=== PATIENT | female | born 1940 | race Caucasian/White ===

== ENCOUNTER 2019-05-10 15:53 | Observation (INO) | payer MEDICARE, OTHER ==
--- NOTE | 2019-05-10 16:48 | XR ---
EXAMINATION TYPE: XR chest 2V DATE OF EXAM: 05/10/2019 COMPARISON: NONE HISTORY: Short of breath TECHNIQUE: 2 views FINDINGS: There is some linear density in the right midlung. The other lung diggs are fairly clear. Heart size is normal. There is no heart failure. There is no pleural effusion. Bony thorax is intact. IMPRESSION: Minimal scarring or subsegmental atelectasis right midlung. Normal heart.
[2019-05-10 17:11] LABS: Basophils # (A) 0.1 k/uL (0-0.2); Basophils % (A) 1 %; Eosinophils # (A) 0.1 k/uL (0-0.7); Eosinophils % (A) 1 %; HCT 50.5 % (34.0-46.0); Lymphocytes # (A) 2.2 k/uL (1.0-4.8); Lymphocytes % (A) 20 %; MCH 32.8 pg (25.0-35.0); MCHC 33.7 g/dL (31.0-37.0); MCV 97.2 fL (80.0-100.0); Mean Platelet Volume 7.7; Monocytes # (A) 0.6 k/uL (0-1.0); Monocytes % (A) 6 %; Neutrophils # (A) 7.6 k/uL (1.3-7.7); Neutrophils % (A) 71 %; Platelet Count 398 k/uL (150-450); RDW 12.5 % (11.5-15.5); WBC 10.8 k/uL (3.8-10.6)
[2019-05-10] MEDS ORDERED: IPRATROPIUM-ALBUTEROL 3 ML NEB INHALATION STA ×2 (17:13→19:07)
[2019-05-10] MEDS ORDERED: methylPREDNISolone SOD SUCCI 125 MG/2 ML VIAL IV STA (17:13)
[2019-05-10 17:21] LABS: INR 0.9 (<1.2); Partial Thromboplastin Time 22.8 sec (22.0-30.0); Prothrombin Time 9.7 sec (9.0-12.0)
[2019-05-10 17:22] LABS: ALT 18 U/L (4-34); AST 25 U/L (14-36); African American GFR (CKD) >90 (>60 ml/min/1.73 sqM); Albumin 4.3 g/dL (3.5-5.0); Alkaline Phosphatase 122 U/L (38-126); Anion Gap 10 mmol/L; Blood Urea Nitrogen 20 mg/dL (7-17); Calcium 10.6 mg/dL (8.4-10.2); Carbon Dioxide 21 mmol/L (22-30); Chloride 108 mmol/L (98-107); Creatine Kinase 40 U/L (30-135); Glucose 182 mg/dL (74-99); Magnesium 1.8 mg/dL (1.6-2.3); Non-African American GFR(CKD) >90 (>60 ml/min/1.73 sqM); Potassium 4.4 mmol/L (3.5-5.1); Sodium 139 mmol/L (137-145); Total Bilirubin 0.7 mg/dL (0.2-1.3); Total Protein 7.1 g/dL (6.3-8.2)
--- NOTE | 2019-05-10 19:15 | ED ---
Pediatric SOB HPI - General Chief Complaint: Shortness of Breath Stated Complaint: SAMANTA Time Seen by Provider: 05/10/19 16:25 Source: patient, family, RN notes reviewed Mode of arrival: ambulatory Limitations: no limitations - History of Present Illness Initial Comments: This is a 70-year-old female who presents with complaints of shortness of breath For some time she states that over last day or so she says is gotten worse she has exertional dyspnea no fevers chills nausea vomiting sweats no chest pain no palpitations reported. She has had some night sweats and when she does cough he is awake alert phlegm no other modifying factors at this time other than she did state that she believes she has some, mass or lump in her right breast. MD Complaint: difficulty breathing - Related Data Home Medications Medication Instructions Recorded Confirmed Budesonide-Formot 160-4.5 Mcg 2 puff INHALATION BID 05/02/14 05/04/14 [Symbicort 160-4.5 Mcg Inhaler] Lisinopril [Prinivil] 20 mg PO DAILY 05/02/14 05/04/14 Metoclopramide [Reglan] 10 mg PO QID 05/02/14 05/04/14 Omeprazole [PriLOSEC] 20 mg PO DAILY 05/02/14 05/04/14 Simvastatin [Zocor] 20 mg PO HS 05/02/14 05/04/14 Allergies Allergy/AdvReac Type Severity Reaction Status Date / Time No Known Allergies Allergy Verified 05/02/14 11:49 Review of Systems ROS Statement: Those systems with pertinent positive or pertinent negative responses have been documented in the HPI. ROS Other: All systems not noted in ROS Statement are negative. Past Medical History Past Medical History: COPD, Eye Disorder, GERD/Reflux, Hyperlipidemia, Hypertension Additional Past Medical History / Comment(s): hx of lt eye macular hole. EMPHYSEMA History of Any Multi-Drug Resistant Organisms: None Reported Past Surgical History: Appendectomy, Back Surgery, Cholecystectomy, Tonsillectomy Additional Past Surgical History / Comment(s): COLONOSCOPY Past Anesthesia/Blood Transfusion Reactions: No Reported Reaction Past Psychological History: No Psychological Hx Reported Smoking Status: Former smoker Past Alcohol Use History: None Reported Past Drug Use History: None Reported - Past Family History Father Family Medical History: Cancer Mother Family Medical History: Cancer Sister(s) Family Medical History: Cancer General Exam - General Exam Comments Initial Comments: Pezzer well-developed awake alert oriented 3 female Limitations: no limitations General appearance: alert, anxious Head exam: Present: atraumatic, normocephalic, normal inspection Eye exam: Present: normal appearance, PERRL, EOMI. Absent: scleral icterus, conjunctival injection, periorbital swelling ENT exam: Present: mucous membranes dry Neck exam: Present: normal inspection, full ROM, other (no stridor JVD or bruits). Absent: tenderness, meningismus, lymphadenopathy Respiratory exam: Present: normal lung sounds bilaterally, other (examination of the right breast reveals an approximately 2.5 x 2.5 cm mass in the right mid and upper outer quadrant it does seem discharges below the area left and tender). Absent: respiratory distress, wheezes, rales, rhonchi, stridor Cardiovascular Exam: Present: normal rhythm, tachycardia, normal heart sounds. Absent: systolic murmur, diastolic murmur, rubs, gallop, clicks GI/Abdominal exam: Present: soft, normal bowel sounds. Absent: distended, tenderness, guarding, rebound, rigid Extremities exam: Present: full ROM, normal capillary refill, other (some stasis changes noted is edema). Absent: tenderness, pedal edema, joint swelling, calf tenderness Back exam: Present: normal inspection Neurological exam: Present: alert, oriented X3, CN II-XII intact Psychiatric exam: Present: normal affect, normal mood Skin exam: Present: warm, dry, intact, normal color. Absent: rash Course Vital Signs 05/10/19 05/10/19 05/10/19 16:04 16:59 17:57 Temperature 97.8 F Pulse Rate 114 H 101 H Respiratory 22 24 Rate Blood Pressure 176/102 O2 Sat by Pulse 97 Oximetry 05/10/19 05/10/19 05/10/19 18:05 18:06 19:36 Temperature Pulse Rate 101 H 105 H 103 H Respiratory 22 Rate Blood Pressure O2 Sat by Pulse 93 L Oximetry 05/10/19 05/10/19 19:45 19:46 Temperature Pulse Rate 104 H 98 Respiratory 22 Rate Blood Pressure 146/90 O2 Sat by Pulse 98 Oximetry - Reevaluation(s) Reevaluation #1: 05/10/19 20:48 I did reevaluate patient several occasions she is getting minimal improvement with her breathing she still remains tachycardic I did discuss case the family members who have requested Dr. Lehman as the admitting physician I did discuss this with Dr. Lehman he has agreed. patient will be started on antibiotics continue with [facility] steroids consultation by Dr. Ramirez. Dr. Lehman will evaluate the concern of the breast mass. Medical Decision Making - Lab Data Result diagrams: 05/10/19 16:50 05/10/19 16:50 Lab Results 05/10/19 05/10/19 05/10/19 Range/Units 16:50 16:50 16:50 WBC 10.8 H (3.8-10.6) k/uL RBC 5.20 (3.80-5.40) m/uL Hgb 17.0 H (11.4-16.0) gm/dL Hct 50.5 H (34.0-46.0) % MCV 97.2 (80.0-100.0) fL MCH 32.8 (25.0-35.0) pg MCHC 33.7 (31.0-37.0) g/dL RDW 12.5 (11.5-15.5) % Plt Count 398 (150-450) k/uL Neutrophils % 71 % Lymphocytes % 20 % Monocytes % 6 % Eosinophils % 1 % Basophils % 1 % Neutrophils # 7.6 (1.3-7.7) k/uL Lymphocytes # 2.2 (1.0-4.8) k/uL Monocytes # 0.6 (0-1.0) k/uL Eosinophils # 0.1 (0-0.7) k/uL Basophils # 0.1 (0-0.2) k/uL PT (9.0-12.0) sec INR (<1.2) APTT (22.0-30.0) sec Sodium 139 (137-145) mmol/L Potassium 4.4 (3.5-5.1) mmol/L Chloride 108 H (98-107) mmol/L Carbon Dioxide 21 L (22-30) mmol/L Anion Gap 10 mmol/L BUN 20 H (7-17) mg/dL Creatinine 0.54 (0.52-1.04) mg/dL Est GFR (CKD-EPI)AfAm >90 (>60 ml/min/1.73 sqM) Est GFR (CKD-EPI)NonAf >90 (>60 ml/min/1.73 sqM) Glucose 182 H (74-99) mg/dL Calcium 10.6 H (8.4-10.2) mg/dL Magnesium 1.8 (1.6-2.3) mg/dL Total Bilirubin 0.7 (0.2-1.3) mg/dL AST 25 (14-36) U/L ALT 18 (4-34) U/L Alkaline Phosphatase 122 (38-126) U/L Creatine Kinase 40 (30-135) U/L Troponin I (0.000-0.034) ng/mL NT-Pro-B Natriuret Pep 120 pg/mL Total Protein 7.1 (6.3-8.2) g/dL Albumin 4.3 (3.5-5.0) g/dL 05/10/19 05/10/19 Range/Units 16:50 16:50 WBC (3.8-10.6) k/uL RBC (3.80-5.40) m/uL Hgb (11.4-16.0) gm/dL Hct (34.0-46.0) % MCV (80.0-100.0) fL MCH (25.0-35.0) pg MCHC (31.0-37.0) g/dL RDW (11.5-15.5) % Plt Count (150-450) k/uL Neutrophils % % Lymphocytes % % Monocytes % % Eosinophils % % Basophils % % Neutrophils # (1.3-7.7) k/uL Lymphocytes # (1.0-4.8) k/uL Monocytes # (0-1.0) k/uL Eosinophils # (0-0.7) k/uL Basophils # (0-0.2) k/uL PT 9.7 (9.0-12.0) sec INR 0.9 (<1.2) APTT 22.8 (22.0-30.0) sec Sodium (137-145) mmol/L Potassium (3.5-5.1) mmol/L Chloride (98-107) mmol/L Carbon Dioxide (22-30) mmol/L Anion Gap mmol/L BUN (7-17) mg/dL Creatinine (0.52-1.04) mg/dL Est GFR (CKD-EPI)AfAm (>60 ml/min/1.73 sqM) Est GFR (CKD-EPI)NonAf (>60 ml/min/1.73 sqM) Glucose (74-99) mg/dL Calcium (8.4-10.2) mg/dL Magnesium (1.6-2.3) mg/dL Total Bilirubin (0.2-1.3) mg/dL AST (14-36) U/L ALT (4-34) U/L Alkaline Phosphatase (38-126) U/L Creatine Kinase (30-135) U/L Troponin I <0.012 (0.000-0.034) ng/mL NT-Pro-B Natriuret Pep pg/mL Total Protein (6.3-8.2) g/dL Albumin (3.5-5.0) g/dL - EKG Data -: EKG Interpreted by Tx EKG shows normal: sinus rhythm (Sinus tachycardia of 104. Interval 168 QRS duration 106 QT since QTC 366/481 puff a left atrial enlargement left anterior fascicular block LVH noted) Disposition Clinical Impression: Acute exacerbation of chronic obstructive pulmonary disease, Acute respiratory distress syndrome in adult, Dehydration, Breast mass, right Disposition: ADMITTED IP TO THIS HOSP Condition: Fair Referrals: Rober Howard MD [Primary Care Provider] - 1-2 days
[2019-05-10] MEDS ORDERED: SODIUM CHLORIDE 0.9% 500 ML 500 ML IV STA (20:24)
[2019-05-10] MEDS ORDERED: SODIUM CHLORIDE 0.9% 1,000 ML IV STA (20:24)
[2019-05-10] MEDS ORDERED: cefTRIAXone IN SWFI 1,000 MG/10 ML SYRINGE IVP STA (20:51)
[2019-05-10] MEDS: SYMBICORT 160-4.5 MCG INHALER INHALATION SCH (22:09)
[2019-05-10] MEDS: methylPREDNISolone SOD SUCCI 125 MG/2 ML VIAL IV SCH (23:31)
[2019-05-10] MEDS: ZOLPIDEM 5 MG TAB PO SCH (23:32)
[2019-05-10] MEDS: ATORVASTATIN 10 MG TAB PO SCH (23:32)
[2019-05-10] MEDS: METOCLOPRAMIDE 10 MG TAB PO SCH (23:45)
[2019-05-11] MEDS: IPRATROPIUM-ALBUTEROL 3 ML NEB INHALATION SCH ×7 (01:21→23:59)
[2019-05-11] MEDS: methylPREDNISolone SOD SUCCI 125 MG/2 ML VIAL IV SCH ×2 (06:04→12:21)
[2019-05-11 06:46] LABS: Glucose,Whole Blood 206 mg/dL (75-99)
[2019-05-11] MEDS: SYMBICORT 160-4.5 MCG INHALER INHALATION SCH ×2 (07:04→21:00)
[2019-05-11] MEDS: METOCLOPRAMIDE 10 MG TAB PO SCH ×4 (09:04→22:00)
[2019-05-11] MEDS: AZITHROMYCIN 500 MG TAB PO SCH (09:04)
[2019-05-11] MEDS: PANTOPRAZOLE 40 MG TABLET PO SCH (09:04)
[2019-05-11] MEDS: LISINOPRIL 20 MG TAB PO SCH (09:04)
[2019-05-11 11:44] LABS: Glucose,Whole Blood 236 mg/dL (75-99)
[2019-05-11] MEDS: INSULIN ASPART (NovoLOG) 100 UNIT/ML VIAL SQ SCH ×3 (12:22→22:01)
--- NOTE | 2019-05-11 13:23 | P.CNPUL ---
History of Present Illness Consult date: 05/11/19 Reason for consult: COPD History of present illness: 88-year-old female patient, [id number] smoking history, having chronic exertional dyspnea, presented with worsening cough chest congestion and worsening shortness of breath. She came into the hospital and a chest x-ray showed no acute abnormalities and was consistent with chronic bronchitis/COPD. She was diagnosed having an acute COPD exacerbation and she was admitted to the observation unit. She is feeling better. No angina. No palpitation. No hemoptysis. No pleurisy. No swelling in the lower extremities.. She was started on Advair on outpatient basis and she has been utilizing Ventolin rescue inhaler on an as-needed basis. No recurrent bronchitis. No recurrent pneumo nias. No fecal exacerbation of her COPD. She was smoking cigarettes up to around a month ago when she quit. She is already feeling better as the patient was given a combination of bronchodilators and steroids. Currently on room air, she is able to maintain a pulse ox above 90%he had BNP is not elevated. Troponin is negative. On examination she has a problem and the large right breast mass that needs to be further investigated due to high suspicion of breast cancer based on examination. She has not had any recent mammograms. Review of Systems Constitutional: Reports weakness Eyes: bilateral blurred vision, bilateral decreased vision, denies bulging eye Ears: deny: decreased hearing, ear discharge, earache, tinnitus Ears, nose, mouth and throat: Denies headache, Denies sore throat Breasts: right: change in shape, masses Cardiovascular: Reports decreased exercise tolerance, Reports dyspnea on exertion, Reports shortness of breath Respiratory: Reports cough, Reports dyspnea, Reports wheezing Gastrointestinal: Reports as per HPI Genitourinary: Reports as per HPI Menstruation: Reports as per HPI Musculoskeletal: absent: ankle pain, ankle stiffness, ankle swelling Psychiatric: Reports as per HPI Endocrine: Reports as per HPI Hematologic/Lymphatic: Reports as per HPI Allergic/Immunologic: Reports as per HPI Past Medical History Past Medical History: COPD, Eye Disorder, GERD/Reflux, Hyperlipidemia, Hypertension Additional Past Medical History / Comment(s): COPD, hx of lt eye macular hole. History of Any Multi-Drug Resistant Organisms: None Reported Past Surgical History: Appendectomy, Back Surgery, Cholecystectomy, Tonsillectomy Additional Past Surgical History / Comment(s): COLONOSCOPY Past Anesthesia/Blood Transfusion Reactions: No Reported Reaction Smoking Status: Former smoker (1 PPD for 60 years and she quit 1 month) - Past Family History Father Family Medical History: Cancer (father had colon cancer and mother and sister had lung cancer) Mother Family Medical History: Cancer Sister(s) Family Medical History: Cancer Medications and Allergies Home Medications Medication Instructions Recorded Confirmed Type Lisinopril [Prinivil] 20 mg PO DAILY 05/02/14 05/10/19 History Metoclopramide [Reglan] 10 mg PO QID 05/02/14 05/10/19 History Albuterol Inhaler [Ventolin Hfa 1 - 2 puff INHALATION RT-Q6H PRN 05/10/19 05/10/19 History Inhaler] Atorvastatin [Lipitor] 20 mg PO HS 05/10/19 05/10/19 History Fluticasone/Salmeterol [Advair 1 puff INHALATION RT-BID 05/10/19 05/10/19 History 250-50 Diskus] metFORMIN HCL [Glucophage] 500 mg PO BID 05/10/19 05/10/19 History Allergies Allergy/AdvReac Type Severity Reaction Status Date / Time No Known Allergies Allergy Verified 05/10/19 22:44 Physical Exam Vitals: Vital Signs Temp Pulse Pulse Resp BP BP Pulse Ox 05/11/19 11:55 104 H 05/11/19 11:44 100 05/11/19 07:17 100 05/11/19 07:05 97.6 F 101 H 18 180/92 93 L 05/11/19 07:04 94 05/11/19 01:30 102 H 05/11/19 01:22 102 H 05/10/19 22:56 98.3 F 102 H 18 131/76 95 05/10/19 21:50 97.9 F 110 H 22 125/82 95 05/10/19 21:00 114 H 22 94 L 05/10/19 19:46 98 05/10/19 19:45 104 H 22 146/90 98 05/10/19 19:36 103 H 05/10/19 18:06 105 H 22 93 L 05/10/19 18:05 101 H 05/10/19 17:57 101 H 05/10/19 16:59 24 05/10/19 16:04 97.8 F 114 H 22 176/102 97 Intake and Output 05/10/19 05/11/19 05/11/19 22:59 06:59 14:59 Intake Total 500 360 Balance 500 360 Intake: Amount of Fluid Infused ( 500 ml) Oral 360 Other: Voiding Method Toilet Toilet # Voids 1 1 Weight 74.162 kg The patient appeared well nourished and normally developed. Vital signs as documented. Head exam is unremarkable. No scleral icterus or corneal arcus noted. Neck is without jugular venous distension, thyromegaly, or carotid bruits. Carotid upstrokes are brisk bilaterally. Lungs are diminished and there is improvement in the air entry bilaterally with few scattered expiratory wheezes upon forceful expiratory maneuvers. The patient also has a large firm mass in the right breast in the center around the nipple area which is quite firm and this seem to be further investigated.Cardiac exam reveals the PMI to be normally sized and situated. Rhythm is regular. First and second heart sounds normal. No murmurs, rubs or gallops. Abdominal exam reveals normal bowel sounds, no masses, no organomegaly and no aortic enlargement. Extremities are nonedematous and both femoral and pedal pulses are normal. Results - Laboratory Findings CBC and BMP: 05/10/19 16:50 05/10/19 16:50 PT/INR, D-dimer PT 9.7 sec (9.0-12.0) 05/10/19 16:50 INR 0.9 (<1.2) 05/10/19 16:50 Abnormal lab findings: Abnormal Labs 05/10/19 05/10/19 05/11/19 16:50 16:50 06:44 WBC 10.8 H Hgb 17.0 H Hct 50.5 H Chloride 108 H Carbon Dioxide 21 L BUN 20 H Glucose 182 H POC Glucose (mg/dL) 206 H Calcium 10.6 H 05/11/19 11:41 WBC Hgb Hct Chloride Carbon Dioxide BUN Glucose POC Glucose (mg/dL) 236 H Calcium - Diagnostic Findings Chest x-ray: image reviewed Assessment and Plan Plan: 1 2 COPD exacerbation/acute bronchitis, improving. 2 shortness of breath, secondary to above, improving 3 Chronic smoker quit approximately a month ago and the patient has 60+-pack-year smoking history 4 breast mass currently under investigation, consider breast cancer 5 diabetes mellitus 6 hypertension Plan Switch this patient a prednisone burst taper. Continue Advair and outpatient basis with the possibility of switching this patient to a long-acting anticholinergic agent. Continue Ventolin rescue inhaler. Assess for home O2 needs. Smoking cessation counseling was done. Dr. Joycelyn Cain regarding the Breast Mass. We'll Continue to Follow and She Will Need an Outpatient Follow- Up regarding her COPD including a full pulmonary function test. Chest x-ray was reviewed. We'll continue to follow.
[2019-05-11] MEDS: predniSONE 20 MG TAB PO SCH (15:49)
[2019-05-11 16:42] LABS: Glucose,Whole Blood 198 mg/dL (75-99)
--- NOTE | 2019-05-11 17:03 | P.GSHP ---
History of Present Illness H&P Date: 05/11/19 Chief Complaint: mass right breast patient is a 78-year-old white female seen in consultation for Dr. Lehman regarding a right breast mass. The patient states that she has had the mass for several months and noticed that her nipple was becoming affected. The patient presented to the emergency room secondary to shortness of breath on related to the breast mass but wished the area to be evaluated when she was here. She has not had a mammogram for at least 5 years. Family history: Maternal grandmother: Questionable breast cancer Niece: Breast cancer Father: Colon cancer Mother: Lung cancer Sister: Lymphoma which spread to her lungs Hormonal history: Menarche: 13 , breast-fed negative First live at 22 Minute the process: Surgical at 34 Preoperative control pills: 2 years Hormones: His estrogen shots for about 2 years Past surgical history: cholecystectomy Tonsillectomy Appendectomy Back surgery Past medical history: Diabetes Hypertension COPD Breast Mass. Skin changes lower legs/scales follows with dermatology Social history: Smoke: Stopped 1 month ago used to smoke 1 pack per day for 40 years Alcohol: Negative Drugs: Negative Review of systems: Constitutional: Night sweats HEENT: Macular hole Lungs: COPD Heart: Hypertension GI: Negative : Bladder leakage Musculoskeletal: Arthritis Neurologic: Decreased strength in lower extremities Integument: Skin scales Psychiatric: Depression Hematologic: Negative ALLERGIES: Sinus infections - Constitutional Constitutional: Denies chills, Denies fever - EENT Comment: macular hole - Breasts Comment: right breast mass Breasts: bilateral: as per HPI - Cardiovascular Cardiovascular: Reports high blood pressure, Denies chest pain, Denies shortness of breath - Respiratory Comment: COPD - Gastrointestinal Gastrointestinal: Denies abdominal pain, Denies diarrhea, Denies nausea, Denies vomiting - Genitourinary (Female) Comment: BLADDER LEAKAGE - Menstruation Menstruation: Reports postmenopausal - Musculoskeletal Comment: arthritis - Integumentary Comment: scaling skin changes lower extremities - Neurological Neurological: Reports weakness - Psychiatric Psychiatric: Reports depression - Endocrine Endocrine: Reports as per HPI - Hematologic/Lymphatic Hematologic/Lymphatic: Reports as per HPI - Allergic/Immunologic Allergic/Immunologic: Reports as per HPI Past Medical History Past Medical History: COPD, Eye Disorder, GERD/Reflux, Hyperlipidemia, Hypertension Additional Past Medical History / Comment(s): COPD, hx of lt eye macular hole. History of Any Multi-Drug Resistant Organisms: None Reported Past Surgical History: Appendectomy, Back Surgery, Cholecystectomy, Tonsillectomy Additional Past Surgical History / Comment(s): COLONOSCOPY Past Anesthesia/Blood Transfusion Reactions: No Reported Reaction Smoking Status: Former smoker (1 PPD for 60 years and she quit 1 month) - Past Family History Father Family Medical History: Cancer (father had colon cancer and mother and sister had lung cancer) Mother Family Medical History: Cancer Sister(s) Family Medical History: Cancer Medications and Allergies Home Medications Medication Instructions Recorded Confirmed Type Lisinopril [Prinivil] 20 mg PO DAILY 05/02/14 05/10/19 History Metoclopramide [Reglan] 10 mg PO QID 05/02/14 05/10/19 History Albuterol Inhaler [Ventolin Hfa 1 - 2 puff INHALATION RT-Q6H PRN 05/10/19 05/10/19 History Inhaler] Atorvastatin [Lipitor] 20 mg PO HS 05/10/19 05/10/19 History Fluticasone/Salmeterol [Advair 1 puff INHALATION RT-BID 05/10/19 05/10/19 History 250-50 Diskus] metFORMIN HCL [Glucophage] 500 mg PO BID 05/10/19 05/10/19 History Allergies Allergy/AdvReac Type Severity Reaction Status Date / Time No Known Allergies Allergy Verified 05/10/19 22:44 Surgical - Exam Vital Signs Temp Pulse Resp BP Pulse Ox 97.8 F 114 H 22 176/102 97 05/10/19 16:04 05/10/19 16:04 05/10/19 16:04 05/10/19 16:04 05/10/19 16:04 BMI 26.4 - General no distress - Eyes normal ocular movement - ENT normal pinna, normal nares - Neck trachea midline, no lymphadectomy, no venous distension - Respiratory normal expansion, normal respiratory effort, clear to auscultation - Cardiovascular Rhythm: regular Heart Sounds: normal: S1, S2 - Abdomen Abdomen: soft, non tender, bowel sounds, no guarding, no rigid, no rebound - Integumentary skin scales lower extremities - Neurologic no disoriented, no combative - Musculoskeletal normal gait - Psychiatric oriented to time, oriented to person, oriented to place, speech is normal, memory intact breast examination Right breast: Multi-positional exam large mass behind the nipple areolar complex approximately 10 x 12 cm in size with protuberance at the nipple areolar site The right axilla: No adenopathy of concern left breast: Multi-positional exam fibrocystic changes dense tissue no discrete dominant mass Left axilla: No adenopathy of concern Results - Labs 05/10/19 16:50 05/10/19 16:50 Abnormal Lab Results - Last 24 Hours (Table) 05/10/19 05/10/19 05/11/19 Range/Units 16:50 16:50 06:44 WBC 10.8 H (3.8-10.6) k/uL Hgb 17.0 H (11.4-16.0) gm/dL Hct 50.5 H (34.0-46.0) % Chloride 108 H (98-107) mmol/L Carbon Dioxide 21 L (22-30) mmol/L BUN 20 H (7-17) mg/dL Glucose 182 H (74-99) mg/dL POC Glucose (mg/dL) 206 H (75-99) mg/dL Calcium 10.6 H (8.4-10.2) mg/dL 05/11/19 05/11/19 Range/Units 11:41 16:37 WBC (3.8-10.6) k/uL Hgb (11.4-16.0) gm/dL Hct (34.0-46.0) % Chloride (98-107) mmol/L Carbon Dioxide (22-30) mmol/L BUN (7-17) mg/dL Glucose (74-99) mg/dL POC Glucose (mg/dL) 236 H 198 H (75-99) mg/dL Calcium (8.4-10.2) mg/dL Diabetes panel 05/10/19 Range/Units 16:50 Sodium 139 (137-145) mmol/L Potassium 4.4 (3.5-5.1) mmol/L Chloride 108 H (98-107) mmol/L Carbon Dioxide 21 L (22-30) mmol/L BUN 20 H (7-17) mg/dL Creatinine 0.54 (0.52-1.04) mg/dL Glucose 182 H (74-99) mg/dL Calcium 10.6 H (8.4-10.2) mg/dL AST 25 (14-36) U/L ALT 18 (4-34) U/L Alkaline Phosphatase 122 (38-126) U/L Total Protein 7.1 (6.3-8.2) g/dL Albumin 4.3 (3.5-5.0) g/dL Calcium panel 05/10/19 Range/Units 16:50 Calcium 10.6 H (8.4-10.2) mg/dL Albumin 4.3 (3.5-5.0) g/dL Pituitary panel 05/10/19 Range/Units 16:50 Sodium 139 (137-145) mmol/L Potassium 4.4 (3.5-5.1) mmol/L Chloride 108 H (98-107) mmol/L Carbon Dioxide 21 L (22-30) mmol/L BUN 20 H (7-17) mg/dL Creatinine 0.54 (0.52-1.04) mg/dL Glucose 182 H (74-99) mg/dL Calcium 10.6 H (8.4-10.2) mg/dL Adrenal panel 05/10/19 Range/Units 16:50 Sodium 139 (137-145) mmol/L Potassium 4.4 (3.5-5.1) mmol/L Chloride 108 H (98-107) mmol/L Carbon Dioxide 21 L (22-30) mmol/L BUN 20 H (7-17) mg/dL Creatinine 0.54 (0.52-1.04) mg/dL Glucose 182 H (74-99) mg/dL Calcium 10.6 H (8.4-10.2) mg/dL Total Bilirubin 0.7 (0.2-1.3) mg/dL AST 25 (14-36) U/L ALT 18 (4-34) U/L Alkaline Phosphatase 122 (38-126) U/L Total Protein 7.1 (6.3-8.2) g/dL Albumin 4.3 (3.5-5.0) g/dL Assessment and Plan Assessment: impression: 1. Large mass right breast highly suspicious for malignancy 2. Fibrocystic breast changes 3. Family history of cancer 4. Exacerbation of COPD 5. Diabetes 6. Hypertension 7. Skin changes with scaling in her lower legs felt with dermatology Plan: 1. Bilateral mammogram; prescription given to the patient 2. Ultrasound core biopsy lesion in the right breast; prescription given to the patient 3. Follow-up here after biopsy results Cc: Dr. Malik Lehman Encounter: Approximately 25 minutes, greater than 50% of time spent in counseling and planning
[2019-05-11 21:06] LABS: Glucose,Whole Blood 210 mg/dL (75-99)
[2019-05-11] MEDS: ATORVASTATIN 10 MG TAB PO SCH (22:00)
[2019-05-11] MEDS: ZOLPIDEM 5 MG TAB PO SCH (22:01)
[2019-05-12] MEDS: IPRATROPIUM-ALBUTEROL 3 ML NEB INHALATION SCH ×3 (03:46→11:32)
[2019-05-12 06:35] LABS: Glucose,Whole Blood 163 mg/dL (75-99)
[2019-05-12] MEDS: SYMBICORT 160-4.5 MCG INHALER INHALATION SCH (07:24)
[2019-05-12 07:41] VITALS: BP 167/82; PULSE 88; RESP 18; TEMP 97.5
[2019-05-12] MEDS: LISINOPRIL 20 MG TAB PO SCH (08:24)
[2019-05-12] MEDS: predniSONE 20 MG TAB PO SCH (08:24)
[2019-05-12] MEDS: AZITHROMYCIN 500 MG TAB PO SCH (08:24)
[2019-05-12] MEDS: PANTOPRAZOLE 40 MG TABLET PO SCH (08:24)
[2019-05-12] MEDS: METOCLOPRAMIDE 10 MG TAB PO SCH ×2 (08:25→13:35)
[2019-05-12] MEDS: INSULIN ASPART (NovoLOG) 100 UNIT/ML VIAL SQ SCH ×2 (08:26→13:35)
[2019-05-12 11:41] LABS: Glucose,Whole Blood 157 mg/dL (75-99)
--- NOTE | 2019-05-12 13:52 | P.HPIM ---
History of Present Illness H&P Date: 05/11/19 This is a 78-year-old female with history of COPD, gastroesophageal reflux disease, hyperlipidemia, hypertension with left eye macular disorder, former nicotine dependence presented to the ER with complaints of worsening shortness of breath, aggravated by exertion for greater than 24 hours, accompanied by diaphoresis, productive cough-clear sputum. [id number] smoking history .Recently quit smoking 1 month ago Denies hemoptysis. Denies fever, chills, nausea, vomiting, diarrhea. Denies abdominal pain. Denies chest pain, palpitations. Denies lightheadedness, dizziness or focal deficits. Patient also presents with a large right breast mass behind the nipple, extending to the right outer mid quadrant, which has not been worked up outpatient. Reports normal mammogram in over 5 years. Tachycardic, received nebulized breathing treatments, IV antibiotics, IV steroids. EKG reporting sinus tachycardia, possible left atrial enlargement, left anterior fascicular block, left ventricular hypertrophy. Troponin negative 1. Maintaining O2 sats in the high 90s on room air, tachypneic. Placed on 2 L nasal cannula. Review of Systems ROS Statement: Those systems with pertinent positive or pertinent negative responses have been documented in the HPI. ROS Other: All systems not noted in ROS Statement are negative. Past Medical History Past Medical History: COPD, Eye Disorder, GERD/Reflux, Hyperlipidemia, Hypertension Additional Past Medical History / Comment(s): hx of lt eye macular hole. EMPHYSEMA History of Any Multi-Drug Resistant Organisms: None Reported Past Surgical History: Appendectomy, Back Surgery, Cholecystectomy, Tonsillectomy Additional Past Surgical History / Comment(s): COLONOSCOPY Past Anesthesia/Blood Transfusion Reactions: No Reported Reaction Smoking Status: Former smoker - Past Family History Father Family Medical History: Cancer Mother Family Medical History: Cancer Sister(s) Family Medical History: Cancer Medications and Allergies Home Medications Medication Instructions Recorded Confirmed Type Lisinopril [Prinivil] 20 mg PO DAILY 05/02/14 05/10/19 History Metoclopramide [Reglan] 10 mg PO QID 05/02/14 05/10/19 History Albuterol Inhaler [Ventolin Hfa 1 - 2 puff INHALATION RT-Q6H PRN 05/10/19 05/10/19 History Inhaler] Atorvastatin [Lipitor] 20 mg PO HS 05/10/19 05/10/19 History Fluticasone/Salmeterol [Advair 1 puff INHALATION RT-BID 05/10/19 05/10/19 History 250-50 Diskus] metFORMIN HCL [Glucophage] 500 mg PO BID 05/10/19 05/10/19 History Cefuroxime Axetil [Ceftin] 500 mg PO BID #10 tab 05/12/19 Rx predniSONE 10 mg PO DIRECTED #30 tab 05/12/19 Rx Allergies Allergy/AdvReac Type Severity Reaction Status Date / Time No Known Allergies Allergy Verified 05/10/19 22:44 Physical Exam Vitals: Vital Signs Temp Pulse Pulse Resp BP BP Pulse Ox 05/11/19 07:17 100 05/11/19 07:05 97.6 F 101 H 18 180/92 93 L 05/11/19 07:04 94 05/11/19 01:30 102 H 05/11/19 01:22 102 H 05/10/19 22:56 98.3 F 102 H 18 131/76 95 05/10/19 21:50 97.9 F 110 H 22 125/82 95 05/10/19 21:00 114 H 22 94 L 05/10/19 19:46 98 05/10/19 19:45 104 H 22 146/90 98 05/10/19 19:36 103 H 05/10/19 18:06 105 H 22 93 L 05/10/19 18:05 101 H 05/10/19 17:57 101 H 05/10/19 16:59 24 05/10/19 16:04 97.8 F 114 H 22 176/102 97 Intake and Output 05/10/19 05/11/19 05/11/19 22:59 06:59 14:59 Intake Total 500 Balance 500 Intake: Amount of Fluid Infused ( 500 ml) Other: Voiding Method Toilet # Voids 1 1 Weight 74.162 kg PHYSICAL EXAM: VITAL SIGNS: [as above] GENERAL: sitting up in bed, no acute distress HEENT: Conjunctivae normal. eyes normal. NECK: No JVD. No thyroid enlargement. No LNs CARDIOVASCULAR: S1, S2 regular.. No murmur RESPIRATION: Breath sounds diminished in the bases. No rhonchi or crackles. No bronchial breathing. Occasional expiratory wheeze. ABDOMEN: Soft, nontender . No guarding. no masses palpable. No ascites, No hepatosplenomegaly.Bowel sounds heard. LEGS: No edema. no swelling PSYCHIATRY: Alert and oriented X3, mood and affect normal. NERVOUS SYSTEM: Cranial N 2-12 grossly normal. Moves all 4 limbs. No focal deficits. Strength and sensation grossly intact.. Skin: no rash Results CBC & Chem 7: 05/10/19 16:50 05/10/19 16:50 Labs: Abnormal Lab Results - Last 24 Hours (Table) 05/10/19 05/10/19 05/11/19 Range/Units 16:50 16:50 06:44 WBC 10.8 H (3.8-10.6) k/uL Hgb 17.0 H (11.4-16.0) gm/dL Hct 50.5 H (34.0-46.0) % Chloride 108 H (98-107) mmol/L Carbon Dioxide 21 L (22-30) mmol/L BUN 20 H (7-17) mg/dL Glucose 182 H (74-99) mg/dL POC Glucose (mg/dL) 206 H (75-99) mg/dL Calcium 10.6 H (8.4-10.2) mg/dL Thrombosis Risk Factor Assmnt - Choose All That Apply Each Risk Factor Represents 3 Points: Age 75 years or older Thrombosis Risk Factor Assessment Total Risk Factor Score: 3 Thrombosis Risk Factor Assessment Level: Moderate Risk Assessment and Plan Assessment: Acute COPD exacerbation, acute bronchitis Acute hypoxic respiratory failure secondary to the above Extensive smoking history, [id number], recently quit Right breast mass, suspect malignancy, surgery consulted Hypertension Diabetes mellitus Plan: Continue on current medication regime ,monitoring and symptomatic treatment. Maintain anyways bronchodilators, steroids. Surgery consulted for evaluation of right breast mass, to facilitate outpatient workup. Discharge planning in progress for a.m. pending continued improvement. The impression and plan of care has been dictated as directed. : I performed a history and examination of this patient, discussed the same with the dictator. I agree with the dictator's note ,documented as a scribe. Any additional findings or plans will be noted.
--- NOTE | 2019-05-12 14:30 | P.DS ---
Providers Date of admission: 05/10/19 20:52 Expected date of discharge: 05/12/19 Attending physician: Malik Lehman Consults: 05/10/19 20:49 Consult Physician Routine Consulting Provider: Erik Ramirez Consult Reason/Comments: COPD exacerbation Do you want consulting provider notified?: Yes 05/11/19 13:04 Consult Physician Stat Consulting Provider: Mary Mejia Consult Reason/Comments: enlarged right breast Do you want consulting provider notified?: Yes Primary care physician: Rober Howard Hospital Course: Final diagnoses:Acute COPD exacerbation, acute bronchitis Acute hypoxic respiratory failure secondary to the above Extensive smoking history, [id number], recently quit Right breast mass, suspect malignancy, further outpatient workup with surgery recommended, Rxs given. Hypertension Diabetes mellitus Hospital course:This is a 78-year-old female with history of COPD, gastroesophageal reflux disease, hyperlipidemia, hypertension with left eye macular disorder, former nicotine dependence presented to the ER with complaints of worsening shortness of breath, aggravated by exertion for greater than 24 hours, accompanied by diaphoresis, productive cough-clear sputum. [id number] smoking history .Recently quit smoking 1 month ago Denies hemoptysis. Denies fever, chills, nausea, vomiting, diarrhea. Denies abdominal pain. Denies chest pain, palpitations. Denies lightheadedness, dizziness or focal deficits. Patient also presents with a large right breast mass behind the nipple, extending to the right outer mid quadrant, which has not been worked up outpatient. Reports normal mammogram in over 5 years. Tachycardic, received nebulized breathing treatments, IV antibiotics, IV steroids. EKG reporting sinus tachycardia, possible left atrial enlargement, left anterior fascicular block, left ventricular hypertrophy. Troponin negative 1. Maintaining O2 sats in the high 90s on room air, tachypneic. Placed on 2 L nasal cannula. Significant clinical improvement. Evaluated by surgery with prescriptions given for diagnostic ultrasound guided breast biopsy, mammogram. Cleared by all consults for discharge. Patient is being discharged home in a stable condition with guarded prognosis. EXAM: VITAL SIGNS: Alert and oriented 3, no acute distress CARDIOVASCULAR: S1, S2 regular. No murmur RESPIRATION: Breath sounds diminished in the bases. No rhonchi or crackles. No wheezing ABDOMEN: Soft, nontender . No guarding. no masses palpable.Bowel sounds heard. NERVOUS SYSTEM: No focal deficits. The impression and plan of care has been dictated as directed. : I performed a history and examination of this patient, discussed the same with the dictator. I agree with the dictator's note ,documented as a scribe. Any additional findings or plans will be noted. Patient Condition at Discharge: Stable Plan - Discharge Summary New Discharge Prescriptions: New predniSONE 10 mg PO DIRECTED #30 tab Cefuroxime Axetil [Ceftin] 500 mg PO BID #10 tab Continue Metoclopramide [Reglan] 10 mg PO QID Lisinopril [Prinivil] 20 mg PO DAILY metFORMIN HCL [Glucophage] 500 mg PO BID Atorvastatin [Lipitor] 20 mg PO HS Albuterol Inhaler [Ventolin Hfa Inhaler] 1 - 2 puff INHALATION RT-Q6H PRN PRN Reason: Shortness Of Breath Fluticasone/Salmeterol [Advair 250-50 Diskus] 1 puff INHALATION RT-BID Discharge Medication List Lisinopril [Prinivil] 20 mg PO DAILY 05/02/14 [History] Metoclopramide [Reglan] 10 mg PO QID 05/02/14 [History] Albuterol Inhaler [Ventolin Hfa Inhaler] 1 - 2 puff INHALATION RT-Q6H PRN 05/10/19 [History] Atorvastatin [Lipitor] 20 mg PO HS 05/10/19 [History] Fluticasone/Salmeterol [Advair 250-50 Diskus] 1 puff INHALATION RT-BID 05/10/19 [History] metFORMIN HCL [Glucophage] 500 mg PO BID 05/10/19 [History] Cefuroxime Axetil [Ceftin] 500 mg PO BID #10 tab 05/12/19 [Rx] predniSONE 10 mg PO DIRECTED #30 tab 05/12/19 [Rx] Follow up Appointment(s)/Referral(s): Malik Lehman Jr, DO [Doctor of Osteopathic Medicine] - 1 Week Mary Mejia MD [STAFF PHYSICIAN] - 05/23/19 10:40 am (Follow up with Dr. Mejia as scheduled for you. Go to [facility] for appointment) Erik Ramirez MD [STAFF PHYSICIAN] - 2 Weeks Activity/Diet/Wound Care/Special Instructions: O2 sat On RA after ambulation: pending pulmonary clearance. Follow up on May 15, 2019 at 1:00pm for mammogram and right breast ultrasound at [facility] Bring your prescriptions for your tests with you to your appointment (already given to patient) Follow up with Dr. Mejia for a follow up as scheduled on 05/23 at 10:40am at [facility] to review test results Go to [facility] at discharge to confirm appointments and answer questions needed for tests to be performed No smoking
--- NOTE | 2019-05-12 14:59 | P.PN ---
Subjective Progress Note Date: 05/12/19 78-year-old female patient, [id number] smoking history, having chronic exert ional dyspnea, presented with worsening cough chest congestion and worsening shortness of breath. She came into the hospital and a chest x-ray showed no acute abnormalities and was consistent with chronic bronchitis/COPD. She was diagnosed having an acute COPD exacerbation and she was admitted to the observation unit. She is feeling better. No angina. No palpitation. No hemoptysis. No pleurisy. No swelling in the lower extremities.. She was started on Advair on outpatient basis and she has been utilizing Ventolin rescue inhaler on an as-needed basis. No recurrent bronchitis. No recurrent pneumonias. No fecal exacerbation of her COPD. She was smoking cigarettes up to around a month ago when she quit. She is already feeling better as the patient was given a combination of bronchodilators and steroids. Currently on room air, she is able to maintain a pulse ox above 90%he had BNP is not elevated. Troponin is negative. On examination she has a problem and the large right breast mass that needs to be further investigated due to high suspicion of breast cancer based on examination. She has not had any recent mammograms. on today's evaluation of 05/12/2019 the patient is feeling better. She is less short of breath. No significant bronchospasm wheezing and a cough and congestion is improved considerably. She is being discharged home on a prednisone burst taper and she has Advair as maintenance and she'll be seeing me in the office on outpatient basis. She has not smoked for almost a month and she is committed for smoking cessation. She has also been seen by Dr. Joycelyn Cain and the patient is going to have a biopsy of the breast mass early next week. Objective - Vital Signs Vital signs: Vital Signs Temp 97.5 F L 05/12/19 07:05 Pulse 96 05/12/19 07:35 Resp 18 05/12/19 07:05 BP 167/82 05/12/19 07:05 Pulse Ox 98 05/12/19 07:26 Intake & Output 05/11/19 05/12/19 05/12/19 18:59 06:59 18:59 Intake Total 560 224 Balance 560 224 Intake: Oral 360 224 Other 200 Other: Voiding Method Toilet Toilet Toilet # Voids 2 - Exam The patient appeared well nourished and normally developed. Vital signs as documented. Head exam is unremarkable. No scleral icterus or corneal arcus noted. Neck is without jugular venous distension, thyromegaly, or carotid bruits. Carotid upstrokes are brisk bilaterally. Lungs are diminished and there is improvement in the air entry bilaterally with few scattered expiratory wheezes upon forceful expiratory maneuvers. The patient also has a large firm mass in the right breast in the center around the nipple area which is quite firm and this seem to be further investigated.Cardiac exam reveals the PMI to be normally sized and situated. Rhythm is regular. First and second heart sounds normal. No murmurs, rubs or gallops. Abdominal exam reveals normal bowel sounds, no masses, no organomegaly and no aortic enlargement. Extremities are nonedematous and both femoral and pedal pulses are normal. - Labs CBC & Chem 7: 05/10/19 16:50 05/10/19 16:50 Labs: Abnormal Lab Results - Last 24 Hours (Table) 05/11/19 05/11/19 05/12/19 Range/Units 16:37 21:05 06:33 POC Glucose (mg/dL) 198 H 210 H 163 H (75-99) mg/dL 05/12/19 Range/Units 11:39 POC Glucose (mg/dL) 157 H (75-99) mg/dL Assessment and Plan Plan: 1 2 COPD exacerbation/acute bronchitis, improving. 2 shortness of breath, secondary to above, improving 3 Chronic smoker quit approximately a month ago and the patient has 60+-pack-year smoking history 4 breast mass currently under investigation, consider breast cancer 5 diabetes mellitus 6 hypertension Plan discharge this patient home on Advair and a prednisone burst taper in addition to bronchodilators. Smoking cessation counseling. Outpatient PFT. Outpatient workup regarding the breast mass. Clear for discharge from the pulmonary standpoint.
== END 2019-05-12 15:38 | disposition home or self-care (01) ==
LOC: EC 15:53 → 1SOBS 20:52
PROVIDERS: ADMIT Family Medicine; ATTEND Family Medicine
DX: J43.9 Emphysema, unspecified (principal); J96.01 Acute respiratory failure with hypoxia; E11.9 Type 2 diabetes mellitus without complications; J20.9 Acute bronchitis, unspecified; E78.5 Hyperlipidemia, unspecified; E86.0 Dehydration; I10 Essential (primary) hypertension; N60.19 Diffuse cystic mastopathy of unspecified breast; N63.10 Unspecified lump in the right breast, unspecified quadrant; Z79.51 Long term (current) use of inhaled steroids; Z79.84 Long term (current) use of oral hypoglycemic drugs; Z79.899 Other long term (current) drug therapy; Z80.0 Family history of malignant neoplasm of digestive organs; Z80.1 Family history of malignant neoplasm of trachea, bronchus and lung; Z80.7 Family history of other malignant neoplasms of lymphoid, hematopoietic and related tissues; Z87.891 Personal history of nicotine dependence; Z90.49 Acquired absence of other specified parts of digestive tract; Z71.6 Tobacco abuse counseling; R00.0 Tachycardia, unspecified
CPT/HCPCS: 96365; 96376 ×3; 96375; 99285; 36415; 94640 ×6; 94760; 93005; 83880; 80053; 82550; 83735; 84484; 85025; 85610; 85730; 71046; G0378 ×2; J2930 ×2; J0696 ×2; J7512 ×2

== ENCOUNTER 2019-05-13 12:58 | Emergency (ER) | payer MEDICARE, OTHER ==
[2019-05-13 13:29] LABS: Glucose,Whole Blood 223 mg/dL (75-99)
[2019-05-13] MEDS ORDERED: IPRATROPIUM-ALBUTEROL 3 ML NEB INHALATION STA (13:35)
--- NOTE | 2019-05-13 13:38 | ED ---
General Adult HPI - General Chief complaint: Shortness of Breath Stated complaint: Diff Breathing Time Seen by Provider: 05/13/19 13:13 Source: patient, RN notes reviewed Mode of arrival: wheelchair Limitations: no limitations - History of Present Illness Initial comments: Patient is a pleasant 78-year-old female presenting to emergency Department with shortness of breath. Patient was in the hospital and discharged yesterday. Patient was told her lungs sound good at that time. Patient did fine through the night and didn't go to bed until 1 AM.Please use medication as discussed. Please follow-up with family doctor in the next 2 days of symptoms have not improved. Please return to emergency room if the symptoms increase or worsen or for any other concerns. Did have some shortness of breath when she woke this morning. When family returned they found patient on the couch appearing short of breath. Patient states she is breathing much better at this time, near normal. Patient questions if she may have had an anxiety attack. No leg pain or leg swelling. No chest pain. - Related Data Home Medications Medication Instructions Recorded Confirmed Lisinopril [Prinivil] 20 mg PO DAILY 05/02/14 05/10/19 Metoclopramide [Reglan] 10 mg PO QID 05/02/14 05/10/19 Albuterol Inhaler [Ventolin Hfa 1 - 2 puff INHALATION RT-Q6H PRN 05/10/19 05/10/19 Inhaler] Atorvastatin [Lipitor] 20 mg PO HS 05/10/19 05/10/19 Fluticasone/Salmeterol [Advair 1 puff INHALATION RT-BID 05/10/19 05/10/19 250-50 Diskus] metFORMIN HCL [Glucophage] 500 mg PO BID 05/10/19 05/10/19 Previous Rx's Medication Instructions Recorded Cefuroxime Axetil [Ceftin] 500 mg PO BID #10 tab 05/12/19 predniSONE 10 mg PO DIRECTED #30 tab 05/12/19 Allergies Allergy/AdvReac Type Severity Reaction Status Date / Time No Known Allergies Allergy Verified 05/13/19 13:13 Review of Systems ROS Statement: Those systems with pertinent positive or pertinent negative responses have been documented in the HPI. ROS Other: All systems not noted in ROS Statement are negative. Constitutional: Denies: fever Eyes: Denies: eye pain ENT: Denies: ear pain Respiratory: Reports: as per HPI, dyspnea. Denies: cough Cardiovascular: Denies: chest pain Endocrine: Denies: fatigue Gastrointestinal: Denies: abdominal pain Genitourinary: Denies: dysuria Musculoskeletal: Denies: back pain Skin: Denies: lesions Neurological: Denies: weakness Past Medical History Past Medical History: COPD Additional Past Medical History / Comment(s): COPD, hx of lt eye macular hole. History of Any Multi-Drug Resistant Organisms: None Reported Past Surgical History: Appendectomy, Back Surgery, Cholecystectomy, Tonsillectomy Additional Past Surgical History / Comment(s): COLONOSCOPY Past Anesthesia/Blood Transfusion Reactions: No Reported Reaction Past Psychological History: No Psychological Hx Reported Smoking Status: Former smoker Past Alcohol Use History: None Reported Past Drug Use History: None Reported - Past Family History Father Family Medical History: Cancer Mother Family Medical History: Cancer Sister(s) Family Medical History: Cancer General Exam Limitations: no limitations General appearance: alert, in no apparent distress Eye exam: Present: normal appearance, PERRL ENT exam: Present: normal oropharynx Neck exam: Present: normal inspection Respiratory exam: Present: normal lung sounds bilaterally Cardiovascular Exam: Present: regular rate, normal rhythm GI/Abdominal exam: Present: soft. Absent: tenderness Extremities exam: Present: normal inspection. Absent: pedal edema, calf tenderness Neurological exam: Present: alert Psychiatric exam: Present: normal affect, normal mood Skin exam: Present: normal color Course Vital Signs 05/13/19 05/13/19 05/13/19 13:08 13:29 13:49 Temperature 97.7 F Pulse Rate 91 92 Respiratory 20 20 Rate Blood Pressure 154/58 O2 Sat by Pulse 95 Oximetry 05/13/19 14:00 Temperature Pulse Rate 95 Respiratory Rate Blood Pressure O2 Sat by Pulse Oximetry - Reevaluation(s) Reevaluation #1: 05/13/19 14:56 Wells criteria less than 4. Age adjusted d-dimer less than 78. EKG Findings - EKG Comments: EKG Findings:: Sinus rhythm at 91. MT 16. QRS 110. QT 394. QTC 44. Left axis. Anterior fascicular block. No acute ST change. Medical Decision Making - Medical Decision Making Patient reevaluated and resting comfortably at bedside. Patient remained symptom-free. Daughter questions if patient could've had an anxiety attack and patient also agrees. Patient has been under increased stress regarding holidays, family visiting, and upcoming breast biopsy. Patient and daughter updated on results and need for follow-up. They do request medication for anxiety. - Lab Data Result diagrams: 05/13/19 13:46 05/13/19 13:46 Lab Results 05/13/19 05/13/19 05/13/19 Range/Units 13:26 13:46 13:46 WBC 11.2 H (3.8-10.6) k/uL RBC 4.92 (3.80-5.40) m/uL Hgb 16.0 (11.4-16.0) gm/dL Hct 48.3 H (34.0-46.0) % MCV 98.2 (80.0-100.0) fL MCH 32.6 (25.0-35.0) pg MCHC 33.2 (31.0-37.0) g/dL RDW 12.8 (11.5-15.5) % Plt Count 348 (150-450) k/uL Neutrophils % 81 % Lymphocytes % 12 % Monocytes % 5 % Eosinophils % 2 % Basophils % 0 % Neutrophils # 9.0 H (1.3-7.7) k/uL Lymphocytes # 1.3 (1.0-4.8) k/uL Monocytes # 0.6 (0-1.0) k/uL Eosinophils # 0.2 (0-0.7) k/uL Basophils # 0.0 (0-0.2) k/uL PT (9.0-12.0) sec INR (<1.2) APTT (22.0-30.0) sec D-Dimer (<0.60) mg/L FEU Sodium 140 (137-145) mmol/L Potassium 4.7 (3.5-5.1) mmol/L Chloride 107 (98-107) mmol/L Carbon Dioxide 24 (22-30) mmol/L Anion Gap 9 mmol/L BUN 32 H (7-17) mg/dL Creatinine 0.59 (0.52-1.04) mg/dL Est GFR (CKD-EPI)AfAm >90 (>60 ml/min/1.73 sqM) Est GFR (CKD-EPI)NonAf 88 (>60 ml/min/1.73 sqM) Glucose 209 H (74-99) mg/dL POC Glucose (mg/dL) 223 H (75-99) mg/dL POC Glu Typewriter Assembler ID Virginia Reid Calcium 9.9 (8.4-10.2) mg/dL Total Bilirubin 0.8 (0.2-1.3) mg/dL AST 35 (14-36) U/L ALT 23 (4-34) U/L Alkaline Phosphatase 119 (38-126) U/L Troponin I (0.000-0.034) ng/mL NT-Pro-B Natriuret Pep pg/mL Total Protein 6.3 (6.3-8.2) g/dL Albumin 3.9 (3.5-5.0) g/dL 05/13/19 05/13/19 05/13/19 Range/Units 13:46 13:46 13:46 WBC (3.8-10.6) k/uL RBC (3.80-5.40) m/uL Hgb (11.4-16.0) gm/dL Hct (34.0-46.0) % MCV (80.0-100.0) fL MCH (25.0-35.0) pg MCHC (31.0-37.0) g/dL RDW (11.5-15.5) % Plt Count (150-450) k/uL Neutrophils % % Lymphocytes % % Monocytes % % Eosinophils % % Basophils % % Neutrophils # (1.3-7.7) k/uL Lymphocytes # (1.0-4.8) k/uL Monocytes # (0-1.0) k/uL Eosinophils # (0-0.7) k/uL Basophils # (0-0.2) k/uL PT 9.7 (9.0-12.0) sec INR 0.9 (<1.2) APTT 21.6 L (22.0-30.0) sec D-Dimer 0.70 H (<0.60) mg/L FEU Sodium (137-145) mmol/L Potassium (3.5-5.1) mmol/L Chloride (98-107) mmol/L Carbon Dioxide (22-30) mmol/L Anion Gap mmol/L BUN (7-17) mg/dL Creatinine (0.52-1.04) mg/dL Est GFR (CKD-EPI)AfAm (>60 ml/min/1.73 sqM) Est GFR (CKD-EPI)NonAf (>60 ml/min/1.73 sqM) Glucose (74-99) mg/dL POC Glucose (mg/dL) (75-99) mg/dL POC Glu Typewriter Assembler ID Calcium (8.4-10.2) mg/dL Total Bilirubin (0.2-1.3) mg/dL AST (14-36) U/L ALT (4-34) U/L Alkaline Phosphatase (38-126) U/L Troponin I <0.012 (0.000-0.034) ng/mL NT-Pro-B Natriuret Pep 180 pg/mL Total Protein (6.3-8.2) g/dL Albumin (3.5-5.0) g/dL - Radiology Data Radiology results: image reviewed (Chest x-ray shows COPD changes. Scarring Versus atelectasis) Disposition Clinical Impression: Acute exacerbation of chronic obstructive pulmonary disease Disposition: HOME SELF-CARE Condition: Stable Instructions (If sedation given, give patient instructions): COPD (Chronic Obstructive Pulmonary Disease) (ED), Anxiety (ED) Additional Instructions: Please follow-up with primary care physician in the next day or 2 for recheck. Also follow-up with your lung doctor. Return for difficulty breathing, chest pain, worsening symptoms or other concerns. Is patient prescribed a controlled substance at d/c from ED?: No Referrals: Malik Lehman Jr, [Primary Care Provider] - 1-2 days Time of Disposition: 15:10
[2019-05-13 14:09] LABS: Basophils % (A) 0 %; Eosinophils # (A) 0.2 k/uL (0-0.7); Eosinophils % (A) 2 %; HCT 48.3 % (34.0-46.0); Lymphocytes # (A) 1.3 k/uL (1.0-4.8); Lymphocytes % (A) 12 %; MCH 32.6 pg (25.0-35.0); MCHC 33.2 g/dL (31.0-37.0); MCV 98.2 fL (80.0-100.0); Mean Platelet Volume 7.6; Monocytes # (A) 0.6 k/uL (0-1.0); Monocytes % (A) 5 %; Neutrophils % (A) 81 %; Platelet Count 348 k/uL (150-450); RBC 4.92 m/uL (3.80-5.40); RDW 12.8 % (11.5-15.5); WBC 11.2 k/uL (3.8-10.6)
--- NOTE | 2019-05-13 14:24 | XR ---
EXAMINATION TYPE: XR chest 2V DATE OF EXAM: 05/13/2019 HISTORY: difficulty breathing. REFERENCE: Previous study dated 05/10/2019. FINDINGS: Lung volumes are prominent. There is some scarring or atelectasis in the right midlung. Heart size upper limits of normal. Pleura l spaces are clear. IMPRESSION: 1. PLEASE CORRELATE FOR COPD. 2. SCARRING VERSUS ATELECTASIS, RIGHT MIDLUNG
[2019-05-13 14:31] LABS: ALT 23 U/L (4-34); AST 35 U/L (14-36); African American GFR (CKD) >90 (>60 ml/min/1.73 sqM); Albumin 3.9 g/dL (3.5-5.0); Alkaline Phosphatase 119 U/L (38-126); Anion Gap 9 mmol/L; Blood Urea Nitrogen 32 mg/dL (7-17); Calcium 9.9 mg/dL (8.4-10.2); Carbon Dioxide 24 mmol/L (22-30); Chloride 107 mmol/L (98-107); Glucose 209 mg/dL (74-99); Non-African American GFR(CKD) 88 (>60 ml/min/1.73 sqM); Potassium 4.7 mmol/L (3.5-5.1); Sodium 140 mmol/L (137-145); Total Bilirubin 0.8 mg/dL (0.2-1.3); Total Protein 6.3 g/dL (6.3-8.2)
[2019-05-13 14:38] LABS: INR 0.9 (<1.2); Partial Thromboplastin Time 21.6 sec (22.0-30.0); Prothrombin Time 9.7 sec (9.0-12.0)
[2019-05-13 14:43] LABS: D-Dimer 0.7 mg/L FEU (<0.60)
[2019-05-13] MEDS ORDERED: ALPRAZolam 1 MG TAB PO STA (15:07)
[2019-05-13 15:25] VITALS: BP 123/74; PULSE 90; RESP 18; TEMP 98
== END 2019-05-13 15:31 | disposition home or self-care (01) ==
LOC: EC 12:58
DX: J44.1 Chronic obstructive pulmonary disease with (acute) exacerbation (principal); F43.9 Reaction to severe stress, unspecified; Z87.891 Personal history of nicotine dependence; Z79.51 Long term (current) use of inhaled steroids; Z79.84 Long term (current) use of oral hypoglycemic drugs; Z79.899 Other long term (current) drug therapy
CPT/HCPCS: 36415; 71046; 80053; 83880; 84484; 85025; 85379; 85610; 85730; 93005; 94640; 99285

== ENCOUNTER → 2019-05-15 | Outpatient (CLI) | payer MEDICARE, OTHER ==
--- NOTE | 2019-05-15 15:04 | MM ---
Reason for exam: clinical finding. Last mammogram was performed 16 years and 2 months ago. History: Patient is postmenopausal. Family history of breast cancer in maternal grandmother. Indicated problem(s): lump or thickening in the right breast. Physical Findings: Nurse Summary: 10cm nodule in the right breast at 9-3 o'clock (nurse mj). MG 3D Diag Mammo W/Cad ELIEZER Bilateral CC and MLO view(s) were taken. No prior studies available for comparison. The breast tissue is heterogeneously dense. This may lower the sensitivity of mammography. Abnormal skin and trabecular thickening right beast with abnormal nipple enlargement. Some grouped heterogeneous calcifications at 9 o'clock are also present. 1cm axillary tail nodularity also suspicious. These results were verbally communicated with the patient and result sheet given to the patient on 05/15/19. ASSESSMENT: Incomplete: need additional imaging evaluation, BI-RAD 0 RECOMMENDATION: Ultrasound of the right breast.
--- NOTE | 2019-05-15 15:10 | USB ---
Reason for exam: additional evaluation requested from abnormal screening. History: Patient is postmenopausal. Family history of breast cancer in maternal grandmother. US Breast RT Right complete breast ultrasound includes all four quadrants, the retroareolar region and axilla. Finding demonstrates an irregular, taller than wide, hypoechoic, vascular lesion at the posterior nipple, very large mass unable to adequately measure, biopsy recommended, a 1.1 x 1.7 x 0.8cm oval, lobular, cystic, thick walled lesion at 10 o'clock, biopsy recommended and a 1.1 x 1.4 x 0.4cm oval lesion at axilla node, no abnormal cortical thickening. Abnormal soft tissue enlargement of the nipple approximately 2.9cm x 1.4cm, possible pagent's disease of the breast, surgical consultation recommended. These results were verbally communicated with the patient and result sheet given to the patient on 05/15/19. ASSESSMENT: Highly suggestive of malignancy, BI-RAD 5 RECOMMENDATION: Surgical consultation of the right breast. (for possible Pagets disease) Ultrasound core biopsy of the right breast. (2 sites) Called office with mammographic findings and has scheduled an appointment for the patient for 06/09/18 at 4:[address] Mejia. Biopsy scheduled for 06/06/18 at 1:00. PRELIMINARY REPORT CALLED AND FAXED TO DR. MEJIA ON 05/15/19.
== END | disposition home or self-care (01) ==
LOC: RADMAMWWP 12:55
PROVIDERS: ATTEND Surgery
DX: N63.10 Unspecified lump in the right breast, unspecified quadrant (principal)
CPT/HCPCS: 77066; 76641; G0279; 77062

== ENCOUNTER → 2019-06-09 | Day surgery (SDC) | payer MEDICARE, OTHER ==
[2019-06-09 10:56] VITALS: RESP 16; TEMP 97.4
[2019-06-09 12:58] VITALS: BP 126/84; PULSE 86
--- NOTE | 2019-06-09 13:58 | USB ---
EXAMINATION TYPE: US biopsy breast VAD RT, US biopsy breast add'l VAD RT, MG diagnostic mammo RT wo CAD DATE OF EXAM: 06/09/2019 CLINICAL HISTORY: R92.8 ABN MAMMO. TECHNIQUE: Ultrasound guided core biopsy of right breast at 2 sites. COMPARISON: Right breast ultrasound dated 05/15/2019 FINDINGS: The procedure of ultrasound guided core biopsy was explained to the patient. Benefits, alternatives, and risks were discussed. An informed consent was then obtained. Preprocedure timeout was performed. SITE A: The patient was placed in supine positioning for imaging and for the procedure. The overlying skin was prepped and draped in usual sterile fashion. 10 cc of 1% lidocaine was used as anesthetic into the skin and subcutaneous tissue up to area the retroareolar ill-defined large mass, again unable to be adequately measured posterior to the nipple. Under ultrasound guidance, a 12-gauge vacuum assisted biopsy gun device was used to obtain 6 core samples. Following this, a ribbon-shaped biopsy marker was left at the site of biopsy. SITE B: The patient was placed in supine positioning for imaging and for the procedure. The overlying skin was prepped and draped in usual sterile fashion. 10 cc of 1% lidocaine was used as anesthetic into the skin and subcutaneous tissue up to a 1.1 cm thick-walled cystic lesion at the 10:00, possibly corresponding to an abnormal lymph node in the right breast. Under ultrasound guidance, a 12-gauge vacuum assisted biopsy gun device was used to obtain 5 core samples. Following this, a coil-shaped biopsy marker was left at the site of biopsy. Postprocedure mammogram demonstrates appropriate biopsy marker placement of both biopsy markers.The patient tolerated the procedure well without any immediate complication. The patient was kept in the radiology department for short stay after the procedure and then discharged home in stable condition. IMPRESSION: 1. The nipple mass was not biopsied as it is superficial and involves the skin. Punch biopsy is recommended. 2. Successful, uncomplicated 2 site ultrasound guided core biopsy of highly suspicious masses in the retroareolar region at 10:00 (possibly an abnormal lymph node), full pathology results to follow. Pathology Results: Malignant A. RIGHT BREAST, POSTERIOR NIPPLE LESION, NEEDLE CORE BIOPSIES: Infiltrating Grade 2 adenocarcinoma. Appropriately controlled immunohistochemical studies for E-Cadherin document ductal differentiation; Calponin and p63 document an absent myoepithelial layer around foci of invasive carcinoma. CAM 5.2 confirms epithelioid differentiation. See note. B. RIGHT BREAST LESION AT 10:00, BIOPSIES: Grade 2 adenocarcinoma involving lymph node tissue consistent with metastatic disease to intramammary or proximal axillary lymph node. See note. Recommendation Surgical consult of the right breast in 6 months. MTDD
== END ==
LOC: RADUSWWP 10:26
PROVIDERS: ATTEND Surgery
DX: C50.011 Malignant neoplasm of nipple and areola, right female breast (principal); C50.911 Malignant neoplasm of unspecified site of right female breast; Z17.0 Estrogen receptor positive status [ER+]
CPT/HCPCS: 88305; 88342; 88341; 77065; 19083; 19084; A4648; J2001

== ENCOUNTER → 2019-06-14 | Outpatient (CLI) | payer MEDICARE, OTHER ==
[2019-06-14 13:32] VITALS: BP 149/93; PULSE 103; RESP 22; TEMP 98
--- NOTE | 2019-06-14 14:24 | P.PN ---
Subjective Progress Note Date: 06/14/19 Principal diagnosis: Right breast cancer infiltrating ductal Krystal is a 78-year-old white female status post right breast core biopsy via ultrasound on . She also had a core biopsy of a lymph node in the right axilla. Both were positive for infiltrating ductal carcinoma. Her last mammogram had been approximately 17 years ago. The patient's lesion appears to be at least 2.9 cm in size. This would be a T2 N1 M0 lesion tumor markers are not yet available. The patient does not have complaints specific to the breast biopsy. Family history: Maternal grandmother: Questionable breast cancer Knees: Breast cancer Father: Colon cancer Mother: Lung cancer Sister: Lymphoma with respiratory lungs Surgical history: Cholecystectomy Tonsillectomy Appendectomy Back surgery Medical history: Diabetes Hypertension COPD Skin changes lower legs follows with dermatology Social history: Smoke: Stopped approximately 6 weeks ago he used to smoke 1 pack per day for 40 years Alcohol: Negative Drugs: Negative Review of systems: Constitutional: Night sweats HEENT: Macular hole Lungs: COPD Heart: Hypertension GI: Negative : Bladder leakage Musculoskeletal: Arthritis Neurologic: Decreased strength lower extremities Integument: Skin scales Psychiatric: Depression Hematologic: Negative ALLERGIES: Sinus infections Objective - Vital Signs Vital signs: Vital Signs Temp 98 F 06/14/19 13:24 Pulse 103 H 06/14/19 13:24 Resp 22 06/14/19 13:24 BP 149/93 06/14/19 13:24 Pulse Ox 96 06/14/19 13:24 Intake & Output 06/13/19 06/14/19 06/14/19 18:59 06:59 18:59 Weight 78.471 kg - Exam BMI 27.9 - Constitutional General appearance: Present: average body habitus - EENT Eyes: Present: EOMI ENT: Present: hearing grossly normal - Respiratory Details: Decreased breath sounds at the bases - Cardiovascular Rhythm: regular Heart sounds: normal: S1, S2 - Integumentary Integumentary Comment(s): Biopsy site mild ecchymosis/no hematoma - Musculoskeletal Musculoskeletal: Present: gait normal - Psychiatric Psychiatric Comment(s): Patient anxious - Allied health notes Allied Health Notes Comment(s): Replaced: Mild ecchymosis at biopsy sites No evidence of any infection mass behind the nipple areolar complex Assessment and Plan Assessment: Impression: 1. Clinical T2 N1 M0 right breast cancer status post core biopsy 2. Diabetes 3. Hypertension 4. COPD 5. Skin changes lower legs follows with dermatology Plan: 1. Neoadjuvant chemo therapy appointment with medical oncology 2. Medical management of medical conditions 3. Follow-up here in 2 months time Cc: Dr. Malik Lehman I have had a long talk with the patient her daughter and son regarding the pathology findings. At this time the tumor receptor markers are not yet tyrone ilable. She does have a positive diagnosis of cancer at both biopsy sites. The patient will most likely undergo neoadjuvant chemotherapy related to the positive lymph node and large size of the tumor. 2 Ana María nurse navigator was called into the room and she is helping set up an appointment with medical oncology. Encounter: 30 minutes greater than 50% of time spent in counseling and planni ng Time with Patient: Greater than 30
== END ==
LOC: WWCWWP 12:53
PROVIDERS: ATTEND Surgery
DX: Z53.9 Procedure and treatment not carried out, unspecified reason (principal)

== ENCOUNTER → 2019-06-23 | Outpatient (CLI) | payer MEDICARE, OTHER ==
--- NOTE | 2019-06-26 09:07 | PE ---
EXAMINATION TYPE: PET CT fusion skull to thigh DATE OF EXAM: 06/23/2019 COMPARISON: NONE HISTORY: Right-sided breast cancer diagnosed on biopsy June 09, 2019 TECHNIQUE: Following the intravenous administration of 10.854 mCi of F-18 FDG, whole body images are performed from the skull base to the midthigh. Images are reviewed on the computer in the coronal, axial, and sagittal planes. Reconstructed rotating images are created on independent workstation and reviewed on the computer. A noncontrast CT is performed in conjunction with the PET scan. SCAN: Initial Scan FINDINGS: SKULL BASE AND NECK: No suspicious hypermetabolic uptake is present. Mild uptake level at level left acromioclavicular joint is presumed post inflammatory, correlate clinically. CHEST, MEDIASTINUM, AND HILAR REGION: Mild hypermetabolic uptake subareolar region right nipple corre sponding to increase soft tissue density along the dermal layer just below skin surface, the biopsy c lip posterior to this on axial image 88 corresponds to site of sampling roughly 1 to 2 cm deep to the nipple. (Max SUV less than 2.5). The area just below nipple appears more suspicious closer to the sk in surface with mild hypermetabolic uptake on PET appears more suspicious on ultrasound May 15, 2019 versus ultrasound during sampling June 09, 2019. Involvement of the nipple complex suspected. There is second biopsy clip suspected axial image 83 at Soft tissue density without abnormal hypermet abolic uptake likely corresponding to second area of biopsy-proven neoplasm 10:[address] No suspicious hypermetabolic uptake in the left breast axial image 82.. No suspicious axillary adenop athy. No suspicious hypermetabolic uptake in remainder of pneumothorax. ABDOMEN AND PELVIS: No suspicious hypermetabolic uptake in the abdomen and pelvis. Some diffuse bowel uptake most prominent near cecum is seen. Normal excretion is noted. OSSEOUS STRUCTURES: No suspicious hypermetabolic uptake. OTHER CT: Scleral calcification both globes is present. There is background fairly advanced emphysematous change in both upper lungs greater in the right upp er lobe. There are few right lung calcified pleural plaques. There are enlarged bilateral pulmonary a rteries raising concern for underlying pulmonary hypertension. Ascending aorta measures up to 3.7 cm diameter axial image 86. There is coronary artery calcification which is noted marker for coronary ar jackelin disease. There is lipomatous hypertrophy of the interarterial septum noted axial image 101. Occasional calcifications throughout the spleen. Finding present product of old granulomatous disease . Cholecystectomy clips. Slightly proteinaceous 3.3 cm thin-walled cyst posteriorly right kidney geovani ures 156. Diverticula throughout the colon most prominently involving sigmoid colon. Displaced clip a nterior to pelvis. Mild to moderate calcified plaque of the aorta extends into branch vessels. Prominent spurring and di sc space narrowing in the lower lumbar spine with posterior decompression noted axial image 171. Slig ht scoliotic curvature in the upper to mid thoracic spine. Moderate to severe narrowing of both hip j oints. IMPRESSION: No definitive abnormal areas of hypermetabolic uptake or suspicious masses to suggest l eft breast involvement, axillary adenopathy, or metastatic disease. Known multifocal involvement righ t breast with subareolar lesion suspected extending to involve the nipple complex.
== END | disposition home or self-care (01) ==
LOC: RADPETMAIN 17:38
PROVIDERS: ATTEND Internal Medicine Hematology & Oncology
DX: C50.111 Malignant neoplasm of central portion of right female breast (principal)
CPT/HCPCS: 78815; A9552

== ENCOUNTER → 2019-07-05 | Outpatient (CLI) | payer MEDICARE, OTHER ==
--- NOTE | 2019-07-06 11:35 | ECHOF ---
Referral Reason:C50.111 brreast ca Z01.818 pre chemo MEASUREMENTS -------- HEIGHT: 160.0 cm WEIGHT: 78.0 kg BP: RVIDd: 3.0 cm (< 3.3) IVSd: 1.6 cm (0.6 - 1.1) LVIDd: 3.4 cm (3.9 - 5.3) LVPWd: 1.8 cm (0.6 - 1.1) IVSs: 1.9 cm LVIDs: 2.2 cm LVPWs: 2.2 cm LAESV Index (A-L): 24.26 ml/m Ao Diam: 2.8 cm (2.0 - 3.7) AV Cusp: 1.9 cm (1.5 - 2.6) MV EXCURSION: 9.718 mm (> 18.000) MV EF SLOPE: 70 mm/s (70 - 150) EPSS: 0.8 cm MV E Wade: 0.57 m/s MV DecT: 199 ms MV A Wade: 1.21 m/s MV E/A Ratio: 0.47 RAP: 5.00 mmHg RVSP: 37.00 mmHg FINDINGS -------- Sinus rhythm. This was a technically adequate study. The left ventricular size is normal. There is moderate concentric left ventricular hypertrophy. O verall left ventricular systolic function is normal with, an EF between 55 - 60 %. The diastolic fi lling pattern is normal for the age of the patient 12.96. The right ventricle is mildly enlarged. Normal LA size by volume 22+/-6 ml/m2. The right atrium is mildly enlarged. Interatrial and interventricular septum intact. The aortic valve is trileaflet and appears structurally normal. There is mild aortic valve sclerosi s. There is no evidence of aortic regurgitation. There is no evidence of aortic stenosis. There is trace mitral regurgitation. Mild tricuspid regurgitation present. There is mild pulmonary hypertension. The right ventricular systolic pressure, as measured by Doppler, is 37.00mmHg. There is no pulmonic regurgitation present. The aortic root size is normal. Normal inferior vena cava with normal inspiratory collapse consistent with estimated right atrial pre ssure of 5 mmHg. There is no pericardial effusion. CONCLUSIONS -------- 1. Sinus rhythm. 2. This was a technically adequate study. 3. The left ventricular size is normal. 4. There is moderate concentric left ventricular hypertrophy. 5. Overall left ventricular systolic function is normal with, an EF between 55 - 60 %. 6. The diastolic filling pattern is normal for the age of the patient 12.96 7. The right ventricle is mildly enlarged. 8. Normal LA size by volume 22+/-6 ml/m2. 9. The right atrium is mildly enlarged. 10. Interatrial and interventricular septum intact. 11. The aortic valve is trileaflet and appears structurally normal. 12. There is mild aortic valve sclerosis. 13. There is no evidence of aortic regurgitation. 14. There is no evidence of aortic stenosis. 15. There is trace mitral regurgitation. 16. Mild tricuspid regurgitation present. 17. There is mild pulmonary hypertension. 18. The right ventricular systolic pressure, as measured by Doppler, is 37.00mmHg. 19. There is no pulmonic regurgitation present. 20. The aortic root size is normal. 21. Normal inferior vena cava with normal inspiratory collapse consistent with estimated right atrial pressure of 5 mmHg. 22. There is no pericardial effusion. DISHTANK OPERATOR: Miriam Villatoro RDCS
== END | disposition home or self-care (01) ==
LOC: RADECHMAIN 13:01
PROVIDERS: ATTEND Internal Medicine Hematology & Oncology
DX: I07.1 Rheumatic tricuspid insufficiency (principal); I27.20 Pulmonary hypertension, unspecified; C50.111 Malignant neoplasm of central portion of right female breast
CPT/HCPCS: 93306

== ENCOUNTER 2019-08-08 06:45 | Day surgery (SDC) | payer MEDICARE, OTHER ==
[2019-08-04 12:31] VITALS: BMI 27.9
[~2019-08-08 06:45] MED LIST: DEXAMETHASONE SOD PHOSPHATE 10 MG/ML 1 ML VIAL IV ONE; HEPARIN SODIUM,PORCINE 5,000 UNIT/ML 1 ML VIAL SQ ONE; MIDAZOLAM 2 MG/2 ML VIAL IV PRN; ONDANSETRON 4 MG/2 ML VIAL IVP ONE; Pre Op ABX Message 1 EACH MISC MISCELLANE ONE
[2019-08-08 07:27] LABS: Glucose,Whole Blood 151 mg/dL (75-99)
[2019-08-08] MEDS ORDERED: LIDOCAINE 1% (10MG/ML) FOR IV START INTRADERMA ONE (07:27)
[2019-08-08] MEDS: LACTATED RINGERS 1,000 ML IV SCH (07:27)
--- NOTE | 2019-08-08 08:34 | NM ---
EXAMINATION TYPE: NM sentinel node injection DATE OF EXAM: 08/08/2019 COMPARISON: Prior PET/CT June 23, 2019 and older studies. HISTORY: Right-sided breast cancer. TECHNIQUE AND FINDINGS: The procedure of sentinel lymph node injection was explained to the patient. The benefits, alternatives, and risks were discussed. An informed consent was then obtained. Overlying skin is cleaned with sterile alcohol. Following this, 554 uCi Tc99m Tilmanocept was inject ed in the upper outer aspect of the right nipple intradermally. The patient tolerated the procedure well without any immediate complication. The patient was kept in the radiology department for short stay after the procedure and then taken to surgery for surgical p rocedure what is presumed intraoperative gamma probe will be used for sentinel lymph node detection. IMPRESSION: Right breast radiotracer injection for sentinel node localization as above.
[2019-08-08] MEDS ORDERED: SUCCINYLCHOLINE CHLORIDE 100 MG/5 ML SYR IV ONE (08:44)
[2019-08-08] MEDS ORDERED: PHENYLEPHRINE-0.9% NACL SYG 1 MG/10 ML SYRINGE ONE (08:44)
[2019-08-08] MEDS ORDERED: fentaNYL (PF) 50 MCG/ML 2 ML AMP ONE (08:44)
[2019-08-08] MEDS ORDERED: HYDROmorphone (PF) 1 MG/ML ONE (08:44)
[2019-08-08] MEDS ORDERED: LIDOCAINE 1% INJ 10MG/ML (20 ML MDV) ONE (08:44)
[2019-08-08] MEDS ORDERED: PROPOFOL 10 MG/ML 20 ML VIAL IV ONE (08:44)
[2019-08-08] MEDS ORDERED: SODIUM CHLORIDE 0.9% 50 ML with ceFAZolin 2,000 MG IV ONE ×2 (09:12)
[2019-08-08] MEDS ORDERED: METHYLENE BLUE 50 MG/10 ML AMPUL MISCELLANE ONE (09:31)
[2019-08-08] MEDS ORDERED: LACTATED RINGERS 1,000 ML IV ONE ×2 (10:25)
--- NOTE | 2019-08-08 12:06 | P.NAPBC ---
NAPBC Queries - NAPBC Queries Was patient's case review presented at [facility] tumor board? If no, comment.: Yes Was patient's pathology reviewed at [facility]? If no, comment.: Yes Was breast conservation surgery offered? If no, comment.: No (not a candidate secondary to size and location) Was sentinel node biopsy offered? If no, comment.: Yes Was diagnosis confirmed by percutaneous core biopsy? If no, comment.: Yes Is patient mastectomy patient?: Yes Was a preop referral to reconstructive surgeon offered?: Yes (patient declined) Clinical Stage: [id number]/OR+ Her2-G2 Stage IIA
[2019-08-08] MEDS ORDERED: ONDANSETRON 4 MG/2 ML VIAL IVP PRN (12:15)
[2019-08-08] MEDS ORDERED: TEMAZEPAM 15 MG CAP PO PRN (12:15)
[2019-08-08] MEDS ORDERED: NALOXONE 0.4 MG/ML 1 ML VIAL IV PRN (12:15)
[2019-08-08] MEDS ORDERED: HYDROmorphone 1 MG/ML 1 ML SYRINGE IVP PRN (12:15)
--- NOTE | 2019-08-08 12:15 | P.OP ---
Date of Procedure: 08/08/19 Preoperative Diagnosis: Stage II right breast cancer Postoperative Diagnosis: Same Procedure(s) Performed: Right breast axillary mapping with methylene blue, mastectomy, sentinel node biopsy, axillary node dissection Anesthesia: KAREN Surgeon: Mayr Mejia Estimated Blood Loss (ml): 20 IV fluids (ml): 1,200 Pathology: other (Right breast, axillary contents) Condition: stable Disposition: floor Indications for Procedure: Biopsy-proven right breast cancer Operative Findings: Right breast cancer Description of Procedure: Procedure: 1. Axillary mapping with methylene blue 2. Mastectomy 3. Jay node biopsy 4. Axillary node dissection The patient is a 78-year-old white female who presented with a stage II right breast cancer. Biopsy was done via core biopsy diagnosis was confirmed. She had a 10:00 lesion which was some question whether this could be tissue and was clinically called in and one lesion. The patient was presented at tumor Board and the feeling was that this may be a second primary in the breast and a sentinel node biopsy should be performed. The patient was seen preoperatively in consultation by medical oncology who suggested that a mastectomy be performed prior to chemotherapy or failure. This was discussed with the patient and she wished to proceed. Additionally the opted to undergo sentinel node evaluation to be followed by possible axillary node dissection. The patient and her daughter understood and wished to proceed. The patient was taken to the operating room and following induction of general anesthesia interrogation of the axilla using the neoprobe was performed. No discrete area of increased radioactivity was identified and therefore axillary mass in the methylene blue was recommended. 8 mL of her strength methylene blue was injected in the periareolar area. The breast was massaged for 3 minutes. The breast and axilla were prepped and draped in a sterile fashion. Superior and inferior skin flap lines were drawn. The superior flap was developed using the electrocautery device as well as the Harmonic scalpel. The inferior flap was developed in the same fashion. The breast was brought from medial to lateral off the chest wall using the electrocautery device. In the area of bleeding was oversewn. At the level of the axilla an area of increased radioactivity was identified. This appeared to be highly suspicious for metastatic disease. The tissue was removed and sent as sentinel lymph node. The radioactive count was approximately 820 at 10 seconds. The patient did not have any visible methylene blue in the area. Secondary to the highly suspicious nature of the sentinel deposit and axillary dissection was performed. The pectoralis minor muscle was followed superiorly to the axillary vein. The tissues were swept inferiorly being careful to identify and preserve the thoracodorsal and long thoracic nerves. Several intercostal brachial nerves and vessels were taken to facilitate the dissection. These were ligated using 3-0 Vicryl suture. Following this the wound was examined for hemostasis. There was well irrigated. 2 JERI drains were placed one in the axilla and one under the skin flaps. After assured that hemostasis was attained the superior flap was trimmed prior to closure. Closure was then performed using a Vicryl suture followed by 4-0 Monocryl. The JERI drains to suction with no difficulty. Surgical glue was then placed on the incision. The patient tolerated the procedure in stable condition all instrument and sponge counts were correct at the end of the case.
[2019-08-08] MEDS: HYDROmorphone 0.5 MG/0.5 ML SYRINGE IVP PRN ×2 (12:41→13:13)
[2019-08-08] MEDS ORDERED: diphenhydrAMINE 50 MG/ML 1 ML VIAL IVP ONE (12:42)
[2019-08-08 13:09] LABS: Glucose,Whole Blood 240 mg/dL (75-99)
[2019-08-08] MEDS ORDERED: INSULIN ASPART (NovoLOG) 100 UNIT/ML VIAL SQ ONE (13:11)
[2019-08-08] MEDS: SODIUM CHLORIDE 0.45% 1,000 ML IV SCH ×2 (14:01→22:58)
[2019-08-08] MEDS: HYDROcodone/APAP 5-325MG 1 EACH TAB PO PRN (16:26)
[2019-08-08] MEDS: HEPARIN SODIUM,PORCINE 5,000 UNIT/ML 1 ML VIAL SQ SCH ×2 (16:29→22:58)
[2019-08-08 16:52] LABS: Glucose,Whole Blood 155 mg/dL (75-99)
[2019-08-08 20:39] LABS: Glucose,Whole Blood 149 mg/dL (75-99)
[2019-08-09] MEDS: HYDROcodone/APAP 5-325MG 1 EACH TAB PO PRN (04:58)
[2019-08-09 06:51] LABS: Glucose,Whole Blood 123 mg/dL (75-99)
[2019-08-09] MEDS: LACTATED RINGERS 1,000 ML IV SCH (07:00)
[2019-08-09 07:27] LABS: Basophils # (A) 0.1 k/uL (0-0.2); Basophils % (A) 0 %; Eosinophils # (A) 0.1 k/uL (0-0.7); Eosinophils % (A) 1 %; HCT 45.3 % (34.0-46.0); HGB 14.1 gm/dL (11.4-16.0); Lymphocytes # (A) 1.6 k/uL (1.0-4.8); Lymphocytes % (A) 13 %; MCH 31.2 pg (25.0-35.0); MCHC 31.1 g/dL (31.0-37.0); MCV 100.3 fL (80.0-100.0); Mean Platelet Volume 7.8; Monocytes % (A) 8 %; Neutrophils # (A) 9.5 k/uL (1.3-7.7); Neutrophils % (A) 76 %; Platelet Count 273 k/uL (150-450); RBC 4.52 m/uL (3.80-5.40); RDW 12.6 % (11.5-15.5); WBC 12.4 k/uL (3.8-10.6)
[2019-08-09] MEDS: HEPARIN SODIUM,PORCINE 5,000 UNIT/ML 1 ML VIAL SQ SCH (07:34)
[2019-08-09] MEDS: SODIUM CHLORIDE 0.45% 1,000 ML IV SCH (07:37)
[2019-08-09 08:31] VITALS: BP 115/72; PULSE 75; RESP 16; TEMP 98.2
--- NOTE | 2019-08-09 08:37 | P.PN ---
Subjective Progress Note Date: 08/09/19 Principal diagnosis: Postop day #1 right mastectomy, lymphatic mapping, sentinel node biopsy, axillary node dissection Krystal is a 78-year-old white female status post right mastectomy and axillary node dissection, she is postop day #1. She has no complaints at this time. Her dressing was changed her incision is clean and dry. JERI drains are holding suction without difficulty. The output is serous and dark in nature and approximately 10 mL from each drain. She is tolerating her diet without difficulty. Objective - Vital Signs Vital signs: Vital Signs Temp 98.2 F 08/09/19 07:00 Pulse 75 08/09/19 07:00 Resp 16 08/09/19 07:00 BP 115/72 08/09/19 07:00 Pulse Ox 93 L 08/09/19 07:00 Intake & Output 08/08/19 08/09/19 08/09/19 18:59 06:59 18:59 Intake Total 2250 296 Output Total 20 Balance 2230 296 Weight 80.4 kg Intake: IV 1850 Intake, IV Titration 400 Amount Sodium Chloride 0.45% 1, 400 000 ml @ 100 mls/hr IV . Q10H [facility] Rx#:[id number] Oral 296 Output: Estimated Blood Loss 20 Other: Voiding Method Toilet # Voids 1 1 - Constitutional General appearance: Present: average body habitus, no acute distress - EENT Eyes: Present: EOMI ENT: Present: hard of hearing - Neck Neck: Present: normal ROM - Respiratory Respiratory: bilateral: CTA - Cardiovascular Rhythm: regular Heart sounds: normal: S1, S2 - Integumentary Integumentary Comment(s): Incision right chest wall clean and dry Evidence of any infection JERI drains: holding Suction without difficulty minimal serous output - Psychiatric Psychiatric: Present: A&O x's 3, appropriate affect, intact judgment & insight - Labs CBC & Chem 7: 08/09/19 06:39 Labs: Abnormal Lab Results - Last 24 Hours (Table) 08/08/19 08/08/19 08/08/19 Range/Units 13:07 16:51 20:39 WBC (3.8-10.6) k/uL MCV (80.0-100.0) fL Neutrophils # (1.3-7.7) k/uL POC Glucose (mg/dL) 240 H 155 H 149 H (75-99) mg/dL 08/09/19 08/09/19 Range/Units 06:39 06:50 WBC 12.4 H (3.8-10.6) k/uL MCV 100.3 H (80.0-100.0) fL Neutrophils # 9.5 H (1.3-7.7) k/uL POC Glucose (mg/dL) 123 H (75-99) mg/dL Assessment and Plan Assessment: Impression: 1. Patient postop day #1 right mastectomy, lymphatic mapping, sentinel node biopsy, axillary node dissection 2. Tolerating diet without difficulty Plan: 1. Discharge home to be followed as outpatient 2. Follow-up with Dr. Lewis in 1 week CC: DR. Lehman Time with Patient: Less than 30
--- NOTE | 2019-08-09 08:42 | P.DS ---
Providers Attending physician: Mary Mejia Consults: 08/08/19 12:19 Consult Physician Routine Consulting Provider: Malik Lehman Jr Consult Reason/Comments: medical managment Do you want consulting provider notified?: Yes Primary care physician: [facility] Course: Krystal is a 78-year-old white female postop day #1 from right mastectomy and axillary node dissection. She has done well postoperatively. She is tolerating her diet without difficulty. She is going to be discharged home to be followed as an outpatient. Plan - Discharge Summary Discharge Rx Participant: No New Discharge Prescriptions: No Action Metoclopramide [Reglan] 10 mg PO QID PRN PRN Reason: Nausea Lisinopril [Prinivil] 20 mg PO QAM metFORMIN HCL [Glucophage] 500 mg PO BID Atorvastatin [Lipitor] 20 mg PO HS Albuterol Inhaler [Ventolin Hfa Inhaler] 1 - 2 puff INHALATION RT-Q6H PRN PRN Reason: Shortness Of Breath Fluticasone/Salmeterol [Advair 250-50 Diskus] 1 puff INHALATION RT-BID ALPRAZolam [Xanax] 0.25 mg PO BID PRN PRN Reason: Anxiety Tobramycin [Tobrex 0.3% Ophth Soln] 1 drop BOTH EYES QID Discharge Medication List Lisinopril [Prinivil] 20 mg PO QAM 05/02/14 [History] Metoclopramide [Reglan] 10 mg PO QID PRN 05/02/14 [History] Albuterol Inhaler [Ventolin Hfa Inhaler] 1 - 2 puff INHALATION RT-Q6H PRN 05/10/19 [History] Atorvastatin [Lipitor] 20 mg PO HS 05/10/19 [History] Fluticasone/Salmeterol [Advair 250-50 Diskus] 1 puff INHALATION RT-BID 05/10/19 [History] metFORMIN HCL [Glucophage] 500 mg PO BID 05/10/19 [History] ALPRAZolam [Xanax] 0.25 mg PO BID PRN 06/09/19 [History] Tobramycin [Tobrex 0.3% Ophth Soln] 1 drop BOTH EYES QID 08/04/19 [History] Follow up Appointment(s)/Referral(s): Mary Mejia MD [STAFF PHYSICIAN] - 1 Week Activity/Diet/Wound Care/Special Instructions: do not drive until seen by Dr. Lewis teach drain care, [place] and record BId and as needed may shower after 48 hours keep binder on at all times unless showering Discharge Disposition: HOME SELF-CARE Care Plan Goals (MU): Patient is being discharged home with her daughter, and we'll stay with her daughter at this time
--- NOTE | 2019-08-15 10:48 | CDI ---
The patient had an axillary dissection which includes superficial and deep lymph nodes. Outpatient Documentation Clarification Form Date: 08/15/19 CDS/Lopper Name: Dasha Rasheed Phone: If any questions, call Lucinda Leon Divorce Lawyer at [phone] Patient Name: Cook. Krystal Gee Admit Date: 08/08/19 Discharge Date: 08/08/19 ATTENTION: The [facility] Coding Staff appreciate your assistance in clarifying documentation. Please respond to the clarification below the line at the bottom and electronically sign. The [facility] Coding staff will review the response and follow-up if needed. Please note: Queries are made part of the Legal Health Record. If you have any questions, please contact the Divorce Lawyer. Dear Dr. Mejia, In order to code to the greatest specificity, please document the depth of the axillary node biopsied. Please specify Deep axillary, superficial axillary. Thank you for your kind consideration. MTDD
== END 2019-08-09 11:00 | disposition home health service (06) ==
LOC: OR 06:45 → 4SSUR 12:29 → OR 08-09 11:00
PROVIDERS: ATTEND Surgery
DX: C50.911 Malignant neoplasm of unspecified site of right female breast (principal); C77.3 Secondary and unspecified malignant neoplasm of axilla and upper limb lymph nodes; N60.11 Diffuse cystic mastopathy of right breast; E11.9 Type 2 diabetes mellitus without complications; I10 Essential (primary) hypertension; J44.9 Chronic obstructive pulmonary disease, unspecified; E78.5 Hyperlipidemia, unspecified; R23.4 Changes in skin texture; M19.90 Unspecified osteoarthritis, unspecified site; Z90.49 Acquired absence of other specified parts of digestive tract; Z98.890 Other specified postprocedural states; Z87.891 Personal history of nicotine dependence; R32 Unspecified urinary incontinence; F32.9 Major depressive disorder, single episode, unspecified; F41.9 Anxiety disorder, unspecified; H35.349 Macular cyst, hole, or pseudohole, unspecified eye; K21.9 Gastro-esophageal reflux disease without esophagitis; Z97.2 Presence of dental prosthetic device (complete) (partial); Z80.3 Family history of malignant neoplasm of breast; Z80.0 Family history of malignant neoplasm of digestive organs; Z80.1 Family history of malignant neoplasm of trachea, bronchus and lung; Z80.7 Family history of other malignant neoplasms of lymphoid, hematopoietic and related tissues; Z79.51 Long term (current) use of inhaled steroids; Z79.899 Other long term (current) drug therapy; Z79.84 Long term (current) use of oral hypoglycemic drugs
CPT/HCPCS: 85025; 88342; 88307; 88309; 88341; 38792; 19307; A9520; J2250; J1200; J1644 ×2; J1100; J2405 ×2; J0690; J2001; J3010; J1170 ×2; J2370; J0330; J2704; Q9968

== ENCOUNTER → 2019-08-15 | Outpatient (CLI) | payer MEDICARE, OTHER ==
--- NOTE | 2019-08-15 16:08 | P.PN ---
Progress Note - Text Progress Note Date: 08/15/19 Krystal is a 78-year-old white female status post right breast mastectomy [place] [id number]. Pathology revealed metastatic disease in 2 lymph nodes a total of 7 were removed. Additionally she had all margins negative. The tumor itself was approximately 9 cm in size. The tumor was 1.4 mm from the posterior margin. She is doing well at this time. She has [address] JERI drain #2 has less than 40 mL for several days in a row. JERI #1 continues to have higher output. The drainage is serous in nature. She has no complaints at this time. Physical examination: Lungs: Clear: Heart: Regular rate and rhythm Incision: Clean and dry Impression: 1. Patient status post mastectomy [id number] 2. JERI #2 Lock for removal Plan: 1. Remove JERI #2 2. Continue monitoring JERI #1 follow-up next week 3. Follow-up with medical oncology 4. Follow-up with radiation oncology 5. Follow-up with primary care doctor Dr. Lehman CC: DR. Lehman
[2019-08-15 17:13] VITALS: BP 150/91; PULSE 98; RESP 16; TEMP 97.9
== END | disposition home or self-care (01) ==
LOC: WWCWWP 15:44
PROVIDERS: ATTEND Surgery
DX: Z53.9 Procedure and treatment not carried out, unspecified reason (principal)

== ENCOUNTER → 2019-08-22 | Outpatient (CLI) | payer MEDICARE, OTHER ==
[2019-08-22 10:23] VITALS: BP 129/75; PULSE 89; RESP 24; TEMP 98.3
--- NOTE | 2019-08-22 10:28 | P.PN ---
Progress Note - Text Progress Note Date: 08/22/19 Karla is a 78-year-old white female status post right breast mastectomy and axillary node dissection on . Pathology revealed metastatic disease into lymph nodes and a total of 7 were removed. Additionally all margins were negative. The tumor itself was approximately 9 cm in size. One JERI drain was removed last week. She comes in for removal of the second JERI drain at this time. The drain is putting out approximately 50 mL for the last 2 days. We have talked about leaving the drain for another week versus taking it out now and realizing that she may have development of a seroma. She wishes to have the drain removed and she does not want to come back in to the hospital next week secondary to the skin of the coronal virus. The patient is doing well at this time. She does state she has some mild decreased sensation to the inner arm on the right. Physical examination: Lungs: Clear Heart: S1-S2 no murmurs Incision: Clean and dry/surgical glue remains in place. Plan: 1. Remove JERI drain #1 2. Follow up with medical oncology 3. Follow-up with radiation oncology 4. Follow-up with primary care doctor Dr. Lehman regarding prior pinkeye and patient's known COPD and any other medical problems The patient and her daughter understand that she may develop a seroma at the mastectomy site. There instructed that this will most likely resolve on its own however physical of concern she should call and we can drainage in the office. At this time though they would like to avoid coming back into the hospital with possible secondary to the coronal virus. JERI drain #1 removed. The glue at the mastectomy site was purulent and this was removed as well. The incision has some intermittent areas of discoloration which may slough and this is been explained to the patient and her daughter. Cc: Dr. Lehman
== END | disposition home or self-care (01) ==
LOC: WWCWWP 10:01
PROVIDERS: ATTEND Surgery
DX: Z53.9 Procedure and treatment not carried out, unspecified reason (principal)

== ENCOUNTER → 2019-09-12 | Outpatient (CLI) | payer MEDICARE, OTHER ==
[2019-09-12 09:43] VITALS: BP 149/77; PULSE 97; RESP 20; TEMP 98.6
--- NOTE | 2019-09-12 11:53 | P.PN ---
Subjective Progress Note Date: 09/12/19 Principal diagnosis: Krystal is a 78-year-old white female status post right breast mastectomy [place] [id number]. Pathology revealed metastatic disease to the lymph nodes with a total of 2 sentinel nodes with macroscopic disease in the second lymph node showing individual tumor cells. 5 additional nodes were examined which were negative for metastatic cancer. A total of 7 nodes were removed which had macroscopic disease and one of which had All margins were negative and the breast but the tumor itself was 9 cm in size. Her JERI drains have been removed and she has not been seen for approximately 2 weeks. The patient since that time is developed some swelling in the breast site consistent with seroma. She also complains of some swelling of her right arm. She did not come in prior secondary to concerns regarding the coronavirus. The patient had a home care nurse following with her. She is not complaining of any fever or chills. Physical exam: Lungs: Clear Heart: Regular rate and rhythm Incision: There is some necrosis of the mid aspect of the incision. There is no evidence of active infection but there does appear to be some necrotic tissue at this site. Additionally there is some scabbing which extends laterally on the incision. The patient has a seroma present as well at the right mastectomy site Impression/plan: 1. Necrosis medial aspect of the incision/recommend debridement 2. Seroma/recommend aspiration 3. Patient has appointment with medical oncology 4. Patient has appointment with radiation oncology 5. Follow-up here in 1 week Cc: Dr. Lehman Objective - Vital Signs Vital signs: Vital Signs Temp 98.6 F 09/12/19 09:41 Pulse 97 09/12/19 09:41 Resp 20 09/12/19 09:41 BP 149/77 09/12/19 09:41 Pulse Ox 96 09/12/19 09:41 Intake & Output 09/11/19 09/12/19 09/12/19 18:59 06:59 18:59 Weight 81.647 kg
--- NOTE | 2019-09-12 11:56 | P.PCN ---
Date of Procedure: 09/12/19 Preoperative Diagnosis: Right chest wall seroma at mastectomy site Postoperative Diagnosis: Same Procedure(s) Performed: Aspiration of seroma Surgeon: Mary Mejia Pathology: none sent Condition: stable Disposition: same day Description of Procedure: The patient is a 78-year-old white female status post right mastectomy approximately one month ago. She is noted to have a seroma on today's evaluation. Risk and benefits of aspiration are discussed with the patient she wishes to proceed. An 18-gauge needle on a 60 mL syringe was utilized to perform the aspiration. The skin was prepped using Betadine. The needle was inserted into the area of fluid and negative pressure was applied. The ureter and 10 mL of straw-colored fluid was removed. The patient tolerated procedure in stable condition. The patient will follow next week for reevaluation. Additionally was noted that there was some necrosis in the midportion of the incision and this is going to be debrided. CC: Dr. Lehman
--- NOTE | 2019-09-12 11:59 | P.PCN ---
Date of Procedure: 09/12/19 Preoperative Diagnosis: Necrosis mid aspect of mastectomy incision Postoperative Diagnosis: Same Procedure(s) Performed: Debridement mid aspect of mastectomy incision Anesthesia: local Surgeon: Mary Mejia Pathology: none sent Condition: stable Disposition: same day Indications for Procedure: Necrosis mid aspect of mastectomy incision Description of Procedure: The patient is a 78-year-old white female status post right mastectomy and axillary node dissection approximately one month ago. She is not been seen for proximally 2 weeks secondary to concerns regarding the coronavirus. On today's visit she was noted to have a seroma and some necrosis of the medial aspect of her mastectomy incision. The mastectomy incision necrosis is recommended to be debrided. She understands the risks and benefits and wishes to proceed. The area of concern is prepped using Betadine. 1% lidocaine was used to anesthetize the area of the skin. Debridement of approximately 7 cm area was performed. This was full-thickness in the area of the the pectoralis muscle could be id entified. Additional fluid was extruded when this occurred. There was no evidence of any active infection. 3-0 nylon sutures were placed on either side of the debridement to prevent the wound from opening further. The area of opening was approximately 1 cm in size. This wound was packed. The patient tolerated the procedure in stable condition. She will follow next week. She will also have home health care. Cc: Dr. Lehman
== END | disposition home or self-care (01) ==
LOC: WWCWWP 09:32
PROVIDERS: ATTEND Surgery
DX: Z53.9 Procedure and treatment not carried out, unspecified reason (principal)

== ENCOUNTER → 2019-09-19 | Outpatient (CLI) | payer MEDICARE, OTHER ==
--- NOTE | 2019-09-19 12:27 | P.PN ---
Progress Note - Text Krystal is a 78-year-old white female status post right breast [place] [id number]. 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 5 additional nodes were examined which were negative for metastatic cancer. A total of 7 nodes were removed which had macroscopic disease and one of which had All margins were negative and the breast but the tumor itself was 9 cm in size. The patient was seen last week and had a seroma drained from the mastectomy site. Approximately 310 mL of serous fluid was removed. The wound was also debrided. The patient is not complaining of any swelling at the site for today's exam. She did have some swelling of the right arm and is wearing an elastic stocking. The patient is not complaining of any fever or chills. Home healthcare nurses been changing packing at the chest wall incision and no evidence of any infection. The lateral aspect of the incision has some area which may benefit from debridement in the next week. The swelling in her arm has improved. Exam: left chest wall: Midportion of the incision has open area which is approximately 2 cm x 1 cm. Pectoralis muscle was exposed. This is being packed. There is no evidence of any infection. The lateral aspect of the incision has some tissue which made benefit from debridement in the future. At this time there is no evidence of any infection. She has decreased swelling of her right forearm; right wrist: 20.5 cc biceps: 34.5 left wrist: 18.5 biceps: 31 Impression: 1. Wound healing well right chest wall 2. Persistent lymphedema right upper extremity patient wearing elastic sleeve 3. Recommend referral to lymphedema specialist 4. follow up here in one week 5. continue present therapy encounter 15 minutes, greater than 50% of time in planning and counselling CC: Dr. Lehman
[2019-09-19 12:31] VITALS: BP 118/78; PULSE 89; RESP 20; TEMP 98.3
== END | disposition home or self-care (01) ==
LOC: WWCWWP 11:52
PROVIDERS: ATTEND Surgery
DX: Z53.9 Procedure and treatment not carried out, unspecified reason (principal)

== ENCOUNTER → 2019-09-26 | Outpatient (CLI) | payer MEDICARE, OTHER ==
[2019-09-26 11:15] VITALS: RESP 24
[2019-09-26 11:17] VITALS: BP 130/76; PULSE 87; TEMP 98.6
--- NOTE | 2019-09-26 13:46 | P.PN ---
Dagmar Rice is a 78-year-old white female status post right breast mastectomy [place] [id number]. 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 5 additional nodes were examined which were negative for metastatic cancer. A total of 7 nodes were removed which had macroscopic disease and one of which had microscopic disease. All margins were negative in the breast but the tumor itself was 9 cm in size. The patient was seen last two weeks ago week and had a seroma drained from the mastectomy site. Approximately 310 mL of serous fluid was removed. The wound was also debrided. The patient is not having minimal drainage from the incision site at this time. Her packing is being changed daily. The patient is not complaining of any fever or chills. Home healthcare nurses been changing packing at the chest wall incision and no evidence of any infection. The lateral aspect of the incision has some scabbing which will be debrided today. Physical exam: Lungs: Clear Heart: Regular rate and rhythm Incision: Area of the prior debridement is granulating, lateral aspect of the incision has some scabbing for debridement today no evidence of infection or seroma Impression: 1. Mastectomy site right chest wall healing with no evidence of infection Plan: 1. Packing changed and debridement of the incision at the lateral aspect Procedure: The area of the lateral chest wall incision was prepped using Betadine packing was removed the lateral aspect of the incision was to bradycardia using sharp dissection approximately 4 cm of scalp wound which removed. The wound was repacked using plain gauze packing. The base of the incision was noted to be pink with granulation tissue. The patient tolerated the procedure in stable condition. Consent was obtained. Objective - Vital Signs Vital signs: Vital Signs Temp 98.6 F 09/26/19 11:15 Pulse 87 09/26/19 11:15 Resp 24 09/26/19 11:15 BP 130/76 09/26/19 11:15 Pulse Ox 93 L 09/26/19 11:15 Intake & Output 09/25/19 09/26/19 09/26/19 18:59 06:59 18:59 Weight 80.739 kg
== END | disposition home or self-care (01) ==
LOC: WWCWWP 09:30
PROVIDERS: ATTEND Surgery
DX: Z53.9 Procedure and treatment not carried out, unspecified reason (principal)

== ENCOUNTER → 2019-10-12 | Outpatient (CLI) | payer MEDICARE, OTHER ==
[2019-10-12 11:18] VITALS: BP 119/66; PULSE 82; RESP 24; TEMP 98.2
--- NOTE | 2019-10-12 11:39 | P.PN ---
Progress Note - Text Progress Note Date: 10/12/19 Krystal presents today for evaluation of her right mastectomy incision. She is doing well. She is having the area packed with Aquacel silver. The open area was approximately 4 cm with about a 1 cm bridge between at in length and approximately 1 cm from superior to inferior. There is no evidence of any infection. The packing was changed. There is healthy granulation tissue at the base. The patient is doing well and will continue present wound care. I would hold off on radiation until this is completely healed. The patient will follow up in 1 month. She will call sooner if she has any questions or concerns. Several sutures which were in the site were removed and today's visit. He has an appointment with Dr. Lua on November 20. She will be seen by radiation oncology after her next visit here. CC: Dr. Lehman encounter 10 minutes
== END | disposition home or self-care (01) ==
LOC: WWCWWP 10:59
PROVIDERS: ATTEND Surgery
DX: Z53.9 Procedure and treatment not carried out, unspecified reason (principal)

== ENCOUNTER → 2019-11-10 | Outpatient (CLI) | payer MEDICARE, OTHER ==
[2019-11-10 10:15] VITALS: BP 118/72; PULSE 84; RESP 24; TEMP 98.6
--- NOTE | 2019-11-10 10:49 | P.PN ---
Dagmar Rice is a 78-year-old white female who was initially seen in consultation for Dr. Lehman regarding a right breast mass. 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 Was also noted to involve the lymph node. She had a PET scan performed on which was negative for metastatic disease. She was seen in consultation by medical oncology who suggested that she have surgery prior to chemotherapy. She underwent a right breast mastectomy and axillary d issection on . Pathology revealed a grade 2 9 cm x 6.5 cm lesion of the right breast she had 7 lymph nodes removed and one node was positive for cancer. Postprocedure she developed a seroma at the mastectomy site. She had this aspirated on several occasions and debrided. She states that the bleeding is healing well at this time. She was told she did not need chemotherapy. She is on an antiestrogen medication. She is waiting to receive radiation therapy. Family history: Maternal grandmother: Questionable breast cancer Niece: Breast cancer Father: Colon cancer Mother: Lung cancer Sister: Lymphoma which spread to her lungs Hormonal history: Menarche: 13 , breast-fed negative First live at 22 Minute the process: Surgical at 34 Preoperative control pills: 2 years Hormones: His estrogen shots for about 2 years Past surgical history: cholecystectomy Tonsillectomy Appendectomy Back surgery Past medical history: Diabetes Hypertension COPD Breast Mass. Skin changes lower legs/scales follows with dermatology Social history: Smoke: Stopped 3 month ago used to smoke 1 pack per day for 40 years Alcohol: Negative Drugs: Negative Review of systems: Constitutional: Night sweats HEENT: Macular hole Lungs: COPD Heart: Hypertension GI: Negative : Bladder leakage Musculoskeletal: Arthritis Neurologic: Decreased strength in lower extremities Integument: Skin scales Psychiatric: Depression Hematologic: Negative ALLERGIES: Sinus infections - Constitutional Constitutional: Denies chills, Denies fever - EENT Comment: macular hole - Breasts Comment: right breast mass Breasts: bilateral: as per HPI - Cardiovascular Cardiovascular: Reports high blood pressure, Denies chest pain, Denies shortness of breath - Respiratory Comment: COPD - Gastrointestinal Gastrointestinal: Denies abdominal pain, Denies diarrhea, Denies nausea, Denies vomiting - Genitourinary (Female) Comment: BLADDER LEAKAGE - Menstruation Menstruation: Reports postmenopausal - Musculoskeletal Comment: arthritis - Integumentary Comment: scaling skin changes lower extremities - Neurological Neurological: Reports weakness - Psychiatric Psychiatric: Reports depression - Endocrine Endocrine: Reports as per HPI - Hematologic/Lymphatic Hematologic/Lymphatic: Reports as per HPI - Allergic/Immunologic Allergic/Immunologic: Reports as per HPI Objective - Vital Signs Vital signs: Vital Signs Temp 98.6 F 11/10/19 10:13 Pulse 84 11/10/19 10:13 Resp 24 11/10/19 10:13 BP 118/72 11/10/19 10:13 Pulse Ox 92 L 11/10/19 10:13 Intake & Output 11/09/19 11/10/19 11/10/19 18:59 06:59 18:59 Weight 79.379 kg - Exam BMI 28.2 - Constitutional General appearance: Present: average body habitus - EENT Eyes: Present: EOMI ENT: Present: hearing grossly normal - Neck Neck: Present: normal ROM - Respiratory Details: decreased breath sounds at bases - Cardiovascular Rhythm: regular Heart sounds: normal: S1, S2 - Integumentary Integumentary Comment(s): Assessment right chest wall healing well the central portion still has an open area which is granulation tissue which is clean and the base. That is open is approximately 4 cm in length and 2 cm at its greatest width there is a small tissue bridge bisecting this area. There is no evidence of any infection. The tissues well and approximated onto the chest wall - Musculoskeletal Musculoskeletal: Present: gait normal - Psychiatric Psychiatric: Present: A&O x's 3, appropriate affect, intact judgment & insight Assessment and Plan Assessment: Impression: 1. Patient status post right breast mastectomy for a 9 cm invasive ductal carcinoma/patient postprocedure developed some necrosis of the central portion of the mastectomy wound and this is granulating at this time without difficulty 2. Patient is on antiestrogen medication 3. Patient will have radiation therapy to the chest wall after the mastectomy site heals Plan: 1. Continue present therapy 2. Follow up here in one month 2. Follow-up radiation oncology in one month as well 4. Continue to follow with medical oncology CC: Dr. Lehman encounter 25 minutes, > 50% of time in planning and counselling
== END | disposition home or self-care (01) ==
LOC: WWCWWP 09:58
PROVIDERS: ATTEND Surgery
DX: Z53.9 Procedure and treatment not carried out, unspecified reason (principal)

== ENCOUNTER → 2020-02-09 | Outpatient (CLI) | payer MEDICARE, OTHER ==
[2020-02-09 11:11] VITALS: BP 135/89; PULSE 113; RESP 22
--- NOTE | 2020-02-09 11:19 | P.PN ---
Subjective Progress Note Date: 02/09/20 Principal diagnosis: [id number]+Her2-G2; stage IIA [id number]+Pr+Her2-G2 Krystal is a 79-year-old white female who was initially seen in consultation for Dr. Lehman regarding a right breast mass. 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 Was also noted to involve the lymph node. She had a PET scan performed on which was negative for metastatic disease. She was seen in consultation by medical oncology who suggested that she have surgery prior to chemotherapy. She underwent a right breast mastectomy and axillary dissection on . Pathology revealed a grade 2, 9 cm x 6.5 cm lesion of the right breast she had 7 lymph nodes removed and one node was positive for cancer. Post procedure she developed a seroma at the mastectomy site. She had this aspirated on several occasions and debrided. She states that the chest wall is healing well at this time. She is on an antiestrogen medication. She is undergoing radiation therapy, she will have two more treatments. She has no complaints. Family history: Maternal grandmother: Questionable breast cancer Niece: Breast cancer Father: Colon cancer Mother: Lung cancer Sister: Lymphoma which spread to her lungs Hormonal history: Menarche: 13 , breast-fed negative First live at 22 Minute the process: Surgical at 34 Preoperative control pills: 2 years Hormones: His estrogen shots for about 2 years Past surgical history: cholecystectomy Tonsillectomy Appendectomy Back surgery right mastectomy and AND Past medical history: Diabetes Hypertension COPD Breast Mass. Skin changes lower legs/scales follows with dermatology Social history: Smoke: Stopped 3 month ago used to smoke 1 pack per day for 40 years Alcohol: Negative Drugs: Negative Review of systems: Constitutional: Night sweats HEENT: Macular hole Lungs: COPD Heart: Hypertension GI: Negative : Bladder leakage Musculoskeletal: Arthritis Neurologic: Decreased strength in lower extremities Integument: Skin scales; skin changes related to radiation Psychiatric: Depression Hematologic: Negative ALLERGIES: Sinus infections Objective - Vital Signs Vital signs: Intake & Output 02/08/20 02/09/20 02/09/20 18:59 06:59 18:59 Weight 74.389 kg - Exam BMI 27.3 - Constitutional General appearance: Present: average body habitus - EENT Eyes: Present: EOMI ENT: Present: hearing grossly normal - Neck Neck: Present: normal ROM - Respiratory Respiratory: bilateral: CTA - Cardiovascular Rhythm: regular Heart sounds: normal: S1, S2 - Gastrointestinal General gastrointestinal: Present: normal bowel sounds, soft - Integumentary Integumentary Comment(s): Skin changes in radiation field Incision midportion some granulation tissue to follow this in 1 month - Musculoskeletal Musculoskeletal Comment(s): gait normal - Psychiatric Psychiatric: Present: A&O x's 3, appropriate affect, intact judgment & insight - Additional findings Additional findings: Breast exam: Right chest wall, skin changes related to radiation, midportion of incision some granulation tissue will follow this in 1 month Left breast: Multi-positional exam fibrocystic changes, no dominant masses or nodules of concern Left axilla: No adenopathy of concern Assessment and Plan Assessment: Impression: Diabetes Hypertension COPD right mastectomy/ skin changes from radiation Skin changes lower legs/scales follows with dermatology Plan: 1. Examination here in one month 2. continue radiation 3. follow up with medical oncology Cc: DR. Lehman encounter 15 minutes, > 50% of time in planning and counselling
== END | disposition home or self-care (01) ==
LOC: WWCWWP 11:01
PROVIDERS: ATTEND Surgery
DX: Z43.9 Encounter for attention to unspecified artificial opening (principal)

== ENCOUNTER → 2020-04-26 | Outpatient (CLI) | payer MEDICARE, OTHER ==
[2020-04-26 08:59] VITALS: BP 107/60; PULSE 101; RESP 20; TEMP 98.9
--- NOTE | 2020-04-26 09:24 | P.PN ---
Subjective Progress Note Date: 04/26/20 Principal diagnosis: [id number]+Her2-G2 [id number]+Pr+Her2-G2 Krystal is a 79-year-old white female who was initially seen in consultation for Dr. Lehman regarding a right breast mass. 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 Was also noted to involve the lymph node. She had a PET scan performed on which was negative for metastatic disease. She was seen in consultation by medical oncology who suggested that she have surgery prior to chemotherapy. She underwent a right breast mastectomy and axillary dissection on . Pathology revealed a grade 2, 9 cm x 6.5 cm lesion of the right breast she had 7 lymph nodes removed and one node was positive for cancer. Post procedure she developed a seroma at the mastectomy site. She had this aspirated on several occasions and debrided. She states that the chest wall is healing well at this time. She is on an antiestrogen medication. She underwent radiation therapy. She is doing well. She has no complaints at this time. She has no complaints. Family history: Maternal grandmother: Questionable breast cancer Niece: Breast cancer Father: Colon cancer Mother: Lung cancer Sister: Lymphoma which spread to her lungs Hormonal history: Menarche: 13 , breast-fed negative First live at 22 Minute the process: Surgical at 34 Preoperative control pills: 2 years Hormones: His estrogen shots for about 2 years Past surgical history: cholecystectomy Tonsillectomy Appendectomy Back surgery right mastectomy and AND Past medical history: Diabetes Hypertension COPD Breast Mass. Skin changes lower legs/scales follows with dermatology Social history: Smoke: Stopped 3 month ago used to smoke 1 pack per day for 40 years Alcohol: Negative Drugs: Negative Review of systems: Constitutional: Night sweats HEENT: Macular hole Lungs: COPD Heart: Hypertension GI: Negative : Bladder leakage Musculoskeletal: Arthritis Neurologic: Decreased strength in lower extremities Integument: Skin scales; skin changes related to radiation Psychiatric: Depression Hematologic: Negative ALLERGIES: Sinus infections Objective - Vital Signs Vital signs: Vital Signs Temp 98.9 F 04/26/20 08:54 Pulse 101 H 04/26/20 08:54 Resp 20 04/26/20 08:54 BP 107/60 04/26/20 08:54 Pulse Ox 94 L 04/26/20 08:54 Intake & Output 04/25/20 04/26/20 04/26/20 18:59 06:59 18:59 Weight 72.575 kg - Exam BMI 26.6 - Constitutional General appearance: Present: average body habitus - EENT Eyes: Present: EOMI ENT: Present: hearing grossly normal - Neck Neck: Present: normal ROM - Respiratory Respiratory: bilateral: CTA - Cardiovascular Rhythm: regular Heart sounds: normal: S1, S2 - Gastrointestinal General gastrointestinal: Present: normal bowel sounds, soft - Integumentary Integumentary: Present: normal turgor - Musculoskeletal Musculoskeletal: Present: gait normal - Psychiatric Psychiatric: Present: A&O x's 3, appropriate affect, intact judgment & insight - Additional findings Additional findings: breast exam: BRA: 40 B inspection: Right chest wall incision is clean and dry in the midportion of the incision is approximately a 1 x 1.5 cm area of slight firmness which is most likely scar but may represent recurrent malignancy Left breast grade 2/3 ptosis Palpation: Right chest wall: Incision is clean and dry in the midportion is approximately 1 x 1.5 cm area of firmness plate in nature which may represent scar and radiation changes versus recurrent tumor core biopsy is obtained Right axilla: No adenopathy of concern Left breast: Multiple positional exam fibrocystic changes Left axilla: No adenopathy of concern Assessment and Plan Assessment: Impression: Diabetes Hypertension COPD Breast Mass. Skin changes lower legs/scales follows with dermatology Status post right breast mastectomy and radiation therapy skin changes performed by 1-1/2 cm area of firmness in the midportion of the incision Fibrocystic breast changes left breast Plan: 1. Core biopsy right breast 2. Continue anastrozole 3. Left breast mammogram 4. Follow-up in 1 week CC: Dr. Lehman encounter 25 minutes, > 50% of time in planning and counselling
--- NOTE | 2020-04-26 09:26 | P.PCN ---
Date of Procedure: 04/26/20 Preoperative Diagnosis: Area of firmness or right chest wall incision site Postoperative Diagnosis: Same Procedure(s) Performed: punch core Biopsy of right chest wall Anesthesia: local Surgeon: Mary Mejia Pathology: other (Tissue right chest wall) Condition: stable Disposition: same day Indications for Procedure: Patient status post mastectomy and radiation therapy right chest wall, presents with approximately 1 x 0.5 cm area of firmness and folate tissue in the incision. Rule out recurrent malignancy Operative Findings: dense white tissue Description of Procedure: The area of concern in the right chest wall was prepped using alcohol. One percent lidocaine was used to anesthetize the area. A 3 mm punch biopsy was performed. The specimen was placed in formalin and sent to pathology. The wound was cauterized using silver nitrate stick. There was no active bleeding. The patient tolerated the procedure in stable condition. The patient will follow up next week.
== END | disposition home or self-care (01) ==
LOC: WWCWWP 08:27
PROVIDERS: ATTEND Surgery
DX: L91.0 Hypertrophic scar (principal)
CPT/HCPCS: 88305

== ENCOUNTER → 2020-05-02 | Outpatient (CLI) | payer MEDICARE, OTHER ==
[2020-05-02 12:57] VITALS: BP 128/72; PULSE 104; RESP 24; TEMP 98.3
--- NOTE | 2020-05-02 13:23 | P.PN ---
Progress Note - Text Progress Note Date: 05/02/20 Krystal is a 79-year-old white female who was seen on . She underwent a right breast mastectomy and axillary dissection on , she also completed radiation therapy. She is on an antiestrogen medication at this time. She had an area of firmness noted in her right breast for which a core biopsy was performed on . This was benign scar/fibrosis and fat necrosis negative for malignancy. She was doing well with no complaints at this time Physical exam: Examination of the core biopsy site is clean and dry scab is in place Impression: Core biopsy right chest wall benign scar/fibrosis and fat necrosis negative for malignancy Plan: 1. Left breast mammogram in on May 22 follow-up after this for results Cc: Dr. Lehman encounter 10 minutes, > 50% of time in planning and counselling
== END | disposition home or self-care (01) ==
LOC: WWCWWP 12:44
PROVIDERS: ATTEND Surgery
DX: Z53.9 Procedure and treatment not carried out, unspecified reason (principal)

== ENCOUNTER → 2020-05-22 | Outpatient (CLI) | payer MEDICARE, OTHER ==
--- NOTE | 2020-05-22 11:03 | MM ---
Reason for exam: additional evaluation requested from prior study. Last mammogram was performed 11 months ago. History: Patient is postmenopausal and has history of breast cancer at age 78. Family history of breast cancer in maternal grandmother. Malignant US biopsy breast VAD RT of the right breast, June 09, 2019. Malignant US biopsy breast add'l VAD RT of the right breast, June 09, 2019. Taking antineoplastic beginning at age 78. MG 3D Diag Mammo W/Cad LT CC and MLO view(s) were taken of the left breast. Prior study comparison: June 09, 2019, right breast MG diagnostic mammo RT wo CAD. May 15, 2019, bilateral MG 3d diag mammo w/cad [facility]. There are scattered fibroglandular densities. There is chronic nodularity in the left breast medially. Some increase in dystrophic calcifications laterally. No significant new findings when compared with previous films. These results were verbally communicated with the patient and result sheet given to the patient on 05/22/20. ASSESSMENT: Benign, BI-RAD 2 RECOMMENDATION: Follow-up diagnostic mammogram of the left breast in 1 year.
== END | disposition home or self-care (01) ==
LOC: RADMAMWWP 10:12
PROVIDERS: ATTEND Surgery
DX: Z08 Encounter for follow-up examination after completed treatment for malignant neoplasm (principal); Z85.3 Personal history of malignant neoplasm of breast
CPT/HCPCS: 77065; G0279; 77061

== ENCOUNTER 2020-06-03 08:29 | Day surgery (SDC) | payer MEDICARE, OTHER ==
[2020-05-28 12:36] VITALS: BMI 25.7
--- NOTE | 2020-06-02 18:04 | HP ---
HISTORY AND PHYSICAL CHIEF COMPLAINT: Precancerous lesion of the left ear. HISTORY OF PRESENT ILLNESS: This patient is a very pleasant 79-year-old female who is well known to my office and was recently seen for referral because she had a precancerous lesion biopsied of the left ear. The patient stated that the lesion had been there for several months prior to her family physician biopsying the area. The biopsy report apparently came back as precancerous. At time the patient was seen in my office, clinical examination revealed that the patient had a suspicious 4-5 mm lesion located on the superior aspect of the helix of the left ear which was crusty, well-circumscribed, not bleeding and nontender. Because of the precancerous nature of this lesion, it was recommended that the patient undergo a wedge excision of this lesion under general anesthesia. Past medical history reveals that the patient has NO KNOWN ALLERGIES TO MEDICATIONS. CURRENT MEDICATIONS: Current medications include lisinopril, metformin, Prilosec and Zocor. REVIEW OF SYSTEMS: CARDIOVASCULAR SYSTEM: Positive for hypertension. RESPIRATORY: Negative. GASTROINTESTINAL: Positive for gastroesophageal reflux disorder. METABOLIC/ENDOCRINE SYSTEM: Positive for hypercholesterolemia and type 2 diabetes mellitus. The remainder of the review of systems is unremarkable. PHYSICAL EXAMINATION: This patient is a 79-year-old female who is alert, cooperative and well oriented to place. HEENT EXAMINATION: Patient is normocephalic. Tympanic membranes are normal. Middle ear space is free of any fluid or infection. Examination of the left auricle reveals a 4-7 mm well-circumscribed, nontender, ulcerated lesion on the superior helix of the left ear. No other suspicious lesions are noted on the right or left ear. Pupils are equal, round and reactive to light and accommodation. Extraocular movements are within normal limits. Intranasal examination reveals moderate to severe septal deviation with compensatory hypertrophy of the inferior turbinates and a moderate amount of mucus on the mucous membranes and draining down the posterior pharynx. Examination of oropharynx, cranial nerves 2 through 12, and the remainder of the head and neck exam is all within normal limits. CHEST/CARDIOVASCULAR: Both lung diggs are clear to percussion and auscultation. The patient is in regular sinus rhythm. S1 and S2 are present without any murmurs, S3s or S4s. Peripheral pulses are bilaterally symmetrical. ABDOMEN: There is no evidence any masses, megaly or tenderness. The abdomen is soft. SKIN: Unremarkable. MUSCULOSKELETAL, NEUROLOGICAL: Within normal limits. Pelvic and rectal exam is deferred at this time because the patient had this done on a previous basis at her family physician's office. Previous surgeries include cholecystectomy, excision of a benign tumor from the right cheek, partial oophorectomy and back surgery. The patient is 6 para, 6 , miscarriage 0, 0. IMPRESSION: Precancerous lesion of the left ear. PLAN: The patient is scheduled to undergo a wedge excision of precancerous lesion of the left ear under general anesthesia in the morning. ATTENTION NURSES IN THE PRE-SURGICAL AREA: The only pre-surgical prophylactic antibiotic that I have ordered for this patient is Ancef 2 grams IV to be given once an intravenous line has been established. If the pharmacy department sends a different pre-surgical prophylactic antibiotic to the pre-surgical area for this patient, please cancel that order and return the medication to the pharmacy department. Also please make sure that the patient's account is credited appropriately. In addition to the Ancef, I have ordered for the patient to receive Ofirmev 1000 mg IV to be given once an intravenous line has been established. I have discussed the risks, benefits and alternative therapies for the above-mentioned procedure and for both sedation/analgesia as well as necessary blood product administration, if indicated, as they pertain to this patient. The patient has indicated his or her understanding and acceptance of the risks and procedures discussed. MMODL / IJN: [id number] /
[~2020-06-03 08:29] MED LIST changes: -DEXAMETHASONE SOD PHOSPHATE 10 MG/ML 1 ML VIAL IV ONE; +DEXAMETHASONE SOD PHOSPHATE 4 MG/ML 1 ML VIAL IV ONE; -HEPARIN SODIUM,PORCINE 5,000 UNIT/ML 1 ML VIAL SQ ONE; +HYDROmorphone 0.5 MG/0.5 ML SYRINGE IVP PRN; +LACTATED RINGERS 1,000 ML IV SCH; -MIDAZOLAM 2 MG/2 ML VIAL IV PRN
[2020-06-03] MEDS ORDERED: LIDOCAINE 1% (10MG/ML) FOR IV START INTRADERMA ONE (08:53)
[2020-06-03 09:08] LABS: Glucose,Whole Blood 143 mg/dL (75-99)
[2020-06-03] MEDS ORDERED: MIDAZOLAM 2 MG/2 ML VIAL IV ONE (09:24)
[2020-06-03] MEDS ORDERED: ACETAMINOPHEN IV (For NPO) 1,000 MG in EMPTY BAG 1 BAG IVPB ONE (09:45)
[2020-06-03] MEDS ORDERED: ACETAMINOPHEN IV (For NPO) 1,000 MG in EMPTY BAG 1 BAG IVPB PRN (09:45)
[2020-06-03] MEDS ORDERED: PROPOFOL 10 MG/ML 20 ML VIAL IV ONE (10:01)
[2020-06-03] MEDS ORDERED: GLYCOPYRROLATE 0.2 MG/ML 2 ML VIAL ONE (10:01)
[2020-06-03] MEDS ORDERED: fentaNYL (PF) 50 MCG/ML 2 ML AMP ONE (10:01)
[2020-06-03] MEDS ORDERED: ROCURONIUM 10 MG/ML (10 ML VIAL) IV ONE (10:01)
[2020-06-03] MEDS ORDERED: LIDOCAINE 1% INJ 10MG/ML (20 ML MDV) ONE (10:01)
[2020-06-03] MEDS ORDERED: NEOSTIGMINE 1 MG/ML 10 ML VIAL ONE (10:01)
[2020-06-03] MEDS ORDERED: ePHEDrine SULFATE/0.9% NACL/PF 50 MG/5 ML SYRINGE IV ONE (10:01)
[2020-06-03] MEDS ORDERED: PHENYLEPHRINE 10 MG/ML VIAL ONE (10:01)
[2020-06-03] MEDS ORDERED: BACITRACIN ZINC 500 UNIT/GM OINT 28.4 GM TUBE TOPICAL ONE ×2 (11:39→11:45)
[2020-06-03] MEDS ORDERED: LACTATED RINGERS 1,000 ML IV ONE (11:44)
[2020-06-03 12:07] VITALS: TEMP 98.8
[2020-06-03 12:17] LABS: Glucose,Whole Blood 163 mg/dL (75-99)
[2020-06-03 12:18] VITALS: RESP 16
[2020-06-03] MEDS ORDERED: Acetaminophen-Codeine 300-30mg TAB PO ONE (13:00)
[2020-06-03] MEDS ORDERED: Acetaminophen-Codeine 300-30mg TAB ONE (13:06)
[2020-06-03 13:26] VITALS: BP 110/71; PULSE 86
--- NOTE | 2020-06-03 17:05 | OP ---
OPERATIVE REPORT DATE OF SURGERY: 06/03/2020 PREOPERATIVE DIAGNOSIS: Pre-cancerous lesion, 4 to 5 mm, of the left ear (superior helix). POSTOPERATIVE DIAGNOSIS: Pre-cancerous lesion, 4 to 5 mm, of the left ear (superior helix). Final pathology is pending. ANESTHESIA: General. OPERATIVE PROCEDURE: Wedge excision of 4-5 mm pre-cancerous lesion of the superior helix of the left ear/auricle with complex closure and reconstruction via multiple W-plasties. OPERATING SURGEON: Dr. Wynn. COMPLICATIONS: None. ESTIMATED BLOOD LOSS: Approximately 5-7 mL. OPERATIVE PROCEDURE DESCRIPTION: The patient was placed on the operating table in supine position, and after uneventful induction and endotracheal intubation, satisfactory general anesthesia was obtained. Next the patient's left ear was prepped and draped in the usual and customary fashion. Next the lesion, which was located on the superior helix of the left ear/auricle, was identified. The proposed wedge excision was outlined using a [employer] marking pen. In addition to this, multiple W-plasties were outlined at the inferior aspect of the wedge which were intended to make closure of the wound defect easier. Next, using a #11 stab blade/scalpel, the excision was begun at the inferior aspect of the previously outlined marked area and continued to the rim of the superior helix. This was done in such a fashion that the entire specimen, including the pre-cancerous lesion, was excised completely. The incision with a #11 stab blade was a xaqzpoy-sbe-hctgwke incision; that is to say, it went through skin, cartilage and skin posteriorly. The entire specimen was oriented and labeled with a white suture superiorly and a blue suture inferiorly for the pathology department. The specimen was sent in formalin for permanent sectioning. Hemostasis was obtained by simply applying pressure. Next, multiple W-plasties were created at the inferior aspect of the wound, and this material was subsequently discarded. This allowed both edges of the wound to relax and fall into a natural position without placing tension on the wound itself. Initially, the W- plasties were closed using a single 5-0 rapid-absorbing Vicryl suture in interrupted buried fashion to approximate the cartilage edges. Subsequently, beginning at the inferior aspect of the wound defect, the cartilage layer was reapproximated using 5-0 interrupted Vicryl suture in a buried fashion. This started inferiorly and was continued superiorly until all edges of the cartilage material were joined. Next anteriorly the skin closure was accomplished using a combination of 4-0 Vicryl in interrupted buried fashion along with 4-0 chromic suture in interrupted buried fashion. Posteriorly, the same procedure was carried out to close the skin edges using a combination of 4-0 interrupted buried rapid-absorbing Vicryl suture and 4-0 chromic suture in an interrupted buried fashion. This was a complex closure involving closure of the skin as well as the underlying cartilage. At this point, the procedure was terminated. There were no intraoperative complications. Approximate operating time was 90 minutes. The extended operating time was due to the complex closure. The patient tolerated the procedure well. Estimated blood loss was between 5 and 7 mL. The patient tolerated the procedure well and was returned to the recovery room in satisfactory condition. Final pathology is pending. MMODL / IJN: [id number] /
== END 2020-06-03 13:58 | disposition home or self-care (01) ==
LOC: OR 08:29
PROVIDERS: ATTEND Otolaryngology
DX: L82.1 Other seborrheic keratosis (principal); I10 Essential (primary) hypertension; J44.9 Chronic obstructive pulmonary disease, unspecified; E11.9 Type 2 diabetes mellitus without complications; E78.00 Pure hypercholesterolemia, unspecified; E78.5 Hyperlipidemia, unspecified; K21.9 Gastro-esophageal reflux disease without esophagitis; Z79.51 Long term (current) use of inhaled steroids; Z79.84 Long term (current) use of oral hypoglycemic drugs; Z79.899 Other long term (current) drug therapy; Z85.3 Personal history of malignant neoplasm of breast
CPT/HCPCS: 88305; 14060; J2250; J1100; J2370; J2710; J2001; J3010; J0131; J2704

== ENCOUNTER → 2020-06-06 | Outpatient (CLI) | payer MEDICARE, OTHER ==
[2020-06-06 13:48] VITALS: BP 141/90; PULSE 105; RESP 24; TEMP 98.6
--- NOTE | 2020-06-06 13:58 | P.PN ---
Subjective Progress Note Date: 06/06/20 Principal diagnosis: right breast cancer [id number]+Pr+Her2-G2 [id number]+Pr+Her2-G2 Krystal is a 79-year-old white female who was initially seen in consultation for Dr. Lehman regarding a right breast mass. 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 Was also noted to involve the lymph node. She had a PET scan performed on which was negative for metastatic disease. She was seen in consultation by medical oncology who suggested that she have surgery prior to chemotherapy. She underwent a right breast mastectomy and axillary dissection on . Pathology revealed a grade 2, 9 cm x 6.5 cm lesion of the right breast she had 7 lymph nodes removed and one node was positive for cancer. Post procedure she developed a seroma at the mastectomy site. She had this aspirated on several occasions and debrided. She states that the chest wall is healing well at this time. She is on an antiestrogen medication. She underwent radiation therapy. She is doing well. She has no complaints at this time. She had a punch biopsy of the right chest wall done on 04-26-20 which was scar/fibrosis and fat necrosis. A left breast mammogram was done on 05-22-20 which was benign BIRAD 2. She has no complaints. Family history: Maternal grandmother: Questionable breast cancer Niece: Breast cancer Father: Colon cancer Mother: Lung cancer Sister: Lymphoma which spread to her lungs Hormonal history: Menarche: 13 , breast-fed negative First live at 22 Minute the process: Surgical at 34 Preoperative control pills: 2 years Hormones: His estrogen shots for about 2 years Past surgical history: cholecystectomy Tonsillectomy Appendectomy Back surgery right mastectomy and AND Past medical history: Diabetes Hypertension COPD Breast Mass. Skin changes lower legs/scales follows with dermatology Social history: Smoke: Stopped 3 month ago used to smoke 1 pack per day for 40 years Alcohol: Negative Drugs: Negative Review of systems: Constitutional: Night sweats HEENT: Macular hole Lungs: COPD Heart: Hypertension GI: Negative : Bladder leakage Musculoskeletal: Arthritis Neurologic: Decreased strength in lower extremities Integument: Skin scales; skin changes related to radiation Psychiatric: Depression Hematologic: Negative ALLERGIES: Sinus infections Objective - Vital Signs Vital signs: Vital Signs Temp 98.6 F 06/06/20 13:46 Pulse 105 H 06/06/20 13:46 Resp 24 06/06/20 13:46 BP 141/90 06/06/20 13:46 Pulse Ox 93 L 06/06/20 13:46 Intake & Output 06/05/20 06/06/20 06/06/20 18:59 06:59 18:59 Weight 71.668 kg - Exam BMI 25.5 Assessment and Plan Assessment: Impression: Physical examination [place] [address], and the examination of the biopsy site was done on 232937. Results of the mammogram were discussed with the patient. At this time the patient is doing well with no evidence of any recurrent cancer Plan: 1. Repeat physical exam in July this will be the one year anniversary of the diagnosis, she will then go to every 6 months for evaluation 2. If patient notes anything sooner she will contact us sooner CC: DR. Lehman
== END | disposition home or self-care (01) ==
LOC: WWCWWP 13:17
PROVIDERS: ATTEND Surgery
DX: Z53.9 Procedure and treatment not carried out, unspecified reason (principal)

== ENCOUNTER → 2020-06-12 | Outpatient (CLI) | payer MEDICARE, OTHER ==
--- NOTE | 2020-06-12 10:42 | XR ---
EXAMINATION TYPE: XR chest 2V DATE OF EXAM: 06/12/2020 COMPARISON: 05/13/2019 INDICATION: Rib pain TECHNIQUE: Frontal and lateral views of the chest are obtained. FINDINGS: The heart size is normal. The pulmonary vasculature is normal. The lungs are clear. Some emphysematous changes in the right apex. Mild nonspecific increased lung m arkings are through the remaining portions of the lung diggs. No pneumothorax is evident. No displac ed rib fractures are identified. IMPRESSION: 1. Mild increase in diffuse lung markings are nonspecific. Emphysematous changes are present. 2. No suspicious rib abnormality identified
== END | disposition home or self-care (01) ==
LOC: RADXRMAIN 10:20
PROVIDERS: ATTEND Family Medicine
DX: J43.9 Emphysema, unspecified (principal); R91.8 Other nonspecific abnormal finding of lung field
CPT/HCPCS: 71046

== ENCOUNTER → 2020-06-27 | Outpatient (CLI) | payer MEDICARE, OTHER ==
--- NOTE | 2020-06-27 15:47 | BD ---
EXAMINATION TYPE: Axial Bone Density DATE OF EXAM: 06/27/2020 COMPARISON: 01.25.2001 CLINICAL HISTORY: 79 YR OLD FEMALE......ICD-10 CODE: Z79.890 POST MENOPAUSAL Height: 62.5 Weight: 162 FRAX RISK QUESTIONS: Glucocorticoids (More than 3mos): YES (Ex: prednisone, prednisolone, methylprednisolone, dexamethasone, and hydrocortisone). Secondary Osteoporosis: YES 3. Menopause before 45: YES RISK FACTORS HISTORY OF: Surgery to Spine FOR DISC DISSOLVE ONLY 1999 Postmenopausal woman: YES, AT ABOUT 40 YRS OLD, EARLY Lost more than 2 inches in height since high school: YES Hyperparathyroidism: NO Adrenal Insufficiency: NO MEDICATIONS: Prednisone or other steroids: YES, NASACORT, FOR YRS Additional Medications: BP MEDS, HX OF RADIATION, ZOLOFT, XANAX, REFLUX MED, STATIN FOR CHOLESTEROL , METFORMIN, CALCIUM AND VIT D Additional History: HYPERTENSION, HX OF RT BREAST CANCER WITH MASTECTOMY, REFLUX, DIABETES, CHOLESTER OL, ARTHRITIS, EXAM MEASUREMENTS: Bone mineral densitometry was performed using the [employer] System. Bone mineral density as measured about the Lumbar spine is: ----- L1-L4(G/cm2): 1.274 T Score Values are as follows: ----- L1: -0.5 ----- L2: 0.7 ----- L3: 2.3 ----- L4: 0.6 ----- L1-L4: 0.8 Bone mineral density has: Increased 8.7% since study of: 01.25.2001 Bone mineral density about the R hip (g/cm2): 0.935 Bone mineral density about the L hip (g/cm2): 0.900 T Score values are as follows: -----R Neck: -0.9 -----L Neck: -1.2 -----R Total: -0.6 -----L Total: -0.9 Bone mineral density has: Decreased -10.0% since study of: 01.25.2001 FRAX%s: THERE IS A 18.0% CHANCE FOR A MAJOR OSTEOPOROTIC FX AND A 4.2% FOR HIP.....PROBABILITY FOR FX IN 10 YRS TIME IMPRESSION: Osteopenia (T Score between -2.5 and -1). There is slightly increased risk of fracture and the patient may be considered for treatment. Re-Screen 2-5 years. NOTE: T-SCORE=SD OF THE YOUNG ADULT MEAN.
== END | disposition home or self-care (01) ==
LOC: RADBDWWP 12:33
PROVIDERS: ATTEND Internal Medicine Hematology & Oncology
DX: M85.80 Other specified disorders of bone density and structure, unspecified site (principal); Z79.890 Hormone replacement therapy
CPT/HCPCS: 77080

== ENCOUNTER → 2020-08-15 | Outpatient (CLI) | payer MEDICARE, OTHER ==
[2020-08-15 14:01] VITALS: BP 150/67; PULSE 107; RESP 20; TEMP 97.4
--- NOTE | 2020-08-15 14:51 | P.PN ---
Subjective Progress Note Date: 08/15/20 Principal diagnosis: right breast invasive ductal cancer: [id number]+ME+her2-G2 [id number]+Pr+Her2-G2 Krystal is a 79-year-old white female who was initially seen in consultation for Dr. Lehman regarding a right breast mass. 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 Was also noted to involve the lymph node. She had a PET scan performed on which was negative for metastatic disease. She was seen in consultation by medical oncology who suggested that she have surgery prior to chemotherapy. She underwent a right breast mastectomy and axillary dissection on . Pathology revealed a grade 2, 9 cm x 6.5 cm lesion of the right breast she had 7 lymph nodes removed and one node was positive for cancer. Post procedure she developed a seroma at the mastectomy site. She had this aspirated on several occasions and debrided. She states that the chest wall is healing well at this time. She is on an antiestrogen medication. She underwent radiation therapy. She did nto have any chemotherapy. She is doing well. She has no complaints at this time. She had a punch biopsy of the right chest wall done on 04-26-20 which was scar/fibrosis and fat necrosis. A left breast mammogram was done on 05-22-20 which was benign BIRAD 2. She wears an elastic sleeve at this time for lymphedema. She states she has noted a soft tissue swelling at the medial aspect of the mastectomy incision site on the right side. She is has no complaints related to the left breast. Family history: Maternal grandmother: Questionable breast cancer Niece: Breast cancer Father: Colon cancer Mother: Lung cancer Sister: Lymphoma which spread to her lungs Hormonal history: Menarche: 13 , breast-fed negative First live at 22 Minute the process: Surgical at 34 Preoperative control pills: 2 years Hormones: His estrogen shots for about 2 years Past surgical history: cholecystectomy Tonsillectomy Appendectomy Back surgery right mastectomy and AND Past medical history: Diabetes Hypertension COPD Breast Mass. Skin changes lower legs/scales follows with dermatology Social history: Smoke: Stopped 3 month ago used to smoke 1 pack per day for 40 years Alcohol: Negative Drugs: Negative Review of systems: Constitutional: Night sweats HEENT: Macular hole Lungs: COPD Heart: Hypertension GI: Negative : Bladder leakage Musculoskeletal: Arthritis Neurologic: Decreased strength in lower extremities Integument: Skin scales; skin changes related to radiation Psychiatric: Depression Hematologic: Negative ALLERGIES: Sinus infections Objective - Vital Signs Vital signs: Vital Signs Temp 97.4 F L 08/15/20 13:54 Pulse 107 H 08/15/20 13:54 Resp 20 08/15/20 13:54 BP 150/67 08/15/20 13:54 Pulse Ox 93 L 08/15/20 13:54 Intake & Output 08/14/20 08/15/20 08/15/20 18:59 06:59 18:59 Weight 71.668 kg - Exam BMI 26.3 - Constitutional General appearance: Present: average body habitus - EENT ENT: Present: hearing grossly normal - Neck Neck: Present: normal ROM - Respiratory Respiratory: bilateral: CTA - Cardiovascular Rhythm: regular Heart sounds: normal: S1, S2 - Gastrointestinal General gastrointestinal: Present: soft - Integumentary Integumentary: Present: normal turgor - Psychiatric Psychiatric: Present: A&O x's 3, appropriate affect - Additional findings Additional findings: Breast exam: Bra: sports bra, medium inspection: right chest wall no evidence of recurrence, left breast grade 2/3 ptosis Palpation: Right chest wall: No evidence of recurrent cancer, particular attention to the medial part of the incision reveals a small dogear but no evidence of recurrent recurrent cancer or nodules of concern Right axilla: No adenopathy of concern Left breast: Multi-positional exam no dominant masses or nodules of concern, fibrocystic changes Left axilla: No adenopathy of concern Right arm: 11.75 vs. left arm: 11.25 right forearm: 7.5cm vs left forearm 7.25 cm Assessment and Plan Assessment: Impression: 1. status post left mastectomy and 7 nodes removed; s/p radiation and now on antihormones therapy (arimidex) 2. lymphedema right arm stable wearing elastic stocking. Questionable nodule as per patient on the right chest wall appears to be a dogear and not requiring any intervention at this time Plan: 1. continue present therapy (arimidex) 2. left mammogram 04/2021 3. continue to wear elastic stocking 4. follow up in 6 months Cc: Dr. Lehman
== END ==
LOC: WWCWWP 13:36
PROVIDERS: ATTEND Surgery
DX: I89.0 Lymphedema, not elsewhere classified (principal); Z92.3 Personal history of irradiation; Z51.11 Encounter for antineoplastic chemotherapy; I10 Essential (primary) hypertension; J44.9 Chronic obstructive pulmonary disease, unspecified; E11.9 Type 2 diabetes mellitus without complications; Z87.891 Personal history of nicotine dependence; Z90.12 Acquired absence of left breast and nipple

== ENCOUNTER 2020-11-22 | Day surgery (SDC) | payer MEDICARE, OTHER | END 2020-11-22 14:15 | disposition home or self-care (01) | CPT/HCPCS: 88305; 11440; J2250; J1100; J2710; J0690; J2405; J2001; J3010; J0131; J2370; J0330; J2704; J1170 ==

== ENCOUNTER 2020-12-13 09:30 | Day surgery (SDC) | payer MEDICARE, OTHER ==
[2020-12-11 17:17] VITALS: BMI 25.4
--- NOTE | 2020-12-13 06:13 | HP ---
HISTORY AND PHYSICAL CHIEF COMPLAINT: Gingival lesion of the mandible. HISTORY OF PRESENT ILLNESS: Patient is a very pleasant 79-year-old female who was recently seen in my office complaining of a non-healing sore located between her lower incisors. The area is somewhat tender but not exquisitely sore. She had consulted with her family physician and also with her dentist who felt that this was secondary to prior radiation that she has undergone. She was placed on an antiseptic gargle by her dentist to see if this would resolve. The lesion after 3 weeks remains. At the time that she was seen in my office clinical examination revealed that there was an ulcerated lesion/gingival ulcer located between the lower two mid incisor teeth. It was recommend the patient undergo a biopsy of this nonhealing area under IV sedation with local or general anesthesia. ALLERGIES: Patient has no known allergies. MEDICATIONS ARE: Current medications include lisinopril, metformin, Prilosec, and Cozaar. PREVIOUS SURGERIES: Previous surgeries include a wedge excision of the left ear x2, cholecystectomy, excision of benign tumor from the right cheek, partial oophorectomy, and lower back surgery. The patient is a para 6, 6, zero miscarriages and zero abortions. REVIEW OF SYSTEMS: CARDIOVASCULAR: Positive for hypertension. RESPIRATORY: Negative. GASTROINTESTINAL: Positive for GERD (gastroesophageal reflux disorder). METABOLIC ENDOCRINE SYSTEM: Positive for hypercholesterolemia and type 2 diabetes mellitus. The remainder of the review of systems is unremarkable. PHYSICAL EXAMINATION: Patient is a pleasant 79-year-old female who was alert, cooperative and well-oriented to time and place. HEENT examination patient is normocephalic. Tympanic membranes are normal. Middle ear spaces are free of any fluid or infection. Pupils are equal, round, and reactive to light and accommodation. Extraocular movements are within normal limits. Intranasal examination reveals moderate septal deviation with compensatory hypertrophy of the inferior turbinates and a moderate amount of mucus on the mucous membranes and draining down the posterior pharynx. Examination of the oropharynx, cranial nerves 2 through 12 and remainder of the head and neck exam are within normal limits. CHEST CARDIOVASCULAR: The patient is in regular sinus rhythm S1, S2 are present. No murmurs S3s or S4s. The peripheral pulses are the peripheral pulses are within normal limits. ABDOMEN: There is no evidence of any masses, megaly or tenderness. The abdomen is soft. SKIN: Unremarkable. MUSCULOSKELETAL AND NEUROLOGICAL: Within normal limits. PELVIC RECTAL EXAM: The pelvic rectal exam is deferred at this time because the patient has this done on a regular basis at her family physician's office. The remainder of the physical examination is within normal limits. ASSESSMENT: Nonhealing gingival lesion of the mandible. PLAN: The patient is scheduled to undergo a biopsy of this nonhealing lesion of the mandible under either IV sedation with MAC or general anesthesia. Attention RNs in the pre-surgical area: I have ordered for this patient to receive 2 grams of Ancef IV to be given once an intravenous line has been established. If the pharmacy department sends a different pre-surgical prophylactic antibiotic to the pre- surgical area for this patient, please cancel that order and return the medication to the pharmacy department. Also please make sure that the patient's account is credited appropriately. I have also ordered for this patient to receive 1000 mg of Ofirmev IV to be given once an intravenous line has been established in the pre-surgical area. I have discussed the risks, benefits and alternative therapies for the above-mentioned procedure and for both sedation/analgesia as well as necessary blood product administration, if indicated, as they pertain to this patient. The patient has indicated his or her understanding and acceptance of the risks and procedures discussed. MMODL / IJN: [id number] /
[~2020-12-13 09:30] MED LIST changes: +MIDAZOLAM 2 MG/2 ML VIAL IV PRN
[2020-12-13 10:01] VITALS: TEMP 97.8
[2020-12-13 10:14] LABS: Glucose,Whole Blood 148 mg/dL (75-99)
[2020-12-13] MEDS ORDERED: LACTATED RINGERS 1,000 ML IV ONE (10:18)
[2020-12-13] MEDS ORDERED: ACETAMINOPHEN IV (For NPO) 1,000 MG in EMPTY BAG 1 BAG IVPB ONE (10:45)
[2020-12-13] MEDS ORDERED: LIDOCAINE 1%-EPI 1:100,000 20 ML VIAL SUBMUCOSAL ONE (11:49)
[2020-12-13] MEDS ORDERED: MIDAZOLAM 2 MG/2 ML VIAL ONE (11:56)
[2020-12-13] MEDS ORDERED: fentaNYL (PF) 50 MCG/ML 2 ML AMP ONE (11:56)
[2020-12-13] MEDS ORDERED: PROPOFOL 10 MG/ML 20 ML VIAL IV ONE (11:56)
[2020-12-13] MEDS ORDERED: LIDOCAINE 1% INJ 10MG/ML (20 ML MDV) ONE (11:56)
[2020-12-13 13:01] VITALS: RESP 16
[2020-12-13 13:20] VITALS: BP 138/82; PULSE 85
--- NOTE | 2020-12-14 18:27 | OP ---
OPERATIVE REPORT DATE OF SURGERY: 12/13/2020 PREOPERATIVE DIAGNOSIS: Lesion of the lower gingival ridge (approximately 3-4 mm). POSTOPERATIVE DIAGNOSIS: Lesion of the lower gingival ridge (approximately 3-4 mm), final pathology is pending. ANESTHESIA: IV sedation with MAC and local anesthesia using 0.5% Marcaine solution. OPERATIVE PROCEDURE: Multiple biopsies of lesion of the lower gingival ridge on the mandible, between the middle two incisor teeth. OPERATING SURGEON: Dr. Wynn. COMPLICATIONS: None. ESTIMATED BLOOD LOSS: Less than 1 mL. OPERATIVE PROCEDURE: The patient was placed on the operating table and supine position. After uneventful IV sedation, satisfactory sedation was obtained. Next, the patient's lower lip was retracted exposing the lower gingival ridge and the lesion. The area around the lesion was infiltrated with approximately 0.25 cc of plain Marcaine solution. After allowing several minutes for the Marcaine to take effect, multiple biopsies using a pair of microlaryngeal forceps were obtained and placed in formalin to be sent to the pathology department for permanent sectioning. Hemostasis was obtained by light electrocautery. At this point, the procedure was terminated. There were no intraoperative complications. The patient tolerated the procedure well and was returned to recovery room in satisfactory condition. Final pathology is pending. MMODL / IJN: [id number] /
== END 2020-12-13 13:39 | disposition home or self-care (01) ==
LOC: OR 09:30
PROVIDERS: ATTEND Otolaryngology
DX: K05.10 Chronic gingivitis, plaque induced (principal); Z79.899 Other long term (current) drug therapy; Z79.84 Long term (current) use of oral hypoglycemic drugs; I10 Essential (primary) hypertension; E11.9 Type 2 diabetes mellitus without complications; K21.9 Gastro-esophageal reflux disease without esophagitis; J44.9 Chronic obstructive pulmonary disease, unspecified
CPT/HCPCS: 88305; 41899; J2250; J1100; J0690; J2405; J2001; J3010; J0131; J2704

== ENCOUNTER → 2021-02-14 | Outpatient (CLI) | payer MEDICARE, OTHER ==
[2021-02-14 13:05] VITALS: BP 163/82; PULSE 58; RESP 18; TEMP 97.8
--- NOTE | 2021-02-14 13:25 | P.PN ---
Subjective Progress Note Date: 02/14/21 Principal diagnosis: [id number]+NH+Her2-G2 right breast cancer right breast invasive ductal cancer: [id number]+NH+her2-G2; stage IIA Krystal is an 80-year-old white female who was initially seen in consultation for Dr. Lehman regarding a right breast mass. 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 Was also noted to involve the lymph node. She had a PET scan performed on which was negative for metastatic disease. She was seen in consultation by medical oncology who suggested that she have surgery prior to chemotherapy. She underwent a right breast mastectomy and axillary di ssection on . Pathology revealed a grade 2, 9 cm x 6.5 cm lesion of the right breast she had 7 lymph nodes removed and one node was positive for cancer. Post procedure she developed a seroma at the mastectomy site. She had this aspirated on several occasions and debrided. She states that the chest wall is healed well at this time. She is not complaining of any lumps masses or nodules of concern on the right chest wall or in her left breast. She is on an antiestrogen medication. She underwent radiation therapy. She did not have any chemotherapy. She had an Oncotype DX performed which revealed a low score of 15. She was started on anastrozole in November 2019. She completed her radiation therapy on . A left breast mammogram performed on which was benign BIRADS 2. She is doing well. She has no complaints at this time. She had a punch biopsy of the right chest wall done on 04-26-20 which was scar/fibrosis and fat necrosis. A left breast mammogram was done on 05-22-20 which was benign BIRAD 2. She wears an elastic sleeve at this time for lymphedema[place] [id number] reviewed. Note from Yann of 09-13-20 reviewed She states she has noted a soft tissue swelling at the medial aspect of the mastectomy incision site on the right side. She is has no complaints related to the left breast. Family history: Maternal grandmother: Questionable breast cancer Niece: Breast cancer Father: Colon cancer Mother: Lung cancer Sister: Lymphoma which spread to her lungs Hormonal history: Menarche: 13 , breast-fed negative First live at 22 Minute the process: Surgical at 34 Preoperative control pills: 2 years Hormones: His estrogen shots for about 2 years Past surgical history: cholecystectomy Tonsillectomy Appendectomy Back surgery right mastectomy and AND Past medical history: Diabetes Hypertension COPD Breast Mass. Skin changes lower legs/scales follows with dermatology Social history: Smoke: Stopped 3 month ago used to smoke 1 pack per day for 40 years Alcohol: Negative Drugs: Negative Review of systems: Constitutional: Night sweats HEENT: Macular hole Lungs: COPD Heart: Hypertension GI: Negative : Bladder leakage Musculoskeletal: Arthritis Neurologic: Decreased strength in lower extremities Integument: Skin scales; skin changes related to radiation Psychiatric: Depression Hematologic: Negative ALLERGIES: Sinus infections Objective - Vital Signs Vital signs: Vital Signs Temp 97.8 F 02/14/21 13:02 Pulse 58 L 02/14/21 13:02 Resp 18 02/14/21 13:02 BP 163/82 02/14/21 13:02 Pulse Ox 92 L 02/14/21 13:02 Intake & Output 02/13/21 02/14/21 02/14/21 18:59 06:59 18:59 Weight 68.946 kg - Constitutional General appearance: Present: cooperative - EENT Eyes: Present: EOMI ENT: Present: hearing grossly normal - Respiratory Respiratory: bilateral: CTA - Cardiovascular Rhythm: regular Heart sounds: normal: S1, S2 - Gastrointestinal General gastrointestinal: Present: soft - Integumentary Integumentary Comment(s): scar right chest wall radiation changes mid portion, no evidence of recurrent cancer - Musculoskeletal Musculoskeletal: Present: gait normal - Psychiatric Psychiatric: Present: A&O x's 3, appropriate affect, intact judgment & insight - Additional findings Additional findings: Breast examination: Inspection: Chest wall: Well-healed scar no evidence of recurrence, there is firmness in the midportion related to surgical and postradiation changes Right axilla: No adenopathy of concern Left breast: Multi-positional exam fibrocystic changes no dominant masses or nodules of concern Left axilla: No adenopathy of concern Assessment and Plan Assessment: Impression: 1. Patient status post right mastectomy secondary to a stage to the right breast invasive ductal carcinoma. The patient did not have chemotherapy. She is on anastrozole and tolerating this without difficulty, and she did complete a course of radiation therapy. 2. Patient did have some physical therapy regarding her right arm and is moving about better at this time 3. She does intermittently where a sleeve secondary to some lymphedema which has improved on the right Plan: 1. Continue anastrozole 2. Continue to follow with radiation and medical oncology 3. Patient due for a left breast mammogram in April, 4. Follow-up after left breast mammogram Cc: Dr. Lehman
== END ==
LOC: WWCWWP 12:52
PROVIDERS: ATTEND Surgery
DX: Z08 Encounter for follow-up examination after completed treatment for malignant neoplasm (principal); E11.9 Type 2 diabetes mellitus without complications; I10 Essential (primary) hypertension; J44.9 Chronic obstructive pulmonary disease, unspecified; Z90.11 Acquired absence of right breast and nipple; Z85.3 Personal history of malignant neoplasm of breast; Z79.811 Long term (current) use of aromatase inhibitors; Z87.891 Personal history of nicotine dependence

== ENCOUNTER → 2021-05-26 | Outpatient (CLI) | payer MEDICARE, OTHER ==
--- NOTE | 2021-05-26 14:34 | MM ---
Reason for exam: additional evaluation requested from prior study. Last mammogram was performed 1 year ago. History: Patient is postmenopausal and has history of breast cancer at age 78. Family history of breast cancer in maternal grandmother. Malignant US biopsy breast VAD RT of the right breast, June 09, 2019. Malignant US biopsy breast add'l VAD RT of the right breast, June 09, 2019. Mastectomy of the right breast. Radiation therapy of the right breast. Taking antineoplastic for 2 years beginning at age 78. Physical Findings: Nurse did not find any significant physical abnormalities on exam. MG 3D Diag Mammo W/Cad LT CC and MLO view(s) were taken of the left breast. Prior study comparison: May 22, 2020, left breast MG 3d diag mammo w/cad LT. June 09, 2019, right breast MG diagnostic mammo RT wo CAD. There are scattered fibroglandular densities. There are benign appearing round calcifications in the left breast. There is no discrete abnormality. These results were verbally communicated with the patient and result sheet given to the patient on 05/26/21. ASSESSMENT: Benign, BI-RAD 2 RECOMMENDATION: Follow-up diagnostic mammogram of the left breast in 1 year.
== END | disposition home or self-care (01) ==
LOC: RADMAMWWP 12:56
PROVIDERS: ATTEND Surgery
DX: R92.1 Mammographic calcification found on diagnostic imaging of breast (principal); N64.89 Other specified disorders of breast; Z80.3 Family history of malignant neoplasm of breast; Z78.0 Asymptomatic menopausal state; Z85.3 Personal history of malignant neoplasm of breast
CPT/HCPCS: 77065; G0279; 77061

== ENCOUNTER → 2021-06-05 | Outpatient (CLI) | payer MEDICARE, OTHER ==
[2021-06-05 14:56] VITALS: BP 133/80; PULSE 78; RESP 16; TEMP 98.6
--- NOTE | 2021-06-05 15:09 | P.PN ---
Subjective Progress Note Date: 06/05/21 Principal diagnosis: right breast stage IIA invasive ductal cancer; [id number]+NH+HEr2-G2 [id number]+NH+Her2-G2 right breast cancer right breast invasive ductal cancer: [id number]+NH+her2-G2; stage IIA Krystal is an 80-year-old white female who was initially seen in consultation for Dr. Lehman regarding a right breast mass. 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 Was also noted to involve the lymph node. She had a PET scan performed on which was negative for metastatic disease. She was seen in consultation by medical oncology who suggested that she have surgery prior to chemotherapy. She underwent a right breast mastectomy and axillary dissection on . Pathology revealed a grade 2, 9 cm x 6.5 cm lesion of the right breast she had 7 lymph nodes removed and one node was positive for cancer. Post procedure she developed a seroma at the mastectomy site. She had this aspirated on several occasions and debrided. She states that the chest wall is healed well at this time. She is not complaining of any lumps masses or nodules of concern on the right chest wall or in her left breast. She is on an antiestrogen medication anestrazole. She underwent radiation therapy. She did not have any chemotherapy. She had an Oncotype DX performed which revealed a low score of 15. She was started on anastrozole in November 2019. [place] [id number]. A left breast mammogram performed on 05-26-21 which was benign BIRADS 2. She is doing well. She has no complaints at this time. Does not complain of any new lumps masses or nodules in the chest wall or in the left breast She had a punch biopsy of the right chest wall done on 04-26-20 which was scar/fibrosis and fat necrosis. A left breast mammogram was done on 05-26-21 which was benign BIRAD 2. She wears an elastic sleeve at this time for lymphedema. Note from Dr. Lua of 05-30-21 reviewed. Note from Yann of 03-12-21 reviewed She states she has noted a soft tissue swelling at the medial aspect of the mastectomy incision site on the right side. She is has no complaints related to the left breast. Family history: Maternal grandmother: Questionable breast cancer Niece: Breast cancer Father: Colon cancer Mother: Lung cancer Sister: Lymphoma which spread to her lungs Hormonal history: Menarche: 13 , breast-fed negative First live at 22 Minute the process: Surgical at 34 Preoperative control pills: 2 years Hormones: His estrogen shots for about 2 years Past surgical history: cholecystectomy Tonsillectomy Appendectomy Back surgery right mastectomy and AND left ear surgery skin cancer Past medical history: Diabetes Hypertension COPD Breast Mass. Skin changes lower legs/scales follows with dermatology Social history: Smoke: Stopped 3 month ago used to smoke 1 pack per day for 40 years Alcohol: Negative Drugs: Negative Review of systems: Constitutional: Night sweats HEENT: Macular hole Lungs: COPD Heart: Hypertension GI: Negative : Bladder leakage Musculoskeletal: Arthritis Neurologic: Decreased strength in lower extremities Integument: Skin scales; skin changes related to radiation Psychiatric: Depression Hematologic: Negative ALLERGIES: Sinus infections Objective - Vital Signs Vital signs: Vital Signs Temp 98.6 F 06/05/21 14:52 Pulse 78 06/05/21 14:52 Resp 16 06/05/21 14:52 BP 133/80 06/05/21 14:52 Pulse Ox Intake & Output 06/04/21 06/05/21 06/05/21 18:59 06:59 18:59 Weight 68.946 kg - Exam BMI 25.3 - Constitutional General appearance: Present: cooperative - EENT Eyes: Present: EOMI ENT: Present: hearing grossly normal - Neck Neck: Present: normal ROM - Respiratory Respiratory: bilateral: CTA - Cardiovascular Rhythm: regular Heart sounds: normal: S1, S2 - Gastrointestinal General gastrointestinal: Present: soft - Integumentary Integumentary: Present: normal turgor - Musculoskeletal Musculoskeletal: Present: gait normal - Psychiatric Psychiatric: Present: A&O x's 3, appropriate affect, intact judgment & insight - Additional findings Additional findings: Breast Exam: BRA: medium inspection: elastic stocking on right arm, chest wall no evidence of recurrent cancer palpation: right chest wall: Postoperative and radiation changes, no evidence of recurrent cancer Right axilla: No adenopathy of concern Left breasts: Multiple positional exam no dominant masses or nodules of concern Left axilla: No adenopathy of concern Assessment and Plan Assessment: Impression: Diabetes Hypertension COPD Skin changes lower legs with dermatology stage IIA right breast cancer treated with surgery radiation therapy, no chemotherapy, on anestrazole no evidence of recurrent cancer Plan: Repeat left breast mammogram in 1 year Follow up here in 6 months Continue anastrozole Continue follow-up with medical and radiation oncology CC: DR. Lehman
== END ==
LOC: WWCWWP 14:37
PROVIDERS: ATTEND Surgery
DX: Z08 Encounter for follow-up examination after completed treatment for malignant neoplasm (principal); E11.9 Type 2 diabetes mellitus without complications; I10 Essential (primary) hypertension; J44.9 Chronic obstructive pulmonary disease, unspecified; Z85.3 Personal history of malignant neoplasm of breast; Z87.891 Personal history of nicotine dependence; Z90.11 Acquired absence of right breast and nipple; Z79.811 Long term (current) use of aromatase inhibitors

== ENCOUNTER → 2021-12-04 | Outpatient (CLI) | payer MEDICARE, OTHER ==
[2021-12-04 10:44] VITALS: BP 140/74; RESP 17
--- NOTE | 2021-12-04 11:07 | P.PN ---
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 Lehman regarding a right breast mass. 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 Was also noted to involve the lymph node. She had a PET scan performed on which was negative for metastatic disease. She was seen in consultation by medical oncology who suggested that she have surgery prior to chemotherapy. She underwent a right breast mastectomy and axillary dissection on . Pathology revealed a grade 2, 9 cm x 6.5 cm lesion of the right breast she had 7 lymph nodes removed and one node was positive for cancer. Post procedure she developed a seroma at the mastectomy site. She had this aspirated on several occasions and debrided. She states that the chest wall is healed well at this time. She is not complaining of any lumps masses or nodules of concern on the right chest wall or in her left breast. She is on an antiestrogen medication anestrazole. She underwent radiation therapy. She did not have any chemotherapy. She had an Oncotype DX performed which revealed a low score of 15. She was started on anas trozole in November 2019. [place] [id number]. A left breast mammogram performed on 05-26-21 which was benign BIRADS 2. She is doing well. She has no complaints at this time. Does not complain of any new lumps masses or nodules in the chest wall or in the left breast She had a punch biopsy of the right chest wall done on 04-26-20 which was scar/fibrosis and fat necrosis. A left breast mammogram was done on 05-26-21 which was benign BIRAD 2. She wears an elastic sleeve at this time for lymphedema. Note from Dr. Lua of 05-30-21 reviewed. Note from Yann of 03-12-21 reviewed She states she has noted a soft tissue swelling at the medial aspect of the mastectomy incision site on the right side. She is has no complaints related to the left breast. 7-14-22 Patient is not complaining of any new lumps masses or nodules of concern on her chest wall. She is not complaining of any lumps or masses in the contralateral left breast. She is on anestrazole and is follow with Dr. Lua. She does still wear an elastic sleeve on her right arm to decrease any lymphedema. Under the sleeve she has developed some bruising has been seen by cooky machine operator who told her that she has early bruising from the aging process. Family history: Maternal grandmother: Questionable breast cancer Niece: Breast cancer Father: Colon cancer Mother: Lung cancer Sister: Lymphoma which spread to her lungs Hormonal history: Menarche: 13 , breast-fed negative First live at 22 Minute the process: Surgical at 34 Preoperative control pills: 2 years Hormones: His estrogen shots for about 2 years Past surgical history: cholecystectomy Tonsillectomy Appendectomy Back surgery right mastectomy and AND left ear surgery skin cancer Past medical history: Diabetes Hypertension COPD Breast Mass. Skin changes lower legs/scales follows with dermatology Social history: Smoke: Stopped 3 month ago used to smoke 1 pack per day for 40 years Alcohol: Negative Drugs: Negative Review of systems: Constitutional: Night sweats HEENT: Macular hole Lungs: COPD Heart: Hypertension GI: Negative : Bladder leakage Musculoskeletal: Arthritis Neurologic: Decreased strength in lower extremities Integument: Skin scales; skin changes related to radiation Psychiatric: Depression Hematologic: Negative ALLERGIES: Sinus infections Objective - Vital Signs Vital signs: Vital Signs Temp Pulse Resp 17 12/04/21 10:42 BP 140/74 12/04/21 10:42 Pulse Ox 96 12/04/21 10:42 FiO2 Intake & Output 12/03/21 12/04/21 12/04/21 18:59 06:59 18:59 Weight 65.771 kg - Exam BMI: 24.1 - Constitutional General appearance: Present: cooperative - EENT Eyes: Present: EOMI ENT: Present: hearing grossly normal - Neck Neck: Present: normal ROM - Respiratory Respiratory: bilateral: CTA - Cardiovascular Heart sounds: normal: S1, S2 - Integumentary Integumentary Comment(s): incision right chest wall well healed, no evidence of recurrence - Psychiatric Psychiatric: Present: A&O x's 3, appropriate affect, intact judgment & insight - Additional findings Additional findings: Breast Exam: Bra: medium sports bra inspection: Well-healed scar right chest wall, left breast grade 3 ptosis Palpation: Right chest wall: Incision totally healed at this time, no evidence of recurrent cancer Right axilla: No adenopathy of concern Left breast: Multiple positional exam fibrocystic changes no dominant masses or nodules of concern Left axilla: No adenopathy of concern Assessment and Plan Assessment: Impression: Diabetes Hypertension COPD Breast Mass. Skin changes lower legs/scales follows with dermatology Patient with mild lymphedema right arm with Silastic sleeve on this as needed Plan: No evidence of recurrent cancer Mild lymphedema right arm wearing elastic sleeve Patient is not interested in breast prosthesis at this time patient on anestrazole following with Dr. Lua follow with Dr. Lerner follow up here in 6 months mammogram in May 2022 CC: Dr. Lehman
== END ==
LOC: WWCWWP 10:34
PROVIDERS: ATTEND Surgery
DX: Z08 Encounter for follow-up examination after completed treatment for malignant neoplasm (principal); Z85.3 Personal history of malignant neoplasm of breast; N63.0 Unspecified lump in unspecified breast; E11.9 Type 2 diabetes mellitus without complications; I10 Essential (primary) hypertension; J44.9 Chronic obstructive pulmonary disease, unspecified; Z87.891 Personal history of nicotine dependence

== ENCOUNTER → 2022-02-07 | Outpatient (CLI) | payer MEDICARE, OTHER ==
--- NOTE | 2022-02-08 10:48 | CT ---
EXAMINATION TYPE: CT abdomen wo con CT DLP: 271.7 mGycm, Automated exposure control for dose reduction was used. DATE OF EXAM: 02/07/2022 7:59 AM COMPARISON: PET/CT 06/23/2019 CLINICAL INDICATION:Female, 81 years old with history of R74.8 ABNORMAL LEVELS OF OTHER SERUM ENZYMES ; Abnormal levels of other serum enzymes , elevated alkaline phosphatase. TECHNIQUE: Axial CT of the abdomen. Sagittal and coronal reformats [facility] Contrast used: None Oral contrast used: without Oral Contrast FINDINGS: LOWER CHEST: Lipomatous hypertrophy of the interatrial septum. Mild paraseptal emphysema changes note d most proximal right. ABDOMEN LIVER: Unremarkable GALLBLADDER AND BILE DUCTS: The gallbladder is surgically absent. PANCREAS: Unremarkable. SPLEEN: Scattered splenic calcified granulomas. ADRENAL GLANDS: Unremarkable. KIDNEYS AND URETERS: No evidence of hydronephrosis or renal calculus. Right renal cysts. STOMACH AND BOWEL: No evidence of bowel obstruction. Second portion duodenal diverticulum. Scattered clonic diverticula are present. PERITONEUM: No evidence of pneumoperitoneum or free fluid. VASCULATURE: No evidence of aortic aneurysm. Atherosclerosis of the arterial vasculature. MUSCULOSKELETAL: No acute osseous abnormalities, grade 1 anterolisthesis of L4 and L5. Multilevel dis c degeneration changes throughout the spine. LYMPH NODES: No gross evidence for lymphadenopathy. SOFT TISSUE/ABDOMINAL WALL: Unremarkable IMPRESSION: 1. Unremarkable appearance of the liver on this noncontrast exam. 2. No evidence for acute abdominal process. 3. Surgically absent gallbladder. 4. Colonic diverticulosis. 5. Mild paraseptal emphysema changes.
== END | disposition home or self-care (01) ==
LOC: RADCTMAIN 07:22
PROVIDERS: ATTEND Family Medicine
DX: J43.9 Emphysema, unspecified (principal); K57.30 Diverticulosis of large intestine without perforation or abscess without bleeding; R74.8 Abnormal levels of other serum enzymes
CPT/HCPCS: 74150

== ENCOUNTER → 2022-05-28 | Outpatient (CLI) | payer MEDICARE, OTHER ==
--- NOTE | 2022-05-28 11:56 | MM ---
Reason for Exam: Hx of breast cancer, mastectomy. Last screening mammogram was performed 12 month(s) ago. Patient History: Menarche at age 12. First Full-Term at age 22. Postmenopausal. Breast cancer, age 78. Previous chest radiation therapy. Mastectomy on the Right side. 06/09/2019, Malignant Core Biopsy on the right side. 06/09/2019, Malignant Core Biopsy on the right side. Radiation Therapy, right. Maternal grandmother had breast cancer. Niece had breast cancer, age 50. Prior Study Comparison: 06/09/2019 Right Diagnostic Mammogram, [facility]. 05/22/2020 Left Diagnostic Mammogram, [facility]. 05/26/2021 Left Diagnostic Mammogram, [facility]. Tissue Density: Left: There are scattered fibroglandular densities. Findings: Analyzed By CAD. A few tiny benign rounded oil cyst calcifications are redemonstrated. Nodularity on the MLO view appears more defined along the subareolar region but disperses on additional views compatible with superimposition shadow. No significant change from prior exams. Overall Assessment: Benign, BI-RAD 2 Management: Screening Mammogram of the left breast in 1 year. 1. Patient should continue monthly self breast exams. 2. A clinical breast exam by your physician is recommended on an annual basis. 3. This exam should not preclude additional follow-up of suspicious palpable abnormalities. Results were given to the patient verbally at the time of exam. Electronically signed and approved by: Radha Siddiqi M.D. Radiologist
== END | disposition home or self-care (01) ==
LOC: RADMAMWWP 10:57
PROVIDERS: ATTEND Surgery
DX: Z85.3 Personal history of malignant neoplasm of breast (principal); Z90.11 Acquired absence of right breast and nipple; Z80.3 Family history of malignant neoplasm of breast; Z78.0 Asymptomatic menopausal state; Z92.3 Personal history of irradiation
CPT/HCPCS: 77065; G0279; 77061

== ENCOUNTER → 2022-06-12 | Outpatient (CLI) | payer MEDICARE, OTHER ==
[2022-06-12 14:34] VITALS: BP 117/67; PULSE 107; RESP 20; TEMP 98.3
--- NOTE | 2022-06-12 14:58 | P.PN ---
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 Lehman regarding a right breast mass. 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 Was also noted to involve the lymph node. She had a PET scan performed on which was negative for metastatic disease. She was seen in consultation by medical oncology who suggested that she have surgery prior to chemotherapy. She underwent a right breast mastectomy and axillary dissection on . Pathology revealed a grade 2, 9 cm x 6.5 cm lesion of the right breast she had 7 lymph nodes removed and one node was positive for cancer. Post procedure she developed a seroma at the mastectomy site. She had this aspirated on several occasions and debrided. She states that the chest wall is healed well at this time. She is not complaining of any lumps masses or nodules of concern on the right chest wall or in her left breast. She is on an antiestrogen medication anestrazole. She underwent radiation therapy. She did not have any chemotherapy. She had an Oncotype DX performed which revealed a low score of 15. She was started on anastrozole in November 2019. She completed her radiation therapy on . A left breast mammogram performed on 05-26-21 which was benign BIRADS 2. She is doing well. She has no complaints at this time. Does not complain of any new lumps masses or nodules in the chest wall or in the left breast She had a punch biopsy of the right chest wall done on 04-26-20 which was scar/fibrosis and fat necrosis. A left breast mammogram was done on 05-26-21 which was benign BIRAD 2. She wears an elastic sleeve at this time for lymphedema. Note from Dr. Lua of 05-30-21 reviewed. Note from Yann of 03-12-21 reviewed She states she has noted a soft tissue swelling at the medial aspect of the mastectomy incision site on the right side. She is has no complaints related to the left breast. 12-04-21 Patient is not complaining of any new lumps masses or nodules of concern on her chest wall. She is not complaining of any lumps or masses in the contralateral left breast. She is on anestrazole and is follow with Dr. Lua. She does still wear an elastic sleeve on her right arm to decrease any lymphedema. Under the sleeve she has developed some bruising has been seen by hand suture winder who told her that she has early bruising from the aging process. 06-12-22 left breast mammogram on 05-28-22 BIRAD 2. She is not complaining of any new lumps, masses, or nodules of concern. She is not complaining of any lesions on the right chest wall. She is taking anestrazole. She will follow with Dr. Lua in June. She finished radiation fall 2019. She did not have any chemotherapy. She did wear an elastic sleeve on the right arm for lymphedema in the past but this has resolved. Family history: Maternal grandmother: Questionable breast cancer Niece: Breast cancer Father: Colon cancer Mother: Lung cancer Sister: Lymphoma which spread to her lungs Hormonal history: Menarche: 13 , breast-fed negative First live at 22 Minute the process: Surgical at 34 Preoperative control pills: 2 years Hormones: His estrogen shots for about 2 years Past surgical history: cholecystectomy Tonsillectomy Appendectomy Back surgery right mastectomy and AND left ear surgery skin cancer Past medical history: Diabetes Hypertension COPD Breast Mass. Skin changes lower legs/scales follows with dermatology Social history: Smoke: Stopped 3 month ago used to smoke 1 pack per day for 40 years Alcohol: Negative Drugs: Negative Review of systems: Constitutional: Night sweats HEENT: Macular hole Lungs: COPD Heart: Hypertension GI: Negative : Bladder leakage Musculoskeletal: Arthritis Neurologic: Decreased strength in lower extremities Integument: Skin scales; skin changes related to radiation Psychiatric: Depression Hematologic: Negative ALLERGIES: Sinus infections Objective - Vital Signs Vital signs: Vital Signs Temp Pulse Resp 17 12/04/21 10:42 BP 140/74 12/04/21 10:42 Pulse Ox 96 12/04/21 10:42 FiO2 Intake & Output 12/03/21 12/04/21 12/04/21 18:59 06:59 18:59 Weight 65.771 kg Objective - Vital Signs Vital signs: Vital Signs Temp 98.3 F 06/12/22 14:30 Pulse 107 H 01/20/23 14:30 Resp 20 06/12/22 14:30 BP 117/67 06/12/22 14:30 Pulse Ox 98 06/12/22 14:30 FiO2 Intake & Output 06/11/22 06/12/22 06/12/22 18:59 06:59 18:59 Weight 63.049 kg - Constitutional General appearance: Present: cooperative - EENT Eyes: Present: EOMI ENT: Present: hearing grossly normal - Neck Neck: Present: normal ROM - Respiratory Respiratory: bilateral: CTA - Cardiovascular Rhythm: regular Heart sounds: normal: S1, S2 - Gastrointestinal General gastrointestinal: Present: soft - Integumentary Integumentary: Present: normal turgor - Musculoskeletal Musculoskeletal Comment(s): uses a cane, and wheel chair - Psychiatric Psychiatric: Present: A&O x's 3, appropriate affect, intact judgment & insight - Additional findings Additional findings: Breast Exam: BRA: sports bra M inspection: no recurrence chest wall, left breast grade 3 ptosis palpation: right breast: Patient is status post right mastectomy right chest wall no evidence of any recurrent disease Right axilla: No adenopathy of concern Left breast: Examination with the patient sitting up does not reveal any lumps masses or notches of concern in the left breast Left axilla: No adenopathy of concern Assessment and Plan Assessment: Impression: Diabetes Hypertension COPD Skin changes lower legs/scales follows with dermatology Patient with mild lymphedema right arm with Silastic sleeve on this as needed stage IIA right breast invasive ductal cancer Plan: No evidence of recurrent cancer Mild lymphedema right arm wearing elastic sleeve Patient is not interested in breast prosthesis at this time patient on anestrazole following with Dr. Lua follow with Dr. Lerner CC: Dr. Lehman
== END ==
LOC: WWCWWP 14:21
PROVIDERS: ATTEND Surgery
DX: Z85.3 Personal history of malignant neoplasm of breast (principal); J44.9 Chronic obstructive pulmonary disease, unspecified; L98.6 Other infiltrative disorders of the skin and subcutaneous tissue; E11.9 Type 2 diabetes mellitus without complications; I10 Essential (primary) hypertension; Z87.891 Personal history of nicotine dependence

== ENCOUNTER → 2022-09-10 | Outpatient (CLI) | payer MEDICARE, OTHER ==
[2022-09-10 15:35] LABS: INR 0.87 (0.90-1.11); Prothrombin Time 9.9 sec (9.9-11.9)
[2022-09-10 16:02] LABS: African American GFR (CKD) 87.2 (60.0-200.0); Albumin 4.3 g/dL (3.8-4.9); Albumin/Globulin Ratio 1.99 (1.60-3.17); Anion Gap 12.3 mmol/L (10.00-18.00); BUN/Creat Ratio 21.18 Ratio (12.00-20.00); Blood Urea Nitrogen 15.8 mg/dL (9.0-27.0); Carbon Dioxide 27.4 mmol/L (20.0-27.5); Globulin 2.2 g/dL (1.6-3.3); Non-African American GFR(CKD) 75.2 (60.0-200.0); Potassium 4.8 mmol/L (3.5-5.5); Total Bilirubin 0.3 mg/dL (0.30-1.20); Total Protein 6.5 g/dL (6.2-8.2)
[2022-09-10 16:18] LABS: Basophils # (A) 0.07 X 10*3/uL (0.00-0.10); Basophils % (A) 0.6 %; Eosinophils # (A) 0.15 X 10*3/uL (0.04-0.35); Eosinophils % (A) 1.2 %; HCT 44.1 % (37.2-46.3); HGB 13.5 g/dL (12.0-15.0); Immature Grans, Automated 0.6 %; Lymphocytes # (A) 1.53 X 10*3/uL (0.90-5.00); Lymphocytes % (A) 12.6 %; MCH 29.5 pg (27.0-32.0); MCHC 30.6 g/dL (32.0-37.0); MCV 96.5 fL (80.0-97.0); Mean Platelet Volume 9.6 fL (9.5-12.2); Monocytes # (A) 0.98 X 10*3/uL (0.20-1.00); NRBC Per 100 WBC 0 /100 WBCS (0.0-0.0); Neutrophils # (A) 9.39 X 10*3/uL (1.80-7.70); Platelet Count 353 X 10*3/uL (140-440); RBC 4.57 X 10*6/uL (4.10-5.20); RDW 15.3 % (11.5-14.5); WBC 12.19 X 10*3/uL (4.50-10.00)
== END | disposition home or self-care (01) ==
LOC: LABPAT 10:27
PROVIDERS: ATTEND Orthopaedic Surgery Adult Reconstructive Orthopaedic Surgery
DX: Z01.812 Encounter for preprocedural laboratory examination (principal); M25.562 Pain in left knee; M17.12 Unilateral primary osteoarthritis, left knee
CPT/HCPCS: 36415; 80053; 85025; 85610; 87070

== ENCOUNTER → 2022-09-23 | Outpatient (CLI) | payer MEDICARE, OTHER ==
[2022-09-24 02:44] LABS: Basophils # (A) 0.05 X 10*3/uL (0.00-0.10); Basophils % (A) 0.5 %; Eosinophils # (A) 0.19 X 10*3/uL (0.04-0.35); Eosinophils % (A) 1.9 %; HCT 42.1 % (37.2-46.3); HGB 13.1 g/dL (12.0-15.0); Immature Grans, Automated 0.4 %; Lymphocytes % (A) 12.9 %; MCH 30.2 pg (27.0-32.0); MCHC 31.1 g/dL (32.0-37.0); Mean Platelet Volume 9.4 fL (9.5-12.2); NRBC Per 100 WBC 0 /100 WBCS (0.0-0.0); Neutrophils # (A) 7.76 X 10*3/uL (1.80-7.70); Neutrophils % (A) 77.3 %; Platelet Count 273 X 10*3/uL (140-440); RBC 4.34 X 10*6/uL (4.10-5.20); RDW 15.3 % (11.5-14.5); WBC 10.04 X 10*3/uL (4.50-10.00)
== END | disposition home or self-care (01) ==
LOC: LABWHC1 15:09
PROVIDERS: ATTEND Physician Assistant
DX: Z01.812 Encounter for preprocedural laboratory examination (principal); M17.12 Unilateral primary osteoarthritis, left knee; M25.562 Pain in left knee
CPT/HCPCS: 36415; 85025

== ENCOUNTER → 2023-01-12 | Outpatient (CLI) | payer MEDICARE, OTHER ==
--- NOTE | 2023-01-12 12:21 | BD ---
EXAMINATION TYPE: Axial Bone Density DATE OF EXAM: 01/12/2023 CLINICAL HISTORY: 82 years old Female. ICD-10 CODE: [id number] BREAST CANCER Height: 64 Weight: 142.6 FRAX RISK QUESTIONS: Alcohol (3 or more units per day): no Family History (Parent hip fracture): no Glucocorticoids (More than 3mos): no History of Fracture in Adulthood: Ribs Secondary Osteoporosis: 1. Type 1 Diabetes: no 2. Hyperthyroidism: no 3. Menopause before 45: yes 4. Malnutrition: no 5. Chronic liver disease: no Rheumatoid Arthritis: no Current Tobacco Use: no RISK FACTORS HISTORY OF: Hip Fracture (Right/Left): no Spine Fracture: no History of Wrist Fracture: no Surgery to Spine/Hip(right/left)/Wrist (right/left): no Family History of Osteoporosis: Sister Active: yes Diet low in dairy products/other sources of calcium: no Postmenopausal woman: yes Take estrogen and/or progesterone medications: no Lost more than 2 inches in height since high school: no Frequent falls: no Poor Health: no Hyperparathyroidism: no Adrenal Insufficiency: no MEDICATIONS: Prednisone or other steroids: no Thyroid Medications: no Osteoporosis Medications: no Which medication: How Long: Additional Medications: Hormone Cate, BP Meds, Cholesterol Meds, Zoloft, Reflux Meds, Metformin, C alcium, Vit D Additional History: Breast Ca. 2020 with radiation EXAM MEASUREMENTS: Bone mineral densitometry was performed using the [employer] System. Bone mineral density as measured about the Lumbar spine is: ----- L1-L4(G/cm2): 1.072 T Score Values are as follows: ----- L1: -1.5 ----- L2: -2.1 ----- L3: 0.3 ----- L4: 0.2 ----- L1-L4: -0.9 Z Score Values are as follows: ----- L1: 0.4 ----- L2: -0.3 ----- L3: 2.1 ----- L4: 2.1 ----- L1-L4: 1.0 Bone mineral density has: decreased -15.9 % since study of: 06/27/2020 Bone mineral density about the R hip (g/cm2): 0.844 Bone mineral density about the L hip (g/cm2): 0.814 T Score values are as follows: -----R Neck: -1.5 -----L Neck: -1.6 -----R Total: -1.3 -----L Total: -1.5 Z Score values are as follows: -----R Neck: 0.8 -----L Neck: 0.7 -----R Total: 0.8 -----L Total: 0.6 Bone mineral density has: decreased -9.6 % since study of: 06/27/2020 FRAX%s: The graph provided illustrates a 14.1 % chance for a major osteoporotic fx and a 3.8% chance for the hips probability for fx in 10 years time. IMPRESSION: Osteopenia (T Score between -2.5 and -1). There is slightly increased risk of fracture and the patient may be considered for treatment. Re-Screen 2-5 years. NOTE: T-SCORE=SD OF THE YOUNG ADULT MEAN.
== END | disposition home or self-care (01) ==
LOC: RADBDWWP 09:12
PROVIDERS: ATTEND Internal Medicine Hematology & Oncology
DX: C50.111 Malignant neoplasm of central portion of right female breast (principal); M85.89 Other specified disorders of bone density and structure, multiple sites; Z78.0 Asymptomatic menopausal state
CPT/HCPCS: 77080

== ENCOUNTER → 2023-05-31 | Outpatient (CLI) | payer MEDICARE, OTHER ==
--- NOTE | 2023-05-31 09:41 | MM ---
Reason for Exam: Hx of breast cancer, mastectomy. Last screening mammogram was performed 12 month(s) ago. Patient History: Menarche at age 12. First Full-Term at age 22. Postmenopausal. Breast cancer, age 78. Previous chest radiation therapy. Mastectomy on the Right side. 06/09/2019, Malignant Core Biopsy on the right side. 06/09/2019, Malignant Core Biopsy on the right side. Radiation Therapy, right. Maternal grandmother had breast cancer. Niece had breast cancer, age 50. Prior Study Comparison: 05/22/2020 Left Diagnostic Mammogram, [facility]. 05/26/2021 Left Diagnostic Mammogram, [facility]. 05/28/2022 Left MG 3D diag mammo w/cad , [facility]. Tissue Density: Left: There are scattered fibroglandular densities. Findings: Analyzed By CAD. Pattern appears stable. Normal parenchymal tissues in the subareolar breast. No suspicious groups of microcalcifications, spiculated or lobular masses, architectural distortion or other secondary signs of malignancy are mammographically apparent. Overall Assessment: Benign, BI-RAD 2 Management: Screening Mammogram of the left breast in 1 year. A negative mammogram report should not preclude additional follow up of suspicious palpable abnormalities. Patient should continue monthly self breast exam. A clinical breast exam by your physician is recommended on an annual basis and results should be correlated with mammographic findings. Electronically signed and approved by: Carlos A Hagan D.O. Radiologis
== END | disposition home or self-care (01) ==
LOC: RADMAMWWP 09:05
PROVIDERS: ATTEND Surgery
DX: R92.322 Mammographic fibroglandular density, left breast (principal); Z85.3 Personal history of malignant neoplasm of breast; Z78.0 Asymptomatic menopausal state; Z80.3 Family history of malignant neoplasm of breast
CPT/HCPCS: 77065; G0279; 77061

== ENCOUNTER → 2023-07-01 | Outpatient (CLI) | payer MEDICARE, OTHER ==
--- NOTE | 2023-07-01 12:26 | P.PN ---
Subjective Progress Note Date: 07/01/23 right breast stage IIA invasive ductal cancer; [id number]+DC+HEr2-G2; 2019 82 -year-old white female status post right breast mastectomy and axillary dissection on . Pathology revealed a grade a 9 cm x 6.5 cm lesion of the right breast. She had 7 nodes removed in one node was positive for cancer. Postprocedure she developed a seroma at the mastectomy site. She had this aspirated on several occasions and debrided. She is on anastrozole. She underwent radiation therapy. She did not have c hemotherapy. She had an oncotype dx performed which revealed a low score of 15. She was started on anastrozole in November 2019. She completed her radiation on . She had a left breast mammogram which was BIRADS 2. She is not complaining of any lumps masses or nodules of concern in the left breast and no lesions of concern on the right chest wall. note 04-14-[address] Lua medical oncology Family history: Maternal grandmother: Questionable breast cancer Niece: Breast cancer Father: Colon cancer Mother: Lung cancer Sister: Lymphoma which spread to her lungs Hormonal history: Menarche: 13 , breast-fed negative First live at 22 Minute the process: Surgical at 34 Preoperative control pills: 2 years Hormones: His estrogen shots for about 2 years Past surgical history: cholecystectomy Tonsillectomy Appendectomy Back surgery right mastectomy and AND left ear surgery skin cancer left knee replacement September 2022 Past medical history: Diabetes Hypertension COPD Breast Mass. Skin changes lower legs/scales follows with dermatology Social history: Smoke: Stopped 3 month ago used to smoke 1 pack per day for 40 years Alcohol: Negative Drugs: Negative Review of systems: Constitutional: Night sweats HEENT: Macular hole Lungs: COPD Heart: Hypertension GI: Negative : Bladder leakage Musculoskeletal: Arthritis Neurologic: Decreased strength in lower extremities Integument: Skin scales; skin changes related to radiation Psychiatric: Depression Hematologic: Negative ALLERGIES: Sinus infections Objective - Vital Signs Vital signs: Vital Signs Temp 98.1 F 07/01/23 12:02 Pulse 92 07/01/23 12:02 Resp 15 07/01/23 12:02 BP 146/78 07/01/23 12:02 Pulse Ox 97 07/01/23 12:02 FiO2 Intake & Output 06/30/23 07/01/23 07/01/23 18:59 06:59 18:59 Weight 58.967 kg - Constitutional General appearance: Present: cooperative - EENT Eyes: Present: EOMI ENT: Present: hearing grossly normal - Neck Neck: Present: normal ROM - Respiratory Respiratory: bilateral: CTA - Cardiovascular Rhythm: regular Heart sounds: normal: S1, S2 - Gastrointestinal General gastrointestinal: Present: soft - Integumentary Integumentary: Present: normal turgor - Musculoskeletal Musculoskeletal: Present: gait normal - Psychiatric Psychiatric: Present: A&O x's 3, appropriate affect, intact judgment & insight - Additional findings Additional findings: Breast Exam: BRA: sports bra M inspection: no recurrence chest wall, left breast grade 3 ptosis palpation: right breast: Patient is status post right mastectomy right chest wall no evidence of any recurrent disease Right axilla: No adenopathy of concern Left breast: multi-positional exam does not reveal any lumps masses or nodules of concern in the left breast Left axilla: No adenopathy of concern Assessment and Plan Assessment: Impression: Diabetes Hypertension COPD Skin changes lower legs/scales follows with dermatology Patient with mild lymphedema right arm in the past, now resolved stage IIA right breast invasive ductal cancer left breast mammogram BIRAD 2 Plan: No evidence of recurrent cancer Mild lymphedema right arm resolved Patient is not interested in breast prosthesis at this time patient on anestrazole following with Dr. Lua follow with Dr. Lerner follow up in 6 months left mammogram in May 2024 CC: Dr. Lehman
[2023-07-01 12:32] VITALS: BP 146/78; PULSE 92; RESP 15; TEMP 98.1
== END ==
LOC: WWCWWP 11:17
PROVIDERS: ATTEND Surgery
DX: C50.911 Malignant neoplasm of unspecified site of right female breast (principal); N64.89 Other specified disorders of breast; E11.9 Type 2 diabetes mellitus without complications; I10 Essential (primary) hypertension; J44.9 Chronic obstructive pulmonary disease, unspecified; Z87.2 Personal history of diseases of the skin and subcutaneous tissue; Z87.891 Personal history of nicotine dependence; Z90.11 Acquired absence of right breast and nipple; Z90.49 Acquired absence of other specified parts of digestive tract; Z92.3 Personal history of irradiation; Z17.0 Estrogen receptor positive status [ER+]; Z79.899 Other long term (current) drug therapy; Z79.84 Long term (current) use of oral hypoglycemic drugs

== ENCOUNTER → 2023-10-19 | Outpatient (CLI) | payer MEDICARE, OTHER ==
--- NOTE | 2023-10-20 16:38 | XR ---
EXAMINATION TYPE: XR shoulder complete LT DATE OF EXAM: 10/19/2023 COMPARISON: NONE HISTORY: Pain TECHNIQUE: Left Shoulder examined in 3 projections. FINDINGS: The humeral head articulates with the glenoid. The acromio-clavicular junction is normal. No acute fractures or dislocations are evident. A follow up study can be performed 7-10 days from acute trauma for continued pain. MRI can be perfor med if soft tissue evaluation would be of benefit. IMPRESSION: 1. No acute osseous left shoulder abnormality.
== END | disposition home or self-care (01) ==
LOC: RADXRMAIN 16:33
PROVIDERS: ATTEND Family Medicine
DX: M75.42 Impingement syndrome of left shoulder (principal); M25.512 Pain in left shoulder

== ENCOUNTER 2023-11-18 16:24 | Inpatient (IN) | payer MEDICARE, OTHER ==
[2023-11-18 18:36] LABS: Anisocytosis Slight; Basophils # (A) 0.1 k/uL (0-0.2); Basophils % (A) 1 %; Eosinophils % (A) 0 %; HCT 44.7 % (34.0-46.0); HGB 13.1 gm/dL (11.4-16.0); Hypochromasia Moderate; Lymphocytes # (A) 0.9 k/uL (1.0-4.8); Lymphocytes % (A) 7 %; MCHC 29.4 g/dL (31.0-37.0); MCV 88.3 fL (80.0-100.0); Mean Platelet Volume 8.3; Monocytes # (A) 0.9 k/uL (0-1.0); Monocytes % (A) 8 %; Neutrophils # (A) 9.7 k/uL (1.3-7.7); Neutrophils % (A) 83 %; Platelet Count 310 k/uL (150-450); RBC 5.06 m/uL (3.80-5.40); RDW 18.5 % (11.5-15.5); WBC 11.7 k/uL (3.8-10.6)
[2023-11-18 18:52] LABS: ALT 28 U/L (4-34); AST 44 U/L (14-36); African American GFR (CKD) 61 (>60 ml/min/1.73 sqM); Albumin 3.5 g/dL (3.5-5.0); Alkaline Phosphatase 134 U/L (38-126); Anion Gap 5 mmol/L; Blood Urea Nitrogen 23 mg/dL (7-17); Calcium 9.4 mg/dL (8.4-10.2); Carbon Dioxide 26 mmol/L (22-30); Chloride 106 mmol/L (98-107); Creatine Kinase 337 U/L (30-135); Glucose 130 mg/dL (74-99); Magnesium 1.7 mg/dL (1.6-2.3); Non-African American GFR(CKD) 53 (>60 ml/min/1.73 sqM); Potassium 4.1 mmol/L (3.5-5.1); Sodium 137 mmol/L (137-145); Total Bilirubin 0.6 mg/dL (0.2-1.3)
[2023-11-18 18:52] LABS: Appearance,Urine Cloudy (Clear); Bacteria,Urine Rare /hpf; Bilirubin,Urine 1+ (Negative); Blood,Urine Negative (Negative); Budding Yeast,Urine Rare /hpf; Color,Urine Yellow; Glucose,Urine (UA) Trace (Negative); Hyaline Casts,Urine 259 /lpf (0-2); Ketones,Urine Negative (Negative); Leukocyte Esterase,Urine Large (Negative); Mucus,Urine Moderate /hpf; Nitrite,Urine Negative (Negative); PH, Urine 5.5 (5.0-8.0); Protein,Urine 2+ (Negative); RBC,Urine 4 /hpf (0-5); Specific Gravity,Urine 1.026 (1.001-1.035); Squamous Epithelial Cell,Urine 17 /hpf (0-4); WBC,Urine 54 /hpf (0-5)
--- NOTE | 2023-11-18 21:16 | XR ---
EXAMINATION TYPE: XR chest 2V DATE OF EXAM: 11/18/2023 COMPARISON: Chest x-ray June 12, 2020 HISTORY: Pain after fall injury TECHNIQUE: Frontal and lateral views of the chest are obtained. FINDINGS: There is chronic emphysematous and parenchymal fibrotic change bilaterally with patchy biba silar opacities. Cardiomegaly is present. Osseous structures are demineralized. IMPRESSION: Cardiomegaly with small tiny bilateral pleural effusions. Correlate for CHF exacerbation /fluid overload state. Background chronic emphysematous and pulmonary fibrotic change. Patchy bibasil ar opacities favor atelectasis.
--- NOTE | 2023-11-18 21:28 | US ---
EXAMINATION TYPE: US venous doppler duplex UE RT DATE OF EXAM: 11/18/2023 COMPARISON: NONE CLINICAL INDICATION: Female, 82 years old with history of increased edema, possible DVT; Arm swelling .No hx of DVT SIDE PERFORMED: Right Grayscale, color doppler, spectral doppler imaging performed of the deep veins of the upper extremiti es. There is normal flow, compressibility and vascular waveforms. Right Arm: Appears negative for DVT today IMPRESSION: No DVT identified in the right upper extremity.
[2023-11-18] MEDS ORDERED: NITROGLYCERIN SL TABS 0.4 MG TAB SUBLINGUAL PRN (22:09)
[2023-11-18] MEDS ORDERED: NON FORMULARY DRUG (Albuterol Inhaler 90 MCG Puff) INHALATION PRN (22:15)
[2023-11-18] MEDS: ENOXAPARIN 60 MG/0.6 ML SYRINGE SQ ONE (23:17)
[2023-11-19] MEDS: ACETAMINOPHEN TAB 325 MG TAB PO PRN (01:24)
[2023-11-19] MEDS: MELATONIN 3 MG TABLET PO PRN (01:25)
[2023-11-19] MEDS: PANTOPRAZOLE 40 MG TABLET PO SCH (06:09)
[2023-11-19] MEDS: OXYBUTYNIN XL 5 MG TAB.ER.24 PO SCH (08:43)
[2023-11-19] MEDS: ENOXAPARIN 60 MG/0.6 ML SYRINGE SQ SCH (08:44)
[2023-11-19] MEDS: ASPIRIN 325 MG TAB PO SCH (08:44)
[2023-11-19] MEDS: SERTRALINE 100 MG TAB PO SCH (08:45)
[2023-11-19] MEDS: metFORMIN 500 MG TAB PO SCH (08:45)
[2023-11-19] MEDS: lisinopriL 10 MG TAB PO SCH (08:45)
[2023-11-19] MEDS: ANASTROZOLE 1 MG TAB PO SCH (08:45)
[2023-11-19] MEDS: SODIUM CHLORIDE 0.9% 1,000 ML IV SCH (10:32)
[2023-11-19] MEDS: FLUTICASONE NASAL 50MCG/SPRAY 16GM BTL EA NOSTRIL SCH (10:32)
[2023-11-19] MEDS: SYMBICORT 80-4.5 MCG INHALER INHALATION SCH (11:03)
--- NOTE | 2023-11-19 12:59 | P.CRDCN ---
History of Present Illness History of present illness: HISTORY OF PRESENTING ILLNESS This is a pleasant 82-year-old with past medical history significant for breast cancer status post right mastectomy, hypertension, hyperlipidemia, diabetes annelise itus type 2. She does not follow with a personal security specialist. She states she has been feeling okay however per son she has been significantly tired over last 2 weeks and sleepy most of the day. She also has not had much of an appetite. She denies any actual chest pain or pressure or shortness of breath. She had episode where she lost consciousness and fell over. She therefore came to emergency department he was found to be in high degree AV block with second- degree type II block. Heart rate in the 30s to 40s. She feels okay now however feels fatigued and tired. Additional concern of UTI. Blood work shows troponin 0.67, 0.5. Creatinine 1.0. REVIEW OF SYSTEMS At the time of my exam: CONSTITUTIONAL: Denies fever or chills. CARDIOVASCULAR: Denies chest pain, shortness of breath, orthopnea, PND or palpitations. RESPIRATORY: Denies cough. GASTROINTESTINAL: Denies abdominal pain, diarrhea, constipation, nausea or vomiting. MUSCULOSKELETAL: Denies myalgias. NEUROLOGIC: Denies numbness, tingling or weakness. ENDOCRINE: Denies fatigue, weight change, polydipsia or polyurina. GENITOURINARY: Denies burning, hematuria or urgency with micturation. HEMATOLOGIC: Denies history of anemia or bleeding. PHYSICAL EXAMINATION Vital signs reviewed. CONSTITUTIONAL: No apparent distress. HEENT: Head is normocephalic. Pupils are equal, round. Sclerae anicteric. Mucous membranes of the mouth are moist. No JVD. No carotid bruit. CHEST EXAMINATION: Lungs are clear to auscultation. No chest wall tenderness is noted on palpation or with deep breathing. HEART EXAMINATION: Regular rate and rhythm. S1, S2 heard. No murmurs, gallops or rub. ABDOMEN: Soft, nontender. Positive bowel sounds. EXTREMITIES: 2+ peripheral pulses, no lower extremity edema and no calf tenderness. NEUROLOGIC EXAMINATION: Patient is awake, alert and oriented x3. 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 Check TSH for completeness sake. Check 2-D echo. If no significant findings proceed with dual-chamber permanent pacemaker. Ensure no active infection however no current fevers or chills. Elevated troponins appear most likely related to type II mechanism with no significant angina. Further recommendations to follow. Past Medical History Past Medical History: Cancer, COPD, Diabetes Mellitus, Eye Disorder, GERD/Reflux, Hearing Disorder / Deafness, Hyperlipidemia, Hypertension, Osteoarthritis (OA) Additional Past Medical History / Comment(s): hx of lt eye macular hole, breast cancer July 2018-had radiation & surgery, needs eye surg. for drooping eyelids. History of Any Multi-Drug Resistant Organisms: None Reported Past Surgical History: Appendectomy, Back Surgery, Breast Surgery, Cholecystectomy, Tonsillectomy Additional Past Surgical History / Comment(s): COLONOSCOPY, right mastectomy with removal of 6 lymph nodes axillae 2018, cataracts removed, wedge excision lesion left ear 11/22/20 Past Anesthesia/Blood Transfusion Reactions: No Reported Reaction, Motion Sickness Past Psychological History: Anxiety, Depression, Panic Disorder Smoking Status: Former smoker Past Alcohol Use History: None Reported Past Drug Use History: None Reported - Past Family History Father Family Medical History: Cancer Mother Family Medical History: Cancer Sister(s) Family Medical History: Cancer Brother(s) Family Medical History: Cancer Medications and Allergies Home Medications Medication Instructions Recorded Confirmed Type Albuterol Inhaler [Ventolin Hfa 1 - 2 puff INHALATION RT-Q4H PRN 05/10/19 11/18/23 History Inhaler] metFORMIN HCL [Glucophage] 500 mg PO BID 05/10/19 11/18/23 History Anastrozole [Arimidex] 1 mg PO DAILY 04/26/20 11/18/23 History Ipratropium-Albuterol Nebulize 3 ml INHALATION RT-QID PRN 05/28/20 11/18/23 History [Duoneb 0.5 mg-3 mg/3 ml Soln] Omeprazole [PriLOSEC] 20 mg PO DAILY 05/28/20 11/18/23 History Sertraline [Zoloft] 100 mg PO DAILY 05/28/20 11/18/23 History Triamcinolone Acetonide [Nasacort] 1 spray EA NOSTRIL DAILY 05/28/20 11/18/23 History ondansetron HCL [Zofran] 8 mg PO Q8HR PRN 05/28/20 11/18/23 History Alendronate Sodium [Fosamax] 70 mg PO Q7DAYS 11/18/23 11/18/23 History Atorvastatin [Lipitor] 40 mg PO HS 11/18/23 11/18/23 History Clotrimazole Cream [Lotrimin Cream] 1 applic TOPICAL BID 11/18/23 11/18/23 History Fluticasone Propion/Salmeterol 1 puff INHALATION RT-BID 11/18/23 11/18/23 History [Wixela 250-50 Inhub] Triamcinolone 0.1% Lotion [Kenalog 1 applic TOPICAL BID 11/18/23 11/18/23 History 0.1% Lotion] lisinopriL [Zestril] 10 mg PO DAILY 11/18/23 11/18/23 History oxyBUTYnin chloride [oxyBUTYnin 5 mg PO DAILY 11/18/23 11/18/23 History chloride ER] Allergies Allergy/AdvReac Type Severity Reaction Status Date / Time No Known Allergies Allergy Verified 11/18/23 20:37 Physical Exam Vitals: Vital Signs Temp Pulse Pulse Resp BP BP Pulse Ox 11/19/23 12:00 98.1 F 38 L 16 119/89 95 11/19/23 08:00 98.0 F 37 L 14 148/106 96 11/19/23 03:10 97.9 F 35 L 14 144/69 97 11/19/23 00:30 97.8 F 40 L 20 134/85 96 11/19/23 00:03 35 L 16 124/60 95 11/18/23 23:00 35 L 16 135/52 96 11/18/23 22:00 36 L 16 119/64 96 11/18/23 21:57 96 11/18/23 21:50 98.1 F 38 L 16 125/57 88 L 11/18/23 18:43 98.1 F 40 L 18 121/94 94 L Intake and Output 11/18/23 11/19/23 11/19/23 22:59 06:59 14:59 Other: Weight 63.503 kg 63.503 kg Results 11/18/23 16:00 11/18/23 16:00 Cardiac Enzymes 11/18/23 11/18/23 11/18/23 Range/Units 16:00 16:00 22:28 AST 44 H (14-36) U/L Troponin I 0.679 H* 0.521 H* (0.000-0.034) ng/mL 11/19/23 Range/Units 01:39 AST (14-36) U/L Troponin I 0.439 H* (0.000-0.034) ng/mL CBC 11/18/23 Range/Units 16:00 WBC 11.7 H (3.8-10.6) k/uL RBC 5.06 (3.80-5.40) m/uL Hgb 13.1 (11.4-16.0) gm/dL Hct 44.7 (34.0-46.0) % Plt Count 310 (150-450) k/uL Comprehensive Metabolic Panel 11/18/23 Range/Units 16:00 Sodium 137 (137-145) mmol/L Potassium 4.1 (3.5-5.1) mmol/L Chloride 106 (98-107) mmol/L Carbon Dioxide 26 (22-30) mmol/L BUN 23 H (7-17) mg/dL Creatinine 1.00 (0.52-1.04) mg/dL Glucose 130 H (74-99) mg/dL Calcium 9.4 (8.4-10.2) mg/dL AST 44 H (14-36) U/L ALT 28 (4-34) U/L Alkaline Phosphatase 134 H (38-126) U/L Total Protein 6.0 L (6.3-8.2) g/dL Albumin 3.5 (3.5-5.0) g/dL Current Medications Generic Name Dose Route Start Last Admin Trade Name Freq PRN Reason Stop Dose Admin Acetaminophen 650 mg 11/19/23 00:50 11/19/23 01:24 Acetaminophen Tab 325 Mg Tab PO 650 mg Q6HR PRN Administration Fever and/ or Pain Albuterol/Ipratropium 3 ml 11/18/23 22:15 Ipratropium-Albuterol 3 Ml Neb INHALATION RT-QID PRN Shortness Of Breath Anastrozole 1 mg 11/19/23 09:00 11/19/23 08:45 Anastrozole 1 Mg Tab PO 1 mg DAILY JIGNA Administration Aspirin 325 mg 11/19/23 09:00 11/19/23 08:44 Aspirin 325 Mg Tab PO 325 mg DAILY JIGNA Administration Atorvastatin Calcium 40 mg 11/19/23 21:00 Atorvastatin 40 Mg Tab PO HS JIGNA Budesonide/Formoterol Fumarate 2 puff 11/19/23 08:00 11/19/23 11:03 Symbicort 80-4.5 Mcg Inhaler INHALATION 2 puff RT-BID JIGNA Administration Enoxaparin Sodium 60 mg 11/19/23 09:00 11/19/23 08:44 Enoxaparin 60 Mg/0.6 Ml Syringe SQ 60 mg Q12HR JIGNA Administration Fluticasone Propionate 1 spray 11/19/23 09:00 11/19/23 10:32 Fluticasone Nasal 50mcg/Man[place] 16gm Btl EA NOSTRIL 1 spray DAILY JIGNA Administration Sodium Chloride 1,000 mls @ 60 mls/hr 11/19/23 10:30 11/19/23 10:32 Saline 0.9% IV 60 mls/hr .[id number] JIGNA Administration Magnesium Sulfate/Dextrose 1 100 mls @ 100 mls/hr 11/19/23 12:19 gm/ IV Solution IVPB 11/19/23 13:18 ONCE ONE Lisinopril 10 mg 11/19/23 09:00 11/19/23 08:45 Lisinopril 10 Mg Tab PO 10 mg DAILY JIGNA Administration Melatonin 3 mg 11/19/23 00:51 11/19/23 01:25 Melatonin 3 Mg Tablet PO 3 mg HS PRN Administration Insomnia Metformin HCl 500 mg 11/19/23 09:00 11/19/23 08:45 Metformin 500 Mg Tab PO 500 mg BID JIGNA Administration Nitroglycerin 0.4 mg 11/18/23 22:09 Nitroglycerin Sl Tabs 0.4 Mg Tab SUBLINGUAL Q5M PRN Chest Pain Oxybutynin Chloride 5 mg 11/19/23 09:00 11/19/23 08:43 Oxybutynin Xl 5 Mg Tab.Er.24 PO 5 mg DAILY JIGNA Administration Pantoprazole Sodium 40 mg 11/19/23 07:30 11/19/23 06:09 Pantoprazole 40 Mg Tablet PO Not Given [id number] JIGNA Sertraline HCl 100 mg 11/19/23 09:00 11/19/23 08:45 Sertraline 100 Mg Tab PO 100 mg DAILY JIGNA Administration Intake and Output 11/18/23 11/19/23 11/19/23 22:59 06:59 14:59 Other: Weight 63.503 kg 63.503 kg 11/18/23 16:00 11/18/23 16:00
[2023-11-19] MEDS: MAGNESIUM SULFATE-D5W PMX 1 GM in DEXTROSE/WATER 1 100ML.BAG IVPB ONE (13:12)
[2023-11-19] MEDS ORDERED: DEXTROSE 50% SYRINGE 50 ML IVP PRN ×2 (14:49)
[2023-11-19 16:35] LABS: Glucose,Whole Blood 90 mg/dL (70-110)
[2023-11-19] MEDS: INSULIN ASPART (NovoLOG) 100 UNIT/ML VIAL SQ SCH (16:36)
[2023-11-19 17:34] LABS: Chol/HDL Ratio 2.12 Ratio; LDL Cholesterol,Calculated 34.7 mg/dL (0.0-131.0)
--- NOTE | 2023-11-19 18:04 | CA ---
Transthoracic Echo Report Name: Krystal Santa Age: 82 Gender: F : 1940 Exam Date: 11/19/2023 15:43 Exam Location: [facility] [place] [facility] Ht (in): 64 Wt (lb): 140 Ordering Physician: Desean Mccracken DO ([email or web address]) Attending/Referring Phys: Land Agent Miriam Villatoro RDCS Procedure CPT: Indications: re: LV function Cardiac Hx: Technical Quality: Fair Contrast 1: Total Dose (mL): Contrast 2: Total Dose (mL): MEASUREMENTS (Male / Female) Normal Values 2D ECHO LV Diastolic Diameter PLAX 5.2 cm 4.2 - 5.9 / 3.9 - 5.3 cm LV Systolic Diameter PLAX 2.1 cm IVS Diastolic Thickness 1.0 cm 0.6 - 1.0 / 0.6 - 0.9 cm LVPW Diastolic Thickness 1.0 cm 0.6 - 1.0 / 0.6 - 0.9 cm LV Relative Wall Thickness 0.4 RV Internal Dim ED PLAX 3.8 cm LV Diastolic Volume MOD BP 98.6 cm??? 67 - 155 / 56 - 104 cm??? LV Systolic Volume MOD BP 34.6 cm??? 22 - 58 / 19 - 49 cm??? LV Ejection Fraction MOD BP 64.9 % >= 55 % LV Cardiac Index MOD BP 1767.5 cm???/min???m??? LV Diastolic Volume MOD 4C 100.1 cm??? LV Systolic Volume MOD 4C 33.9 cm??? LV Ejection Fraction MOD 4C 66.1 % LV Cardiac Index MOD 4C 1826.6 cm???/min???m??? LV Diastolic Length 4C 7.6 cm LV Systolic Length 4C 5.6 cm LV Diastolic Volume MOD 2C 86.8 cm??? LV Systolic Volume MOD 2C 36.3 cm??? LV Ejection Fraction MOD 2C 58.1 % LV Cardiac Index MOD 2C 1393.0 cm???/min???m??? LV Diastolic Length 2C 6.8 cm LV Systolic Length 2C 5.5 cm LA Volume 70.2 cm??? 18 - 58 / 22 - 52 cm??? LA Volume Index 41.3 cm???/m??? 16 - 28 cm???/m??? M-MODE Aortic Root Diameter MM 2.7 cm LA Systolic Diameter MM 4.1 cm LA Ao Ratio MM 1.5 AV Cusp Separation MM 1.8 cm DOPPLER AV Peak Velocity 206.2 cm/s AV Peak Gradient 17.0 mmHg AV Mean Velocity 108.7 cm/s AV Mean Gradient 6.0 mmHg AV Velocity Time Integral 38.9 cm MV Area PHT 3.0 cm??? Mitral E Point Velocity 68.3 cm/s Mitral A Point Velocity 115.3 cm/s Mitral E to A Ratio 0.6 MV Deceleration Time 252.2 ms MV E' Velocity 3.9 cm/s Mitral E to MV E' Ratio 17.6 TR Peak Velocity 224.3 cm/s TR Peak Gradient 20.1 mmHg Right Ventricular Systolic Press 23.9 mmHg FINDINGS Left Ventricle Left ventricular cavity size normal. Left ventricular wall thickness normal. No obvious regional wall motion abnormalities. Left ventricular ejection fraction is estimated at 50-55 %. Grade 1 diastolic dysfunction. Right Ventricle Right ventricular dilatation. Right ventricular systolic pressure within normal limits. Right Atrium Mild right atrial dilatation. Left Atrium Mild LA dilatation Mitral Valve Structurally normal mitral valve. Mitral valve thickened. Moderate mitral annular calcification. Mild mitral regurgitation. Aortic Valve calcific sclerotic Trileaflet aortic valve. Peak gradient of 17 mmHg and a mean gradient of 6 mmHg. Tricuspid Valve Structurally normal tricuspid valve. Mild tricuspid regurgitation. Pulmonic Valve Structurally normal pulmonic valve. Pericardium No pericardial effusion. Aorta Normal size aortic root and proximal ascending aorta. CONCLUSIONS Left ventricular ejection fraction is estimated at 50-55 %. No obvious regional wall motion abnormalities. Grade 1 diastolic dysfunction. Mild mitral regurgitation. Mild LA dilatation. Aortic sclerosis with no significant stenosis Previewed by: Dr Abilio Hart (Electronically Signed) Final Date: 19 November 2023 18:03
--- NOTE | 2023-11-19 18:14 | P.HPIM ---
History of Present Illness H&P Date: 11/19/23 Chief Complaint: Fatigue, dizziness, fall, second-degree type II block This is a pleasant 82-year-old female, hard of hearing with past medical history significant for right breast cancer status postmastectomy, COPD, prior nicotine dependence, diabetes mellitus, gastroesophageal reflux disease, hypertension, hyperlipidemia, osteoarthritis, anxiety, transferred to the ER by EMS. Patient was not answering the phone, checked the cameras in clients home,discovering patient on the floor and called EMS. Patient's daughter, Shivani, reported upon reviewing the camera tapes, her mom would crawl for a little bit and then passed out several times and had apparently been down for approximately 12 hours from 2:30 in the morning till 3:30 PM. Patient was incontinent. Patient states she has been feeling increased fatigue, weakness and dizziness with decreased appetite over the last week. Denies chest pain, palpitations or shortness of breath. Denies cough, congestion. denies nausea vomiting or diarrhea. Denies abdominal pain. Denies generalized pain. Denies numbness tingling. Upon arrival to the ER discovered to be in a second-degree type II AV block with heart rates in the 30s to 40s. Elevated troponins, 0.679, 0.521, 0.439. Afebrile, WBC 11.7, hemoglobin 13.1, platelets 310, D-dimer 1.6, venous Doppler negative, sodium 137, potassium 4.1, bicarb 26, BUN 23, creatinine 1, glucose 130, lactic acid 1.7, magnesium 1.7, T. bili 0.6, AST 44, ALT 28, alk phos 134, creatinine kinase 337. UA reported moderate mucus, hyaline cast, large leukocytes negative nitrates. Empiric antibiotics initiated. Viral studies negative. Review of Systems ROS Statement: Those systems with pertinent positive or pertinent negative responses have been documented in the HPI. ROS Other: All systems not noted in ROS Statement are negative. Past Medical History Past Medical History: Cancer, COPD, Diabetes Mellitus, Eye Disorder, GERD/Reflux, Hearing Disorder / Deafness, Hyperlipidemia, Hypertension, Osteoarthritis (OA) Additional Past Medical History / Comment(s): hx of lt eye macular hole, breast cancer July 2018-had radiation & surgery, needs eye surg. for drooping eyelids. History of Any Multi-Drug Resistant Organisms: None Reported Past Surgical History: Appendectomy, Back Surgery, Breast Surgery, Cholecystectomy, Tonsillectomy Additional Past Surgical History / Comment(s): COLONOSCOPY, right mastectomy with removal of 6 lymph nodes axillae 2019, cataracts removed, wedge excision lesion left ear 11/22/20 Past Anesthesia/Blood Transfusion Reactions: No Reported Reaction, Motion Sickness Past Psychological History: Anxiety, Depression, Panic Disorder Smoking Status: Former smoker Past Alcohol Use History: None Reported Past Drug Use History: None Reported - Past Family History Father Family Medical History: Cancer Mother Family Medical History: Cancer Sister(s) Family Medical History: Cancer Brother(s) Family Medical History: Cancer Medications and Allergies Home Medications Medication Instructions Recorded Confirmed Type Albuterol Inhaler [Ventolin Hfa 1 - 2 puff INHALATION RT-Q4H PRN 05/10/19 11/18/23 History Inhaler] metFORMIN HCL [Glucophage] 500 mg PO BID 05/10/19 11/18/23 History Anastrozole [Arimidex] 1 mg PO DAILY 04/26/20 11/18/23 History Ipratropium-Albuterol Nebulize 3 ml INHALATION RT-QID PRN 05/28/20 11/18/23 History [Duoneb 0.5 mg-3 mg/3 ml Soln] Omeprazole [PriLOSEC] 20 mg PO DAILY 05/28/20 11/18/23 History Sertraline [Zoloft] 100 mg PO DAILY 05/28/20 11/18/23 History Triamcinolone Acetonide [Nasacort] 1 spray EA NOSTRIL DAILY 05/28/20 11/18/23 History ondansetron HCL [Zofran] 8 mg PO Q8HR PRN 05/28/20 11/18/23 History Alendronate Sodium [Fosamax] 70 mg PO Q7DAYS 11/18/23 11/18/23 History Atorvastatin [Lipitor] 40 mg PO HS 11/18/23 11/18/23 History Clotrimazole Cream [Lotrimin Cream] 1 applic TOPICAL BID 11/18/23 11/18/23 History Fluticasone Propion/Salmeterol 1 puff INHALATION RT-BID 11/18/23 11/18/23 History [Wixela 250-50 Inhub] Triamcinolone 0.1% Lotion [Kenalog 1 applic TOPICAL BID 11/18/23 11/18/23 History 0.1% Lotion] lisinopriL [Zestril] 10 mg PO DAILY 11/18/23 11/18/23 History oxyBUTYnin chloride [oxyBUTYnin 5 mg PO DAILY 11/18/23 11/18/23 History chloride ER] Allergies Allergy/AdvReac Type Severity Reaction Status Date / Time No Known Allergies Allergy Verified 11/18/23 20:37 Physical Exam Osteopathic Statement: *. No significant issues noted on an osteopathic structural exam other than those noted in the History and Physical/Consult. Vitals: Vital Signs Temp Pulse Pulse Resp BP BP Pulse Ox 11/19/23 12:00 98.1 F 38 L 16 119/89 95 11/19/23 08:00 98.0 F 37 L 14 148/106 96 11/19/23 03:10 97.9 F 35 L 14 144/69 97 11/19/23 00:30 97.8 F 40 L 20 134/85 96 11/19/23 00:03 35 L 16 124/60 95 11/18/23 23:00 35 L 16 135/52 96 11/18/23 22:00 36 L 16 119/64 96 11/18/23 21:57 96 11/18/23 21:50 98.1 F 38 L 16 125/57 88 L 11/18/23 18:43 98.1 F 40 L 18 121/94 94 L Intake and Output 11/18/23 11/19/23 11/19/23 22:59 06:59 14:59 Other: Weight 63.503 kg 63.503 kg PHYSICAL EXAM: VITAL SIGNS: [As above] GENERAL: Alert and oriented x 3, sitting up in bed, fatigued, hard of hearing(currently does not have her hearing aids in) HEENT: Normocephalic , facial/forehead abrasions, conjunctivae normal, pupils equal, round, sclera anicteric NECK: Supple, no JVD. No thyroid enlargement CARDIOVASCULAR: S1, S2 regular, bradycardic. No murmur RESPIRATION: Unlabored, equal air entry, clear to auscultation, bilateral bases diminished. No accessory muscle use. ABDOMEN: Soft, nondistended, nontender . No guarding. no masses palpable. No ascites, No hepatosplenomegaly.Bowel sounds heard. LEGS: No edema. no swelling, no clubbing, no cyanosis, no calf tenderness. NERVOUS SYSTEM: Cranial N 2-12 grossly normal. Moves all 4 limbs. Diffuse weakness No focal deficits. Strength and sensation grossly intact.. Skin: Warm and dry Results CBC & Chem 7: 11/20/23 05:28 11/20/23 05:28 Labs: Abnormal Lab Results - Last 24 Hours (Table) 11/18/23 11/18/23 11/18/23 Range/Units 16:00 16:00 16:00 WBC 11.7 H (3.8-10.6) k/uL MCHC 29.4 L (31.0-37.0) g/dL RDW 18.5 H (11.5-15.5) % Neutrophils # 9.7 H (1.3-7.7) k/uL Lymphocytes # 0.9 L (1.0-4.8) k/uL D-Dimer (<0.60) mg/L FEU BUN 23 H (7-17) mg/dL Glucose 130 H (74-99) mg/dL AST 44 H (14-36) U/L Alkaline Phosphatase 134 H (38-126) U/L Creatine Kinase 337 H (30-135) U/L Troponin I 0.679 H* (0.000-0.034) ng/mL Total Protein 6.0 L (6.3-8.2) g/dL Urine Appearance (Clear) Urine Protein (Negative) Urine Glucose (UA) (Negative) Urine Bilirubin (Negative) Ur Leukocyte Esterase (Negative) Urine WBC (0-5) /hpf Ur Squamous Epith Cells (0-4) /hpf Urine Bacteria (None) /hpf Hyaline Casts (0-2) /lpf Urine Mucus (None) /hpf Urine Yeast (Budding) (None) /hpf 11/18/23 11/18/23 11/18/23 Range/Units 16:00 16:55 22:28 WBC (3.8-10.6) k/uL MCHC (31.0-37.0) g/dL RDW (11.5-15.5) % Neutrophils # (1.3-7.7) k/uL Lymphocytes # (1.0-4.8) k/uL D-Dimer 1.60 H (<0.60) mg/L FEU BUN (7-17) mg/dL Glucose (74-99) mg/dL AST (14-36) U/L Alkaline Phosphatase (38-126) U/L Creatine Kinase (30-135) U/L Troponin I 0.521 H* (0.000-0.034) ng/mL Total Protein (6.3-8.2) g/dL Urine Appearance Cloudy H (Clear) Urine Protein 2+ H (Negative) Urine Glucose (UA) Trace H (Negative) Urine Bilirubin 1+ H (Negative) Ur Leukocyte Esterase Large H (Negative) Urine WBC 54 H (0-5) /hpf Ur Squamous Epith Cells 17 H (0-4) /hpf Urine Bacteria Rare H (None) /hpf Hyaline Casts 259 H (0-2) /lpf Urine Mucus Moderate H (None) /hpf Urine Yeast (Budding) Rare H (None) /hpf 11/19/23 Range/Units 01:39 WBC (3.8-10.6) k/uL MCHC (31.0-37.0) g/dL RDW (11.5-15.5) % Neutrophils # (1.3-7.7) k/uL Lymphocytes # (1.0-4.8) k/uL D-Dimer (<0.60) mg/L FEU BUN (7-17) mg/dL Glucose (74-99) mg/dL AST (14-36) U/L Alkaline Phosphatase (38-126) U/L Creatine Kinase (30-135) U/L Troponin I 0.439 H* (0.000-0.034) ng/mL Total Protein (6.3-8.2) g/dL Urine Appearance (Clear) Urine Protein (Negative) Urine Glucose (UA) (Negative) Urine Bilirubin (Negative) Ur Leukocyte Esterase (Negative) Urine WBC (0-5) /hpf Ur Squamous Epith Cells (0-4) /hpf Urine Bacteria (None) /hpf Hyaline Casts (0-2) /lpf Urine Mucus (None) /hpf Urine Yeast (Budding) (None) /hpf Thrombosis Risk Factor Assmnt - Choose All That Apply Any of the Below Risk Factors Present?: Yes Each Factor Represents 1 point: Abnormal pulmonary function (COPD), Medical pt on bed rest Other Risk Factors: Yes Each Risk Factor Represents 3 Points: Age 75 years or older Thrombosis Risk Factor Assessment Total Risk Factor Score: 5 Thrombosis Risk Factor Assessment Level: High Risk Assessment and Plan Assessment: Syncope secondary to second-degree type II, elevated troponins, suspect NSTEMI Fatigue , dizziness over the last week secondary to all the above Fall secondary to all the above Dehydration Mildly elevated CK, 300s, mild rhabdomyolysis Recent increased right upper and lower extremity edema possibly related to #1 Diabetes mellitus type II Hypertension Hyperlipidemia History of breast cancer and right lymphedema COPD, stable Prior nicotine dependence Plan: Continue on current medication resume ,monitoring and symptomatic treatment. Empiric antibiotics for potential UTI though, UA reflecting negative nitrates, large leukocytes. Elevated D-dimer, no V DVT in the right upper extremity, no V/Q or CTA recommended at this time as per PCP .Cardiology consult in place, echo, PPM pending. Gentle IV fluid hydration. Social work/case management consulted to provide family with resources for potential AFC/JOSE [facility]ANCIS[facility]. The impression and plan of care has been dictated as directed. : I performed a history and examination of this patient, discussed the same with the dictator. I agree with the dictator's note ,documented as a scribe. Any additional findings or plans will be noted.
[2023-11-19] MEDS: ATORVASTATIN 40 MG TAB PO SCH (19:59)
[2023-11-19 20:11] LABS: Glucose,Whole Blood 100 mg/dL (70-110)
[2023-11-20 06:19] LABS: Glucose,Whole Blood 89 mg/dL (70-110)
[2023-11-20] MEDS: INSULIN ASPART (NovoLOG) 100 UNIT/ML VIAL SQ SCH (06:26)
[2023-11-20 06:40] LABS: Glucose 85 mg/dL (74-99); Potassium 3.9 mmol/L (3.5-5.1); Sodium 138 mmol/L (137-145)
[2023-11-20 06:41] LABS: African American GFR (CKD) 63 (>60 ml/min/1.73 sqM); Anion Gap 6 mmol/L; Blood Urea Nitrogen 26 mg/dL (7-17); Calcium 8.7 mg/dL (8.4-10.2); Carbon Dioxide 23 mmol/L (22-30); Chloride 109 mmol/L (98-107); Non-African American GFR(CKD) 55 (>60 ml/min/1.73 sqM)
[2023-11-20 06:43] LABS: Anisocytosis Slight; Basophils # (A) 0.1 k/uL (0-0.2); Basophils % (A) 1 %; Eosinophils # (A) 0.1 k/uL (0-0.7); Eosinophils % (A) 2 %; HCT 41.6 % (34.0-46.0); HGB 12.1 gm/dL (11.4-16.0); Hypochromasia Marked; Lymphocytes % (A) 14 %; MCH 26.4 pg (25.0-35.0); MCHC 29.2 g/dL (31.0-37.0); MCV 90.3 fL (80.0-100.0); Monocytes # (A) 0.5 k/uL (0-1.0); Monocytes % (A) 7 %; Neutrophils # (A) 5.2 k/uL (1.3-7.7); Neutrophils % (A) 75 %; Platelet Count 256 k/uL (150-450); RDW 18.4 % (11.5-15.5); WBC 6.9 k/uL (3.8-10.6)
[2023-11-20 11:26] LABS: Glucose,Whole Blood 90 mg/dL (70-110)
[2023-11-20] MEDS ORDERED: SODIUM CHLORIDE 0.9% 1,000 ML IV SCH (11:45)
[2023-11-20] MEDS: SODIUM CHLORIDE 0.9% 800 ML IV ONE (11:55)
--- NOTE | 2023-11-20 12:13 | P.PN ---
Subjective Progress Note Date: 11/20/23 Principal diagnosis: lizeth arythmia, pacemaker placemaker pt admitted for fall with dx lizeth arythmia Objective - Vital Signs Vital signs: Vital Signs Temp 97.4 F L 11/20/23 08:00 Pulse 39 L 11/20/23 08:00 Resp 16 11/20/23 08:00 BP 147/70 11/20/23 08:00 Pulse Ox 95 11/20/23 08:00 FiO2 Intake & Output 11/19/23 11/20/23 11/20/23 18:59 06:59 18:59 Intake Total 450 Balance 450 Intake: Oral 450 Other: Voiding Method Bedpan # Voids 1 1 # Bowel Movements 1 - EENT Eyes: Present: EOMI, PERRLA ENT: Present: hard of hearing - Respiratory Respiratory: bilateral: CTA - Cardiovascular Details: lizeth arythmia Rhythm: regular - Gastrointestinal General gastrointestinal: Present: normal bowel sounds, scaphoid, soft - Neurologic Neurologic: Present: CNII-XII intact - Musculoskeletal Musculoskeletal: Present: generalized weakness, strength equal bilaterally - Psychiatric Psychiatric: Present: A&O x's 3, appropriate affect - Labs CBC & Chem 7: 11/20/23 05:28 11/20/23 05:28 Labs: Abnormal Lab Results - Last 24 Hours (Table) 11/20/23 11/20/23 11/20/23 Range/Units 05:28 05:28 05:28 MCHC 29.2 L (31.0-37.0) g/dL RDW 18.4 H (11.5-15.5) % Chloride 109 H (98-107) mmol/L BUN 26 H (7-17) mg/dL Hemoglobin A1c 7.4 H (<=6.0) % Microbiology - Last 24 Hours (Table) 11/18/23 22:37 Blood Culture - Preliminary Blood Assessment and Plan (1) Bradyarrhythmia Current Visit: Yes Status: Acute Code(s): I49.8 - OTHER SPECIFIED CARDIAC ARRHYTHMIAS SNOMED Code(s): 346637983 (2) Third degree heart block Current Visit: Yes Status: Acute Code(s): I44.2 - ATRIOVENTRICULAR BLOCK, COMPLETE SNOMED Code(s): 75105621 (3) Dehydration Current Visit: No Status: Acute Code(s): E86.0 - DEHYDRATION SNOMED Code(s ): 06527578 Plan: pt having pace maker placed Time with Patient: Greater than 30
[2023-11-20] MEDS: MIDAZOLAM 2 MG/2 ML VIAL IVP ONE ×2 (12:42→12:43)
[2023-11-20] MEDS: LIDOCAINE 1% INJ 10MG/ML (20 ML MDV) SQ ONE ×2 (12:43→12:45)
[2023-11-20] MEDS: fentaNYL (PF) 50 MCG/ML 2 ML AMP IVP ONE (12:44)
[2023-11-20] MEDS: ceFAZolin 1,000 MG in SODIUM CHLORIDE 0.9% IRRIG BTL 250 ML IRRIGATION ONE (12:48)
--- NOTE | 2023-11-20 14:34 | P.PN ---
Subjective Progress Note Date: 11/20/23 This is a pleasant 82-year-old with past medical history significant for breast cancer status post right mastectomy, hypertension, hyperlipidemia, diabetes mellitus type 2. 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 She states she has been feeling okay however per son she has been significantly tired over last 2 weeks and sleepy most of the day. She also has not had much of an appetite. She denies any actual chest pain or pressure or shortness of breath. She had episode where she lost consciousness and fell over. She therefore came to emergency department he was found to be in high degree AV block with second- degree type II block. Heart rate in the 30s to 40s. She feels okay now however feels fatigued and tired. Additional concern of UTI and started on rochepin prophylactically. Blood work shows troponin 0.67, 0.5. Creatinine 1.0. 11/20/23 She is doing well. Denies any chest pain or pressure. No shortness of breath. She just feels tired. She denies any urinary dysuria or frequency. No fevers or chills. Echocardiogram shows EF 50-55%, grade 1 diastolic dysfunction. TSH was normal. PHYSICAL EXAMINATION Vital signs reviewed. CONSTITUTIONAL: No apparent distress. HEENT: Head is normocephalic. Pupils are equal, round. Sclerae anicteric. Mucous membranes of the mouth are moist. No JVD. No carotid bruit. CHEST EXAMINATION: Lungs are clear to auscultation. No chest wall tenderness is noted on palpation or with deep breathing. HEART EXAMINATION: Regular rate and rhythm. S1, S2 heard. No murmurs, gallops or rub. ABDOMEN: Soft, nontender. Positive bowel sounds. EXTREMITIES: 2+ peripheral pulses, no lower extremity edema and no calf tenderness. NEUROLOGIC EXAMINATION: Patient is awake, alert and oriented x3. ASSESSMENT Second-degree type II block symptomatic with syncope Non-STEMI likely type II mechanism related to hypoperfusion Recent fatigue likely related to bradycardia Hypertension Diabetes mellitus type 2 Hyperlipidemia Breast cancer Right upper and right lower extremity swelling may be some component of heart failure related to significant bradycardia PLAN: Plan for pacemaker implantation today. Dictating for Dr. Mccracken. Objective - Vital Signs Vital signs: Vital Signs Temp 97.4 F L 11/20/23 08:00 Pulse 39 L 06/29/24 08:00 Resp 16 11/20/23 08:00 BP 147/70 11/20/23 08:00 Pulse Ox 95 11/20/23 08:00 FiO2 Intake & Output 11/19/23 11/20/23 11/20/23 18:59 06:59 18:59 Intake Total 450 Balance 450 Intake: Oral 450 Other: Voiding Method Bedpan # Voids 1 1 # Bowel Movements 1 - Labs CBC & Chem 7: 11/20/23 05:28 11/20/23 05:28 Labs: Abnormal Lab Results - Last 24 Hours (Table) 11/20/23 11/20/23 11/20/23 Range/Units 05:28 05:28 05:28 MCHC 29.2 L (31.0-37.0) g/dL RDW 18.4 H (11.5-15.5) % Chloride 109 H (98-107) mmol/L BUN 26 H (7-17) mg/dL Hemoglobin A1c 7.4 H (<=6.0) % Microbiology - Last 24 Hours (Table) 11/18/23 22:37 Blood Culture - Preliminary Blood
[2023-11-20] MEDS ORDERED: ACETAMINOPHEN TAB 325 MG TAB PO PRN (15:38)
--- NOTE | 2023-11-20 15:49 | P.PCN ---
Description of Procedure: CARDIOLOGY PROCEDURE NOTE Wire Inspector: Dr. Desean Mccracken Procedure performed: Insertion dual chamber permanent pacemaker Site: Left subclavian Indications: High degree AV block with syncope Complications: None Blood Loss: Minimal Description of Procedure: After the risks, benefits, and alternatives of the above-mentioned procedure was explained in detail with the patient, informed consent was obtained. The patient was taken to the cardiac catheterization suite where the left subclavian area was sterily prepped and draped in the usual fashion. One percent lidocaine was used to anesthetize the left subclavian area. Twenty milliliters of Isoview 370 contrast was injected into the left antecubital vein to allow for direct visualization of the left subclavian vein under fluoroscopy. A 1.5 inch incision was made utilizing a #15 blade in the left subclavian site. Hemostasis was made complete. Electrocautery along with digital blunt dissection was utilized to dissect to the level of the pectoralis muscle fascia and create a pocket large enough to accommodate the generator. A thin walled micro puncuture needle was used to cannulate the left subclavian vein. A guide-wire was inserted through the needle into the vascular lumen under fluoroscopic guidance. The needle was removed. Another thin walled micr puncture needle was used to again cannulate the left subclavian vein. A guide-wire was inserted through the needle into the vascular lumen under fluoroscopic guidance. The needle was removed and both guide-wires were attached to the field. A venous sheath and dilator were advanced over the guidewire into the vascular lumen under fluoroscopic guidance. The dilator and guidewire were then removed. A right ventricular bipolar lead was inserted into the sheath and advanced under fluoroscopic guidance into the right ventricle under fluoroscopic guidance. Adequate sensing and pacing thresholds were achieved and the lead was screwed into place in the RV apex. The sheath was then torn away. The lead collar was advanced and anchored into place utilizing #0 silk suture. Next, another venous sheath and dilator were advanced under fluoroscopic guidance into the vascular lumen over the guidewire. After removal of the dilator and guidewire, a right atrial bipolar lead was inserted into this sheath and advanced under fluoroscopic guidance into the right atrium. The lead was positioned into the right atrial appendage. Adequate sensing and pacing thresholds were then achieved with patient being in Aflutter at the time and the lead was screwed into place. The sheath was then torn away. The lead collar was advanced and anchored into place utilizing #0 silk suture. The leads were then inserted into the appropriate position into the generator. They were then secured with the setscrew provided. The leads and generator were inserted into the pocket with the leads posterior. The subcutaneous tissue was approximated utilizing #2.0 and 3.0 vicryl in an interrupted stitch fashion. The dermal layer was approximated utilizing #4.0 vicryl. The area was cleansed with sterile saline and dried. A sterile 4x4 dressing was applied and the patient was transferred to the post catheterization holding area in stable and satisfactory condition. The patient tolerated the procedure well. Generator Data Lining Scrubber: [employer] Brand: [id number] Evelyne XT DR MRI Model #: [id number] Serial#: [id number] Right Atrial Bipolar Lead Data: Type: Active fixation lead Lining Scrubber: [employer] Model#: 5076-45 Serial Number: [id number] Right Ventricular Bipolar Lead Data: Type: Active fixation lead Lining Scrubber: [employer] Model #: 5076-52 Serial #: [id number] Stimulation Thresholds: Right atrial bipolar lead pacing and sensing thresholds Voltage: 1.75 Impedance: 513 ohms P-wave sensin.0 mV Right Ventricular bipolar lead pacing and sensing thresholds Pulse Width: 0.4ms Voltage: 1.0 volts Impedance: 627 ohms R-wave sensin mV Parameter Setting: Pacing mode is DDD Lower rate 60 bpm Upper rate 130 bpm Impressions: 1. Successful implantation of a dual chamber permanent pacemaker in the left pectoral site. Plan: 1. Routine post procedure care will be instituted as well as outpatient follow- up surveillance.
[2023-11-20 16:43] LABS: Glucose,Whole Blood 105 mg/dL (70-110)
[2023-11-20] MEDS: SODIUM CHLORIDE 0.9% 1,000 ML IV SCH (16:49)
--- NOTE | 2023-11-20 17:30 | XR ---
EXAMINATION TYPE: XR chest 1V portable DATE OF EXAM: 11/20/2023 Comparison: 11/18/2023 Clinical History: 82-year-old female Lead placement check Findings: Left anterior chest wall pacemaker generator with right atrial and ventricular leads. Heart mildly en larged. Hyperinflation. Diffuse interstitial density. More patchy left mid and lower lung opacity as well as right basilar opacity. Possible small left effusion. No appreciable pneumothorax. Impression: 1. Bullous emphysema with superimposed CHF with mild patchy pulmonary edema. Trace left pleural effus ion. 2. Left anterior chest wall pacemaker generator with right atrial and right ventricular leads.
[2023-11-20 19:59] LABS: Glucose,Whole Blood 84 mg/dL (70-110)
[2023-11-20] MEDS: HYDROcodone/APAP 7.5-325MG 1 EACH TAB PO PRN (20:00)
[2023-11-20] MEDS: ONDANSETRON 4 MG/2 ML VIAL IVP PRN (20:57)
[2023-11-21 01:57] LABS: Glucose,Whole Blood 127 mg/dL (70-110)
[2023-11-21 11:44] LABS: Glucose,Whole Blood 138 mg/dL (70-110)
--- NOTE | 2023-11-21 12:56 | P.DS ---
Providers Date of admission: 11/18/23 22:09 Expected date of discharge: 11/21/23 Attending physician: Malik Lehman Consults: 11/18/23 22:09 Consult Physician Urgent Consulting Provider: Desean Mccracken Consult Reason/Comments: Third-degree heart block. NSTEMI Do you want consulting provider notified?: Already Contacted Primary care physician: Malik Lehman - Discharge Diagnosis(es) (1) Bradyarrhythmia Current Visit: Yes Status: Acute (2) Third degree heart block Current Visit: Yes Status: Acute (3) Dehydration Current Visit: No Status: Acute Hospital Course: admitted with bradycardia arrhythmia\third-degree heart block requiring need of placement of pacemaker General: [Patient awake, alert and oriented times 3. Patient in no acute distress.] HEENT: [PERRL. EOMI. No pharyngeal erythema or exudate.] Neck: [No adenopathy.] Cardiac: [Heart regular in rate and rhythm. No S3. No S4. No clicks, rubs. No murmur.] Lungs: [Clear to auscultation bilaterally.] Abdomen: [No mass. No organomegaly. Bowel sounds presnt and normoactive in all 4 quadrants.] Extremes: [No edema no cyanosis no claudication normal pulses] : normal female genitalia Musculoskeletal: [No joint erythema, edema or tenderness.] Skin: [No rash.] Neurologic: [No lateralizing deficits. CN II - XII grossly intact.] Lymphatic: [No adenopathy.] Procedures: pacemaker placement per Dr. Mccracken cardiology Patient Condition at Discharge: Fair Plan - Discharge Summary Discharge Rx Participant: Yes New Discharge Prescriptions: No Action metFORMIN HCL [Glucophage] 500 mg PO BID Albuterol Inhaler [Ventolin Hfa Inhaler] 1 - 2 puff INHALATION RT-Q4H PRN PRN Reason: Shortness Of Breath Anastrozole [Arimidex] 1 mg PO DAILY ondansetron HCL [Zofran] 8 mg PO Q8HR PRN PRN Reason: Nausea Sertraline [Zoloft] 100 mg PO DAILY Omeprazole [PriLOSEC] 20 mg PO DAILY Triamcinolone Acetonide [Nasacort] 1 spray EA NOSTRIL DAILY Ipratropium-Albuterol Nebulize [Duoneb 0.5 mg-3 mg/3 ml Soln] 3 ml INHALATION RT-QID PRN PRN Reason: Shortness Of Breath Triamcinolone 0.1% Lotion [Kenalog 0.1% Lotion] 1 applic TOPICAL BID lisinopriL [Zestril] 10 mg PO DAILY Clotrimazole Cream [Lotrimin Cream] 1 applic TOPICAL BID Alendronate Sodium [Fosamax] 70 mg PO Q7DAYS Fluticasone Propion/Salmeterol [Wixela 250-50 Inhub] 1 puff INHALATION RT-BID oxyBUTYnin chloride [oxyBUTYnin chloride ER] 5 mg PO DAILY Atorvastatin [Lipitor] 40 mg PO HS Discharge Medication List Albuterol Inhaler [Ventolin Hfa Inhaler] 1 - 2 puff INHALATION RT-Q4H PRN 05/10/19 [History] metFORMIN HCL [Glucophage] 500 mg PO BID 05/10/19 [History] Anastrozole [Arimidex] 1 mg PO DAILY 04/26/20 [History] Ipratropium-Albuterol Nebulize [Duoneb 0.5 mg-3 mg/3 ml Soln] 3 ml INHALATION RT-QID PRN 05/28/20 [History] Omeprazole [PriLOSEC] 20 mg PO DAILY 05/28/20 [History] Sertraline [Zoloft] 100 mg PO DAILY 05/28/20 [History] Triamcinolone Acetonide [Nasacort] 1 spray EA NOSTRIL DAILY 05/28/20 [History] ondansetron HCL [Zofran] 8 mg PO Q8HR PRN 05/28/20 [History] Alendronate Sodium [Fosamax] 70 mg PO Q7DAYS 11/18/23 [History] Atorvastatin [Lipitor] 40 mg PO HS 11/18/23 [History] Clotrimazole Cream [Lotrimin Cream] 1 applic TOPICAL BID 11/18/23 [History] Fluticasone Propion/Salmeterol [Wixela 250-50 Inhub] 1 puff INHALATION RT-BID 11/18/23 [History] Triamcinolone 0.1% Lotion [Kenalog 0.1% Lotion] 1 applic TOPICAL BID 11/18/23 [History] lisinopriL [Zestril] 10 mg PO DAILY 11/18/23 [History] oxyBUTYnin chloride [oxyBUTYnin chloride ER] 5 mg PO DAILY 11/18/23 [History] Follow up Appointment(s)/Referral(s): Malik Lehman Jr, DO [Primary Care Provider] - 1 Week Discharge/Stand Alone Forms: Who Do I Call?, Adult Foster Detention List, Assisted Living Facilities, Community Resources, Help In The Home, Personal Office Machine Mechanic
--- NOTE | 2023-11-21 13:59 | P.PN ---
Subjective Progress Note Date: 11/21/23 This is a pleasant 82-year-old with past medical history significant for breast cancer status post right mastectomy, hypertension, hyperlipidemia, diabetes mellitus type 2. 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 She states she has been feeling okay however per son she has been significantly tired over last 2 weeks and sleepy most of the day. She also has not had much of an appetite. She denies any actual chest pain or pressure or shortness of breath. She had episode where she lost consciousness and fell over. She therefore came to emergency department he was found to be in high degree AV block with second- degree type II block. Heart rate in the 30s to 40s. She feels okay now however feels fatigued and tired. Additional concern of UTI and started on rochepin prophylactically. Blood work shows troponin 0.67, 0.5. Creatinine 1.0. 11/20/23 She is doing well. Denies any chest pain or pressure. No shortness of breath. She just feels tired. She denies any urinary dysuria or frequency. No fevers or chills. Echocardiogram shows EF 50-55%, grade 1 diastolic dysfunction. TSH was normal. 11/20 She is doing well. She does report feeling a little better. She is still tired. Denies any shortness of breath, chest pain. PHYSICAL EXAMINATION Vital signs reviewed. CONSTITUTIONAL: No apparent distress. HEENT: Head is normocephalic. Pupils are equal, round. Sclerae anicteric. Mucous membranes of the mouth are moist. No JVD. No carotid bruit. CHEST EXAMINATION: Lungs are clear to auscultation. No chest wall tenderness is noted on palpation or with deep breathing. Left chest dressing is clean dry and intact. HEART EXAMINATION: Regular rate and rhythm. S1, S2 heard. No murmurs, gallops or rub. ABDOMEN: Soft, nontender. Positive bowel sounds. EXTREMITIES: 2+ peripheral pulses, no lower extremity edema and no calf tenderness. NEUROLOGIC EXAMINATION: Patient is awake, alert and oriented x3. ASSESSMENT Second-degree type II block symptomatic with syncope Non-STEMI likely type II mechanism related to hypoperfusion Recent fatigue likely related to bradycardia Hypertension Diabetes mellitus type 2 Hyperlipidemia Breast cancer Right upper and right lower extremity swelling may be some component of heart failure related to significant bradycardia PLAN: Today's device interrogation with normal function. Chest x-ray stable. Reviewed pacemaker restrictions. Okay to discharge home from cardiology standpoint. Follow-up in office in 1 week with device check. Patient seen and evaluated in rounds, dictating for Dr. Mccracken. Objective - Vital Signs Vital signs: Vital Signs Temp 98.0 F 11/21/23 04:00 Pulse 86 11/21/23 08:00 Resp 16 11/21/23 08:00 BP 147/88 11/21/23 04:00 Pulse Ox 97 11/21/23 04:00 FiO2 Intake & Output 11/20/23 11/21/23 11/21/23 18:59 06:59 18:59 Intake Total 50 10 120 Balance 50 10 120 Intake: IV 50 10 Invasive Line 2 10 Oral 120 Other: Voiding Method Toilet # Voids 1 1 # Bowel Movements 0 - Labs CBC & Chem 7: 11/20/23 05:28 11/20/23 05:28 Labs: Abnormal Lab Results - Last 24 Hours (Table) 11/21/23 11/21/23 Range/Units 01:56 11:43 POC Glucose (mg/dL) 127 H 138 H (70-110) mg/dL Microbiology - Last 24 Hours (Table) 11/18/23 22:37 Blood Culture - Preliminary Blood
[2023-11-21 16:16] LABS: Glucose,Whole Blood 146 mg/dL (70-110)
[2023-11-21 19:59] LABS: Glucose,Whole Blood 149 mg/dL (70-110)
[2023-11-22 07:06] LABS: Glucose,Whole Blood 70 mg/dL (70-110)
[2023-11-22] MEDS: IPRATROPIUM-ALBUTEROL 3 ML NEB INHALATION PRN (07:29)
[2023-11-22 07:42] VITALS: TEMP 98.1
[2023-11-22] MEDS: ASPIRIN 81 MG PO SCH (09:07)
[2023-11-22] MEDS: ENOXAPARIN 40 MG/0.4 ML SYRINGE SQ SCH (09:08)
[2023-11-22 09:14] LABS: Glucose,Whole Blood 128 mg/dL (70-110)
--- NOTE | 2023-11-22 10:22 | P.PN ---
Subjective HISTORY OF PRESENT ILLNESS: This is a pleasant 82-year-old with past medical history significant for breast cancer status post right mastectomy, hypertension, hyperlipidemia, diabetes mellitus type 2. 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 She states she has been feeling okay however per son she has been significantly tired over last 2 weeks and sleepy most of the day. She also has not had much of an appetite. She denies any actual chest pain or pressure or shortness of breath. She had episode where she lost consciousness and fell over. She therefore came to emergency department he was found to be in high degree AV block with second- degree type II block. Heart rate in the 30s to 40s. She feels okay now however feels fatigued and tired. Additional concern of UTI and started on rochepin prophylactically. Blood work shows troponin 0.67, 0.5. Creatinine 1.0. 11/20/23 She is doing well. Denies any chest pain or pressure. No shortness of breath. She just feels tired. She denies any urinary dysuria or frequency. No fevers or chills. Echocardiogram shows EF 50-55%, grade 1 diastolic dysfunction. TSH was normal. 11/20 She is doing well. She does report feeling a little better. She is still tired. Denies any shortness of breath, chest pain. 11/22/2023 Patient examined this morning. She is sitting up in the chair eating breakfast. She denies chest pain or pressure. Denies SOB. She states that she feels unsteady this morning. Reports feeling slightly lightheaded. PT/OT consult is pending. Vital signs are stable. PHYSICAL EXAM: VITAL SIGNS: Reviewed. GENERAL: Well-developed in no acute distress. NECK: Supple. No JVD or thyromegaly LUNGS: Respirations even and unlabored. Lungs essentially clear to auscultation bilaterally. HEART: Regular rate and rhythm. S1 and S2 heard. EXTREMITIES: Normal range of motion. No clubbing or cyanosis. Peripheral pulses intact. No lower extremity edema ASSESSMENT: Second-degree type II heart block symptomatic with syncope Elevated troponins secondary to type II TX related to hypoperfusion due to high grade heart block Recent fatigue likely related to bradycardia Hypertension Diabetes mellitus type 2 Hyperlipidemia History of breast cancer status post right mastectomy Right upper extremity swelling, acute CHF ruled out, may be secondary to right mastectomy PLAN: Decrease aspirin to 81mg daily Continue additional cardiac medications Stable for discharge from a cardiac standpoint. Awaiting PT/OT evaluation Patient to follow up in the office in 1 week We will sign off. Please reconsult if needed. Nurse practitioner note has been reviewed by physician. Signing provider agrees with the documented findings, assessment, and plan of care documented by SEISMOGRAPH CHIEF as a scribe. Objective - Vital Signs Vital signs: Vital Signs Temp 98.1 F 11/22/23 07:00 Pulse 80 11/22/23 07:41 Resp 17 11/22/23 07:00 BP 133/84 11/22/23 07:00 Pulse Ox 87 L 11/22/23 07:32 FiO2 Intake & Output 11/21/23 11/22/23 11/22/23 18:59 06:59 18:59 Intake Total 330 10 Output Total 200 Balance 330 -190 Intake: IV 10 Invasive Line 2 10 Oral 330 Output: Urine 200 Other: Voiding Method Toilet Diaper # Voids 2 1 - Labs CBC & Chem 7: 11/20/23 05:28 11/20/23 05:28 Labs: Abnormal Lab Results - Last 24 Hours (Table) 11/21/23 11/21/23 11/21/23 Range/Units 11:43 16:09 19:58 POC Glucose (mg/dL) 138 H 146 H 149 H (70-110) mg/dL 11/22/23 Range/Units 09:12 POC Glucose (mg/dL) 128 H (70-110) mg/dL Microbiology - Last 24 Hours (Table) 11/18/23 22:37 Blood Culture - Preliminary Blood
[2023-11-22 12:03] LABS: Glucose,Whole Blood 115 mg/dL (70-110)
[2023-11-22 12:42] VITALS: BP 150/77; PULSE 87; RESP 18
--- NOTE | 2023-11-26 11:05 | CDI ---
Documentation Clarification Form Date: 11/26/23 From: Rubi Bowman Admit Date: 11/18/2023 10:09:00 PM Patient Name: Krystal Santa Visit Number: [id number] Discharge Date: 11/22/2023 04:06:00 PM ATTENTION: The Clinical Documentation Specialists (CDI) and [facility] Coding Staff appreciate your assistance in clarifying documentation. Please respond to the clarification below the line at the bottom and electronically sign. The CDI & [facility] Coding staff will review the response and follow-up if needed. Please note: Queries are made part of the Legal Health Record. If you have any questions, please contact the author of this message via ITS. Dr. Malik Lehman, Mild rhabdomyolysis, mildly elevated CK-300s is documented in the H&P. Additional clarification regarding the type of rhabdomyolysis is requested. History/Risk Factors: HTN, COPD, T2DM, dehydration, HLD, anxiety, GERD, depression, OA Clinical Indicators: Patient was not answering the phone, checked the cameras in clients home, discovering patient on the floor and called EMS. Patient's daughter, Shivani, reported upon reviewing the camera tapes, her mom would crawl for a little bit and then passed out several times and had apparently been down for approximately 12 hours from 2:30 in the morning till 3:30 PM. Total Cr Kinase: 338 Treatment: Gentle hydration Please clarify the type of rhabdomyolysis, if known: [ ] Traumatic rhabdomyolysis due to fall [x ] Traumatic rhabdomyolysis due to prolonged immobility [ ] Non traumatic rhabdomyolysis due to medication (please specify) [ ] Non traumatic rhabdomyolysis due to infection (please specify) [ ] Other, please specify [ ] Unable to Determine MTDD
== END 2023-11-22 16:06 | DRG 242 ==
LOC: EC 16:24 → EDBD 22:09 → 3SCARD 22:09 → 5NMEDONC 11-21 23:56
PROVIDERS: ADMIT Family Medicine; ATTEND Family Medicine
PROC: 02H63JZ Insertion of Pacemaker Lead into Right Atrium, Percutaneous Approach (ICD-10-PCS; 2023-11-20)
PROC: 02HK3JZ Insertion of Pacemaker Lead into Right Ventricle, Percutaneous Approach (ICD-10-PCS; 2023-11-20)
PROC: 0JH606Z Insertion of Pacemaker, Dual Chamber into Chest Subcutaneous Tissue and Fascia, Open Approach (ICD-10-PCS; principal; 2023-11-20 12:00)
DX: I44.2 Atrioventricular block, complete (principal); I21.A1 Myocardial infarction type 2; R53.2 Functional quadriplegia; N39.0 Urinary tract infection, site not specified; J44.9 Chronic obstructive pulmonary disease, unspecified; E11.9 Type 2 diabetes mellitus without complications; T79.6XXA Traumatic ischemia of muscle, initial encounter; I10 Essential (primary) hypertension; F32.A Depression, unspecified; E86.0 Dehydration; F41.0 Panic disorder [episodic paroxysmal anxiety]; R00.1 Bradycardia, unspecified; K21.9 Gastro-esophageal reflux disease without esophagitis; E78.5 Hyperlipidemia, unspecified; F41.9 Anxiety disorder, unspecified; H35.342 Macular cyst, hole, or pseudohole, left eye; R32 Unspecified urinary incontinence; I89.0 Lymphedema, not elsewhere classified; H91.90 Unspecified hearing loss, unspecified ear; M19.90 Unspecified osteoarthritis, unspecified site; Z79.83 Long term (current) use of bisphosphonates; Z79.811 Long term (current) use of aromatase inhibitors; Z79.51 Long term (current) use of inhaled steroids; Z79.84 Long term (current) use of oral hypoglycemic drugs; Z79.899 Other long term (current) drug therapy; Z87.891 Personal history of nicotine dependence; Z85.3 Personal history of malignant neoplasm of breast
CPT/HCPCS: 33208; 36415; 71045; 71046; 80048; 80053; 80061; 81001; 82550; 82552; 83036; 83605; 83735; 84443; 84484; 85025; 85379; 87040; 87635; 90471; 93005; 93306; 94640; 94760; 96365; 96372; 99285

== ENCOUNTER 2023-12-06 10:02 | Inpatient (IN) | payer MEDICARE, OTHER ==
--- NOTE | 2023-12-06 10:05 | ED ---
SOB HPI - General Stated Complaint: SAMANTA Time Seen by Provider: 12/06/23 10:04 Source: RN notes reviewed, old records reviewed Limitations: no limitations - History of Present Illness Initial Comments: This is an 82-year-old female with significant respiratory distress patient is heaving her chest having difficulty taking a deep breath patient does have a pacemaker with significant history of COPD and respiratory distress MD Complaint: shortness of breath, cough -: days(s) Severity: severe Consistency: constant Improves With: nothing Worsens With: nothing Known History Of: COPD, congestive heart failure Context: recent URI, anxiety, recent illness Associated Symptoms: denies other symptoms - Related Data Home Medications Medication Instructions Recorded Confirmed Albuterol Inhaler [Ventolin Hfa 2 puff INHALATION RT-Q4H PRN 05/10/19 12/06/23 Inhaler] metFORMIN HCL [Glucophage] 500 mg PO BID 05/10/19 12/06/23 Anastrozole [Arimidex] 1 mg PO DAILY 04/26/20 12/06/23 Ipratropium-Albuterol Nebulize 3 ml INHALATION RT-Q6H PRN 05/28/20 12/06/23 [Duoneb 0.5 mg-3 mg/3 ml Soln] Omeprazole [PriLOSEC] 20 mg PO DAILY 05/28/20 12/06/23 Sertraline [Zoloft] 100 mg PO DAILY 05/28/20 12/06/23 Triamcinolone Acetonide [Nasacort] 1 spr EA NOSTRIL DAILY 05/28/20 12/06/23 ondansetron HCL [Zofran] 8 mg PO Q8HR PRN 05/28/20 12/06/23 Alendronate Sodium [Fosamax] 70 mg PO MO 11/18/23 12/06/23 Atorvastatin [Lipitor] 40 mg PO HS 11/18/23 12/06/23 Fluticasone Propion/Salmeterol 1 puff INHALATION RT-BID 11/18/23 12/06/23 [Wixela 250-50 Inhub] oxyBUTYnin chloride [oxyBUTYnin 5 mg PO DAILY 11/18/23 12/06/23 chloride ER] Bismuth Subsalicylate 524 mg PO Q4H PRN 12/06/23 12/06/23 [Pepto-Bismol] Furosemide [Lasix] 20 mg PO DAILY@0800 12/06/23 12/06/23 Melatonin 10 mg PO HS 12/06/23 12/06/23 Nicotine 21Mg/24Hr Patch [Habitrol] 1 patch TRANSDERM DAILY 12/06/23 12/06/23 Nutritional Juice 1 dose PO BID@1200,1800 12/06/23 12/06/23 Potassium Chloride ER [K-Dur 10] 10 meq PO DAILY@0800 12/06/23 12/06/23 lisinopriL [Zestril] 5 mg PO DAILY@0800 12/06/23 12/06/23 Previous Rx's Medication Instructions Recorded Aspirin 81 mg PO DAILY tab 11/22/23 Allergies Allergy/AdvReac Type Severity Reaction Status Date / Time No Known Allergies Allergy Verified 12/06/23 10:15 Review of Systems ROS Statement: Those systems with pertinent positive or pertinent negative responses have been documented in the HPI. ROS Other: All systems not noted in ROS Statement are negative. Past Medical History Past Medical History: Cancer, COPD, Diabetes Mellitus, Eye Disorder, GERD/Reflux, Hearing Disorder / Deafness, Hyperlipidemia, Hypertension, Osteoarthritis (OA) Additional Past Medical History / Comment(s): hx of lt eye macular hole, breast cancer July 2018-had radiation & surgery, needs eye surg. for drooping eyelids. History of Any Multi-Drug Resistant Organisms: None Reported Past Surgical History: Appendectomy, Back Surgery, Breast Surgery, [place] cystectomy, Tonsillectomy Additional Past Surgical History / Comment(s): COLONOSCOPY, right mastectomy with removal of 6 lymph nodes axillae 2018, cataracts removed, wedge excision lesion left ear 11/22/20 Past Anesthesia/Blood Transfusion Reactions: No Reported Reaction, Motion Sickness Past Psychological History: Anxiety, Depression, Panic Disorder Smoking Status: Former smoker Past Alcohol Use History: None Reported Past Drug Use History: None Reported - Past Family History Father Family Medical History: Cancer Mother Family Medical History: Cancer Sister(s) Family Medical History: Cancer Brother(s) Family Medical History: Cancer General Exam General appearance: alert, in no apparent distress, anxious, in distress, cachectic Head exam: Present: atraumatic, normocephalic, normal inspection Eye exam: Present: normal appearance, PERRL, EOMI. Absent: scleral icterus, conjunctival injection, periorbital swelling ENT exam: Present: normal exam, mucous membranes moist Neck exam: Present: normal inspection. Absent: tenderness, meningismus, lymphadenopathy Respiratory exam: Present: normal lung sounds bilaterally. Absent: respiratory distress, wheezes, rales, rhonchi, stridor Cardiovascular Exam: Present: regular rate, normal rhythm, normal heart sounds. Absent: systolic murmur, diastolic murmur, rubs, gallop, clicks GI/Abdominal exam: Present: soft, normal bowel sounds. Absent: distended, tenderness, guarding, rebound, rigid Extremities exam: Present: normal inspection, full ROM, normal capillary refill. Absent: tenderness, pedal edema, joint swelling, calf tenderness Back exam: Present: normal inspection Neurological exam: Present: alert, oriented X3, CN II-XII intact Psychiatric exam: Present: normal affect, normal mood Skin exam: Present: warm, dry, intact, normal color. Absent: rash Course Vital Signs 12/06/23 12/06/23 12/06/23 10:03 10:25 11:39 Temperature 98.9 F Pulse Rate 86 80 Respiratory 22 22 Rate Blood Pressure 106/89 O2 Sat by Pulse 94 L Oximetry 12/06/23 12/06/23 12/06/23 12:00 12:01 16:00 Temperature Pulse Rate 81 84 83 Respiratory 18 16 Rate Blood Pressure 108/74 119/91 O2 Sat by Pulse 93 L 96 Oximetry 12/06/23 12/06/23 12/06/23 16:25 16:42 18:00 Temperature Pulse Rate 79 80 Respiratory Rate Blood Pressure O2 Sat by Pulse 92 L Oximetry 12/06/23 12/06/23 12/06/23 19:48 20:17 20:28 Temperature 98.5 F Pulse Rate 87 91 95 Respiratory 17 Rate Blood Pressure 122/46 O2 Sat by Pulse 93 L Oximetry 12/06/23 12/07/23 12/07/23 23:14 01:26 05:43 Temperature 98.5 F Pulse Rate 96 82 86 Respiratory 17 15 16 Rate Blood Pressure 162/86 144/68 O2 Sat by Pulse 92 L 91 L 93 L Oximetry 12/07/23 12/07/23 12/07/23 08:42 08:47 09:16 Temperature 98.6 F Pulse Rate 85 88 87 Respiratory 16 Rate Blood Pressure 135/81 O2 Sat by Pulse 93 L 95 Oximetry 12/07/23 12/07/23 12/07/23 11:27 11:37 15:33 Temperature Pulse Rate 89 90 81 Respiratory 20 Rate Blood Pressure 135/81 O2 Sat by Pulse 94 L Oximetry 12/07/23 12/07/23 12/07/23 15:34 15:44 17:19 Temperature 98.2 F Pulse Rate 94 92 82 Respiratory 20 Rate Blood Pressure 105/43 O2 Sat by Pulse 93 L Oximetry - Reevaluation(s) Reevaluation #1: 12/06/23 10:54 Medical records reviewed Reevaluation #2: 12/06/23 11:50 Patient has mild to no improvement in symptoms here in the ER Reevaluation #3: 12/06/23 11:50 Patient informed of results and questions answered Reevaluation #4: Was pt. sent in by a medical professional or institution (, PA, PAINT SPRAY TENDER, urgent care, hospital, or skilled nursing...) When possible be specific @ -no Did you speak to anyone other than the patient for history (EMS, parent, family, police, friend...)? What history was obtained from this source @ -no Did you review nursing and triage notes (agree or disagree)? Why? @ -agree Are old charts reviewed (outside hosp., previous admission, EMS record, old EKG, old radiological studies, urgent care reports/EKG's, skilled nursing records)? Report findings @ -yes Differential Diagnosis (chest pain, altered mental status, abdominal pain women, abdominal pain men, vaginal bleeding, weakness, fever, dyspnea, syncope, headache, dizziness, GI bleed, back pain, seizure, CVA, palpatations, mental health, musculoskeletal)? @ -prior EKG interpreted by me (3pts min.). @ -yes X-rays interpreted by me (1pt min.). @ -yes with pneumonia CT interpreted by me (1pt min.). @ -no U/S interpreted by me (1pt. min.). @ -no What testing was considered but not performed or refused? (CT, X-rays, U/S, labs)? Why? @ -none What meds were considered but not given or refused? Why? @ -none Did you discuss the management of the patient with other professionals (professionals i.e. , PA, PAINT SPRAY TENDER, lab, RT, psych nurse, 7th grade social studies teacher, cafe attendant, teacher, commercial loan officer, wrapper caser)? Give summary @ -no Was smoking cessation discussed for >3mins.? @ -no Was critical care preformed (if so, how long)? @ -no Were there social determinants of health that impacted care today? How? (Homelessness, low income, unemployed, alcoholism, drug addiction, transportation, low edu. Level, literacy, decrease access to med. care, group home, rehab)? @ -none Was there de-escalation of care discussed even if they declined (Discuss DNR or withdrawal of care, Hospice)? DNR status @ -no What co-morbidities impacted this encounter? (DM, HTN, Smoking, COPD, CAD, Cancer, CVA, ARF, Chemo, Hep., AIDS, mental health diagnosis, sleep apnea, morbid obesity)? @ -none Was patient admitted / discharged? Hospital course, mention meds given and route, prescriptions, significant lab abnormalities, going to OR and other pertinent info. @ - 82 female to ER with significant shortness of breath respiratory distress COPD exacerbation significant with pneumonia. Patient admitted for IV antibi otics Admitted Undiagnosed new problem with uncertain prognosis? @ -no Drug Therapy requiring intensive monitoring for toxicity (Heparin, Nitro, Insulin, Cardizem)? @ -no Were any procedures done? @ -no Diagnosis/symptom? @ -Respiratory distress COPD with pneumonia Acute, or Chronic, or Acute on Chronic? @ -Acute Uncomplicated (without systemic symptoms) or Complicated (systemic symptoms)? @ -Complicated Side effects of treatment? @ -no Exacerbation, Progression, or Severe Exacerbation? @ -exacerbation Poses a threat to life or bodily function? How? (Chest pain, USA, SD, pneumonia, PE, COPD, DKA, ARF, appy, cholecystitis, CVA, Diverticulitis, Homicidal, Suicidal, threat to staff... and all critical care pts) @ -yes extremes of age Reevaluation #5: Differential Dyspnea: Coronary syndrome, arrhythmia, tamponade, asthma, COPD, pulmonary embolism, pneumonia, pneumothorax, pulmonary effusion, anaphylaxis, diabetic ketoacidosis, flailed chest, pulmonary contusion, diaphragmatic rupture, anemia, neuromuscular, this is not meant to be an all-inclusive list. - Consultations Consultation #1: Spoke with Dr. Pedersen who agrees to admit this patient Medical Decision Making - Medical Decision Making 82 female to ER with significant shortness of breath respiratory distress COPD exacerbation significant with pneumonia. Patient admitted for IV antibiotics - Lab Data Result diagrams: 12/11/23 06:21 12/11/23 06:21 Lab Results 12/06/23 12/06/23 12/06/23 Range/Units 10:36 10:36 10:36 WBC 8.7 (3.8-10.6) k/uL RBC 3.95 (3.80-5.40) m/uL Hgb 10.5 L (11.4-16.0) gm/dL Hct 34.4 (34.0-46.0) % MCV 87.2 (80.0-100.0) fL MCH 26.6 (25.0-35.0) pg MCHC 30.5 L (31.0-37.0) g/dL RDW 18.4 H (11.5-15.5) % Plt Count 308 (150-450) k/uL MPV 7.8 Neutrophils % 83 % Lymphocytes % 7 % Monocytes % 6 % Eosinophils % 2 % Basophils % 0 % Neutrophils # 7.2 (1.3-7.7) k/uL Lymphocytes # 0.6 L (1.0-4.8) k/uL Monocytes # 0.5 (0-1.0) k/uL Eosinophils # 0.2 (0-0.7) k/uL Basophils # 0.0 (0-0.2) k/uL Hypochromasia Slight Anisocytosis Slight PT 10.9 (10.0-12.5) sec INR 1.0 (<1.2) APTT 24.7 (22.0-30.0) sec Sodium 137 (137-145) mmol/L Potassium 3.5 (3.5-5.1) mmol/L Chloride 97 L (98-107) mmol/L Carbon Dioxide 34 H (22-30) mmol/L Anion Gap 6 mmol/L BUN 9 (7-17) mg/dL Creatinine 0.70 (0.52-1.04) mg/dL Est GFR (CKD-EPI)AfAm >90 (>60 ml/min/1.73 sqM) Est GFR (CKD-EPI)NonAf 81 (>60 ml/min/1.73 sqM) Glucose 104 H (74-99) mg/dL Lactic Ac Sepsis Rflx Plasma Lactic Acid [place]ito (0.7-2.0) mmol/L Calcium 8.5 (8.4-10.2) mg/dL Total Bilirubin 0.5 (0.2-1.3) mg/dL AST 27 (14-36) U/L ALT 19 (4-34) U/L Alkaline Phosphatase 135 H (38-126) U/L Troponin I (0.000-0.034) ng/mL NT-Pro-B Natriuret Pep 8830 pg/mL Total Protein 5.6 L (6.3-8.2) g/dL Albumin 3.1 L (3.5-5.0) g/dL Procalcitonin (0.02-0.09) ng/mL 12/06/23 12/06/23 12/06/23 Range/Units 10:36 10:36 10:36 WBC (3.8-10.6) k/uL RBC (3.80-5.40) m/uL Hgb (11.4-16.0) gm/dL Hct (34.0-46.0) % MCV (80.0-100.0) fL MCH (25.0-35.0) pg MCHC (31.0-37.0) g/dL RDW (11.5-15.5) % Plt Count (150-450) k/uL MPV Neutrophils % % Lymphocytes % % Monocytes % % Eosinophils % % Basophils % % Neutrophils # (1.3-7.7) k/uL Lymphocytes # (1.0-4.8) k/uL Monocytes # (0-1.0) k/uL Eosinophils # (0-0.7) k/uL Basophils # (0-0.2) k/uL Hypochromasia Anisocytosis PT (10.0-12.5) sec INR (<1.2) APTT (22.0-30.0) sec Sodium (137-145) mmol/L Potassium (3.5-5.1) mmol/L Chloride (98-107) mmol/L Carbon Dioxide (22-30) mmol/L Anion Gap mmol/L BUN (7-17) mg/dL Creatinine (0.52-1.04) mg/dL Est GFR (CKD-EPI)AfAm (>60 ml/min/1.73 sqM) Est GFR (CKD-EPI)NonAf (>60 ml/min/1.73 sqM) Glucose (74-99) mg/dL Lactic Ac Sepsis Rflx Plasma Lactic Acid Pablito 2.6 H* (0.7-2.0) mmol/L Calcium (8.4-10.2) mg/dL Total Bilirubin (0.2-1.3) mg/dL AST (14-36) U/L ALT (4-34) U/L Alkaline Phosphatase (38-126) U/L Troponin I 0.023 (0.000-0.034) ng/mL NT-Pro-B Natriuret Pep pg/mL Total Protein (6.3-8.2) g/dL Albumin (3.5-5.0) g/dL Procalcitonin 0.06 (0.02-0.09) ng/mL 12/06/23 Range/Units 11:03 WBC (3.8-10.6) k/uL RBC (3.80-5.40) m/uL Hgb (11.4-16.0) gm/dL Hct (34.0-46.0) % MCV (80.0-100.0) fL MCH (25.0-35.0) pg MCHC (31.0-37.0) g/dL RDW (11.5-15.5) % Plt Count (150-450) k/uL MPV Neutrophils % % Lymphocytes % % Monocytes % % Eosinophils % % Basophils % % Neutrophils # (1.3-7.7) k/uL Lymphocytes # (1.0-4.8) k/uL Monocytes # (0-1.0) k/uL Eosinophils # (0-0.7) k/uL Basophils # (0-0.2) k/uL Hypochromasia Anisocytosis PT (10.0-12.5) sec INR (<1.2) APTT (22.0-30.0) sec Sodium (137-145) mmol/L Potassium (3.5-5.1) mmol/L Chloride (98-107) mmol/L Carbon Dioxide (22-30) mmol/L Anion Gap mmol/L BUN (7-17) mg/dL Creatinine (0.52-1.04) mg/dL Est GFR (CKD-EPI)AfAm (>60 ml/min/1.73 sqM) Est GFR (CKD-EPI)NonAf (>60 ml/min/1.73 sqM) Glucose (74-99) mg/dL Lactic Ac Sepsis Rflx Y Plasma Lactic Acid P[place] (0.7-2.0) mmol/L Calcium (8.4-10.2) mg/dL Total Bilirubin (0.2-1.3) mg/dL AST (14-36) U/L ALT (4-34) U/L Alkaline Phosphatase (38-126) U/L Troponin I (0.000-0.034) ng/mL NT-Pro-B Natriuret Pep pg/mL Total Protein (6.3-8.2) g/dL Albumin (3.5-5.0) g/dL Procalcitonin (0.02-0.09) ng/mL - EKG Data -: EKG Interpreted by Me (EKG is paced 86 DE 171 QRS 162 QTc 535) - Radiology Data Radiology results: report reviewed (Chest x-ray is positive for CHF), image reviewed Critical Care Time Critical Care Time: Yes Total Critical Care Time: 31 Disposition Clinical Impression: Acute exacerbation of chronic obstructive pulmonary disease, Acute respiratory distress syndrome in adult, Pneumonia Disposition: ADMITTED IP TO THIS HOSP Condition: Fair Is patient prescribed a controlled substance at d/c from ED?: No Time of Disposition: 11:50
[2023-12-06 10:56] LABS: ALT 19 U/L (4-34); AST 27 U/L (14-36); African American GFR (CKD) >90 (>60 ml/min/1.73 sqM); Albumin 3.1 g/dL (3.5-5.0); Alkaline Phosphatase 135 U/L (38-126); Anion Gap 6 mmol/L; Anisocytosis Slight; Basophils % (A) 0 %; Blood Urea Nitrogen 9 mg/dL (7-17); Calcium 8.5 mg/dL (8.4-10.2); Carbon Dioxide 34 mmol/L (22-30); Chloride 97 mmol/L (98-107); Eosinophils # (A) 0.2 k/uL (0-0.7); Eosinophils % (A) 2 %; Glucose 104 mg/dL (74-99); HCT 34.4 % (34.0-46.0); HGB 10.5 gm/dL (11.4-16.0); Hypochromasia Slight; Lymphocytes # (A) 0.6 k/uL (1.0-4.8); Lymphocytes % (A) 7 %; MCH 26.6 pg (25.0-35.0); MCHC 30.5 g/dL (31.0-37.0); MCV 87.2 fL (80.0-100.0); Mean Platelet Volume 7.8; Monocytes # (A) 0.5 k/uL (0-1.0); Monocytes % (A) 6 %; Neutrophils # (A) 7.2 k/uL (1.3-7.7); Neutrophils % (A) 83 %; Non-African American GFR(CKD) 81 (>60 ml/min/1.73 sqM); Platelet Count 308 k/uL (150-450); Potassium 3.5 mmol/L (3.5-5.1); RBC 3.95 m/uL (3.80-5.40); RDW 18.4 % (11.5-15.5); Sodium 137 mmol/L (137-145); Total Bilirubin 0.5 mg/dL (0.2-1.3); Total Protein 5.6 g/dL (6.3-8.2); WBC 8.7 k/uL (3.8-10.6)
[2023-12-06] MEDS: SODIUM CHLORIDE 0.9% 500 ML 500 ML IV STA (11:00)
--- NOTE | 2023-12-06 11:00 | XR ---
EXAMINATION TYPE: XR chest 1V portable DATE OF EXAM: 12/06/2023 COMPARISON: 11/20/2023 INDICATION: Short of breath TECHNIQUE: Single frontal view of the chest is obtained. FINDINGS: The heart size is normal. The pulmonary vasculature is normal. Mild left lower lobe infiltrate is present. Minimal bilateral pleural effusions are present. Some mil d infiltrate may be above the right diaphragm. This negative overlies the left chest. IMPRESSION: 1. Bibasilar infiltrates. Correlate for atelectasis or pneumonia. 2. Small bilateral pleural effusions.
[2023-12-06 11:05] LABS: NT-Pro-B-Type Natriuretic Pept 8830 pg/mL
[2023-12-06 11:08] LABS: Partial Thromboplastin Time 24.7 sec (22.0-30.0); Prothrombin Time 10.9 sec (10.0-12.5)
[2023-12-06] MEDS: IPRATROPIUM-ALBUTEROL 3 ML NEB INHALATION STA ×2 (11:39→12:32)
[2023-12-06] MEDS ORDERED: NALOXONE 0.4 MG/ML 1 ML VIAL IV PRN (11:47)
[2023-12-06] MEDS ORDERED: PNEUMONIA PROTOCOL UTILIZED 1 EACH MISC PO PRN (11:47)
[2023-12-06] MEDS: ALBUTEROL NEBULIZED 2.5 MG/3 ML INHALATION SCH (12:32)
[2023-12-06] MEDS: SYMBICORT 80-4.5 MCG INHALER INHALATION SCH (12:57)
[2023-12-06] MEDS ORDERED: DEXTROSE 50% SYRINGE 50 ML IVP PRN ×2 (12:59)
[2023-12-06] MEDS: AZITHROMYCIN 500 MG in SODIUM CHLORIDE 0.9% 250 ML IVPB STA (13:09)
[2023-12-06] MEDS: SODIUM CHLORIDE 0.9% 1,000 ML IV SCH (13:10)
[2023-12-06] MEDS: NICOTINE 21MG/24HR PATCH TRANSDERM SCH (13:23)
[2023-12-06 14:16] LABS: Glucose,Whole Blood 125 mg/dL (70-110)
[2023-12-06] MEDS: INSULIN ASPART (NovoLOG) 100 UNIT/ML VIAL SQ SCH (14:16)
[2023-12-06] MEDS: SODIUM CHLORIDE 0.9% 1,000 ML IV STA (14:17)
[2023-12-06] MEDS: ANASTROZOLE 1 MG TAB PO SCH (14:20)
[2023-12-06] MEDS: guaiFENesin 600 MG TABLET.ER PO SCH (14:20)
[2023-12-06] MEDS: ASPIRIN 81 MG PO SCH (14:20)
[2023-12-06] MEDS: OXYBUTYNIN XL 5 MG TAB.ER.24 PO SCH (14:21)
[2023-12-06] MEDS: SERTRALINE 100 MG TAB PO SCH (14:21)
[2023-12-06] MEDS: PANTOPRAZOLE 40 MG TABLET PO SCH (14:21)
[2023-12-06] MEDS: methylPREDNISolone SOD SUCCI 125 MG/2 ML VIAL IM ONE (14:21)
--- NOTE | 2023-12-06 14:30 | P.CNPUL ---
History of Present Illness Consult date: 12/06/23 Requesting physician: Malik Lehman Jr Reason for consult: dyspnea Chief complaint: Shortness of breath History of present illness: This is an 82-year-old female patient who was recently discharged from here following an episode of shortness of breath and found to have high degree AV block with syncope. She did receive a dual-chamber permanent pacemaker implantation on November 19 and was discharged to [facility] for subacute rehabilitation. She has a history of previous heavy tobacco dependence, chronic obstructive pulmonary disease, oxygen dependence, diabetes mellitus, gastroesophageal reflux disease, hypertension, hyperlipidemia, right breast cancer s/p mastectomy. She was brought here to the emergency room today after developing increasing shortness of breath. Chest x-ray reveals bibasilar infiltrates. Atelectasis versus pneumonia. Small bilateral pleural effusions. White count 8.7. Hemoglobin 10.5. Platelets 308. Sodium 137. Potassium 3.5. Bicarb 34. BUN 9. Creatinine 0.70. Troponins negative x 2. proBNP 8830. She is seen today in consultation in the emergency department. She is currently sitting up on a stretcher. Awake and alert in no acute distress. She is dyspneic with conversation. Dyspneic with minimal exertion. Denies any fever or chills. No cough or congestion. She is maintaining O2 saturations in the 90s on 1 L/min per nasal cannula. Review of Systems REVIEW OF SYSTEMS: CONSTITUTIONAL: Denies any recent significant weight loss or weight gain. EYES: Denies change in vision. EARS, NOSE, MOUTH, THROAT: Denies headaches, denies sore throat. CARDIOVASCULAR: Denies chest pain, palpitations or syncopal episodes. RESPIRATORY: Positive for shortness of breath, no cough, congestion or hemoptysis. GASTROINTESTINAL: Denies change in appetite, denies abdominal pain GENITOURINARY: Denies hematuria, denies infections. MUSKULOSKELETAL: Denies pain, denies swelling. INTEGUMENTARY: Denies rash, denies eczema. NEUROLOGICAL: Denies recent memory loss, no recent seizure activity. PSYCHIATRIC: Denies anxiety, denies depression. HEMATOLOGIC/LYMPHATIC: Denies anemia, denies enlarged lymph nodes. Past Medical History Past Medical History: Cancer, COPD, Diabetes Mellitus, Eye Disorder, GERD/Reflux, Hearing Disorder / Deafness, Hyperlipidemia, Hypertension, Osteoarthritis (OA) Additional Past Medical History / Comment(s): hx of lt eye macular hole, breast cancer July 2018-had radiation & surgery, needs eye surg. for drooping eyelids. History of Any Multi-Drug Resistant Organisms: None Reported Past Surgical History: Appendectomy, Back Surgery, Breast Surgery, Cholecystectomy, Tonsillectomy Additional Past Surgical History / Comment(s): COLONOSCOPY, right mastectomy wi th removal of 6 lymph nodes axillae 2018, cataracts removed, wedge excision lesion left ear 11/22/20 Past Anesthesia/Blood Transfusion Reactions: No Reported Reaction, Motion Si ckness Past Psychological History: Anxiety, Depression, Panic Disorder Smoking Status: Former smoker Past Alcohol Use History: None Reported Past Drug Use History: None Reported - Past Family History Father Family Medical History: Cancer Mother Family Medical History: Cancer Sister(s) Family Medical History: Cancer Brother(s) Family Medical History: Cancer Medications and Allergies Home Medications Medication Instructions Recorded Confirmed Type Albuterol Inhaler [Ventolin Hfa 2 puff INHALATION RT-Q4H PRN 05/10/19 12/06/23 History Inhaler] metFORMIN HCL [Glucophage] 500 mg PO BID 05/10/19 12/06/23 History Anastrozole [Arimidex] 1 mg PO DAILY 04/26/20 12/06/23 History Ipratropium-Albuterol Nebulize 3 ml INHALATION RT-Q6H PRN 05/28/20 12/06/23 History [Duoneb 0.5 mg-3 mg/3 ml Soln] Omeprazole [PriLOSEC] 20 mg PO DAILY 05/28/20 12/06/23 History Sertraline [Zoloft] 100 mg PO DAILY 05/28/20 12/06/23 History Triamcinolone Acetonide [Nasacort] 1 spr EA NOSTRIL DAILY 05/28/20 12/06/23 History ondansetron HCL [Zofran] 8 mg PO Q8HR PRN 05/28/20 12/06/23 History Alendronate Sodium [Fosamax] 70 mg PO MO 11/18/23 12/06/23 History Atorvastatin [Lipitor] 40 mg PO HS 11/18/23 12/06/23 History Fluticasone Propion/Salmeterol 1 puff INHALATION RT-BID 11/18/23 12/06/23 History [Wixela 250-50 Inhub] oxyBUTYnin chloride [oxyBUTYnin 5 mg PO DAILY 11/18/23 12/06/23 History chloride ER] Aspirin 81 mg PO DAILY tab 11/22/23 12/06/23 Rx Bismuth Subsalicylate 524 mg PO Q4H PRN 12/06/23 12/06/23 History [Pepto-Bismol] Furosemide [Lasix] 20 mg PO DAILY@0800 12/06/23 12/06/23 History Melatonin 10 mg PO HS 12/06/23 12/06/23 History Nicotine 21Mg/24Hr Patch [Habitrol] 1 patch TRANSDERM DAILY 12/06/23 12/06/23 History Nutritional Juice 1 dose PO BID@1200,1800 12/06/23 12/06/23 History Potassium Chloride ER [K-Dur 10] 10 meq PO DAILY@0800 12/06/23 12/06/23 History lisinopriL [Zestril] 5 mg PO DAILY@0800 12/06/23 12/06/23 History Allergies Allergy/AdvReac Type Severity Reaction Status Date / Time No Known Allergies Allergy Verified 12/06/23 10:15 Physical Exam Vitals: Vital Signs Temp Pulse Resp BP Pulse Ox 12/06/23 12:01 84 12/06/23 12:00 81 18 108/74 93 L 12/06/23 11:39 80 12/06/23 10:25 22 12/06/23 10:03 98.9 F 86 22 106/89 94 L Intake and Output 12/05/23 12/06/23 12/06/23 22:59 06:59 14:59 Other: Weight 81.647 kg GENERAL EXAM: Alert, pleasant, 82-year-old female, on 1 L nasal cannula, fairly comfortable in no apparent distress. HEAD: Normocephalic. EYES: Normal reaction of pupils, equal size. NOSE: Clear with pink turbinates. THROAT: No erythema or exudates. NECK: No masses, no JVD. CHEST: No chest wall deformity. LUNGS: Equal air entry with basilar crackles, few scattered rhonchi. CVS: S1 and S2 normal with no audible murmur, regular rhythm. ABDOMEN: No hepatosplenomegaly, normal bowel sounds, no guarding or rigidity. SPINE: No scoliosis or deformity SKIN: No rashes CENTRAL NERVOUS SYSTEM: No focal deficits, tone is normal in all 4 extremities. EXTREMITIES: There is no peripheral edema. No clubbing, no cyanosis. Peripheral pulses are intact. Results - Laboratory Findings CBC and BMP: 12/06/23 10:36 12/06/23 10:36 PT/INR, D-dimer PT 10.9 sec (10.0-12.5) 12/06/23 10:36 INR 1.0 (<1.2) 12/06/23 10:36 Abnormal lab findings: Abnormal Labs 12/06/23 12/06/23 12/06/23 10:36 10:36 10:36 Hgb 10.5 L MCHC 30.5 L RDW 18.4 H Lymphocytes # 0.6 L Chloride 97 L Carbon Dioxide 34 H Glucose 104 H Plasma Lactic Acid Pablito 2.6 H* Alkaline Phosphatase 135 H Total Protein 5.6 L Albumin 3.1 L - Diagnostic Findings Chest x-ray: image reviewed Assessment and Plan Assessment: Acute hypoxemic respiratory failure secondary to acute exacerbation of diastolic congestive heart failure, possible healthcare acquired pneumonia, COPD exacerbation Recent hospitalization with discharge on 11/21/2023 from a syncopal episode and high degree AV block status post pacemaker insertion History of congestive heart failure Hypertension Hyperlipidemia Diabetes mellitus Hearing disorder Breast cancer status post right mastectomy and radiation History of anxiety/depression History of chronic tobacco dependence for many years Plan: The patient was seen and evaluated Chest x-ray, labs and medications reviewed Continue antibiotics for now Check a procalcitonin Continue Symbicort, albuterol, Solu-Medrol NicoDerm patch in place Continue diuretics We will continue to follow and make further recommendations based on her clinical status I have personally seen and examined the patient, performed the documentation and the assessment and plan as written. Number of minutes spent on the visit: 20.
[2023-12-06] MEDS: TRIAMCINOLONE ACET 0.5% CREAM 15 GM TUBE TOPICAL SCH (14:45)
[2023-12-06] MEDS: INSULIN DETEMIR (LEVEMIR) 100 UNIT/ML SYR SQ SCH (14:48)
[2023-12-06] MEDS: FLUTICASONE NASAL 50MCG/SPRAY 16GM BTL EA NOSTRIL SCH (14:49)
[2023-12-06] MEDS: CLOTRIMAZOLE 1% CREAM 30 GM TUBE TOPICAL SCH (15:50)
[2023-12-06] MEDS: methylPREDNISolone SOD SUCCI 125 MG/2 ML VIAL IV SCH (16:08)
[2023-12-06] MEDS: IPRATROPIUM-ALBUTEROL 3 ML NEB INHALATION SCH (16:25)
[2023-12-06 18:41] LABS: Glucose,Whole Blood 104 mg/dL (70-110)
[2023-12-06] MEDS: SYMBICORT 160-4.5 MCG INHALER INHALATION SCH (20:16)
[2023-12-06 20:39] LABS: Glucose,Whole Blood 153 mg/dL (70-110)
[2023-12-06] MEDS: MELATONIN 5 MG TABLET PO SCH (20:39)
[2023-12-06] MEDS: ATORVASTATIN 40 MG TAB PO SCH (20:39)
[2023-12-07] MEDS: ALPRAZolam 0.25 MG TAB PO PRN (05:54)
[2023-12-07 07:26] LABS: Glucose,Whole Blood 148 mg/dL (70-110)
--- NOTE | 2023-12-07 08:57 | XR ---
EXAMINATION TYPE: XR chest 1V portable DATE OF EXAM: 12/07/2023 COMPARISON: 12/06/2023 INDICATION: Pneumonia TECHNIQUE: Single frontal view of the chest is obtained. FINDINGS: The heart size is enlarged. The pulmonary vasculature is somewhat prominent. Diffuse increased lung markings are present bilaterally. This may be more focal in the left lower lob e. Correlate for atypical pulmonary edema. Pneumonia should be considered. Small left pleural effusi on is present. IMPRESSION: 1. Bilateral lung infiltrates. This may be more focal left lower lobe. Differential diagnosis should include atypical pulmonary edema and pneumonia. Follow-up is recommended. Small left pleural effusion is present.
[2023-12-07 08:58] LABS: ALT 18 U/L (4-34); AST 27 U/L (14-36); African American GFR (CKD) >90 (>60 ml/min/1.73 sqM); Albumin 2.9 g/dL (3.5-5.0); Albumin/Globulin Ratio 1.2; Alkaline Phosphatase 119 U/L (38-126); Anion Gap 4 mmol/L; Blood Urea Nitrogen 9 mg/dL (7-17); Carbon Dioxide 30 mmol/L (22-30); Chloride 102 mmol/L (98-107); Globulin 2.4 g/dL; Glucose 147 mg/dL (74-99); Magnesium 1.3 mg/dL (1.6-2.3); Non-African American GFR(CKD) >90 (>60 ml/min/1.73 sqM); Phosphorus 4.3 mg/dL (2.5-4.5); Potassium 3.8 mmol/L (3.5-5.1); Sodium 136 mmol/L (137-145); Total Bilirubin 0.4 mg/dL (0.2-1.3); Total Protein 5.3 g/dL (6.3-8.2)
[2023-12-07 09:11] LABS: Anisocytosis Slight; Basophils % (A) 0 %; Eosinophils % (A) 0 %; HCT 33.2 % (34.0-46.0); HGB 10.1 gm/dL (11.4-16.0); Hypochromasia Moderate; Lymphocytes # (A) 0.3 k/uL (1.0-4.8); Lymphocytes % (A) 4 %; MCH 26.9 pg (25.0-35.0); MCHC 30.3 g/dL (31.0-37.0); MCV 88.6 fL (80.0-100.0); Mean Platelet Volume 8.1; Monocytes # (A) 0.1 k/uL (0-1.0); Monocytes % (A) 2 %; Neutrophils % (A) 94 %; Platelet Count 292 k/uL (150-450); RBC 3.75 m/uL (3.80-5.40); RDW 18.1 % (11.5-15.5); WBC 7.4 k/uL (3.8-10.6)
[2023-12-07] MEDS: FUROSEMIDE 20 MG TAB PO SCH (09:23)
[2023-12-07] MEDS: AZITHROMYCIN 500 MG TAB PO SCH (09:24)
[2023-12-07] MEDS: POTASSIUM CHLORIDE ER 10 MEQ TAB.ER.PRT PO SCH (09:24)
[2023-12-07] MEDS: MORPHINE SULFATE 4 MG/ML SYRINGE IV PRN (09:43)
[2023-12-07] MEDS: ONDANSETRON 4 MG/2 ML VIAL IVP PRN (09:49)
--- NOTE | 2023-12-07 11:03 | P.HPIM ---
History of Present Illness H&P Date: 12/07/23 Chief Complaint: Dyspnea This is a pleasant 82-year-old female, recent inpatient hospitalization, discharged to [facility] subacute rehab 11/22/2023 related to dual-chamber perma nent pacemaker placement secondary to high degree AV block with syncope. Patient has past medical history significant for hard of hearing-wears hearing aids, right breast cancer status postmastectomy, CHF, COPD, prior nicotine dependence, diabetes mellitus, gastroesophageal reflux disease, hypertension, hyperlipidemia, osteoarthritis, anxiety, and multiple other medical issues admitted to the ER with complaints increased shortness of breath, nonproductive cough. Denies fever or chills. chest x-ray reporting bibasilar infiltrates, small bilateral pleural effusions. proBNP 8830. afebrile, normal WBC, lactic acid 1.8. Hemoglobin 10.5, platelets 308, INR 1. Electrolytes and renal function stable. Blood sugars controlled. Denies chest pain, palpitations. Troponins negative x 2, EKG reported paced. Oxygen recently titrated off as patient was in the low 90s on 1 L nasal cannula, but currently desatting down into the 80s, O2 resumed. Review of Systems ROS Statement: Those systems with pertinent positive or pertinent negative responses have been documented in the HPI. ROS Other: All systems not noted in ROS Statement are negative. Past Medical History Past Medical History: Cancer, COPD, Diabetes Mellitus, Eye Disorder, GERD/Reflux, Hearing Disorder / Deafness, Hyperlipidemia, Hypertension, Osteoarthritis (OA) Additional Past Medical History / Comment(s): hx of lt eye macular hole, breast cancer July 2018-had radiation & surgery, needs eye surg. for drooping eyelids. History of Any Multi-Drug Resistant Organisms: None Reported Past Surgical History: Appendectomy, Back Surgery, Breast Surgery, Cholecystectomy, Tonsillectomy Additional Past Surgical History / Comment(s): COLONOSCOPY, right mastectomy with removal of 6 lymph nodes axillae 2018, cataracts removed, wedge excision lesion left ear 11/22/20 Past Anesthesia/Blood Transfusion Reactions: No Reported Reaction, Motion Sickness Past Psychological History: Anxiety, Depression, Panic Disorder Smoking Status: Former smoker Past Alcohol Use History: None Reported Past Drug Use History: None Reported - Past Family History Father Family Medical History: Cancer Mother Family Medical History: Cancer Sister(s) Family Medical History: Cancer Brother(s) Family Medical History: Cancer Medications and Allergies Home Medications Medication Instructions Recorded Confirmed Type Albuterol Inhaler [Ventolin Hfa 2 puff INHALATION RT-Q4H PRN 05/10/19 12/06/23 History Inhaler] metFORMIN HCL [Glucophage] 500 mg PO BID 05/10/19 12/06/23 History Anastrozole [Arimidex] 1 mg PO DAILY 04/26/20 12/06/23 History Ipratropium-Albuterol Nebulize 3 ml INHALATION RT-Q6H PRN 05/28/20 12/06/23 History [Duoneb 0.5 mg-3 mg/3 ml Soln] Omeprazole [PriLOSEC] 20 mg PO DAILY 05/28/20 12/06/23 History Sertraline [Zoloft] 100 mg PO DAILY 05/28/20 12/06/23 History Triamcinolone Acetonide [Nasacort] 1 spr EA NOSTRIL DAILY 05/28/20 12/06/23 History ondansetron HCL [Zofran] 8 mg PO Q8HR PRN 05/28/20 12/06/23 History Alendronate Sodium [Fosamax] 70 mg PO MO 11/18/23 12/06/23 History Atorvastatin [Lipitor] 40 mg PO HS 11/18/23 12/06/23 History Fluticasone Propion/Salmeterol 1 puff INHALATION RT-BID 11/18/23 12/06/23 History [Wixela 250-50 Inhub] oxyBUTYnin chloride [oxyBUTYnin 5 mg PO DAILY 11/18/23 12/06/23 History chloride ER] Aspirin 81 mg PO DAILY tab 11/22/23 12/06/23 Rx Bismuth Subsalicylate 524 mg PO Q4H PRN 12/06/23 12/06/23 History [Pepto-Bismol] Furosemide [Lasix] 20 mg PO DAILY@0800 12/06/23 12/06/23 History Melatonin 10 mg PO HS 12/06/23 12/06/23 History Nicotine 21Mg/24Hr Patch [Habitrol] 1 patch TRANSDERM DAILY 12/06/23 12/06/23 History Nutritional Juice 1 dose PO BID@1200,1800 12/06/23 12/06/23 History Potassium Chloride ER [K-Dur 10] 10 meq PO DAILY@0800 12/06/23 12/06/23 History lisinopriL [Zestril] 5 mg PO DAILY@0800 12/06/23 12/06/23 History Allergies Allergy/AdvReac Type Severity Reaction Status Date / Time No Known Allergies Allergy Verified 12/06/23 10:15 Physical Exam Vitals: Vital Signs Temp Pulse Resp BP Pulse Ox 12/06/23 18:00 92 L 12/06/23 16:42 80 12/06/23 16:25 79 12/06/23 16:00 83 16 119/91 96 12/06/23 12:01 84 12/06/23 12:00 81 18 108/74 93 L 12/06/23 11:39 80 12/06/23 10:25 22 12/06/23 10:03 98.9 F 86 22 106/89 94 L Intake and Output 12/06/23 12/06/23 12/06/23 06:59 14:59 22:59 Other: Weight 81.647 kg VITAL SIGNS: [As above] GENERAL: Alert and oriented x 3, sitting up in bed, fatigued, hard of hearing, conversational dyspnea HEENT: Normocephalic , conjunctivae normal, pupils equal, round, sclera anicteric NECK: Supple, no JVD. No thyroid enlargement CARDIOVASCULAR: S1, S2 regular, No murmur RESPIRATION: Unlabored, equal air entry, fine scattered rhonchi with bibasilar crackles ABDOMEN: Soft, nondistended, nontender . No guarding. no masses palpable. No ascites, No hepatosplenomegaly.Bowel sounds heard. LEGS: No edema. no swelling, no clubbing, no cyanosis, no calf tenderness. NERVOUS SYSTEM: Cranial N 2-12 grossly normal. No focal deficits. Strength and sensation grossly intact. Skin: Warm and dry, bilateral lower extremity, below the knees, dermatitis being treated at the subacute rehab, improving Results CBC & Chem 7: 12/07/23 08:06 12/07/23 08:06 Labs: Abnormal Lab Results - Last 24 Hours (Table) 12/06/23 12/06/23 12/06/23 Range/Units 10:36 10:36 10:36 Hgb 10.5 L (11.4-16.0) gm/dL MCHC 30.5 L (31.0-37.0) g/dL RDW 18.4 H (11.5-15.5) % Lymphocytes # 0.6 L (1.0-4.8) k/uL Chloride 97 L (98-107) mmol/L Carbon Dioxide 34 H (22-30) mmol/L Glucose 104 H (74-99) mg/dL POC Glucose (mg/dL) (70-110) mg/dL Plasma Lactic Acid Pablito 2.6 H* (0.7-2.0) mmol/L Alkaline Phosphatase 135 H (38-126) U/L Total Protein 5.6 L (6.3-8.2) g/dL Albumin 3.1 L (3.5-5.0) g/dL 12/06/23 12/06/23 Range/Units 14:15 15:29 Hgb (11.4-16.0) gm/dL MCHC (31.0-37.0) g/dL RDW (11.5-15.5) % Lymphocytes # (1.0-4.8) k/uL Chloride (98-107) mmol/L Carbon Dioxide (22-30) mmol/L Glucose (74-99) mg/dL POC Glucose (mg/dL) 125 H (70-110) mg/dL Plasma Lactic Acid Pablito 2.6 H* (0.7-2.0) mmol/L Alkaline Phosphatase (38-126) U/L Total Protein (6.3-8.2) g/dL Albumin (3.5-5.0) g/dL Assessment and Plan Assessment: Acute on chronic CHF exacerbation, diastolic dysfunction, BNP 8830 COPD exacerbation Acute hypoxic respiratory failure secondary to the above Possible community-acquired pneumonia, antibiotics initiated, procalcitonin pending Recent dual-chamber PPM placement 11/20/2023, secondary to high degree AV block with syncope Diabetes mellitus type II Hypertension Hyperlipidemia History of breast cancer and right lymphedema, status postmastectomy with radiation COPD, stable Prior extensive nicotine dependence, 1 pack/day of nearly 60 years Anxiety, depression Plan: Continue on current medication resume ,monitoring and symptomatic treatment. Empiric antibiotics initiated with procalcitonin pending. Aggressive pulmonary toileting with nebulized bronchodilators, Symbicort and IV steroids ordered, diuretics. Xanax ordered for anxiety. Low-dose Levemir insulin along with NovoLog sliding scale with close monitoring of Accu-Cheks. Pulmonary consult in place, recommendations pending. The impression and plan of care has been dictated as directed. : I performed a history and examination of this patient, discussed the same with the dictator. I agree with the dictator's note ,documented as a scribe. Any additional findings or plans will be noted.
[2023-12-07] MEDS: MAGNESIUM SULFATE-D5W PMX 1 GM in DEXTROSE/WATER 1 100ML.BAG IVPB SCH (12:01)
[2023-12-07] MEDS: POTASSIUM CHLORIDE ER 20 MEQ TAB.ER PO STA (12:02)
[2023-12-07 12:26] LABS: Glucose,Whole Blood 174 mg/dL (70-110)
--- NOTE | 2023-12-07 12:33 | P.PN ---
Subjective Progress Note Date: 12/07/23 This is an 82-year-old female patient who was recently discharged from here following an episode of shortness of breath and found to have high degree AV block with syncope. She did receive a dual-chamber permanent pacemaker implantation on November 19 and was discharged to [facility] for subacute rehabilitation. She has a history of previous heavy tobacco dependence, chronic obstructive pulmonary disease, oxygen dependence, diabetes mellitus, gastroesophageal reflux disease, hypertension, hyperlipidemia, right breast cancer s/p mastectomy. She was brought here to the emergency room today after developing increasing shortness of breath. Chest x-ray reveals bibasilar infiltrates. Atelectasis versus pneumonia. Small bilateral pleural effusions. White count 8.7. Hemoglobin 10.5. Platelets 308. Sodium 137. Potassium 3.5. Bicarb 34. BUN 9. Creatinine 0.70. Troponins negative x 2. proBNP 8830. She is seen today in consultation in the emergency department. She is currently sitting up on a stretcher. Awake and alert in no acute distress. She is dyspneic with conversation. Dyspneic with minimal exertion. Denies any fever or chills. No cough or congestion. She is maintaining O2 saturations in the 90s on 1 L/min per nasal cannula. The patient is seen today December 07, 2023 in follow-up in the emergency department. She is currently sitting up in a stretcher. Awake and alert in no acute distress. She is breathing easier today compared to yesterday. She is currently maintaining O2 saturations in the 90s on 2 L/min per nasal cannula. She is afebrile. Hemodynamically stable. Chest x-ray reveals bilateral lung infiltrates. White count 7.4. Hemoglobin 10.1. Platelets 292. Sodium 136. Potassium 3.8. Bicarb 30. BUN 9. Creatinine 0.45. Glucose 147. Procalcitonin 0.06. She is continued on DuoNeb inhalations Symbicort, Solu- Medrol. Antibiotics in the form of ceftriaxone and azithromycin. NicoDerm patch in place. Objective - Vital Signs Vital signs: Vital Signs Temp 98.6 F 12/07/23 09:16 Pulse 90 12/07/23 11:37 Resp 16 12/07/23 09:16 BP 135/81 12/07/23 09:16 Pulse Ox 95 12/07/23 09:16 FiO2 Intake & Output 12/06/23 12/07/23 12/07/23 18:59 06:59 18:59 Weight 81.647 kg - Exam GENERAL EXAM: Alert, 82-year-old female, on 2 L nasal cannula, comfortable in no apparent distress. HEAD: Normocephalic. EYES: Normal reaction of pupils, equal size. NOSE: Clear with pink turbinates. THROAT: No erythema or exudates. NECK: No masses, no JVD. CHEST: No chest wall deformity. LUNGS: Equal air entry with basilar crackles, few scattered rhonchi. CVS: S1 and S2 normal with no audible murmur, regular rhythm. ABDOMEN: No hepatosplenomegaly, normal bowel sounds, no guarding or rigidity. SPINE: No scoliosis or deformity SKIN: No rashes CENTRAL NERVOUS SYSTEM: No focal deficits, tone is normal in all 4 extremities. EXTREMITIES: There is no peripheral edema. No clubbing, no cyanosis. Peripheral pulses are intact. - Labs CBC & Chem 7: 12/07/23 08:06 12/07/23 08:06 Labs: Abnormal Lab Results - Last 24 Hours (Table) 12/06/23 12/06/23 12/06/23 Range/Units 14:15 15:29 19:05 RBC (3.80-5.40) m/uL Hgb (11.4-16.0) gm/dL Hct (34.0-46.0) % MCHC (31.0-37.0) g/dL RDW (11.5-15.5) % Lymphocytes # (1.0-4.8) k/uL Sodium (137-145) mmol/L Creatinine (0.52-1.04) mg/dL Glucose (74-99) mg/dL POC Glucose (mg/dL) 125 H (70-110) mg/dL Plasma Lactic Acid Pablito 2.6 H* 2.4 H* (0.7-2.0) mmol/L Calcium (8.4-10.2) mg/dL Magnesium (1.6-2.3) mg/dL Total Protein (6.3-8.2) g/dL Albumin (3.5-5.0) g/dL 12/06/23 12/07/23 12/07/23 Range/Units 20:38 07:24 08:06 RBC 3.75 L (3.80-5.40) m/uL Hgb 10.1 L (11.4-16.0) gm/dL Hct 33.2 L (34.0-46.0) % MCHC 30.3 L (31.0-37.0) g/dL RDW 18.1 H (11.5-15.5) % Lymphocytes # 0.3 L (1.0-4.8) k/uL Sodium (137-145) mmol/L Creatinine (0.52-1.04) mg/dL Glucose (74-99) mg/dL POC Glucose (mg/dL) 153 H 148 H (70-110) mg/dL Plasma Lactic Acid Pablito (0.7-2.0) mmol/L Calcium (8.4-10.2) mg/dL Magnesium (1.6-2.3) mg/dL Total Protein (6.3-8.2) g/dL Albumin (3.5-5.0) g/dL 12/07/23 12/07/23 Range/Units 08:06 12:24 RBC (3.80-5.40) m/uL Hgb (11.4-16.0) gm/dL Hct (34.0-46.0) % MCHC (31.0-37.0) g/dL RDW (11.5-15.5) % Lymphocytes # (1.0-4.8) k/uL Sodium 136 L (137-145) mmol/L Creatinine 0.45 L (0.52-1.04) mg/dL Glucose 147 H (74-99) mg/dL POC Glucose (mg/dL) 174 H (70-110) mg/dL Plasma Lactic Acid Pablito (0.7-2.0) mmol/L Calcium 8.0 L (8.4-10.2) mg/dL Magnesium 1.3 L (1.6-2.3) mg/dL Total Protein 5.3 L (6.3-8.2) g/dL Albumin 2.9 L (3.5-5.0) g/dL Assessment and Plan Assessment: Acute hypoxemic respiratory failure secondary to acute exacerbation of diastolic congestive heart failure, possible healthcare acquired pneumonia, COPD exacerbation Recent hospitalization with discharge on 11/21/2023 from a syncopal episode and high degree AV block status post pacemaker insertion History of congestive heart failure Hypertension Hyperlipidemia Diabetes mellitus Hearing disorder Breast cancer status post right mastectomy and radiation History of anxiety/depression History of chronic tobacco dependence for many years Plan: The patient was seen and evaluated Chest x-ray, labs and medications reviewed Procalcitonin negative Discontinue antibiotics Continue Symbicort, albuterol, Solu-Medrol NicoDerm patch in place Continue diuretics Titrate the FiO2 as Tolerated This patient was seen independently by the pulmonary nurse practitioner addressing pulmonary issues I have personally seen and examined the patient, performed the documentation and the assessment and plan as written. Number of minutes spent on the visit: 24.
--- NOTE | 2023-12-07 14:58 | P.CRDCN ---
History of Present Illness History of present illness: HISTORY OF PRESENTING ILLNESS This is a pleasant 82-year-old with past medical history significant for breast cancer status post right mastectomy, hypertension, hyperlipidemia, diabetes mellitus type 2, COPD, SSS s/p dual chamber permanent pacemaker. patient had recent admission one month ago with findings of high degree AV block and symptomatic bradycardia with lightheadedness and eventually underwent dual- chamber permanent pacemaker. She had echo which showed EF 50-55%. She went to rehab and was doing okay however over the last few days has been having increasing shortness breath. She denies any fevers or chills. She states her shortness of breath just progressively got worse. Denies any significant lower extremity edema however does get significant edema in her right upper extremity from her prior mastectomy. No chest pain or pressure. blood work shows normal creatinine, proBNP 8800, troponin negative 3. REVIEW OF SYSTEMS At the time of my exam: CONSTITUTIONAL: Denies fever or chills. CARDIOVASCULAR: Denies chest pain, =shortness of breath, NO orthopnea, PND or palpitations. RESPIRATORY: Denies cough. GASTROINTESTINAL: Denies abdominal pain, diarrhea, constipation, nausea or vomiting. MUSCULOSKELETAL: Denies myalgias. NEUROLOGIC: Denies numbness, tingling or weakness. ENDOCRINE: Denies fatigue, weight change, polydipsia or polyurina. GENITOURINARY: Denies burning, hematuria or urgency with micturation. HEMATOLOGIC: Denies history of anemia or bleeding. PHYSICAL EXAMINATION Vital signs reviewed. CONSTITUTIONAL: No apparent distress. HEENT: Head is normocephalic. Pupils are equal, round. Sclerae anicteric. Mucous membranes of the mouth are moist. No JVD. No carotid bruit. CHEST EXAMINATION: Lungs are clear to auscultation. No chest wall tenderness is noted on palpation or with deep breathing. HEART EXAMINATION: Regular rate and rhythm. S1, S2 heard. No murmurs, gallops or rub. ABDOMEN: Soft, nontender. Positive bowel sounds. EXTREMITIES: 2+ peripheral pulses, no lower extremity edema and no calf tenderness. NEUROLOGIC EXAMINATION: Patient is awake, alert and oriented x3. ASSESSMENT Acute on chronic diastolic heart failure Acute on chronic respiratory failure Second-degree type II block S/P dual chambed permanent pacemaker Hypertension Diabetes mellitus type 2 Hyperlipidemia Breast cancer Right upper and right lower extremity swelling may be some component of heart failure related to significant bradycardia PLAN patient with respiratory failure likely multifactorial. There is likely some component of heart failure however she states she has not anemia drinking that much recently. Given additional IV Lasix today and monitor tomorrow. Check limited 2-D echo to see if any change in ejection fraction since she is now paci ng as she may have decreased EF from pacing. Further recommendations of follow- up. Past Medical History Past Medical History: Cancer, COPD, Diabetes Mellitus, Eye Disorder, GERD/Reflux, Hearing Disorder / Deafness, Hyperlipidemia, Hypertension, Osteoarthritis (OA) Additional Past Medical History / Comment(s): hx of lt eye macular hole, breast cancer July 2018-had radiation & surgery, needs eye surg. for drooping eyelids. History of Any Multi-Drug Resistant Organisms: None Reported Past Surgical History: Appendectomy, Back Surgery, Breast Surgery, Cholecystectomy, Tonsillectomy Additional Past Surgical History / Comment(s): COLONOSCOPY, right mastectomy with removal of 6 lymph nodes axillae 2018, cataracts removed, wedge excision lesion left ear 11/22/20 Past Anesthesia/Blood Transfusion Reactions: No Reported Reaction, Motion Sickness Past Psychological History: Anxiety, Depression, Panic Disorder Smoking Status: Former smoker Past Alcohol Use History: None Reported Past Drug Use History: None Reported - Past Family History Father Family Medical History: Cancer Mother Family Medical History: Cancer Sister(s) Family Medical History: Cancer Brother(s) Family Medical History: Cancer Medications and Allergies Home Medications Medication Instructions Recorded Confirmed Type Albuterol Inhaler [Ventolin Hfa 2 puff INHALATION RT-Q4H PRN 05/10/19 12/06/23 History Inhaler] metFORMIN HCL [Glucophage] 500 mg PO BID 05/10/19 12/06/23 History Anastrozole [Arimidex] 1 mg PO DAILY 04/26/20 12/06/23 History Ipratropium-Albuterol Nebulize 3 ml INHALATION RT-Q6H PRN 05/28/20 12/06/23 History [Duoneb 0.5 mg-3 mg/3 ml Soln] Omeprazole [PriLOSEC] 20 mg PO DAILY 05/28/20 12/06/23 History Sertraline [Zoloft] 100 mg PO DAILY 05/28/20 12/06/23 History Triamcinolone Acetonide [Nasacort] 1 spr EA NOSTRIL DAILY 05/28/20 12/06/23 History ondansetron HCL [Zofran] 8 mg PO Q8HR PRN 05/28/20 12/06/23 History Alendronate Sodium [Fosamax] 70 mg PO MO 11/18/23 12/06/23 History Atorvastatin [Lipitor] 40 mg PO HS 11/18/23 12/06/23 History Fluticasone Propion/Salmeterol 1 puff INHALATION RT-BID 11/18/23 12/06/23 History [Wixela 250-50 Inhub] oxyBUTYnin chloride [oxyBUTYnin 5 mg PO DAILY 11/18/23 12/06/23 History chloride ER] Aspirin 81 mg PO DAILY tab 11/22/23 12/06/23 Rx Bismuth Subsalicylate 524 mg PO Q4H PRN 12/06/23 12/06/23 History [Pepto-Bismol] Furosemide [Lasix] 20 mg PO DAILY@0800 12/06/23 12/06/23 History Melatonin 10 mg PO HS 12/06/23 12/06/23 History Nicotine 21Mg/24Hr Patch [Habitrol] 1 patch TRANSDERM DAILY 12/06/23 12/06/23 History Nutritional Juice 1 dose PO BID@1200,1800 12/06/23 12/06/23 History Potassium Chloride ER [K-Dur 10] 10 meq PO DAILY@0800 12/06/23 12/06/23 History lisinopriL [Zestril] 5 mg PO DAILY@0800 12/06/23 12/06/23 History Allergies Allergy/AdvReac Type Severity Reaction Status Date / Time No Known Allergies Allergy Verified 12/06/23 10:15 Physical Exam Vitals: Vital Signs Temp Pulse Resp BP Pulse Ox 12/07/23 11:37 90 12/07/23 11:27 89 12/07/23 09:16 98.6 F 87 16 135/81 95 12/07/23 08:47 88 12/07/23 08:42 85 93 L 12/07/23 05:43 98.5 F 86 16 144/68 93 L 12/07/23 01:26 82 15 91 L 12/06/23 23:14 96 17 162/86 92 L 12/06/23 20:28 95 12/06/23 20:17 91 12/06/23 19:48 98.5 F 87 17 122/46 93 L 12/06/23 18:00 92 L 12/06/23 16:42 80 12/06/23 16:25 79 12/06/23 16:00 83 16 119/91 96 Results 12/07/23 08:06 12/07/23 08:06 Cardiac Enzymes 12/06/23 12/07/23 Range/Units 15:29 08:06 AST 27 (14-36) U/L Troponin I 0.026 (0.000-0.034) ng/mL CBC 12/07/23 Range/Units 08:06 WBC 7.4 (3.8-10.6) k/uL RBC 3.75 L (3.80-5.40) m/uL Hgb 10.1 L (11.4-16.0) gm/dL Hct 33.2 L (34.0-46.0) % Plt Count 292 (150-450) k/uL Comprehensive Metabolic Panel 12/07/23 Range/Units 08:06 Sodium 136 L (137-145) mmol/L Potassium 3.8 (3.5-5.1) mmol/L Chloride 102 (98-107) mmol/L Carbon Dioxide 30 (22-30) mmol/L BUN 9 (7-17) mg/dL Creatinine 0.45 L (0.52-1.04) mg/dL Glucose 147 H (74-99) mg/dL Calcium 8.0 L (8.4-10.2) mg/dL AST 27 (14-36) U/L ALT 18 (4-34) U/L Alkaline Phosphatase 119 (38-126) U/L Total Protein 5.3 L (6.3-8.2) g/dL Albumin 2.9 L (3.5-5.0) g/dL Current Medications Generic Name Dose Route Start Last Admin Trade Name Freq PRN Reason Stop Dose Admin Acetaminophen 650 mg 12/07/23 12:38 Acetaminophen Tab 325 Mg Tab PO Q6HR PRN Fever and/ or Pain Albuterol/Ipratropium 3 ml 12/06/23 16:00 12/07/23 11:26 Ipratropium-Albuterol 3 Ml Neb INHALATION 3 ml RT-QID JIGNA Administration Alprazolam 0.25 mg 12/06/23 14:31 12/07/23 05:54 Alprazolam 0.25 Mg Tab PO 0.25 mg Q6H PRN Administration Anxiety Anastrozole 1 mg 12/06/23 12:45 12/07/23 09:32 Anastrozole 1 Mg Tab PO 1 mg DAILY JIGNA Administration Aspirin 81 mg 12/06/23 12:45 12/07/23 09:23 Aspirin 81 Mg PO 81 mg DAILY JIGNA Administration Atorvastatin Calcium 40 mg 12/06/23 21:00 12/06/23 20:39 Atorvastatin 40 Mg Tab PO 40 mg HS JIGNA Administration Azithromycin 500 mg 12/07/23 09:00 12/07/23 09:24 Azithromycin 500 Mg Tab PO 12/08/23 09:01 500 mg DAILY JIGNA Administration Protocol Budesonide/Formoterol Fumarate 2 puff 12/06/23 20:00 12/07/23 08:40 Symbicort 160-4.5 Mcg Inhaler INHALATION 2 puff RT-BID JIGNA Administration Clotrimazole 1 applic 12/06/23 14:30 12/07/23 09:30 Clotrimazole 1% Cream 30 Gm Tube TOPICAL 1 applic DAILY JIGNA Administration Protocol Dextrose/Water 25 ml 12/06/23 12:59 Dextrose 50% Syringe 50 Ml IVP PER PROTOCOL PRN Hypoglycemia Protocol Dextrose/Water 50 ml 12/06/23 12:59 Dextrose 50% Syringe 50 Ml IVP PER PROTOCOL PRN Hypoglycemia Protocol Fluticasone Propionate 1 spray 12/06/23 14:00 12/07/23 09:28 Fluticasone Nasal 50mcg/[place] 16gm Btl EA NOSTRIL 1 spray DAILY JIGNA Administration Furosemide 20 mg 12/07/23 08:00 12/07/23 09:23 Furosemide 20 Mg Tab PO 20 mg DAILY@0800 JIGNA Administration Guaifenesin 1,200 mg 12/06/23 12:45 12/07/23 09:24 Guaifenesin 600 Mg Tablet.Er PO 1,200 mg Q12HR JIGNA Administration Sodium Chloride 1,000 mls @ 75 mls/hr 12/06/23 12:00 12/07/23 14:44 Saline 0.9% IV Not Given .[id number] JIGNA Ceftriaxone Sodium 2 gm/ 50 mls @ 100 mls/hr 12/07/23 09:00 12/07/23 09:21 Sodium Chloride IVPB 12/10/23 09:29 100 mls/hr Q24HR JIGNA Administration Protocol Insulin Aspart 0 unit 12/06/23 13:00 12/07/23 12:53 Insulin Aspart (Novolog) 100 Unit/Ml Vial SQ 2 unit ACHS JIGNA Administration Protocol Insulin Detemir 15 unit 12/06/23 13:30 12/07/23 10:11 Insulin Detemir (Levemir) 100 Unit/Ml Syr SQ 15 unit DAILY@0700 JIGNA Administration Melatonin 10 mg 12/06/23 21:00 12/06/23 20:39 Melatonin 5 Mg Tablet PO 10 mg HS JIGNA Administration Methylprednisolone Sodium Succinate 60 mg 12/06/23 18:00 12/07/23 12:01 Methylprednisolone Sod Succi 125 Mg/2 Ml Vial IV 60 mg Q6HR JIGNA Administration Mirtazapine 15 mg 12/07/23 21:00 Mirtazapine 15 Mg Tab PO HS [facility] Miscellaneous Information 1 each 12/06/23 11:47 Pneumonia Protocol Utilized 1 Each Misc PO ONCE PRN Per Protocol Naloxone HCl 0.2 mg 12/06/23 11:47 Naloxone 0.4 Mg/Ml 1 Ml Vial IV Q2M PRN Opioid Reversal Nicotine 1 patch 12/06/23 12:45 12/07/23 09:34 Nicotine 21mg/24hr Patch TRANSDERM 1 patch DAILY JIGNA Administration Ondansetron HCl 4 mg 12/06/23 11:47 12/07/23 09:49 Ondansetron 4 Mg/2 Ml Vial IVP 4 mg Q8HR PRN Administration Nausea And Vomiting Oxybutynin Chloride 5 mg 12/06/23 12:45 12/07/23 09:24 Oxybutynin Xl 5 Mg Tab.Er.24 PO 5 mg DAILY JIGNA Administration Pantoprazole Sodium 40 mg 12/06/23 12:45 12/07/23 09:23 Pantoprazole 40 Mg Tablet PO 40 mg AC-[id number] JIGNA Administration Potassium Chloride 10 meq 12/07/23 08:00 12/07/23 09:24 Potassium Chloride Er 10 Meq Tab.Er.Prt PO 10 meq DAILY@0800 JIGNA Administration Sertraline HCl 100 mg 12/06/23 12:45 12/07/23 09:24 Sertraline 100 Mg Tab PO 100 mg DAILY JIGNA Administration Triamcinolone Acetonide 1 applic 12/06/23 14:00 12/07/23 09:36 Triamcinolone Acet 0.5% Cream 15 Gm Tube TOPICAL 1 applic DAILY JIGNA Administration Protocol 12/07/23 08:06 12/07/23 08:06
[2023-12-07] MEDS: FUROSEMIDE 10 MG/ML 4 ML VIAL IV SCH (15:30)
--- NOTE | 2023-12-07 15:37 | P.PN ---
Subjective Progress Note Date: 12/07/23 H&P Date: 12/06/23 Chief Complaint: Dyspnea This is a pleasant 82-year-old female, recent inpatient hospitalization, discharged to [facility] subacute rehab 11/22/2023 related to dual-chamber permanent pacemaker placement secondary to high degree AV block with syncope. Patient has past medical history significant for hard of hearing-wears hearing aids, right breast cancer status postmastectomy, CHF, COPD, prior nicotine dependence, diabetes mellitus, gastroesophageal reflux disease, hypertension, hyperlipidemia, osteoarthritis, anxiety, and multiple other medical issues admitted to the ER with complaints increased shortness of breath, nonproductive cough. Denies fever or chills. chest x-ray reporting bibasilar infiltrates, small bilateral pleural effusions. proBNP 8830. afebrile, normal WBC, lactic acid 1.8. Hemoglobin 10.5, platelets 308, INR 1. Electrolytes and renal function stable. Blood sugars controlled. Denies chest pain, palpitations. Troponins negative x 2, EKG reported paced. Oxygen recently titrated off as patient was in the low 90s on 1 L nasal cannula, but currently desatting down into the 80s, O2 resumed. 12/07/2023 maintained on nebulized bronchodilators, Symbicort, Solu-Medrol, ceftriaxone and azithromycin .continues on stretcher in the ER waiting a bed, breathing improved. Repeat chest x-ray reporting bilateral lung infiltrates. Procalcitonin 0.06 maintaining O2 sats in the 90s on 2 L nasal cannula. Afebril e, normal WBC, hemoglobin 10.1, platelets 292 electrolytes and renal function stable. Blood sugars controlled. Objective - Vital Signs Vital signs: Vital Signs Temp 98.6 F 12/07/23 09:16 Pulse 90 12/07/23 11:37 Resp 16 12/07/23 09:16 BP 135/81 12/07/23 09:16 Pulse Ox 95 12/07/23 09:16 FiO2 Intake & Output 12/06/23 12/07/23 12/07/23 18:59 06:59 18:59 Weight 81.647 kg - Exam VITAL SIGNS: [As above] GENERAL: Alert and oriented x 3, sitting up in bed, fatigued, hard of hearing, HEENT: Normocephalic , conjunctivae normal, pupils equal, round, sclera ani cteric NECK: Supple, no JVD. No thyroid enlargement CARDIOVASCULAR: S1, S2 regular, No murmur RESPIRATION: Unlabored, equal air entry, diminished. ABDOMEN: Soft, nondistended, nontender . No guarding. no masses palpable. No ascites, No hepatosplenomegaly.Bowel sounds heard. LEGS: No edema. no swelling, no clubbing, no cyanosis, no calf tenderness. NERVOUS SYSTEM: Cranial N 2-12 grossly normal. No focal deficits. Strength and sensation grossly intact. Skin: Warm and dry, bilateral lower extremity, below the knees, improving dermatitis - Labs CBC & Chem 7: 12/07/23 08:06 12/07/23 08:06 Labs: Abnormal Lab Results - Last 24 Hours (Table) 12/06/23 12/06/23 12/06/23 Range/Units 15:29 19:05 20:38 RBC (3.80-5.40) m/uL Hgb (11.4-16.0) gm/dL Hct (34.0-46.0) % MCHC (31.0-37.0) g/dL RDW (11.5-15.5) % Lymphocytes # (1.0-4.8) k/uL Sodium (137-145) mmol/L Creatinine (0.52-1.04) mg/dL Glucose (74-99) mg/dL POC Glucose (mg/dL) 153 H (70-110) mg/dL Plasma Lactic Acid [place] 2.6 H* 2.4 H* (0.7-2.0) mmol/L Calcium (8.4-10.2) mg/dL Magnesium (1.6-2.3) mg/dL Total Protein (6.3-8.2) g/dL Albumin (3.5-5.0) g/dL 12/07/23 12/07/23 12/07/23 Range/Units 07:24 08:06 08:06 RBC 3.75 L (3.80-5.40) m/uL Hgb 10.1 L (11.4-16.0) gm/dL Hct 33.2 L (34.0-46.0) % MCHC 30.3 L (31.0-37.0) g/dL RDW 18.1 H (11.5-15.5) % Lymphocytes # 0.3 L (1.0-4.8) k/uL Sodium 136 L (137-145) mmol/L Creatinine 0.45 L (0.52-1.04) mg/dL Glucose 147 H (74-99) mg/dL POC Glucose (mg/dL) 148 H (70-110) mg/dL Plasma Lactic Acid [place] (0.7-2.0) mmol/L Calcium 8.0 L (8.4-10.2) mg/dL Magnesium 1.3 L (1.6-2.3) mg/dL Total Protein 5.3 L (6.3-8.2) g/dL Albumin 2.9 L (3.5-5.0) g/dL 12/07/23 Range/Units 12:24 RBC (3.80-5.40) m/uL Hgb (11.4-16.0) gm/dL Hct (34.0-46.0) % MCHC (31.0-37.0) g/dL RDW (11.5-15.5) % Lymphocytes # (1.0-4.8) k/uL Sodium (137-145) mmol/L Creatinine (0.52-1.04) mg/dL Glucose (74-99) mg/dL POC Glucose (mg/dL) 174 H (70-110) mg/dL Plasma Lactic Acid [place] (0.7-2.0) mmol/L Calcium (8.4-10.2) mg/dL Magnesium (1.6-2.3) mg/dL Total Protein (6.3-8.2) g/dL Albumin (3.5-5.0) g/dL Assessment and Plan Assessment: Acute on chronic CHF exacerbation, diastolic dysfunction, BNP 8830 COPD exacerbation Acute hypoxic respiratory failure secondary to the above Possible community-acquired pneumonia, antibiotics initiated, procalcitonin normal. Recent dual-chamber PPM placement 11/20/2023, secondary to high degree AV block with syncope Diabetes mellitus type II Hypertension Hyperlipidemia History of breast cancer and right lymphedema, status postmastectomy with radiation COPD, stable Prior extensive nicotine dependence, 1 pack/day of nearly 60 years Anxiety, depression Plan: Continue on current medication resume ,monitoring and symptomatic treatment. Aggressive pulmonary toileting with nebulized bronchodilators, Symbicort and IV steroids, diuretics. Evaluated by cardiology, 2D echo ordered additional Lasix IV push as per cardiology today. Continue Levemir and NovoLog sliding scale close monitoring of Accu-Cheks. The impression and plan of care has been dictated as directed. : I performed a history and examination of this patient, discussed the same with the dictator. I agree with the dictator's note ,documented as a scribe. Any additional findings or plans will be noted.
[2023-12-07] MEDS: MIRTAZAPINE 15 MG TAB PO SCH (20:24)
[2023-12-07 21:04] LABS: Glucose,Whole Blood 227 mg/dL (70-110)
[2023-12-08 06:07] LABS: Glucose,Whole Blood 128 mg/dL (70-110)
[2023-12-08 09:25] LABS: BUN/Creat Ratio 15.33 Ratio (12.00-20.00); Blood Urea Nitrogen 9.2 mg/dL (9.0-27.0); Calcium 8.6 mg/dL (8.7-10.3); Carbon Dioxide 27.9 mmol/L (21.6-31.8); Chloride 104 mmol/L (96-109); Glucose 100 mg/dL (70-110); Magnesium 2.1 mg/dL (1.5-2.4); Sodium 144 mmol/L (135-145)
--- NOTE | 2023-12-08 09:39 | XR ---
EXAMINATION TYPE: XR chest 1V portable DATE OF EXAM: 12/08/2023 COMPARISON: 12/07/2023 INDICATION: Short of breath TECHNIQUE: Single frontal view of the chest is obtained. FINDINGS: The heart size is mildly prominent. The pulmonary vasculature is mildly prominent. Right lower lobe infiltrate is present. Correlate for atypical pulmonary edema. Atelectasis and pneum onia could be considered. Previous left lower lobe infiltrate is improved. IMPRESSION: 1. Persistent infiltrate at the right base may be worsening. Correlate for atypical pulmonary edema, atelectasis, or pneumonia. 2. Improving left lower lobe infiltrate.
[2023-12-08 11:37] LABS: Glucose,Whole Blood 310 mg/dL (70-110)
--- NOTE | 2023-12-08 12:45 | P.PN ---
Subjective HISTORY OF PRESENT ILLNESS: This is a pleasant 82-year-old with past medical history significant for breast cancer status post right mastectomy, hypertension, hyperlipidemia, diabetes mellitus type 2, COPD, SSS s/p dual chamber permanent pacemaker. patient had recent admission one month ago with findings of high degree AV block and symptomatic bradycardia with lightheadedness and eventually underwent dual- chamber permanent pacemaker. She had echo which showed EF 50-55%. She went to rehab and was doing okay however over the last few days has been having increasing shortness breath. She denies any fevers or chills. She states her shortness of breath just progressively got worse. Denies any significant lower extremity edema however does get significant edema in her right upper extremity from her prior mastectomy. No chest pain or pressure. blood work shows normal creatinine, proBNP 8800, troponin negative 3. 12/08/2023 Patient examined this morning at the bedside. Patient currently denies chest pain or pressure. She does report mild shortness of breath today and states that she feels like she cannot take a deep breath. Vital signs are stable. Chest x-ray this morning reveals persistent infiltrate at the right base which may be worsening. Correlate for atypical pulmonary edema, atelectasis, or pneumonia. Improving left lower lobe infiltrate. PHYSICAL EXAM: VITAL SIGNS: Reviewed. GENERAL: Well-developed in no acute distress. NECK: Supple. No JVD or thyromegaly LUNGS: Respirations even and unlabored. Lungs essentially clear to auscultation bilaterally. HEART: Regular rate and rhythm. S1 and S2 heard. EXTREMITIES: Normal range of motion. No clubbing or cyanosis. Peripheral pulses intact. No lower extremity edema ASSESSMENT: Acute on chronic heart failure with preserved EF Acute on chronic hypoxic respiratory failure Elevated troponins, type II TN secondary to oxygen supply/demand mismatch due to CHF, no evidence of acute coronary syndrome Second-degree type II block S/P dual chambed permanent pacemaker Hypertension Diabetes mellitus type 2 Hyperlipidemia Breast cancer Right upper and right lower extremity swelling may be some component of heart failure related to significant bradycardia PLAN: 2D echo is currently pending. Await results. Continue IV Lasix. Increase dosage to 40 mg every 12 hours Daily weights, accurate intake and output, and monitoring of kidney function Continue additional cardiac medications Further recommendations pending patient course Nurse practitioner note has been reviewed by physician. Signing provider agrees with the documented findings, assessment, and plan of care documented by [employer] as a scribe. Objective - Vital Signs Vital signs: Vital Signs Temp 98.1 F 12/08/23 07:08 Pulse 100 12/08/23 11:45 Resp 21 12/08/23 07:08 BP 158/85 12/08/23 07:08 Pulse Ox 95 12/08/23 08:49 FiO2 Intake & Output 12/07/23 12/08/23 12/08/23 18:59 06:59 18:59 Output Total 1350 1050 Balance -1350 -1050 Weight 81.647 kg Output: Urine 1350 1050 Other: Voiding Method External Catheter External Catheter - Labs CBC & Chem 7: 12/07/23 08:06 12/08/23 04:23 Labs: Abnormal Lab Results - Last 24 Hours (Table) 12/07/23 12/08/23 12/08/23 Range/Units 21:00 04:23 06:05 Anion Gap 12.10 H (4.00-12.00) mmol/L POC Glucose (mg/dL) 227 H 128 H (70-110) mg/dL Calcium 8.6 L (8.7-10.3) mg/dL Troponin I (0.000-0.034) ng/mL 12/08/23 12/08/23 Range/Units 08:46 11:36 Anion Gap (4.00-12.00) mmol/L POC Glucose (mg/dL) 310 H (70-110) mg/dL Calcium (8.7-10.3) mg/dL Troponin I 0.036 H* (0.000-0.034) ng/mL Microbiology - Last 24 Hours (Table) 12/06/23 12:59 Blood Culture - Preliminary Blood
--- NOTE | 2023-12-08 13:05 | CA ---
Transthoracic Echo Report Name: Krystal Santa Age: 82 Gender: F : 1940 Exam Date: 12/08/2023 09:20 Exam Location: [facility] Ht (in): 64 Wt (lb): 180 Ordering Physician: Desean Mccracken DO ([email or web address]) Attending/Referring Phys: Coremaker Pipe Sara Falcon RDCS Procedure CPT: Indications: re: EF s/p ppm Cardiac Hx: Technical Quality: Technically difficult study Contrast 1: Definity Total Dose (mL): 2 Contrast 2: Total Dose (mL): MEASUREMENTS (Male / Female) Normal Values 2D ECHO LV Diastolic Diameter PLAX 4.5 cm 4.2 - 5.9 / 3.9 - 5.3 cm LV Systolic Diameter PLAX 3.5 cm IVS Diastolic Thickness 0.8 cm 0.6 - 1.0 / 0.6 - 0.9 cm LVPW Diastolic Thickness 1.0 cm 0.6 - 1.0 / 0.6 - 0.9 cm LV Relative Wall Thickness 0.4 LV Diastolic Volume MOD BP 73.6 cm??? 67 - 155 / 56 - 104 cm??? LV Systolic Volume MOD BP 33.5 cm??? 22 - 58 / 19 - 49 cm??? LV Ejection Fraction MOD BP 54.4 % >= 55 % LV Cardiac Index MOD BP 2117.2 cm???/min???m??? LV Diastolic Volume MOD 4C 74.3 cm??? LV Systolic Volume MOD 4C 35.8 cm??? LV Ejection Fraction MOD 4C 51.8 % LV Cardiac Index MOD 4C 2035.2 cm???/min???m??? LV Diastolic Length 4C 7.7 cm LV Systolic Length 4C 7.1 cm LV Diastolic Volume MOD 2C 71.7 cm??? LV Systolic Volume MOD 2C 30.2 cm??? LV Ejection Fraction MOD 2C 57.9 % LV Cardiac Index MOD 2C 2193.6 cm???/min???m??? LV Diastolic Length 2C 7.4 cm LV Systolic Length 2C 6.9 cm DOPPLER TR Peak Velocity 257.8 cm/s TR Peak Gradient 26.6 mmHg Right Atrial Pressure 5.0 mmHg Pulmonary Artery Systolic Pressu 31.6 mmHg Right Ventricular Systolic Press 31.6 mmHg FINDINGS Left Ventricle Left ventricular ejection fraction is estimated at 50-55 %. Mildly decreased left ventricular ejection fraction. No obvious regional wall motion abnormalities. Left ventricular wall thickness normal. Right Ventricle Normal right ventricular size and function. Right ventricular systolic pressure within normal limits. Right Atrium Normal right atrial size. Catheter/pacemaker wire in the right atrial cavity. Left Atrium Normal left atrial size. Mitral Valve Structurally normal mitral valve. Aortic Valve Trileaflet aortic valve. No aortic valve stenosis or regurgitation. Tricuspid Valve Structurally normal tricuspid valve. No tricuspid stenosis. Trace tricuspid regurgitation. Pulmonic Valve Pulmonic valve not well visualized. Pericardium No pericardial effusion. Aorta Aortic root and proximal ascending aorta not well visualized. CONCLUSIONS Left ventricular ejection fraction 50-55% Pacemaker wire in the right atrium, right ventricle Trace tricuspid regurgitation No pericardial effusion Previewed by: Dr. Desean Mccracken DO (Electronically Signed) Final Date: 08 December 2023 13:04
--- NOTE | 2023-12-08 14:09 | P.PN ---
Subjective Progress Note Date: 12/08/23 H&P Date: 12/06/23 Chief Complaint: Dyspnea This is a pleasant 82-year-old female, recent inpatient hospitalization, discharged to [facility] subacute rehab 11/22/2023 related to dual-chamber permanent pacemaker placement secondary to high degree AV block with syncope. Patient has past medical history significant for hard of hearing-wears hearing aids, right breast cancer status postmastectomy, CHF, COPD, prior nicotine dependence, diabetes mellitus, gastroesophageal reflux disease, hypertension, hyperlipidemia, osteoarthritis, anxiety, and multiple other medical issues admitted to the ER with complaints increased shortness of breath, nonproductive cough. Denies fever or chills. chest x-ray reporting bibasilar infiltrates, small bilateral pleural effusions. proBNP 8830. afebrile, normal WBC, lactic acid 1.8. Hemoglobin 10.5, platelets 308, INR 1. Electrolytes and renal function stable. Blood sugars controlled. Denies chest pain, palpitations. Troponins negative x 2, EKG reported paced. Oxygen recently titrated off as patient was in the low 90s on 1 L nasal cannula, but currently desatting down into the 80s, O2 resumed. 12/07/2023 maintained on nebulized bronchodilators, Symbicort, Solu-Medrol, ceftriaxone and azithromycin .continues on stretcher in the ER waiting a bed, breathing improved. Repeat chest x-ray reporting bilateral lung infiltrates. Procalcitonin 0.06 maintaining O2 sats in the 90s on 2 L nasal cannula. Afebril e, normal WBC, hemoglobin 10.1, platelets 292 electrolytes and renal function stable. Blood sugars controlled. 12/08/2023 procalcitonin yesterday normal, antibiotics discontinued. This morning patient developed increased shortness of breath, denied chest pain. Chest x-ray, EKG and troponin ordered. Troponin 0.036. Chest x-ray reported improving left lower lobe infiltrate, persistent right basilar infiltrate. Afebrile, maintaining O2 sats of 95% on 2 L nasal cannula. Echo reported EF 50 to 55%, pacemaker wire in the right atrium right ventricle, trace tricuspid regurgitation, no pericardial effusion. continues on nebulized bronchodilators, IV steroids. Blood sugars ranging 120s to 310, most recent 310 with additional NovoLog subcu insulin ordered. Objective - Vital Signs Vital signs: Vital Signs Temp 98.1 F 12/08/23 07:08 Pulse 100 12/08/23 11:45 Resp 21 12/08/23 07:08 BP 158/85 12/08/23 07:08 Pulse Ox 95 12/08/23 08:49 FiO2 Intake & Output 12/07/23 12/08/23 12/08/23 18:59 06:59 18:59 Output Total 1350 1050 Balance -1350 -1050 Weight 81.647 kg Output: Urine 1350 1050 Other: Voiding Method External Catheter External Catheter - Exam VITAL SIGNS: [As above] GENERAL: Alert and oriented x 3, sitting up in bed, no acute distress HEENT: Normocephalic , conjunctivae normal, pupils equal, round, sclera anicte leonel NECK: Supple, no JVD. CARDIOVASCULAR: S1, S2 regular, No murmur RESPIRATION: Unlabored, equal air entry, essentially clear, diminished. ABDOMEN: Soft, nondistended, nontender . No guarding.+BS LEGS: No edema. no swelling, no clubbing, no cyanosis, no calf tenderness. NERVOUS SYSTEM: Cranial N 2-12 grossly normal. No focal deficits. Strength and sensation grossly intact. Skin: Warm and dry, bilateral lower extremity, below the knees, improving dermatitis - Labs CBC & Chem 7: 12/07/23 08:06 12/08/23 04:23 Labs: Abnormal Lab Results - Last 24 Hours (Table) 12/07/23 12/08/23 12/08/23 Range/Units 21:00 04:23 06:05 Anion Gap 12.10 H (4.00-12.00) mmol/L POC Glucose (mg/dL) 227 H 128 H (70-110) mg/dL Calcium 8.6 L (8.7-10.3) mg/dL Troponin I (0.000-0.034) ng/mL 12/08/23 12/08/23 Range/Units 08:46 11:36 Anion Gap (4.00-12.00) mmol/L POC Glucose (mg/dL) 310 H (70-110) mg/dL Calcium (8.7-10.3) mg/dL Troponin I 0.036 H* (0.000-0.034) ng/mL Microbiology - Last 24 Hours (Table) 12/06/23 12:59 Blood Culture - Preliminary Blood Assessment and Plan Assessment: Acute on chronic CHF exacerbation, diastolic dysfunction, BNP 8830 COPD exacerbation Acute hypoxic respiratory failure secondary to the above Possible community-acquired pneumonia, antibiotics initiated, procalcitonin normal. Recent dual-chamber PPM placement 11/20/2023, secondary to high degree AV block with syncope Diabetes mellitus type II Hypertension Hyperlipidemia History of breast cancer and right lymphedema, status postmastectomy with radiation COPD, stable Prior extensive nicotine dependence, 1 pack/day of nearly 60 years Anxiety, depression Plan: Continue on current medication resume ,monitoring and symptomatic treatment. Download EKG into computer. Maintain aggressive pulmonary toileting with nebulized bronchodilators, Symbicort and IV steroids, diuretics. Additional NovoLog insulin ordered in addition to sliding scale for Accu-Chek of 310, close monitoring of Accu-Cheks. The impression and plan of care has been dictated as directed. : I performed a history and examination of this patient, discussed the same with the dictator. I agree with the dictator's note ,documented as a scribe. Any additional findings or plans will be noted.
[2023-12-08] MEDS: INSULIN ASPART (NovoLOG) 100 UNIT/ML VIAL SQ ONE (14:29)
--- NOTE | 2023-12-08 15:31 | P.PN ---
Subjective Progress Note Date: 12/08/23 This is an 82-year-old female patient who was recently discharged from here following an episode of shortness of breath and found to have high degree AV block with syncope. She did receive a dual-chamber permanent pacemaker implantation on November 19 and was discharged to [facility] for subacute rehabilitation. She has a history of previous heavy tobacco dependence, chronic obstructive pulmonary disease, oxygen dependence, diabetes mellitus, gastroesophageal reflux disease, hypertension, hyperlipidemia, right breast cancer s/p mastectomy. She was brought here to the emergency room today after developing increasing shortness of breath. Chest x-ray reveals bibasilar infiltrates. Atelectasis versus pneumonia. Small bilateral pleural effusions. White count 8.7. Hemoglobin 10.5. Platelets 308. Sodium 137. Potassium 3.5. Bicarb 34. BUN 9. Creatinine 0.70. Troponins negative x 2. proBNP 8830. She is seen today in consultation in the emergency department. She is currently sitting up on a stretcher. Awake and alert in no acute distress. She is dyspneic with conversation. Dyspneic with minimal exertion. Denies any fever or chills. No cough or congestion. She is maintaining O2 saturations in the 90s on 1 L/min per nasal cannula. The patient is seen today December 07, 2023 in follow-up in the emergency department. She is currently sitting up in a stretcher. Awake and alert in no acute distress. She is breathing easier today compared to yesterday. She is currently maintaining O2 saturations in the 90s on 2 L/min per nasal cannula. She is afebrile. Hemodynamically stable. Chest x-ray reveals bilateral lung infiltrates. White count 7.4. Hemoglobin 10.1. Platelets 292. Sodium 136. Potassium 3.8. Bicarb 30. BUN 9. Creatinine 0.45. Glucose 147. Procalcitonin 0.06. She is continued on DuoNeb inhalations Symbicort, Solu- Medrol. Antibiotics in the form of ceftriaxone and azithromycin. NicoDerm patch in place. The patient is seen today December 08, 2023 in follow-up on the regular medical floor. She is currently sitting up at the bedside. Awake and alert in no acute distress. Maintaining good O2 saturations in the 90s on 2 L/min per nasal cannula. No IV fluids. Sodium 144. Potassium 4.0. Bicarb 28. BUN 9. Creatinine 0.6. Glucose 100. Her procalcitonin was 0.06. She is currently on ceftriaxone and azithromycin. She remains on Lasix 40 mg IV every 12 hours. She is making adequate urine output. Continue on DuoNeb inhalations, Symbicort, Solu-Medrol. NicoDerm patch in place. Objective - Vital Signs Vital signs: Vital Signs Temp 97.7 F 12/08/23 13:08 Pulse 95 12/08/23 13:08 Resp 17 12/08/23 13:08 BP 103/72 12/08/23 13:08 Pulse Ox 98 12/08/23 13:08 FiO2 Intake & Output 12/07/23 12/08/23 12/08/23 18:59 06:59 18:59 Output Total 1350 1050 Balance -1350 -1050 Weight 81.647 kg Output: Urine 1350 1050 Other: Voiding Method External Catheter External Catheter - Exam GENERAL EXAM: Alert, pleasant 82-year-old female, sitting up at the bedside, on 2 L nasal cannula, comfortable in no apparent distress. HEAD: Normocephalic. EYES: Normal reaction of pupils, equal size. NOSE: Clear with pink turbinates. THROAT: No erythema or exudates. NECK: No masses, no JVD. CHEST: No chest wall deformity. LUNGS: Equal air entry with basilar crackles, few scattered rhonchi. CVS: S1 and S2 normal with no audible murmur, regular rhythm. ABDOMEN: No hepatosplenomegaly, normal bowel sounds, no guarding or rigidity. SPINE: No scoliosis or deformity SKIN: No rashes CENTRAL NERVOUS SYSTEM: No focal deficits, tone is normal in all 4 extremities. EXTREMITIES: There is no peripheral edema. No clubbing, no cyanosis. Peripheral pulses are intact. - Labs CBC & Chem 7: 12/07/23 08:06 12/08/23 04:23 Labs: Abnormal Lab Results - Last 24 Hours (Table) 12/07/23 12/08/23 12/08/23 Range/Units 21:00 04:23 06:05 Anion Gap 12.10 H (4.00-12.00) mmol/L POC Glucose (mg/dL) 227 H 128 H (70-110) mg/dL Calcium 8.6 L (8.7-10.3) mg/dL Troponin I (0.000-0.034) ng/mL 12/08/23 12/08/23 Range/Units 08:46 11:36 Anion Gap (4.00-12.00) mmol/L POC Glucose (mg/dL) 310 H (70-110) mg/dL Calcium (8.7-10.3) mg/dL Troponin I 0.036 H* (0.000-0.034) ng/mL Microbiology - Last 24 Hours (Table) 12/06/23 12:59 Blood Culture - Preliminary Blood Assessment and Plan Assessment: Acute hypoxemic respiratory failure secondary to acute exacerbation of diastolic congestive heart failure, COPD exacerbation. No evidence of pneumonia. Procalcitonin 0.06 Recent hospitalization with discharge on 11/21/2023 from a syncopal episode and high degree AV block status post pacemaker insertion History of congestive heart failure Hypertension Hyperlipidemia Diabetes mellitus Hearing disorder Breast cancer status post right mastectomy and radiation History of anxiety/depression History of chronic tobacco dependence for many years Plan: The patient was seen and evaluated Labs and medications reviewed Continue diuretics Procalcitonin negative Discontinue antibiotics Continue Symbicort, albuterol, Solu-Medrol NicoDerm patch in place Educated regarding smoking cessation Titrate the FiO2 as tolerated We will continue to follow I have personally seen and examined the patient, performed the documentation and the assessment and plan as written. Number of minutes spent on the visit: 10.
[2023-12-08 16:28] LABS: Glucose,Whole Blood 228 mg/dL (70-110)
[2023-12-08 21:25] LABS: Glucose,Whole Blood 409 mg/dL (70-110)
[2023-12-08 21:25] LABS: Glucose,Whole Blood 223 mg/dL (70-110)
[2023-12-08] MEDS: FUROSEMIDE 10 MG/ML 4 ML VIAL IV SCH (21:33)
[2023-12-09 06:01] LABS: Glucose,Whole Blood 164 mg/dL (70-110)
--- NOTE | 2023-12-09 07:27 | P.PN ---
Subjective HISTORY OF PRESENT ILLNESS: This is a pleasant 82-year-old with past medical history significant for breast cancer status post right mastectomy, hypertension, hyperlipidemia, diabetes mellitus type 2, COPD, SSS s/p dual chamber permanent pacemaker. patient had recent admission one month ago with findings of high degree AV block and symptomatic bradycardia with lightheadedness and eventually underwent dual- chamber permanent pacemaker. She had echo which showed EF 50-55%. She went to rehab and was doing okay however over the last few days has been having increasing shortness breath. She denies any fevers or chills. She states her shortness of breath just progressively got worse. Denies any significant lower extremity edema however does get significant edema in her right upper extremity from her prior mastectomy. No chest pain or pressure. blood work shows normal creatinine, proBNP 8800, troponin negative 3. 12/08/2023 Patient examined this morning at the bedside. Patient currently denies chest pain or pressure. She does report mild shortness of breath today and states that she feels like she cannot take a deep breath. Vital signs are stable. Chest x-ray this morning reveals persistent infiltrate at the right base which may be worsening. Correlate for atypical pulmonary edema, atelectasis, or pneumonia. Improving left lower lobe infiltrate. 12/08 patient seen and examined. Patient states she is feeling much better today. She had an episode of acutely feeling somewhat worsened shortness breath and therefore troponin was ordered and noticed be minimally more elevated at 0.03. Previous troponins are 0.02. She denies any recurrence. She did get a breathing treatment felt better. She was noted to be mildly tachycardic at the time. PHYSICAL EXAM: VITAL SIGNS: Reviewed. GENERAL: Well-developed in no acute distress. NECK: Supple. No JVD or thyromegaly LUNGS: Respirations even and unlabored. Lungs essentially clear to auscultation bilaterally. HEART: Regular rate and rhythm. S1 and S2 heard. EXTREMITIES: Normal range of motion. No clubbing or cyanosis. Peripheral pulses intact. No lower extremity edema ASSESSMENT: Acute on chronic heart failure with preserved EF Acute on chronic hypoxic respiratory failure Elevated troponins, type II AK secondary to oxygen supply/demand mismatch due to CHF, no evidence of acute coronary syndrome Second-degree type II block S/P dual chambed permanent pacemaker Hypertension Diabetes mellitus type 2 Hyperlipidemia Breast cancer Right upper and right lower extremity swelling may be some component of heart failure related to significant bradycardia PLAN: echocardiogram showing similar EF 50-55% without significant valvular disease. She is improving with Lasix. Check additional troponin to ensure this is trending down. Troponin mildly elevated during episode of more shortness breath which improved somewhat with inhalers. Likely type II mechanism however patient also had elevated troponins during her rate a cardiac when pacemaker is placed and may have underlying CAD. If she is having more angina-type symptoms may consider further evaluation however most of symptoms appear related to heart failure,COPD exacerbation and continue with conservative management at this time given age and multiple core morbidities. If having more significant angina-type symptoms may consider further evaluation. Objective - Vital Signs Vital signs: Vital Signs Temp 97.8 F 12/09/23 02:21 Pulse 95 12/09/23 02:21 Resp 18 12/09/23 02:21 BP 175/89 12/09/23 02:21 Pulse Ox 96 12/09/23 02:21 FiO2 Intake & Output 12/08/23 12/09/23 12/09/23 18:59 06:59 18:59 Output Total 1650 900 Balance -1650 -900 Output: Urine 1650 900 Other: Voiding Method External Catheter External Catheter - Labs CBC & Chem 7: 12/07/23 08:06 12/08/23 04:23 Labs: Abnormal Lab Results - Last 24 Hours (Table) 12/08/23 12/08/23 12/08/23 Range/Units 04:23 08:46 11:36 Anion Gap 12.10 H (4.00-12.00) mmol/L POC Glucose (mg/dL) 310 H (70-110) mg/dL Calcium 8.6 L (8.7-10.3) mg/dL Troponin I 0.036 H* (0.000-0.034) ng/mL 12/08/23 12/08/23 12/08/23 Range/Units 16:26 21:22 21:23 Anion Gap (4.00-12.00) mmol/L POC Glucose (mg/dL) 228 H 409 H 223 H (70-110) mg/dL Calcium (8.7-10.3) mg/dL Troponin I (0.000-0.034) ng/mL 12/09/23 Range/Units 06:00 Anion Gap (4.00-12.00) mmol/L POC Glucose (mg/dL) 164 H (70-110) mg/dL Calcium (8.7-10.3) mg/dL Troponin I (0.000-0.034) ng/mL Microbiology - Last 24 Hours (Table) 12/06/23 12:59 Blood Culture - Preliminary Blood 12/06/23 12:59 Blood Culture - Preliminary Blood
[2023-12-09 09:18] LABS: BUN/Creat Ratio 24.83 Ratio (12.00-20.00); Blood Urea Nitrogen 14.9 mg/dL (9.0-27.0); Calcium 8.8 mg/dL (8.7-10.3); Carbon Dioxide 32.7 mmol/L (21.6-31.8); Chloride 100 mmol/L (96-109); Glucose 166 mg/dL (70-110); Potassium 3.6 mmol/L (3.5-5.5); Sodium 144 mmol/L (135-145)
[2023-12-09 11:31] LABS: Glucose,Whole Blood 274 mg/dL (70-110)
[2023-12-09] MEDS: ACETAMINOPHEN TAB 325 MG TAB PO PRN (12:48)
--- NOTE | 2023-12-09 12:56 | P.PN ---
Subjective December 09, 2023: Patie she is is complaining of some anxiety and not feeling the best right now but denies any chest pains pressures shortness of breath nausea vomiting nt is reevaluated for ongoing acute diastolic CHF and acute COPD. Cardiology is following for the abnormal troponins as is pulmonology for acute COPD, Vital signs appear stable pulse oximetry is 100% on 4 L of O2 labs today showed normal serum chemistries but a troponin is now 0.044 which is up from the day before Objective - Vital Signs Vital signs: Vital Signs Temp 98.6 F 12/09/23 08:31 Pulse 75 12/09/23 11:55 Resp 15 12/09/23 08:31 BP 149/79 12/09/23 08:31 Pulse Ox 100 12/09/23 08:50 FiO2 Intake & Output 12/08/23 12/09/23 12/09/23 18:59 06:59 18:59 Output Total 1650 900 Balance -1650 -900 Output: Urine 1650 900 Other: Voiding Method External Catheter External Catheter External Catheter - Exam General: The patient is awake and alert, elderly female in no distress at this time. She is somewhat emaciated Neck: The neck is supple, there is no thyromegaly, lymphadenopathy, tenderness or JVD. Cardiovascular: S1S2 is normal, There is a regular rate and rhythm. No murmur, rub or gallop is appreciated. Respiratory: Lungs have diminished breath sounds bilaterally there is no wheezes rales or crackles at this time Gastrointestinal: Soft, non-distended, non-tender abdomen without masses or organomegaly noted. There is no rebound or guarding present. Bowel sounds are unremarkable. Musculoskeletal: Normal ROM, no tenderness, There is no pedal edema. There is no calf tenderness or swelling. No cords were appreciated. Patient is debilitated Neurological: CN II-XII intact, there are no obvious motor or sensory deficits. Coordination appears grossly intact. Speech is normal. Skin: Skin is warm and dry and no rashes or lesions are noted. - Labs CBC & Chem 7: 12/07/23 08:06 12/09/23 05:04 Labs: Abnormal Lab Results - Last 24 Hours (Table) 12/08/23 12/08/23 12/08/23 Range/Units 16:26 21:22 21:23 Carbon Dioxide (21.6-31.8) mmol/L BUN/Creatinine Ratio (12.00-20.00) Ratio Glucose (70-110) mg/dL POC Glucose (mg/dL) 228 H 409 H 223 H (70-110) mg/dL Troponin I (0.000-0.034) ng/mL 12/09/23 12/09/23 12/09/23 Range/Units 05:04 06:00 07:46 Carbon Dioxide 32.7 H (21.6-31.8) mmol/L BUN/Creatinine Ratio 24.83 H (12.00-20.00) Ratio Glucose 166 H (70-110) mg/dL POC Glucose (mg/dL) 164 H (70-110) mg/dL Troponin I 0.044 H* (0.000-0.034) ng/mL 12/09/23 Range/Units 11:30 Carbon Dioxide (21.6-31.8) mmol/L BUN/Creatinine Ratio (12.00-20.00) Ratio Glucose (70-110) mg/dL POC Glucose (mg/dL) 274 H (70-110) mg/dL Troponin I (0.000-0.034) ng/mL Microbiology - Last 24 Hours (Table) 12/06/23 12:59 Blood Culture - Preliminary Blood 12/06/23 12:59 Blood Culture - Preliminary Blood Assessment and Plan Plan: Acute on chronic CHF exacerbation, diastolic dysfunction, BNP 8830 COPD exacerbation Acute hypoxic respiratory failure secondary to the above Possible community-acquired pneumonia, antibiotics initiated, procalcitonin normal. Recent dual-chamber PPM placement 11/20/2023, secondary to high degree AV block with syncope Diabetes mellitus type II Hypertension Hyperlipidemia History of breast cancer and right lymphedema, status postmastectomy with radiation COPD, stable Prior extensive nicotine dependence, 1 pack/day of nearly 60 years Anxiety, depression Medical debility At this time she will continue on her current course of treatment, wait on further recommendations from cardiology and pulmonology, will repeat labs in a.m., she will be reevaluated in the next 24 hours, will consult PT OT for further evaluation regarding her debility, expect she will return to [facility] for further therapy once finished
--- NOTE | 2023-12-09 13:24 | P.PN ---
Subjective Progress Note Date: 12/09/23 This is an 82-year-old female patient who was recently discharged from here following an episode of shortness of breath and found to have high degree AV block with syncope. She did receive a dual-chamber permanent pacemaker implantation on November 19 and was discharged to [facility] for subacute rehabilitation. She has a history of previous heavy tobacco dependence, chronic obstructive pulmonary disease, oxygen dependence, diabetes mellitus, gastroesophageal reflux disease, hypertension, hyperlipidemia, right breast cancer s/p mastectomy. She was brought here to the emergency room today after developing increasing shortness of breath. Chest x-ray reveals bibasilar infiltrates. Atelectasis versus pneumonia. Small bilateral pleural effusions. White count 8.7. Hemoglobin 10.5. Platelets 308. Sodium 137. Potassium 3.5. Bicarb 34. BUN 9. Creatinine 0.70. Troponins negative x 2. proBNP 8830. She is seen today in consultation in the emergency department. She is currently sitting up on a stretcher. Awake and alert in no acute distress. She is dyspneic with conversation. Dyspneic with minimal exertion. Denies any fever or chills. No cough or congestion. She is maintaining O2 saturations in the 90s on 1 L/min per nasal cannula. The patient is seen today December 07, 2023 in follow-up in the emergency department. She is currently sitting up in a stretcher. Awake and alert in no acute distress. She is breathing easier today compared to yesterday. She is currently maintaining O2 saturations in the 90s on 2 L/min per nasal cannula. She is afebrile. Hemodynamically stable. Chest x-ray reveals bilateral lung infiltrates. White count 7.4. Hemoglobin 10.1. Platelets 292. Sodium 136. Potassium 3.8. Bicarb 30. BUN 9. Creatinine 0.45. Glucose 147. Procalcitonin 0.06. She is continued on DuoNeb inhalations Symbicort, Solu- Medrol. Antibiotics in the form of ceftriaxone and azithromycin. NicoDerm patch in place. The patient is seen today December 08, 2023 in follow-up on the regular medical floor. She is currently sitting up at the bedside. Awake and alert in no acute distress. Maintaining good O2 saturations in the 90s on 2 L/min per nasal cannula. No IV fluids. Sodium 144. Potassium 4.0. Bicarb 28. BUN 9. Creatinine 0.6. Glucose 100. Her procalcitonin was 0.06. She is currently on ceftriaxone and azithromycin. She remains on Lasix 40 mg IV every 12 hours. She is making adequate urine output. Continue on DuoNeb inhalations, Symbicort, Solu-Medrol. NicoDerm patch in place. The patient is seen today December 09, 2023 in follow-up on the regular medical floor. She is awake and alert in no acute distress. Resting in bed. Maintaining O2 saturations in the 90s on 4 L/min per nasal cannula. She has normal saline at KVO. She is continued on DuoNeb inhalations, Symbicort, Solu- Medrol. Remains on IV diuretics. NicoDerm patch in place. Blood cultures reveal no growth. Sodium 144. Potassium 3.6. Bicarb 33. BUN 15. Creatinine 0.6. Glucose 166. Troponin 0.044. She is making good urine output currently with 2.5 L output. Objective - Vital Signs Vital signs: Vital Signs Temp 98.6 F 12/09/23 08:31 Pulse 75 12/09/23 11:55 Resp 15 12/09/23 08:31 BP 149/79 12/09/23 08:31 Pulse Ox 100 12/09/23 08:50 FiO2 Intake & Output 12/08/23 12/09/23 12/09/23 18:59 06:59 18:59 Output Total 1650 900 Balance -1650 -900 Output: Urine 1650 900 Other: Voiding Method External Catheter External Catheter External Catheter - Exam GENERAL EXAM: Alert, 82-year-old female, sitting up in bed, on 2 L nasal cannula, comfortable in no apparent distress. HEAD: Normocephalic. EYES: Normal reaction of pupils, equal size. NOSE: Clear with pink turbinates. THROAT: No erythema or exudates. NECK: No masses, no JVD. CHEST: No chest wall deformity. LUNGS: Equal air entry with basilar crackles, few scattered rhonchi. CVS: S1 and S2 normal with no audible murmur, regular rhythm. ABDOMEN: No hepatosplenomegaly, normal bowel sounds, no guarding or rigidity. SPINE: No scoliosis or deformity SKIN: No rashes CENTRAL NERVOUS SYSTEM: No focal deficits, tone is normal in all 4 extremities. EXTREMITIES: There is no peripheral edema. No clubbing, no cyanosis. Peripheral pulses are intact. - Labs CBC & Chem 7: 12/07/23 08:06 12/09/23 05:04 Labs: Abnormal Lab Results - Last 24 Hours (Table) 12/08/23 12/08/23 12/08/23 Range/Units 16:26 21:22 21:23 Carbon Dioxide (21.6-31.8) mmol/L BUN/Creatinine Ratio (12.00-20.00) Ratio Glucose (70-110) mg/dL POC Glucose (mg/dL) 228 H 409 H 223 H (70-110) mg/dL Troponin I (0.000-0.034) ng/mL 12/09/23 12/09/23 12/09/23 Range/Units 05:04 06:00 07:46 Carbon Dioxide 32.7 H (21.6-31.8) mmol/L BUN/Creatinine Ratio 24.83 H (12.00-20.00) Ratio Glucose 166 H (70-110) mg/dL POC Glucose (mg/dL) 164 H (70-110) mg/dL Troponin I 0.044 H* (0.000-0.034) ng/mL 12/09/23 Range/Units 11:30 Carbon Dioxide (21.6-31.8) mmol/L BUN/Creatinine Ratio (12.00-20.00) Ratio Glucose (70-110) mg/dL POC Glucose (mg/dL) 274 H (70-110) mg/dL Troponin I (0.000-0.034) ng/mL Microbiology - Last 24 Hours (Table) 12/06/23 12:59 Blood Culture - Preliminary Blood 12/06/23 12:59 Blood Culture - Preliminary Blood Assessment and Plan Assessment: Acute hypoxemic respiratory failure secondary to acute exacerbation of diastolic congestive heart failure, COPD exacerbation. No evidence of pneumonia. Procal citonin 0.06 Recent hospitalization with discharge on 11/21/2023 from a syncopal episode and high degree AV block status post pacemaker insertion History of congestive heart failure Hypertension Hyperlipidemia Diabetes mellitus Hearing disorder Breast cancer status post right mastectomy and radiation History of anxiety/depression History of chronic tobacco dependence for many years Plan: The patient was seen and evaluated Labs and medications reviewed Continue diuretics, making good urine output Continue Symbicort, albuterol, Solu-Medrol Titrate the FiO2 as tolerated We will continue to follow I have personally seen and examined the patient, performed the documentation and the assessment and plan as written. Number of minutes spent on the visit: 10.
[2023-12-09 16:24] LABS: Glucose,Whole Blood 269 mg/dL (70-110)
[2023-12-09 21:09] LABS: Glucose,Whole Blood 192 mg/dL (70-110)
[2023-12-10 05:58] LABS: Glucose,Whole Blood 207 mg/dL (70-110)
[2023-12-10 08:37] LABS: Blood Urea Nitrogen 24.8 mg/dL (9.0-27.0); Chloride 98 mmol/L (96-109); Glucose 201 mg/dL (70-110); Potassium 3.7 mmol/L (3.5-5.5); Sodium 143 mmol/L (135-145)
[2023-12-10 08:38] LABS: ALT 24 U/L (8-44); AST 27 U/L (13-35); Albumin 3.3 g/dL (3.8-4.9); Alkaline Phosphatase 133 U/L (41-126); Calcium 8.8 mg/dL (8.7-10.3); Carbon Dioxide 33.1 mmol/L (21.6-31.8); Globulin 2.2 g/dL (1.6-3.3); HCT 37.4 % (37.2-46.3); HGB 11.4 g/dL (12.0-15.0); MCH 26.6 pg (27.0-32.0); MCHC 30.5 g/dL (32.0-37.0); MCV 87.4 FL (80.0-97.0); Mean Platelet Volume 9.7 FL (9.5-12.2); NRBC Per 100 WBC 0 X 10*3/uL (0.00-0.01); Platelet Count 376 X 10*3/uL (140-440); RBC 4.28 X 10*6/uL (4.10-5.20); RDW 19.5 % (11.5-14.5); Total Bilirubin <0.2 mg/dL (0.3-1.2); Total Protein 5.5 g/dL (6.2-8.2); WBC 12.86 X 10*3/uL (4.50-10.00)
[2023-12-10 08:39] LABS: Basophils # (A) 0.02 X 10*3/uL (0.00-0.10); Basophils % (A) 0.2 %; Eosinophils # (A) 0 X 10*3/uL (0.04-0.35); Eosinophils % (A) 0 %; Lymphocytes % (A) 3.1 %; Monocytes # (A) 0.56 X 10*3/uL (0.20-1.00); Monocytes % (A) 4.4 %; Neutrophils # (A) 11.76 X 10*3/uL (1.80-7.70); Neutrophils % (A) 91.4 %
[2023-12-10] MEDS: FUROSEMIDE 40 MG TAB PO SCH (10:35)
[2023-12-10 11:41] LABS: Glucose,Whole Blood 249 mg/dL (70-110)
--- NOTE | 2023-12-10 11:53 | P.PN ---
Subjective December 09, 2023: Patie she is is complaining of some anxiety and not feeling the best right now but denies any chest pains pressures shortness of breath nausea vomiting nt is reevaluated for ongoing acute diastolic CHF and acute COPD. Cardiology is following for the abnormal troponins as is pulmonology for acute COPD, Vital signs appear stable pulse oximetry is 100% on 4 L of O2 labs today showed normal serum chemistries but a troponin is now 0.044 which is up from the day before 12/10/2023: patient is feeling weak but sob is better. Vss stable. labs show leukocytosis. Abx stopped by pulmonolgy as there was no sign of pneumonia. Objective - Vital Signs Vital signs: Vital Signs Temp 97.5 F L 12/10/23 06:50 Pulse 92 12/10/23 09:08 Resp 17 12/10/23 06:50 BP 162/84 12/10/23 06:50 Pulse Ox 95 12/10/23 06:50 FiO2 Intake & Output 12/09/23 12/10/23 12/10/23 18:59 06:59 18:59 Output Total 1400 700 Balance -1400 -700 Output: Urine 1400 700 Other: Voiding Method External Catheter External Catheter External Catheter - Exam General: The patient is awake and alert, elderly female in no distress at this time. She is somewhat emaciated Neck: The neck is supple, there is no thyromegaly, lymphadenopathy, tenderness or JVD. Cardiovascular: S1S2 is normal, There is a regular rate and rhythm. No murmur, rub or gallop is appreciated. Respiratory: Lungs have diminished breath sounds bilaterally there is no wheezes rales or crackles at this time Gastrointestinal: Soft, non-distended, non-tender abdomen without masses or organomegaly noted. There is no rebound or guarding present. Bowel sounds are unremarkable. Musculoskeletal: Normal ROM, no tenderness, There is no pedal edema. There is no calf tenderness or swelling. No cords were appreciated. Patient is debilitated Neurological: CN II-XII intact, there are no obvious motor or sensory deficits. Coordination appears grossly intact. Speech is normal. Skin: Skin is warm and dry and no rashes or lesions are noted. - Labs CBC & Chem 7: 12/10/23 06:05 12/10/23 06:05 Labs: Abnormal Lab Results - Last 24 Hours (Table) 12/09/23 12/09/23 12/10/23 Range/Units 16:23 21:07 05:57 WBC (4.50-10.00) X 10*3/uL Hgb (12.0-15.0) g/dL MCH (27.0-32.0) pg MCHC (32.0-37.0) g/dL RDW (11.5-14.5) % Immature Gran # (0.00-0.04) X 10*3/uL Neutrophils # (1.80-7.70) X 10*3/uL Lymphocytes # (0.90-5.00) X 10*3/uL Eosinophils # (0.04-0.35) X 10*3/uL Carbon Dioxide (21.6-31.8) mmol/L BUN/Creatinine Ratio (12.00-20.00) Ratio Glucose (70-110) mg/dL POC Glucose (mg/dL) 269 H 192 H 207 H (70-110) mg/dL Total Bilirubin (0.3-1.2) mg/dL Alkaline Phosphatase (41-126) U/L Total Protein (6.2-8.2) g/dL Albumin (3.8-4.9) g/dL Albumin/Globulin Ratio (1.60-3.17) Ratio 12/10/23 12/10/23 12/10/23 Range/Units 06:05 06:05 11:39 WBC 12.86 H (4.50-10.00) X 10*3/uL Hgb 11.4 L (12.0-15.0) g/dL MCH 26.6 L (27.0-32.0) pg MCHC 30.5 L (32.0-37.0) g/dL RDW 19.5 H (11.5-14.5) % Immature Gran # 0.12 H (0.00-0.04) X 10*3/uL Neutrophils # 11.76 H (1.80-7.70) X 10*3/uL Lymphocytes # 0.40 L (0.90-5.00) X 10*3/uL Eosinophils # 0 L (0.04-0.35) X 10*3/uL Carbon Dioxide 33.1 H (21.6-31.8) mmol/L BUN/Creatinine Ratio 31.00 H (12.00-20.00) Ratio Glucose 201 H (70-110) mg/dL POC Glucose (mg/dL) 249 H (70-110) mg/dL Total Bilirubin <0.2 L (0.3-1.2) mg/dL Alkaline Phosphatase 133 H (41-126) U/L Total Protein 5.5 L (6.2-8.2) g/dL Albumin 3.3 L (3.8-4.9) g/dL Albumin/Globulin Ratio 1.50 L (1.60-3.17) Ratio Microbiology - Last 24 Hours (Table) 12/06/23 12:59 Blood Culture - Preliminary Blood 12/06/23 12:59 Blood Culture - Preliminary Blood Assessment and Plan Plan: Acute on chronic CHF exacerbation, diastolic dysfunction, BNP 8830 COPD exacerbation Acute hypoxic respiratory failure secondary to the above Possible community-acquired pneumonia, antibiotics initiated, procalcitonin normal. Recent dual-chamber PPM placement 11/20/2023, secondary to high degree AV block with syncope Diabetes mellitus type II Hypertension Hyperlipidemia History of breast cancer and right lymphedema, status postmastectomy with radiation COPD, stable Prior extensive nicotine dependence, 1 pack/day of nearly 60 years Anxiety, depression Medical debility continue meds and treatment. Wait on repeat of Troponin. Cardiology and pulmonology recommendations pending. will repeat labs in a.m., she will be reevaluated in the next 24 hours, PT/OT l return to [facility] for further therapy once finished
--- NOTE | 2023-12-10 12:21 | P.PN ---
Subjective HISTORY OF PRESENT ILLNESS: This is a pleasant 82-year-old with past medical history significant for breast cancer status post right mastectomy, hypertension, hyperlipidemia, diabetes mellitus type 2, COPD, SSS s/p dual chamber permanent pacemaker. patient had recent admission one month ago with findings of high degree AV block and symptomatic bradycardia with lightheadedness and eventually underwent dual- chamber permanent pacemaker. She had echo which showed EF 50-55%. She went to rehab and was doing okay however over the last few days has been having increasing shortness breath. She denies any fevers or chills. She states her shortness of breath just progressively got worse. Denies any significant lower extremity edema however does get significant edema in her right upper extremity from her prior mastectomy. No chest pain or pressure. blood work shows normal creatinine, proBNP 8800, troponin negative 3. 12/08/2023 Patient examined this morning at the bedside. Patient currently denies chest pain or pressure. She does report mild shortness of breath today and states that she feels like she cannot take a deep breath. Vital signs are stable. Chest x-ray this morning reveals persistent infiltrate at the right base which may be worsening. Correlate for atypical pulmonary edema, atelectasis, or pneumonia. Improving left lower lobe infiltrate. 12/08 patient seen and examined. Patient states she is feeling much better today. She had an episode of acutely feeling somewhat worsened shortness breath and therefore troponin was ordered and noticed be minimally more elevated at 0.03. Previous troponins are 0.02. She denies any recurrence. She did get a breathing treatment felt better. She was noted to be mildly tachycardic at the time. 12/10/2023 Patient examined this morning at the bedside. Patient currently denies chest pain or pressure. She denies shortness of breath. Vital signs are stable. PHYSICAL EXAM: VITAL SIGNS: Reviewed. GENERAL: Well-developed in no acute distress. NECK: Supple. No JVD or thyromegaly LUNGS: Respirations even and unlabored. Lungs essentially clear to auscultation bilaterally. HEART: Regular rate and rhythm. S1 and S2 heard. EXTREMITIES: Normal range of motion. No clubbing or cyanosis. Peripheral pulses intact. No lower extremity edema ASSESSMENT: Acute on chronic heart failure with preserved EF Acute on chronic hypoxic respiratory failure Elevated troponins, type II WA secondary to oxygen supply/demand mismatch due to CHF, no evidence of acute coronary syndrome Second-degree type II block S/P dual chambed permanent pacemaker Hypertension Diabetes mellitus type 2 Hyperlipidemia Breast cancer Right upper and right lower extremity swelling may be some component of heart failure related to significant bradycardia PLAN: Continue current cardiac medications Discontinue IV Lasix. Begin oral Lasix 40 mg daily No further inpatient recommendations from a cardiac standpoint We will sign off. Please reconsult if needed. Nurse practitioner note has been reviewed by physician. Signing provider agrees with the documented findings, assessment, and plan of care documented by [employer] as a scribe. Objective - Vital Signs Vital signs: Vital Signs Temp 97.5 F L 12/10/23 06:50 Pulse 90 12/10/23 12:06 Resp 17 12/10/23 06:50 BP 162/84 12/10/23 06:50 Pulse Ox 95 12/10/23 06:50 FiO2 Intake & Output 12/09/23 12/10/23 12/10/23 18:59 06:59 18:59 Output Total 1400 700 Balance -1400 -700 Output: Urine 1400 700 Other: Voiding Method External Catheter External Catheter External Catheter - Labs CBC & Chem 7: 12/10/23 06:05 12/10/23 06:05 Labs: Abnormal Lab Results - Last 24 Hours (Table) 12/09/23 12/09/23 12/10/23 Range/Units 16:23 21:07 05:57 WBC (4.50-10.00) X 10*3/uL Hgb (12.0-15.0) g/dL MCH (27.0-32.0) pg MCHC (32.0-37.0) g/dL RDW (11.5-14.5) % Immature Gran # (0.00-0.04) X 10*3/uL Neutrophils # (1.80-7.70) X 10*3/uL Lymphocytes # (0.90-5.00) X 10*3/uL Eosinophils # (0.04-0.35) X 10*3/uL Carbon Dioxide (21.6-31.8) mmol/L BUN/Creatinine Ratio (12.00-20.00) Ratio Glucose (70-110) mg/dL POC Glucose (mg/dL) 269 H 192 H 207 H (70-110) mg/dL Total Bilirubin (0.3-1.2) mg/dL Alkaline Phosphatase (41-126) U/L Troponin I (0.000-0.034) ng/mL Total Protein (6.2-8.2) g/dL Albumin (3.8-4.9) g/dL Albumin/Globulin Ratio (1.60-3.17) Ratio 12/10/23 12/10/23 12/10/23 Range/Units 06:05 06:05 11:14 WBC 12.86 H (4.50-10.00) X 10*3/uL Hgb 11.4 L (12.0-15.0) g/dL MCH 26.6 L (27.0-32.0) pg MCHC 30.5 L (32.0-37.0) g/dL RDW 19.5 H (11.5-14.5) % Immature Gran # 0.12 H (0.00-0.04) X 10*3/uL Neutrophils # 11.76 H (1.80-7.70) X 10*3/uL Lymphocytes # 0.40 L (0.90-5.00) X 10*3/uL Eosinophils # 0 L (0.04-0.35) X 10*3/uL Carbon Dioxide 33.1 H (21.6-31.8) mmol/L BUN/Creatinine Ratio 31.00 H (12.00-20.00) Ratio Glucose 201 H (70-110) mg/dL POC Glucose (mg/dL) (70-110) mg/dL Total Bilirubin <0.2 L (0.3-1.2) mg/dL Alkaline Phosphatase 133 H (41-126) U/L Troponin I 0.042 H* (0.000-0.034) ng/mL Total Protein 5.5 L (6.2-8.2) g/dL Albumin 3.3 L (3.8-4.9) g/dL Albumin/Globulin Ratio 1.50 L (1.60-3.17) Ratio 12/10/23 Range/Units 11:39 WBC (4.50-10.00) X 10*3/uL Hgb (12.0-15.0) g/dL MCH (27.0-32.0) pg MCHC (32.0-37.0) g/dL RDW (11.5-14.5) % Immature Gran # (0.00-0.04) X 10*3/uL Neutrophils # (1.80-7.70) X 10*3/uL Lymphocytes # (0.90-5.00) X 10*3/uL Eosinophils # (0.04-0.35) X 10*3/uL Carbon Dioxide (21.6-31.8) mmol/L BUN/Creatinine Ratio (12.00-20.00) Ratio Glucose (70-110) mg/dL POC Glucose (mg/dL) 249 H (70-110) mg/dL Total Bilirubin (0.3-1.2) mg/dL Alkaline Phosphatase (41-126) U/L Troponin I (0.000-0.034) ng/mL Total Protein (6.2-8.2) g/dL Albumin (3.8-4.9) g/dL Albumin/Globulin Ratio (1.60-3.17) Ratio Microbiology - Last 24 Hours (Table) 12/06/23 12:59 Blood Culture - Preliminary Blood 12/06/23 12:59 Blood Culture - Preliminary Blood
[2023-12-10] MEDS: SPIRONOLACTONE 25 MG TAB PO SCH (13:20)
--- NOTE | 2023-12-10 14:00 | P.PN ---
Subjective Progress Note Date: 12/10/23 This is an 82-year-old female patient who was recently discharged from here following an episode of shortness of breath and found to have high degree AV block with syncope. She did receive a dual-chamber permanent pacemaker implantation on November 19 and was discharged to [facility] for subacute rehabilitation. She has a history of previous heavy tobacco dependence, chronic obstructive pulmonary disease, oxygen dependence, diabetes mellitus, gastroesophageal reflux disease, hypertension, hyperlipidemia, right breast cancer s/p mastectomy. She was brought here to the emergency room today after developing increasing shortness of breath. Chest x-ray reveals bibasilar infiltrates. Atelectasis versus pneumonia. Small bilateral pleural effusions. White count 8.7. Hemoglobin 10.5. Platelets 308. Sodium 137. Potassium 3.5. Bicarb 34. BUN 9. Creatinine 0.70. Troponins negative x 2. proBNP 8830. She is seen today in consultation in the emergency department. She is currently sitting up on a stretcher. Awake and alert in no acute distress. She is dyspneic with conversation. Dyspneic with minimal exertion. Denies any fever or chills. No cough or congestion. She is maintaining O2 saturations in the 90s on 1 L/min per nasal cannula. The patient is seen today December 07, 2023 in follow-up in the emergency department. She is currently sitting up in a stretcher. Awake and alert in no acute distress. She is breathing easier today compared to yesterday. She is currently maintaining O2 saturations in the 90s on 2 L/min per nasal cannula. She is afebrile. Hemodynamically stable. Chest x-ray reveals bilateral lung infiltrates. White count 7.4. Hemoglobin 10.1. Platelets 292. Sodium 136. Potassium 3.8. Bicarb 30. BUN 9. Creatinine 0.45. Glucose 147. Procalcitonin 0.06. She is continued on DuoNeb inhalations Symbicort, Solu- Medrol. Antibiotics in the form of ceftriaxone and azithromycin. NicoDerm patch in place. The patient is seen today December 08, 2023 in follow-up on the regular medical floor. She is currently sitting up at the bedside. Awake and alert in no acute distress. Maintaining good O2 saturations in the 90s on 2 L/min per nasal cannula. No IV fluids. Sodium 144. Potassium 4.0. Bicarb 28. BUN 9. Creatinine 0.6. Glucose 100. Her procalcitonin was 0.06. She is currently on ceftriaxone and azithromycin. She remains on Lasix 40 mg IV every 12 hours. She is making adequate urine output. Continue on DuoNeb inhalations, Symbicort, Solu-Medrol. NicoDerm patch in place. The patient is seen today December 09, 2023 in follow-up on the regular medical floor. She is awake and alert in no acute distress. Resting in bed. Maintaining O2 saturations in the 90s on 4 L/min per nasal cannula. She has normal saline at KVO. She is continued on DuoNeb inhalations, Symbicort, Solu- Medrol. Remains on IV diuretics. NicoDerm patch in place. Blood cultures reveal no growth. Sodium 144. Potassium 3.6. Bicarb 33. BUN 15. Creatinine 0.6. Glucose 166. Troponin 0.044. She is making good urine output currently with 2.5 L output. The patient is seen today 12/10/2023 in follow-up on the regular medical floor. she is currently sitting up in bed. Awake and alert in no acute distress. Maintaining good O2 saturations in the 90s on 2 L/m per nasal cannula. Normal saline at 20 ML's per hour. She is continued once DuoNeb inhalations, Symbicort, Solu-Medrol. NicoDerm patch in place. Remains on oral diuretics. blood cultures reveal no growth. white count 12.8. Hemoglobin 11.4. Platelets 376. Sodium 143. Potassium 3.7. Bicarb 33. BUN 25. Creatinine 0.8. Glucose 201. Objective - Vital Signs Vital signs: Vital Signs Temp 97.5 F L 12/10/23 13:46 Pulse 77 12/10/23 13:46 Resp 14 12/10/23 13:46 BP 109/59 12/10/23 13:46 Pulse Ox 98 12/10/23 13:46 FiO2 Intake & Output 12/09/23 12/10/23 12/10/23 18:59 06:59 18:59 Output Total 1400 1800 Balance -1400 -1800 Output: Urine 1400 1800 Other: Voiding Method External Catheter External Catheter External Catheter - Exam GENERAL EXAM: Alert, pleasant 82-year-old female, on 2 L nasal cannula, in no apparent distress. HEAD: Normocephalic. EYES: Normal reaction of pupils, equal size. NOSE: Clear with pink turbinates. THROAT: No erythema or exudates. NECK: No masses, no JVD. CHEST: No chest wall deformity. LUNGS: Equal air entry with basilar crackles, few scattered rhonchi. CVS: S1 and S2 normal with no audible murmur, regular rhythm. ABDOMEN: No hepatosplenomegaly, normal bowel sounds, no guarding or rigidity. SPINE: No scoliosis or deformity SKIN: No rashes CENTRAL NERVOUS SYSTEM: No focal deficits, tone is normal in all 4 extremities. EXTREMITIES: There is no peripheral edema. No clubbing, no cyanosis. Peripheral pulses are intact. - Labs CBC & Chem 7: 12/10/23 06:05 12/10/23 06:05 Labs: Abnormal Lab Results - Last 24 Hours (Table) 12/09/23 12/09/23 12/10/23 Range/Units 16:23 21:07 05:57 WBC (4.50-10.00) X 10*3/uL Hgb (12.0-15.0) g/dL MCH (27.0-32.0) pg MCHC (32.0-37.0) g/dL RDW (11.5-14.5) % Immature Gran # (0.00-0.04) X 10*3/uL Neutrophils # (1.80-7.70) X 10*3/uL Lymphocytes # (0.90-5.00) X 10*3/uL Eosinophils # (0.04-0.35) X 10*3/uL Carbon Dioxide (21.6-31.8) mmol/L BUN/Creatinine Ratio (12.00-20.00) Ratio Glucose (70-110) mg/dL POC Glucose (mg/dL) 269 H 192 H 207 H (70-110) mg/dL Total Bilirubin (0.3-1.2) mg/dL Alkaline Phosphatase (41-126) U/L Troponin I (0.000-0.034) ng/mL Total Protein (6.2-8.2) g/dL Albumin (3.8-4.9) g/dL Albumin/Globulin Ratio (1.60-3.17) Ratio 12/10/23 12/10/23 12/10/23 Range/Units 06:05 06:05 11:14 WBC 12.86 H (4.50-10.00) X 10*3/uL Hgb 11.4 L (12.0-15.0) g/dL MCH 26.6 L (27.0-32.0) pg MCHC 30.5 L (32.0-37.0) g/dL RDW 19.5 H (11.5-14.5) % Immature Gran # 0.12 H (0.00-0.04) X 10*3/uL Neutrophils # 11.76 H (1.80-7.70) X 10*3/uL Lymphocytes # 0.40 L (0.90-5.00) X 10*3/uL Eosinophils # 0 L (0.04-0.35) X 10*3/uL Carbon Dioxide 33.1 H (21.6-31.8) mmol/L BUN/Creatinine Ratio 31.00 H (12.00-20.00) Ratio Glucose 201 H (70-110) mg/dL POC Glucose (mg/dL) (70-110) mg/dL Total Bilirubin <0.2 L (0.3-1.2) mg/dL Alkaline Phosphatase 133 H (41-126) U/L Troponin I 0.042 H* (0.000-0.034) ng/mL Total Protein 5.5 L (6.2-8.2) g/dL Albumin 3.3 L (3.8-4.9) g/dL Albumin/Globulin Ratio 1.50 L (1.60-3.17) Ratio 12/10/23 Range/Units 11:39 WBC (4.50-10.00) X 10*3/uL Hgb (12.0-15.0) g/dL MCH (27.0-32.0) pg MCHC (32.0-37.0) g/dL RDW (11.5-14.5) % Immature Gran # (0.00-0.04) X 10*3/uL Neutrophils # (1.80-7.70) X 10*3/uL Lymphocytes # (0.90-5.00) X 10*3/uL Eosinophils # (0.04-0.35) X 10*3/uL Carbon Dioxide (21.6-31.8) mmol/L BUN/Creatinine Ratio (12.00-20.00) Ratio Glucose (70-110) mg/dL POC Glucose (mg/dL) 249 H (70-110) mg/dL Total Bilirubin (0.3-1.2) mg/dL Alkaline Phosphatase (41-126) U/L Troponin I (0.000-0.034) ng/mL Total Protein (6.2-8.2) g/dL Albumin (3.8-4.9) g/dL Albumin/Globulin Ratio (1.60-3.17) Ratio Microbiology - Last 24 Hours (Table) 12/06/23 12:59 Blood Culture - Preliminary Blood 12/06/23 12:59 Blood Culture - Preliminary Blood Assessment and Plan Assessment: Acute hypoxemic respiratory failure secondary to acute exacerbation of diastolic congestive heart failure, COPD exacerbation. No evidence of pneumonia. Procalcitonin 0.06 Recent hospitalization with discharge on 11/21/2023 from a syncopal episode and high degree AV block status post pacemaker insertion History of congestive heart failure Hypertension Hyperlipidemia Diabetes mellitus Hearing disorder Breast cancer status post right mastectomy and radiation History of anxiety/depression History of chronic tobacco dependence for many years Plan: The patient was seen and evaluated Labs and medications reviewed continue the current treatment plan plan is to return to [facility] at discharge I have personally seen and examined the patient, performed the documentation and the assessment and plan as written. Number of minutes spent on the visit: 10.
[2023-12-10 16:47] LABS: Glucose,Whole Blood 249 mg/dL (70-110)
[2023-12-10 20:16] LABS: Glucose,Whole Blood 276 mg/dL (70-110)
[2023-12-11 05:52] LABS: Glucose,Whole Blood 190 mg/dL (70-110)
[2023-12-11 09:43] LABS: Basophils # (A) 0.02 X 10*3/uL (0.00-0.10); Basophils % (A) 0.2 %; Eosinophils # (A) 0 X 10*3/uL (0.04-0.35); Eosinophils % (A) 0 %; HCT 37.2 % (37.2-46.3); HGB 11.3 g/dL (12.0-15.0); Lymphocytes # (A) 0.33 X 10*3/uL (0.90-5.00); Lymphocytes % (A) 2.8 %; MCH 26.5 pg (27.0-32.0); MCHC 30.4 g/dL (32.0-37.0); MCV 87.1 FL (80.0-97.0); Mean Platelet Volume 10.1 FL (9.5-12.2); Monocytes # (A) 0.62 X 10*3/uL (0.20-1.00); Monocytes % (A) 5.3 %; NRBC Per 100 WBC 0 X 10*3/uL (0.00-0.01); Neutrophils # (A) 10.71 X 10*3/uL (1.80-7.70); Neutrophils % (A) 90.9 %; Platelet Count 369 X 10*3/uL (140-440); RBC 4.27 X 10*6/uL (4.10-5.20); WBC 11.78 X 10*3/uL (4.50-10.00)
[2023-12-11 09:51] LABS: BUN/Creat Ratio 47.33 Ratio (12.00-20.00); Blood Urea Nitrogen 28.4 mg/dL (9.0-27.0); Glucose 178 mg/dL (70-110)
[2023-12-11 09:52] LABS: Calcium 9.1 mg/dL (8.7-10.3); Carbon Dioxide 33.7 mmol/L (21.6-31.8); Chloride 98 mmol/L (96-109); Potassium 3.5 mmol/L (3.5-5.5); Sodium 143 mmol/L (135-145)
--- NOTE | 2023-12-11 11:08 | P.PN ---
Subjective Progress Note Date: 12/11/23 Principal diagnosis: Pt is awake alert oriented x 3, vss afebrile sats in the 90's on 2 liters, pt apears depressed , reinforced smoking cessation pt apears to back to baseline Objective - Vital Signs Vital signs: Vital Signs Temp 98.0 F 12/11/23 07:13 Pulse 85 12/11/23 08:17 Resp 20 12/11/23 07:13 BP 164/79 12/11/23 07:13 Pulse Ox 96 12/11/23 07:13 FiO2 Intake & Output 12/10/23 12/11/23 12/11/23 18:59 06:59 18:59 Output Total 1800 500 Balance -1800 -500 Weight 54.5 kg Output: Urine 1800 500 Other: Voiding Method External Catheter External Catheter - Constitutional General appearance: Present: thin - EENT Eyes: Present: EOMI, PERRLA ENT: Present: hard of hearing - Neck Neck: Present: normal ROM Carotids: bilateral: upstroke normal (jvd improved) - Respiratory Respiratory: bilateral: wheezing (scattered wheezes) - Cardiovascular Rhythm: irregularly irregular (rate controled) - Gastrointestinal General gastrointestinal: Present: normal bowel sounds, scaphoid (nontender) - Musculoskeletal Musculoskeletal: Present: generalized weakness - Psychiatric Psychiatric: Present: A&O x's 3 - Labs CBC & Chem 7: 12/11/23 06:21 12/11/23 06:21 Labs: Abnormal Lab Results - Last 24 Hours (Table) 12/10/23 12/10/23 12/10/23 Range/Units 11:14 11:39 16:46 WBC (4.50-10.00) X 10*3/uL Hgb (12.0-15.0) g/dL MCH (27.0-32.0) pg MCHC (32.0-37.0) g/dL RDW (11.5-14.5) % Immature Gran # (0.00-0.04) X 10*3/uL Neutrophils # (1.80-7.70) X 10*3/uL Lymphocytes # (0.90-5.00) X 10*3/uL Eosinophils # (0.04-0.35) X 10*3/uL Carbon Dioxide (21.6-31.8) mmol/L BUN (9.0-27.0) mg/dL BUN/Creatinine Ratio (12.00-20.00) Ratio Glucose (70-110) mg/dL POC Glucose (mg/dL) 249 H 249 H (70-110) mg/dL Troponin I 0.042 H* (0.000-0.034) ng/mL 12/10/23 12/11/23 12/11/23 Range/Units 20:14 05:50 06:21 WBC 11.78 H (4.50-10.00) X 10*3/uL Hgb 11.3 L (12.0-15.0) g/dL MCH 26.5 L (27.0-32.0) pg MCHC 30.4 L (32.0-37.0) g/dL RDW 19.0 H (11.5-14.5) % Immature Gran # 0.10 H (0.00-0.04) X 10*3/uL Neutrophils # 10.71 H (1.80-7.70) X 10*3/uL Lymphocytes # 0.33 L (0.90-5.00) X 10*3/uL Eosinophils # 0 L (0.04-0.35) X 10*3/uL Carbon Dioxide (21.6-31.8) mmol/L BUN (9.0-27.0) mg/dL BUN/Creatinine Ratio (12.00-20.00) Ratio Glucose (70-110) mg/dL POC Glucose (mg/dL) 276 H 190 H (70-110) mg/dL Troponin I (0.000-0.034) ng/mL 12/11/23 Range/Units 06:21 WBC (4.50-10.00) X 10*3/uL Hgb (12.0-15.0) g/dL MCH (27.0-32.0) pg MCHC (32.0-37.0) g/dL RDW (11.5-14.5) % Immature Gran # (0.00-0.04) X 10*3/uL Neutrophils # (1.80-7.70) X 10*3/uL Lymphocytes # (0.90-5.00) X 10*3/uL Eosinophils # (0.04-0.35) X 10*3/uL Carbon Dioxide 33.7 H (21.6-31.8) mmol/L BUN 28.4 H (9.0-27.0) mg/dL BUN/Creatinine Ratio 47.33 H (12.00-20.00) Ratio Glucose 178 H (70-110) mg/dL POC Glucose (mg/dL) (70-110) mg/dL Troponin I (0.000-0.034) ng/mL Assessment and Plan (1) Artificial cardiac pacemaker Current Visit: Yes Status: Acute Code(s): Z95.0 - PRESENCE OF CARDIAC PACEMAKER SNOMED Code(s): 900179217 (2) Acute exacerbation of chronic obstructive pulmonary disease Current Visit: Yes Status: Acute Code(s): J44.1 - CHRONIC OBSTRUCTIVE PULMONARY DISEASE W (ACUTE) EXACERBATION SNOMED Code(s): 855080820 (3) Pneumonia Current Visit: Yes Status: Acute Code(s): J18.9 - PNEUMONIA, UNSPECIFIED ORGANISM SNOMED Code(s): 889738396 (4) Dehydration Current Visit: No Status: Acute Code(s): E86.0 - DEHYDRATION SNOMED Code(s): 93813946 (5) Third degree heart block Current Visit: No Status: Acute Code(s): I44.2 - ATRIOVENTRICULAR BLOCK, COMPLETE SNOMED Code(s): 29091320 Time with Patient: Greater than 30
[2023-12-11 11:32] LABS: Glucose,Whole Blood 227 mg/dL (70-110)
--- NOTE | 2023-12-11 12:23 | P.PN ---
Subjective Progress Note Date: 12/11/23 Principal diagnosis: Shortness of breath. This is an 82-year-old female patient who was recently discharged from here following an episode of shortness of breath and found to have high degree AV block with syncope. She did receive a dual-chamber permanent pacemaker implantation on November 19 and was discharged to [facility] for subacute rehabilitation. She has a history of previous heavy tobacco dependence, chronic obstructive pulmonary disease, oxygen dependence, diabetes mellitus, gastroesophageal reflux disease, hypertension, hyperlipidemia, right breast cancer s/p mastectomy. She was brought here to the emergency room today after developing increasing shortness of breath. Chest x-ray reveals bibasilar infiltrates. Atelectasis versus pneumonia. Small bilateral pleural effusions. White count 8.7. Hemoglobin 10.5. Platelets 308. Sodium 137. Potassium 3.5. Bicarb 34. BUN 9. Creatinine 0.70. Troponins negative x 2. proBNP 8830. She is seen today in consultation in the emergency department. She is currently sitting up on a stretcher. Awake and alert in no acute distress. She is dyspneic with conversation. Dyspneic with minimal exertion. Denies any fever or chills. No cough or congestion. She is maintaining O2 saturations in the 90s on 1 L/min per nasal cannula. The patient is seen today December 07, 2023 in follow-up in the emergency [facility]. She is currently sitting up in a stretcher. Awake and alert in no acute distress. She is breathing easier today compared to yesterday. She is currently maintaining O2 saturations in the 90s on 2 L/min per nasal cannula. She is afebrile. Hemodynamically stable. Chest x-ray reveals bilateral lung infiltrates. White count 7.4. Hemoglobin 10.1. Platelets 292. Sodium 136. Potassium 3.8. Bicarb 30. BUN 9. Creatinine 0.45. Glucose 147. Procalcitonin 0.06. She is continued on DuoNeb inhalations Symbicort, Solu- Medrol. Antibiotics in the form of ceftriaxone and azithromycin. NicoDerm patch in place. The patient is seen today December 08, 2023 in follow-up on the regular medical fl oor. She is currently sitting up at the bedside. Awake and alert in no acute distress. Maintaining good O2 saturations in the 90s on 2 L/min per nasal cannula. No IV fluids. Sodium 144. Potassium 4.0. Bicarb 28. BUN 9. Creatinine 0.6. Glucose 100. Her procalcitonin was 0.06. She is currently on ceftriaxone and azithromycin. She remains on Lasix 40 mg IV every 12 hours. She is making adequate urine output. Continue on DuoNeb inhalations, Symbicort, Solu-Medrol. NicoDerm patch in place. The patient is seen today December 09, 2023 in follow-up on the regular medical floor. She is awake and alert in no acute distress. Resting in bed. Maintaining O2 saturations in the 90s on 4 L/min per nasal cannula. She has normal saline at KVO. She is continued on DuoNeb inhalations, Symbicort, Solu- Medrol. Remains on IV diuretics. NicoDerm patch in place. Blood cultures reveal no growth. Sodium 144. Potassium 3.6. Bicarb 33. BUN 15. Creatinine 0.6. Glucose 166. Troponin 0.044. She is making good urine output currently with 2.5 L output. The patient is seen today 12/10/2023 in follow-up on the regular medical floor. she is currently sitting up in bed. Awake and alert in no acute distress. Maintaining good O2 saturations in the 90s on 2 L/m per nasal cannula. Normal saline at 20 ML's per hour. She is continued once DuoNeb inhalations, Symbicort, Solu-Medrol. NicoDerm patch in place. Remains on oral diuretics. blood cultures reveal no growth. white count 12.8. Hemoglobin 11.4. Platelets 376. Sodium 143. Potassium 3.7. Bicarb 33. BUN 25. Creatinine 0.8. Glucose 201. Progress note dated December 11, 2023. 82-year-old female seen on the general medical floor, room 472. Currently, the patient appears to be resting comfortably in bed. She is not manifesting any signs or symptoms of respiratory distress. She continues on oxygen at 2 L. She has no specific complaints today. In addition, she is getting updraft treatments, with albuterol sulfate and ipratropium bromide, Symbicort, and Solu- Medrol. Current labs include a white count 11.78, hemoglobin 11.3, hematocrit 37.2, and a normal platelet count. Sodium 143, potassium 3.5, chlorides 98, CO2 34, BUN 28, creatinine 0.6. Glucose is 227. Calcium is 9.1. Blood cultures are currently negative. No recent chest x-ray. Objective - Vital Signs Vital signs: Vital Signs Temp 98.0 F 12/11/23 07:13 Pulse 85 12/11/23 12:11 Resp 20 12/11/23 08:15 BP 164/79 12/11/23 07:13 Pulse Ox 96 12/11/23 07:13 FiO2 Intake & Output 12/10/23 12/11/23 12/11/23 18:59 06:59 18:59 Output Total 1800 500 Balance -1800 -500 Weight 54.5 kg Output: Urine 1800 500 Other: Voiding Method External Catheter External Catheter External Catheter - Exam No acute distress, oriented 3. Currently on 2 L. HEENT examination is grossly unremarkable. Mucous membranes are moist. No oral lesions. Neck supple. Full range of motion. No adenopathy thyromegaly or neck vein distention. Cardiovascular examination reveals regular rhythm rate. S1-S2 normal. No S3 or S4. No discernible murmur noted. Heart rate 85 bpm. Heart sounds are distant. Lungs reveal minimal basilar crackles. Few scattered rhonchi. Breath sounds are equal bilaterally. No wheezes. Abdomen soft bowel sounds are heard. No masses or tenderness. Extremities are intact. No cyanosis clubbing or edema. Skin is without rash or lesion. Neurologic examination is brief but nonfocal. - Labs CBC & Chem 7: 12/11/23 06:21 12/11/23 06:21 Labs: Abnormal Lab Results - Last 24 Hours (Table) 12/10/23 12/10/23 12/11/23 Range/Units 16:46 20:14 05:50 WBC (4.50-10.00) X 10*3/uL Hgb (12.0-15.0) g/dL MCH (27.0-32.0) pg MCHC (32.0-37.0) g/dL RDW (11.5-14.5) % Immature Gran # (0.00-0.04) X 10*3/uL Neutrophils # (1.80-7.70) X 10*3/uL Lymphocytes # (0.90-5.00) X 10*3/uL Eosinophils # (0.04-0.35) X 10*3/uL Carbon Dioxide (21.6-31.8) mmol/L BUN (9.0-27.0) mg/dL BUN/Creatinine Ratio (12.00-20.00) Ratio Glucose (70-110) mg/dL POC Glucose (mg/dL) 249 H 276 H 190 H (70-110) mg/dL 12/11/23 12/11/23 12/11/23 Range/Units 06:21 06:21 11:30 WBC 11.78 H (4.50-10.00) X 10*3/uL Hgb 11.3 L (12.0-15.0) g/dL MCH 26.5 L (27.0-32.0) pg MCHC 30.4 L (32.0-37.0) g/dL RDW 19.0 H (11.5-14.5) % Immature Gran # 0.10 H (0.00-0.04) X 10*3/uL Neutrophils # 10.71 H (1.80-7.70) X 10*3/uL Lymphocytes # 0.33 L (0.90-5.00) X 10*3/uL Eosinophils # 0 L (0.04-0.35) X 10*3/uL Carbon Dioxide 33.7 H (21.6-31.8) mmol/L BUN 28.4 H (9.0-27.0) mg/dL BUN/Creatinine Ratio 47.33 H (12.00-20.00) Ratio Glucose 178 H (70-110) mg/dL POC Glucose (mg/dL) 227 H (70-110) mg/dL Assessment and Plan Assessment: Acute hypoxemic respiratory failure secondary to acute exacerbation of diastolic congestive heart failure, and COPD exacerbation. Recent hospitalization with discharge on 11/21/2023 from a syncopal episode and high degree AV block status post pacemaker insertion. History of congestive heart failure. Hypertension. Hyperlipidemia. Diabetes mellitus. Hearing disorder. Breast cancer status post right mastectomy and radiation. History of anxiety/depression. History of chronic tobacco dependence. Plan: Plan dated December 11, 2023. Patient continues on Symbicort, updrafts, with albuterol sulfate and ipratropium bromide, and Solu-Medrol. The Solu-Medrol dose can be reduced, to 40 mg every 8 hours. Labs, x-rays, medications are reviewed. Overall prognosis remains guarded. We will continue to follow make recommendations along the way. Time with Patient: Less than 30
--- NOTE | 2023-12-11 12:28 | P.DS ---
Providers Date of admission: 12/06/23 11:47 Expected date of discharge: 12/11/23 Attending physician: Malik Lehman Consults: 12/06/23 11:47 Consult Physician Routine Consulting Provider: Adonis Keyes Consult Reason/Comments: copd Do you want consulting provider notified?: Yes Primary care physician: Malik Lehman - Discharge Diagnosis(es) (1) Artificial cardiac pacemaker Current Visit: Yes Status: Acute (2) Acute exacerbation of chronic obstructive pulmonary disease Current Visit: Yes Status: Acute (3) Pneumonia Current Visit: Yes Status: Acute (4) Dehydration Current Visit: No Status: Acute (5) Third degree heart block Current Visit: No Status: Acute Patient Condition at Discharge: Fair Plan - Discharge Summary New Discharge Prescriptions: No Action metFORMIN HCL [Glucophage] 500 mg PO BID Albuterol Inhaler [Ventolin Hfa Inhaler] 2 puff INHALATION RT-Q4H PRN PRN Reason: Shortness Of Breath Anastrozole [Arimidex] 1 mg PO DAILY ondansetron HCL [Zofran] 8 mg PO Q8HR PRN PRN Reason: Nausea Sertraline [Zoloft] 100 mg PO DAILY Omeprazole [PriLOSEC] 20 mg PO DAILY Triamcinolone Acetonide [Nasacort] 1 spr EA NOSTRIL DAILY Ipratropium-Albuterol Nebulize [Duoneb 0.5 mg-3 mg/3 ml Soln] 3 ml INHALATION RT-Q6H PRN PRN Reason: Shortness Of Breath Or Wheezing Alendronate Sodium [Fosamax] 70 mg PO MO Fluticasone Propion/Salmeterol [Wixela 250-50 Inhub] 1 puff INHALATION RT-BID Nutritional Juice 1 dose PO BID@1200,1800 Bismuth Subsalicylate [Pepto-Bismol] 524 mg PO Q4H PRN PRN Reason: Diarrhea/Upset Stomach Furosemide [Lasix] 20 mg PO DAILY@0800 lisinopriL [Zestril] 5 mg PO DAILY@0800 Nicotine 21Mg/24Hr Patch [Habitrol] 1 patch TRANSDERM DAILY Potassium Chloride ER [K-Dur 10] 10 meq PO DAILY@0800 oxyBUTYnin chloride [oxyBUTYnin chloride ER] 5 mg PO DAILY Atorvastatin [Lipitor] 40 mg PO HS Aspirin 81 mg PO DAILY tab Melatonin 10 mg PO HS Discharge Medication List Albuterol Inhaler [Ventolin Hfa Inhaler] 2 puff INHALATION RT-Q4H PRN 05/10/19 [History] metFORMIN HCL [Glucophage] 500 mg PO BID 05/10/19 [History] Anastrozole [Arimidex] 1 mg PO DAILY 04/26/20 [History] Ipratropium-Albuterol Nebulize [Duoneb 0.5 mg-3 mg/3 ml Soln] 3 ml INHALATION RT-Q6H PRN 05/28/20 [History] Omeprazole [PriLOSEC] 20 mg PO DAILY 05/28/20 [History] Sertraline [Zoloft] 100 mg PO DAILY 05/28/20 [History] Triamcinolone Acetonide [Nasacort] 1 spr EA NOSTRIL DAILY 05/28/20 [History] ondansetron HCL [Zofran] 8 mg PO Q8HR PRN 05/28/20 [History] Alendronate Sodium [Fosamax] 70 mg PO MO 11/18/23 [History] Atorvastatin [Lipitor] 40 mg PO HS 11/18/23 [History] Fluticasone Propion/Salmeterol [Wixela 250-50 Inhub] 1 puff INHALATION RT-BID 11/18/23 [History] oxyBUTYnin chloride [oxyBUTYnin chloride ER] 5 mg PO DAILY 11/18/23 [History] Aspirin 81 mg PO DAILY tab 11/22/23 [Rx] Bismuth Subsalicylate [Pepto-Bismol] 524 mg PO Q4H PRN 12/06/23 [History] Furosemide [Lasix] 20 mg PO DAILY@0800 12/06/23 [History] Melatonin 10 mg PO HS 12/06/23 [History] Nicotine 21Mg/24Hr Patch [Habitrol] 1 patch TRANSDERM DAILY 12/06/23 [History] Nutritional Juice 1 dose PO BID@1200,1800 12/06/23 [History] Potassium Chloride ER [K-Dur 10] 10 meq PO DAILY@0800 12/06/23 [History] lisinopriL [Zestril] 5 mg PO DAILY@0800 12/06/23 [History] Follow up Appointment(s)/Referral(s): Malik Lehman Jr, DO [Primary Care Provider] - 1-2 days Discharge Disposition: DC/[facility] INTERMEDIATE CARE FAC
[2023-12-11] MEDS ORDERED: methylPREDNISolone SOD SUCCI 40 MG/ML 1 ML VIAL IV SCH (16:00)
[2023-12-11 16:50] VITALS: BP 137/77; PULSE 83; RESP 17; TEMP 98.2
== END 2023-12-11 17:15 | DRG 280 ==
LOC: EC 10:02 → 4SSUR 11:47
PROVIDERS: ADMIT Family Medicine; ATTEND Family Medicine
DX: I11.0 Hypertensive heart disease with heart failure (principal); I50.33 Acute on chronic diastolic (congestive) heart failure; I21.A1 Myocardial infarction type 2; J18.9 Pneumonia, unspecified organism; J96.21 Acute and chronic respiratory failure with hypoxia; I44.2 Atrioventricular block, complete; J44.0 Chronic obstructive pulmonary disease with (acute) lower respiratory infection; J44.1 Chronic obstructive pulmonary disease with (acute) exacerbation; C50.919 Malignant neoplasm of unspecified site of unspecified female breast; E11.9 Type 2 diabetes mellitus without complications; E78.5 Hyperlipidemia, unspecified; E86.0 Dehydration; F17.200 Nicotine dependence, unspecified, uncomplicated; F32.A Depression, unspecified; F41.0 Panic disorder [episodic paroxysmal anxiety]; H91.90 Unspecified hearing loss, unspecified ear; Z71.6 Tobacco abuse counseling; Z79.811 Long term (current) use of aromatase inhibitors; Z79.82 Long term (current) use of aspirin; Z79.83 Long term (current) use of bisphosphonates; Z79.84 Long term (current) use of oral hypoglycemic drugs; Z79.899 Other long term (current) drug therapy; Z85.3 Personal history of malignant neoplasm of breast; Z90.11 Acquired absence of right breast and nipple; Z95.0 Presence of cardiac pacemaker; Z99.81 Dependence on supplemental oxygen; Z11.52 Encounter for screening for COVID-19
CPT/HCPCS: 36415; 71045; 80048; 80053; 83605; 83735; 83880; 84100; 84145; 84484; 85025; 85610; 85730; 87040; 87449; 87635; 93005; 93308; 94640; 94760; 96361; 96365; 96366; 96367; 96368; 96375; 96376; 99291

== ENCOUNTER → 2024-02-03 | Outpatient (CLI) | payer MEDICARE, OTHER ==
--- NOTE | 2024-02-03 12:38 | XR ---
EXAMINATION TYPE: XR shoulder complete LT DATE OF EXAM: 02/03/2024 CLINICAL HISTORY: pain COMPARISON: NONE TECHNIQUE: Three views of the left shoulder are obtained. FINDINGS: There is no acute fracture/dislocation evident. The acromioclavicular and glenohumeral rayo int spaces appear within normal limits. The visualized ribs are intact and unremarkable. IMPRESSION: 1. There is no acute fracture or dislocation. ICD 10 NO FRACTURE, INITIAL EVALUATION
== END | disposition home or self-care (01) ==
LOC: RADXRMAIN 11:49
PROVIDERS: ATTEND Family Medicine
DX: M25.512 Pain in left shoulder (principal)

== ENCOUNTER → 2024-06-01 | Outpatient (CLI) | payer MEDICARE, OTHER ==
--- NOTE | 2024-06-01 14:24 | MM ---
Reason for Exam: Hx of breast cancer, mastectomy. Last screening mammogram was performed 12 month(s) ago. Patient History: Menarche at age 12. First Full-Term at age 22. Postmenopausal. Breast cancer, age 78. Previous chest radiation therapy. Mastectomy on the Right side. 06/09/2019, Malignant Core Biopsy on the right side. 06/09/2019, Malignant Core Biopsy on the right side. Radiation Therapy, right. Maternal grandmother had breast cancer. Niece had breast cancer, age 50. Prior Study Comparison: 05/26/2021 Left Diagnostic Mammogram, [facility]. 05/28/2022 Left MG 3D diag mammo w/cad LT, [facility]. 05/31/2023 Left MG 3D diag mammo w/cad LT, [facility]. Tissue Density: Left: There are scattered areas of fibroglandular density. Findings: Analyzed By CAD. No new suspicious masses, calcifications or distortions. Benign-appearing calcifications left breast. Overall Assessment: Benign, BI-RAD 2 Management: Screening Mammogram of the left breast in 1 year. Results were given to the patient verbally at the time of exam. Patient should continue monthly self-breast exams. A clinical breast exam by your physician is recommended on an annual basis. This exam should not preclude additional follow-up of suspicious palpable abnormalities. Note on Marilyn scores and lifetime risk: 1. A Marilyn score greater than 3% is considered moderate risk. If this is the case, consider specialist referral to assess eligibility for a risk reducing agent. 2. If overall lifetime risk for the development of breast cancer is 20% or higher, the patient may qualify for future screening with alternating mammogram and breast MRI. [facility], , 06/01/2024 1:53 PM. Electronically signed and approved by: Adonis Roman DO
== END | disposition home or self-care (01) ==
LOC: RADMAMWWP 13:34
PROVIDERS: ATTEND Surgery
DX: Z85.3 Personal history of malignant neoplasm of breast (principal); Z78.0 Asymptomatic menopausal state; Z80.3 Family history of malignant neoplasm of breast; R92.322 Mammographic fibroglandular density, left breast
CPT/HCPCS: 77065; G0279; 77061

== ENCOUNTER → 2024-07-21 | Outpatient (CLI) | payer MEDICARE, OTHER ==
[2024-07-21 13:48] VITALS: BP 146/99; PULSE 71; RESP 16; TEMP 98.3
--- NOTE | 2024-07-21 14:12 | P.PN ---
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 Pathology revealed a grade a 9 cm x 6.5 cm lesion of the right breast. She had 7 nodes removed in one node was positive for cancer. Postprocedure she developed a seroma at the mastectomy site. She had this aspirated on several occasions and debrided. She is on anastrozole. She underwent radiation therapy. She did not have chemotherapy. She had an oncotype dx performed which revealed a low score of 15. She was started on anastrozole in November 2019. She completed her radiation on . She had a left breast mammogram which was BIRADS 2. She is not complaining of any lumps masses or nodules of concern in the left breast and no lesions of concern on the right chest wall. note 10-08-23 reviewed radiation oncology She fell about 3 months ago, she needed a pace-maker, she was a medilodge for three months, and the lymphedema returned in her right arm She is complaining of pain both shoulders, and swelling right arm Family history: Maternal grandmother: Questionable breast cancer Niece: Breast cancer Father: Colon cancer Mother: Lung cancer Sister: Lymphoma which spread to her lungs Hormonal history: Menarche: 13 , breast-fed negative First live at 22 Minute the process: Surgical at 34 Preoperative control pills: 2 years Hormones: His estrogen shots for about 2 years Past surgical history: cholecystectomy Tonsillectomy Appendectomy Back surgery right mastectomy and AND left ear surgery skin cancer left knee replacement September 2022 pacemaker placed Past medical history: Diabetes Hypertension COPD Breast Mass. Skin changes lower legs/scales follows with dermatology Social history: Smoke: Stopped 3 month ago used to smoke 1 pack per day for 40 years Alcohol: Negative Drugs: Negative Review of systems: Constitutional: Night sweats HEENT: Macular hole Lungs: COPD Heart: Hypertension GI: Negative : Bladder leakage Musculoskeletal: Arthritis Neurologic: Decreased strength in lower extremities Integument: Skin scales; skin changes related to radiation Psychiatric: Depression Hematologic: Negative ALLERGIES: Sinus infections Objective - Vital Signs Vital signs: Vital Signs Temp 98.3 F 07/21/24 13:46 Pulse 71 07/21/24 13:46 Resp 16 07/21/24 13:46 BP 146/99 07/21/24 13:46 Pulse Ox 97 07/21/24 13:46 FiO2 Intake & Output 07/20/24 07/21/24 07/21/24 18:59 06:59 18:59 Weight 61.235 kg - Constitutional General appearance: Present: cooperative - EENT Eyes: Present: EOMI ENT: Present: hard of hearing - Neck Neck: Present: normal ROM - Respiratory Respiratory: bilateral: CTA - Cardiovascular Rhythm: regular Heart sounds: normal: S1, S2 - Integumentary Integumentary: Present: normal turgor - Musculoskeletal Musculoskeletal: Present: gait normal - Psychiatric Psychiatric: Present: A&O x's 3, appropriate affect, intact judgment & insight - Additional findings Additional findings: Breast Exam: BRA: sports bra M inspection: no recurrence right chest wall, left breast grade 3 ptosis palpation: right breast: Patient is status post right mastectomy right chest wall no evidence of any recurrent disease Right axilla: No adenopathy of concern Left breast: multi-positional exam does not reveal any lumps masses or nodules of concern in the left breast Left axilla: No adenopathy of concern lymphedema right arm Assessment and Plan Assessment: Impression: Diabetes Hypertension COPD Skin changes lower legs/scales follows with dermatology Patient with mild lymphedema right arm in the past, now resolved stage IIA right breast invasive ductal cancer left breast mammogram 06-01-24 BIRAD 2 lymphedema right arm Plan: No evidence of recurrent cancer lymphedema right arm/ appointment with physical therapy Patient is not interested in breast prosthesis at this time patient on anestrazole following with Dr. Lua follow with Dr. Lerner follow up in 6 months left mammogram in May 2025 CC: Dr. Lehman
== END ==
LOC: WWCWWP 13:34
PROVIDERS: ATTEND Surgery
DX: C50.911 Malignant neoplasm of unspecified site of right female breast (principal); E11.9 Type 2 diabetes mellitus without complications; I10 Essential (primary) hypertension; J44.9 Chronic obstructive pulmonary disease, unspecified; Z87.891 Personal history of nicotine dependence

== ENCOUNTER → 2024-10-25 | Outpatient (CLI) | payer MEDICARE, OTHER ==
--- NOTE | 2024-10-28 19:55 | CT ---
EXAMINATION TYPE: CT lumbar spine wo con DATE OF EXAM: 10/25/2024 11:32 AM COMPARISON: None. CLINICAL INDICATION: Female, 83 years old with history of M48.062 L SPINAL STENOSIS M43.16 L SPONDYLO LISTHES, Spinal stenosis, spondylolisthesis, pain TECHNIQUE: CT of the lumbar spine is performed on a spiral scan at 3 mm thick sections. Reconstructed images are performed in the coronal and sagittal planes. Contrast used: mL of , (none if empty) Oral contrast used: (none if empty) CT DLP: 530.6 mGycm, Automated exposure control for dose reduction was used. FINDINGS: T11-T12: No focal disc herniation or significant disc bulge is evident. No spinal canal stenosis or neural foraminal stenosis is present. T12-L1: No focal disc herniation or significant disc bulge is evident. No spinal canal stenosis or neural foraminal stenosis is present. L1-L2: There is loss of disc height this level. Vacuum disc phenomenon is present. No focal disc raymundo iation. No spinal canal stenosis. Some asymmetric disc bulging into the left lateral direction may co ntribute to some moderate foraminal narrowing. L2-L3: There is loss of disc height at this level. Vacuum disc phenomenon is present. Residual disc b ulging and endplate osteophyte complex has mild anterior thecal sac flattening. No spinal canal steno sis is present. There is mild bilateral foraminal stenosis. L3-L4: Plate spurring is present. This has mild anterior thecal sac compression. No residual disc is evident. There is loss of disc height and vacuum disc phenomenon. No spinal canal stenosis is present . There is moderate left and severe right foraminal stenosis. Correlate for radicular symptoms. L4-L5: There is loss of disc height at this level. There is a grade 1 spondylolisthesis. No spinal ca nal stenosis is present. Laminectomy has been performed. Very severe left and severe right foraminal stenosis is present. Correlate with radicular symptoms. L5-S1: No focal disc herniation or significant disc bulge. Mild facet hypertrophy is present. No spin al canal stenosis is present. Neural foramen are patent. IMPRESSION: 1. Very severe left foraminal stenosis L4-5. Correlate with radicular symptoms. Severe foraminal sten osis is also present L4-5 on the right and L3-4 on the right. 2. L2-3 through L4-5 degenerative disc changes with vacuum disc phenomenon discussed above. 3. Grade 1 spondylolisthesis of L4 anteriorly on L5 [facility], , 10/28/2024 7:53 PM
== END | disposition home or self-care (01) ==
LOC: RADCTMAIN 10:40
PROVIDERS: ATTEND Physical Medicine & Rehabilitation
DX: M48.062 Spinal stenosis, lumbar region with neurogenic claudication (principal); M43.16 Spondylolisthesis, lumbar region; M51.16 Intervertebral disc disorders with radiculopathy, lumbar region; M47.26 Other spondylosis with radiculopathy, lumbar region; M48.061 Spinal stenosis, lumbar region without neurogenic claudication
CPT/HCPCS: 72131